=== PATIENT | male | born 1990 | race Caucasian/White ===

== ENCOUNTER 2019-06-27 11:07 | Inpatient (IN) ==
[~2019-06-27 11:07] MED LIST: ETOMIDATE 2 MG/ML 20 ML VIAL IV ONE; MIDAZOLAM HCL 5 MG/ML VIAL IV ONE
[2019-06-27] MEDS ORDERED: ICU PROTOCOL FOR HYPERGLYCEMIA PRN (11:34)
[2019-06-27] MEDS ORDERED: RAPID SEQUENCE INDUCTION BAG ONE (16:00)
[2019-06-27] MEDS ORDERED: LIDOCAINE 2% 20 MG/ML 5 ML SYR IV ONE (16:02)
[2019-06-27] MEDS ORDERED: fentaNYL citrate 100 MCG/2 ML VIAL IV PRN (16:03)
--- NOTE | 2019-06-27 16:18 | History & Physical Report ---
Date of Service June 27, 2019 Assessment & Plan (1) DKA (diabetic ketoacidoses): Transfer from [facility] for DKA -ICU admit -Glycemic Management per ICU protocol -Monitor labs (2) Pneumonia: (3) Acute respiratory failure with hypoxemia: Upon arrival to ICU from [facility] for pneumonia and hypoxia. Found to in hypoxic respiratory failure upon ICU arrival -Intubated and mechanical ventilation per merchandise appraiser -Blood cultures pending -Antibiotics per merchandise appraiser (4) History of narcotic addiction: Prior history opiod abuse. Was on buprenorphine in past. PDMP reviewed: buprenorphine 8mg, 12mg daily. Qty: 21, 14 day supply on 04/10/2019; No Further prescriptions on file since that date DVT Prophylaxis -Per ICU Admitted ICU Full Code Follows with Dr Dewey Phillips for routine care Pt was seen and care coordinated with Dr Goncalves. See addendum History of Present Illness Chief Complaint: DKA Primary Care Provider: Dr Dewey Phillips Pt is 28 y/o M with PMH narcotic use, tobacco use presented to [facility] ICU as transfer from [facility] for DKA, pneumonia, hypoxia. History obtained from staff and records. Reported pt presented to [facility] for weakness. Was found to have pneumonia right lung on CXR. Upon arrival at [facility] pt noted to be in hypoxic respiratory failure and was intubated. History of hospitalization at [facility] 05/06/18-05/09/18 for ?new onset DM, HHS vs DKA. It is reported pt is homeless. Pt's mother present currently and reports that she believes pt was on long and short acting insulin in the past however thinks that pt has not been taking for at least a couple of months. She states pt was on buprenorphine in past but unsure if still taking. PDMP reviewed: buprenorphine 8mg, 12mg daily. Qty: 21, 14 day supply on 04/10/2019. No report of prescriptions since that time. Allergies Allergy/AdvReac Type Severity Reaction Status Date / Time acesulfame Allergy Unknown RASH,N/V Verified 04/26/16 14:30 buprenorphine Allergy Unknown RASH,N/V Verified 04/26/16 14:30 Home Medications Home Medications Medication Instructions Recorded Confirmed Type buprenorphine HCl 8 mg SUBLINGUAL DAILY 12/23/18 12/23/18 History Past Med/Surg History Medical History Bleeding hemorrhoid Finger contusion R hand, pointer finger. 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 Feels Safe at Home: Yes Smoking Status: Current every day smoker Tobacco Type: cigarettes ; Cigarettes Per Day: 30 ; Hx Alcohol Use: No Hx Substance Use: Yes substance use type: methamphetamine Review of Systems Review of Systems: Unobtainable due to endotracheal tube Physical Exam Physical Exam: General: ill appearing, disheveled, thin male Head: normocephalic, atraumatic Eyes: PERRL, EOM's intact, conjunctiva non-injected, anicteric ENT: normal inspection external ears, nose, +ET tube in place Neck: supple, trachea midline Lungs: +intubated, lung sounds present throughout CV: tachycardia, 112, regular rhythm, no murmur, no pretibial edema Abd: normal BS, soft Ext: no cyanosis Neuro: Currently sedated and intubated Skin: warm, dry; anterior knees with erythema, heel pads in place Supervising Physician Co-Signing Physician Notes I, Dr. Dwayne Goncalves, have seen and examined the patient with physician technical administrative assistant after he was intubated by ICU physician and would like to comment that On exam: General: sedated HEENT: neck has central line, intubated, has oral gastric tube that is suctioning secretions Lungs: intubated and on mechanical ventilation Heart: tachycardic Abdomen: soft, abdomen, bowel sounds audible Acute respiratory failure with hypoxia Multilobar pneumonia (Pneumonia of both lungs due to suspected infectious organism) Diabetic Ketoacidosis with coma associated with diabetes mellitus due to underlying condition History of opioid abuse -history of Suboxone use in the past but unclear whether there is recent use -initially patient presented to [facility] and [facility] ICU physician was notified about the need for patient to be transferred to [facility] for intensive care -intubated on arrival from [facility] to the [facility] ICU -CXR: There is dense right lower lung zone consolidation. There is also evidence for loss of left diaphragmatic contour suggesting left lower lobe atelectasis/consolidation -patient already received azithromycin at [facility], ICU physician to give IV Zosyn and IV Vancomycin on 06/27/2019 and plans to continue regimen of IV Zosyn and IV Vancomycin with azithromycin on 06/28/2019 -management of mechanical ventilator as per IC physician -glucose management and correction of acidosis with IV fluids, insulin, and close monitoring or replacements or electrolytes in the ICU My hospitalist colleague will be following the starting on 06/28/2019
[2019-06-27] MEDS ORDERED: MIDAZOLAM HCL 5 MG/ML 1 ML VIAL ONE (16:23)
[2019-06-27] MEDS ORDERED: DC ALL PREVIOUSLY ORDERED DIABETES MEDS ONE (16:34)
[2019-06-27] MEDS ORDERED: PIPERACILL/TAZOBAC CONSULT ACTIVE PRN (16:36)
[2019-06-27] MEDS ORDERED: VANCOMYCIN CONSULT ACTIVE PRN (16:41)
[2019-06-27] MEDS ORDERED: VANCOMYCIN HCL 1,250 MG in SODIUM CHLORIDE 0.9% 500 ML IV ONE (16:41)
[2019-06-27] MEDS ORDERED: SODIUM CHLORIDE 0.9% 1000ML 1,000 ML IV SCH (16:45)
[2019-06-27] MEDS ORDERED: PIPERACILLIN/TAZOBACTAM 4.5 GM in DEXTROSE 5% 100 ML IV ONE (17:00)
--- NOTE | 2019-06-27 17:00 | Critical Care Consultation ---
Date of Consultation June 27, 2019 Assessment & Plan (1) Acute respiratory failure with hypoxemia: -- Sepsis with Acute Hypoxic respiratory failure Likely secondary to multilobar pneumonia If the patient broad-spectrum antibiotics, vancomycin plus Zosyn along with atypical coverage with azithromycin. Patient already got azithromycin at the other hospital will start here from tomorrow Patient will need intubation given his respiratory status. Follow-up septic work-up, ESR, CRP, sputum culture, Blood culture, UA -- Diabetic ketoacidosis Patient is type I diabetic Noncompliant with insulin plus sepsis secondary to multilobar pneumonia Continue with insulin drip until anion gap closes Decreasing blood glucose no more than 100 in an hour Replace potassium IV when potassium level between 3.3-5.3 BMP every 4 hours Continue with IV fluids -- HAGMA Delta-delta: 2, metabolic acidosis plus alkalosis Metabolic acidosis likely secondary to diabetic ketoacidosis, urine lytes Follow up ABG Monitor --History of opioid abuse Unsure the patient is on Suboxone --Secondary hypercoagulable state Lovenox I have personally spent 60 minutes of critical care time in the direct management of this patient. This is a life/limb threatening event. This includes time spent evaluating patient, direct bedside care, chart review, placing orders, interpretation of diagnostic studies, discussion with consultants, patient, and family members, as well as other required patient management activities. This time is exclusive of all separately billable procedures, and teaching time and separate from and in addition to any other critical care service time. Please note the above document was generated using voice recognition software. It may contain grammatical, syntax or spelling errors. (2) DKA (diabetic ketoacidoses): History of Present Illness Attending Physician: Dwayne Goncalves MD History of Present Illness 28-year-old male with past medical history of opioid addiction on Suboxone, type I diabetic history of noncompliance with insulin currently homeless was sent from ER of another hospital as patient was found to be in DKA and severe pneumonia on the right side to be on insulin drip. When the patient arrived at the ICU here he was saturating 89% on 100% nonrebreather tachypneic in the 30s. Lethargic. Patient complained of chest pain and coughing. Patient stated that he has been not feeling well since the last 3 to 4 days. Positive subjective fever and chills. Denies any dysuria, no diarrhea. Positive polyuria, polydipsia.no headache, no dizziness. Neck 9 at presentation his blood sugar was 220. Patient's ABG pH at that the hospital was 7.29 Plan was made to emergently intubate the patient given the declining respiratory and mental status. Patient was made aware that this will be done and he agreed verbally. Social history: History of opioid abuse currently on Suboxone, active smoker. Does not work right now. Homeless. Social alcohol Allergies Allergy/AdvReac Type Severity Reaction Status Date / Time acesulfame Allergy Unknown RASH,N/V Verified 04/26/16 14:30 buprenorphine Allergy Unknown RASH,N/V Verified 04/26/16 14:30 Home Medications Home Medications Medication Instructions Recorded Confirmed Type buprenorphine HCl 8 mg SUBLINGUAL DAILY 12/23/18 12/23/18 History Patient History Medical History Bleeding hemorrhoid Finger contusion R hand, pointer finger. 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 Feels Safe at Home: Yes Smoking Status: Current every day smoker Tobacco Type: cigarettes ; Cigarettes Per Day: 30 ; Hx Alcohol Use: No Hx Substance Use: No (Denies.) Review of Systems Review of Systems: All systems reviewed & are unremarkable except as noted in HPI & below Physical Exam Physical Exam: Constitutional: Respiratory distress with desaturation HEENT: EOMI, PERRLA, dry mucous membranes Respiratory system: Decreased air entry on the left side, positive crackles right lower lobe, no wheeze, no rhonchi CVS: S1-S2 positive, no murmurs or gallops, tachycardia Abdomen: Soft, nontender, nondistended, positive bowel sounds x4 Extremities: +2 pulses bilaterally radialis/ dorsalis pedis, no cyanosis, no edema Neuro: Awake alert oriented x3 Psych: Normal mood and affect G/U: No [place] Skin: no rashes, warm and dry Lymphatic: no cervical or axillary lymphadenopathy Results & Data ([facility]) Laboratory Results EKG: Sinus rhythm, sinus tachycardia, normal axis, no ST-T wave changes appreciated it was done at 9:28 AM on 06/27/2019. WBC: 11.21, hemoglobin 13.7, platelet 261 creatinine 1.89 Sodium 132, potassium 3.8, chloride 94, bicarb 14 corrected anion gap of 32 ABG 7.2 [birth year]/1959% on room air Coding Level of Care Code Critical Care 1st 30-74 mins Diagnoses Acute respiratory failure with hypoxemia J96.01 DKA (diabetic ketoacidoses) E11.10 Time Spent (min) 60
--- NOTE | 2019-06-27 17:09 | XRay Report ---
XR chest 1V portable CLINICAL HISTORY: Respiratory failure. PATIENT STATUS POST INTUBATION. COMPARISON STUDY: 05/06/2019 FINDINGS: There is a nasogastric tube with its tip projected over the level the gastric cardia. There is an endotracheal tube positioned 6.1 cm above the mike. There is dense right lower lung zone con solidation. There is also evidence for loss of left diaphragmatic contour suggesting left lower lobe atelectasis/consolidation.[There is an additional opaque tube projected over the right hemithorax. Th is is likely extraneous to the patient. There are overlying cardiac leads. IMPRESSION: 1. Endotracheal tube 6.1 cm above the mike 2. Nasogastric tube with its tip at the level the gastric cardia 3. Dense right lower lung zone consolidation with air bronchograms 3. Loss of the left diaphragmatic contour indicating left lower lobe atelectasis/consolidation ACT 112: Negative or not required by law. Electronically signed by: Danny Recinos M.D. 06/27/2019 5:07 PM
[2019-06-27] MEDS ORDERED: VANCOMYCIN HCL 1,500 MG in SODIUM CHLORIDE 0.9% 500 ML IV ONE (17:15)
[2019-06-27] MEDS: fentaNYL DRIP 1,250 MCG/250 ML BAG IV SCH (17:16)
--- NOTE | 2019-06-27 17:25 | Procedure Note ---
Procedure Note Date of Service June 27, 2019 INTUBATION PROCEDURE NOTE: Attending: Dr Hammad Hobson MD Patient was evaluated and plan to intubate was made for respiratory failure. Sedative agent used: Midazolam 5 mg, etomidate 25 mg, lidocaine 100 mg, propofol 70 mg Paralysis agent used: None Emergent consent was implied given patients rapidly declining clinical status and need for airway protection. The patient was prepared in the appropriate fashion. The patient was easily pre-oxygenated by using [id number] ventilation. With help of DL grade 1 vocal cords were visualized and 7 Green[place]ic ETT was introduced on third attempt with the help of bougie to 23 cm at the lip. The bougie was removed and balloon was inflated with 10mL of air. Appropriate Colorimetric change was appreciated for at least 10 breaths. Bilateral chest rise and breath sounds were appreciated without air sounds in the epigastrium. Patient saturation was maintained all throughout the procedure. Patient tolerated the procedure well and there were no immediate complications. Chest Xray to follow for confirming placement. Coding CPT Codes Resuscitation - Resuscitation: 87396 Endotracheal Intubation, emergency ([id number]) [facility] Procedure Codes (Charges) Resuscitation Resuscitation: [id number] Endotracheal Intubation, emergency
[2019-06-27] MEDS: propofoL 1,000 MG/100 ML VIAL IV SCH ×2 (17:29→22:53)
[2019-06-27] MEDS ORDERED: POTASSIUM CHLORIDE 40 MEQ in D5W AND NSS 1,000 ML IV SCH (17:30)
[2019-06-27] MEDS ORDERED: INFLUENZA ADMINISTRATION CHARGE ONE (17:38)
[2019-06-27] MEDS ORDERED: PNEUMOCOCCAL POLYSACCHARIDES 25 MCG/0.5 ML VIAL/SYR IM ONE (17:38)
[2019-06-27] MEDS ORDERED: PNEUMOCOCCAL ADMINISTRATION CHARGE ONE (17:38)
[2019-06-27] MEDS ORDERED: INFLUENZA VIRUS QUAD VACCINE 0.5 ML SYR IM ONE (17:38)
[2019-06-27] MEDS ORDERED: PHARMACY GLYCEMIC MGMT CONSULT PRN (17:41)
[2019-06-27 17:53] LABS: Appearance Urine Clear (Clear); Bacteria Urine Automated Negative (Negative); Bilirubin Urine Negative (Negative); Blood Urine Negative (Negative); Color Urine Yellow; Glucose Urine UA 3+ (Negative); Ketones Urine 2+ (Negative); Leukocyte Esterase Urine Negative (Negative); Nitrite Urine Negative (Negative); Protein Urine 1+ (Negative); Specific Gravity Urine 1.039 (1.000-1.030); Urobilinogen Urine Negative (Negative); WBC Urine Automated 0 /hpf (0-5)
[2019-06-27 17:57] LABS: Blood Urea Nitrogen 10 mg/dl (7-18); Carbon Dioxide 23 mmol/L (21-32); Chloride 107 mmol/L (98-107); Creatinine Clr Calc Pharmacy 155.3 ml/min; Est GFR (African American) > 150.0; Est GFR (Non-African American) 136.8; Glucose 286 mg/dl (70-99); Magnesium 1.6 mg/dl (1.8-2.4); Potassium 3.8 mmol/L (3.5-5.1); Sodium 138 mmol/L (136-145)
[2019-06-27] MEDS ORDERED: PENDING D5 1/2NS+20mEq KCL IVF SCH (18:00)
[2019-06-27] MEDS ORDERED: INSULIN HUMAN REGULAR IV BOLUS 3 UNITS in SYRINGE 0 ML IV STA (18:01)
[2019-06-27 18:04] LABS: Beta-Hydroxybutyrate 21.08 mg/dl (0.2-2.81); Phosphorus 1.8 mg/dl (2.5-4.9)
[2019-06-27 18:07] LABS: Creatinine Urine Random 32.9 mg/dl; Potassium Random Urine 31.2 mmol/L; Uric Acid Urine Random 71.9 mg/dl
[2019-06-27] MEDS ORDERED: DEXTROSE 50% 50 ML SYRINGE IV PRN (18:15)
[2019-06-27] MEDS ORDERED: GLUCOSE 10 TABS/TUBE PO PRN (18:15)
[2019-06-27] MEDS ORDERED: CARBOHYDRATES FOR HYPOGLYCEMIA PO PRN (18:15)
[2019-06-27] MEDS ORDERED: GLUCAGON FOR INJ 1 MG VIAL IM PRN (18:15)
[2019-06-27] MEDS ORDERED: GLUCOSE 40% GEL 15 GM TUBE PO PRN (18:15)
[2019-06-27] MEDS: INSULIN REGULAR 250 UNITS in SODIUM CHLORIDE 0.9% 247.5 ML IV SCH (18:19)
[2019-06-27] MEDS ORDERED: POTASSIUM CHLORIDE 40 MEQ in SODIUM CHLORIDE 0.9% 1000ML 1,000 ML IV SCH (18:30)
[2019-06-27] MEDS: POTASSIUM CHLORIDE 40 MEQ in D5W AND NSS 1,000 ML IV SCH ×2 (18:50→22:52)
--- NOTE | 2019-06-27 19:43 | Pharmacy Report ---
Pharmacy Abx Initial Consult - Date of Service June 27, 2019 - Pharmacy Dosing Scope Date of Consult: 06/27/19 Consultation requested by: Dr. Hobson Pharmacy is consulted to initiate vancomycin and Zosyn IV dosing therapy, order appropriate labs and adjust drug dose/frequency. - Subjective The patient is a 28 year old M admitted on 06/27/19 15:47. - Objective Height: 6 ft 1 in Weight: 59.421 kg Vital Signs (Past 12hrs): Vital Signs Temp Pulse Pulse Resp BP Pulse Ox 06/27/19 17:29 22 06/27/19 17:24 37.2 C 111 H 24 85/55 L 85 L 06/27/19 17:06 119 H 22 100 Lab Results (24hrs): Laboratory Tests (24 Hours) 06/27/19 06/27/19 17:26 17:26 ESR > 90 H Creatinine 0.59 L Est Cr Clr Drug Dosing 155.3 C-Reactive Protein 32.20 H Micro Results: 06/27/19 17:28 Aerobic Blood Culture - Pending Blood Anaerobic Blood Culture - Pending 06/27/19 17:28 Aerobic Blood Culture - Pending Blood Anaerobic Blood Culture - Pending 06/27/19 Unknown Gram Stain - Pending Sputum,Vent Suction Sputum Culture - Pending - Assessment & Plan Assessment 28 year old M receiving empiric vancomycin, Zosyn, and azithromycin for sepsis secondary to multilobar pneumonia. Patient transferred from [facility] due to acute respiratory failure/DKA and was subsequently intubated upon admission to ICU. Patient received initial dose of azithromycin at [facility] on 06/27/19. MRSA nasal swab negative. Microbiology: Blood x 2 (06/27): pending Sputum (06/27): pending Plan Vancomycin IV * Estimated PK Parameters: Vd 0.7 L/kg, Jhon > 0.104 hr-1, t1/2 < 6.6 hr * Loading dose: 1500 mg (25 mg/kg) * Maintenance dose: 1000 mg IV (20 mg/kg) every 8 hours * Goal trough level for pneumonia : 15 to 20 mcg/mL * Trough level ordered for 06/28/19 @1330 prior to 4th dose Piperacillin/tazobactam * 4.5 g bolus administered over 30 minutes, then 4.5 g IV extended infusion every 8 hours for CrCl greater than 20 mL/min * Aggressive dosing selected due to critically ill status Azithromycin * 500 mg IV q24h - appropriate based on pneumonia indication Pharmacy will continue to follow and will adjust dose/frequency as necessary. Thank you.
--- NOTE | 2019-06-27 19:51 | Pharmacy Report ---
Glycemic Control Consultation - Date of Service June 27, 2019 - Scope Scope: Glycemic Pharmacist consulted by Dr Hobson on 06/27/2019 for glycemic control and to write orders per [facility] inpatient glycemic control protocol - Objective Weight: 59.421 kg Accuchecks BSG (last 24hrs): 06/27/19 06/27/19 06/27/19 16:02 17:24 17:26 Glucose 286 H POC Glucose 226 H 263 H 06/27/19 06/27/19 06/27/19 18:03 18:06 19:08 Glucose POC Glucose 404 H* 283 H 266 H Laboratory Data (last 24hrs): 06/27/19 06/27/19 17:26 17:28 Potassium 3.8 Carbon Dioxide 23 Anion Gap 8.0 Creatinine 0.59 L Est Cr Clr Drug Dosing 155.3 Osmolality 299 Beta-Hydroxybutyric Acd 21.08 H - Recent Pertinent Medications Outpatient Anti-diabetic Regimen: * Novolog + lantus * A1c = pending, A1C from 2018 was >16.9 - Assessment & Plan Assessment & Plan: ASSESSMENT: * Pt is a 28yo M type I diabetic. P/w ARDS, DKA. He was subsequently intubated due to decompensating respiratory status. He has filled novolog + lantus per the outpt records. Unknown doses. Most recent PRP yields BHB of 21. AG, bicarbonate all WNL. PLAN FOR INPATIENT GLYCEMIC CONTROL: * Starting IV insulin infusion per moderate stress protocol * Goal Range 150 - 250 mg/dl * In the critical care setting, continuous IV insulin infusion has been shown to be the best method for achieving glycemic targets. * Basal insulin * Lantus 15u X1 tonight * Please note that the plan above was derived based on current level of insulin resistance and hospital stress. These recommendations are appropriate for inpatient admission only. Plan of care upon discharge will need to be reassessed to avoid potential outpatient hypo/hyperglycemia. Thank you.
[2019-06-27] MEDS ORDERED: MAGNESIUM SULFATE / D5W 1 GM/100 ML BAG IV STA (19:54)
[2019-06-27] MEDS: ACETAMINOPHEN 325 MG TAB PO PRN (20:32)
[2019-06-27 20:37] LABS: BUN Creatinine Ratio 15.4 (10-20); Blood Urea Nitrogen 9 mg/dl (7-18); Calcium 8.4 mg/dl (8.5-10.1); Carbon Dioxide 24 mmol/L (21-32); Chloride 111 mmol/L (98-107); Creatinine Clr Calc Pharmacy 150.2 ml/min; Est GFR (African American) > 150.0; Glucose 280 mg/dl (70-99); Magnesium 1.4 mg/dl (1.8-2.4); Potassium 3.5 mmol/L (3.5-5.1); Sodium 140 mmol/L (136-145)
[2019-06-27 20:51] LABS: Phosphorus 1.2 mg/dl (2.5-4.9)
[2019-06-27] MEDS ORDERED: POTASSIUM PHOS 3 MMOL/1 ML INFUSION IV STA ×2 (20:57→21:03)
[2019-06-27] MEDS ORDERED: INSULIN GLARGINE SOLOSTAR 100 UNITS/ML 3 ML PEN SC ONE (21:00)
[2019-06-27] MEDS ORDERED: MAGNESIUM SULFATE / D5W 1 GM/100 ML BAG IV ONE (21:00)
[2019-06-27] MEDS ORDERED: POTASSIUM PHOSPHATE 21 MMOL in SODIUM CHLORIDE 0.9% 500 ML IV STA (21:19)
[2019-06-27] MEDS: INSULIN ASPART 100 UNITS/ML 3 ML PEN SC SCH (22:15)
[2019-06-27] MEDS: PIPERACILLIN/TAZOBACTAM 4.5 GM in DEXTROSE 5% 100 ML IV SCH (22:55)
[2019-06-27] MEDS ORDERED: ALBUT/IPRATROP 3MG/0.5MG NEB 3 ML VIAL NEB STA ×2 (23:05→23:16)
--- NOTE | 2019-06-27 23:30 | Communication Note ---
Date of Service: June 27, 2019 At approximately 2300, the patient was noted to desaturate into the high 70s. I did assess the patient at bedside. He remains on the same ventilator settings with FiO2 of 70%. His tidal volumes have decreased to the high 200s/low 300s. On assessment, the patient has no increasing work of breathing. His respiratory rate is consistent with that of his settings. He is hypoxic with a pulse oximetry reading of low 80%'s. Patient's FiO2 was increased to 100%. Respiratory therapy was summoned. I did personally lavaged the patient using 2 separate sterile saline flushes. [place]/thick material was suctioned from the ET tube. Hour-long DuoNeb was ordered despite the patient without exam findings of wheezing. Repeat chest x-ray was ordered and interpreted by myself. There does appear to be some improving aeration at the base of the RIGHT sided lung. Possible worsening filtration to the LEFT-sided lower lung ye. No change in position of the ET tube. Repeat blood gas was obtained prior to further intervention. Values as follows: 7.267/50.7/63/100%. This unfortunately equates to a P:F of 63, consistent w/ severe ARDS per [employer]DS[employer]. PEEP was adjusted to 15 cmH2O as patient received hour long DuoNeb treatment. Throughout this, the patient did have significant improvement in oxygenation into the mid 90's. Arterial line was placed by myself for frequent ABG monitoring and ventilator adjustment as needed. Respiratory therapy present at bedside throughout. Will repeat ABG in 2hours s/p ventilator changes to reassess. Currently, oxygenation has improved to >96%, which is the best we have seen to this point. Hopefully we will be able to wean Fi02 throughout the night. I have personally spent 45 minutes of critical care time in the direct management of this patient. This is a life/limb threatening event. This includes time spent evaluating patient, direct bedside care, chart review, placing orders, interpretation of diagnostic studies, discussion with consultants, patient, and family members, as well as other required patient management activities. This time is exclusive of all separately billable procedures, and teaching time and separate from and in addition to any other critical care service time. Coding Level of Care Code Critical Care ea addt'l 30 min Time Spent (min) 45
--- NOTE | 2019-06-28 00:03 | Procedure Note ---
Procedure Note Date of Service June 27, 2019 Procedure: Arterial Line Placement Attending: Dr. Hobson APC: Sandip Walker PA-C Indication: Monitoring on Pressors Anesthesia: Lidocaine 1% Emergent consent implied in the setting of worsening respiratory failure requiring higher FiO2/PEEP as well as need for frequent ABG trials and lab draws in general. A time-out was completed verifying correct patient, procedure, site, positioning, and implant(s) or special equipment if applicable. Allens test was performed to ensure adequate perfusion. Patients RIGHT wrist was prepped and draped in the usual sterile fashion. Ultrasound guidance was used to aid needle placement. A 20g Arrow arterial line was introduced into the RIGHT Radial a rtery. Catheter was threaded, and the needle was removed with appropriate blood return. Good waveform was observed. The patient tolerated the procedure well. Confirmation of placement with ultrasound. Blood Loss: Minimal Complications: None Procedural Ultrasound Guidance: Procedure Date: 06/27/2019 Indication: ABGs, Labs, BP monitoring Attending: Dr. Hobson APC: Sandip Walker PA-C Artery Identified: YES Line confirmed in Artery with ultrasound: YES Complications: NONE Patient tolerated procedure: WELL Coding CPT Codes Tubes, Drains, and Vasc Access - Tubes, Drains, and Vasc Access: [id number] Place Catheter In Artery ([id number]) [facility] Procedure Codes (Charges) Tubes, Drains, and Vasc Access Procedure 1: Tubes, Drains, and Vasc Access: [id number] Place Catheter In Artery
[2019-06-28] MEDS ORDERED: ALBUTEROL 0.083% NEBU SOLN 3 ML VIAL NEB STA (00:33)
[2019-06-28 00:53] LABS: BUN Creatinine Ratio 18.9 (10-20); Blood Urea Nitrogen 8 mg/dl (7-18); Calcium 8.4 mg/dl (8.5-10.1); Carbon Dioxide 24 mmol/L (21-32); Chloride 115 mmol/L (98-107); Est GFR (African American) > 150.0; Est GFR (Non-African American) > 150.0; Glucose 215 mg/dl (70-99); Magnesium 1.8 mg/dl (1.8-2.4); Phosphorus 1.6 mg/dl (2.5-4.9); Potassium 3.7 mmol/L (3.5-5.1); Sodium 142 mmol/L (136-145)
[2019-06-28] MEDS: VANCOMYCIN HCL 1,250 MG in SODIUM CHLORIDE 0.9% 250 ML IV SCH ×3 (01:46→16:55)
[2019-06-28] MEDS: ACETAMINOPHEN 325 MG TAB PO PRN ×3 (01:46→13:16)
[2019-06-28] MEDS: ALBUT/IPRATROP 3MG/0.5MG NEB 3 ML VIAL INH SCH ×6 (03:09→22:42)
[2019-06-28] MEDS: POTASSIUM CHLORIDE 40 MEQ in D5W AND NSS 1,000 ML IV SCH ×2 (03:20→07:31)
[2019-06-28 04:32] LABS: Hematocrit (blood only) 32.1 % (42-52); Hemoglobin 10.8 g/dL (14.0-18.0); Mean Corpuscular Hemoglobin 32.6 pg (25-34); Mean Corpuscular Hgb Conc 33.6 g/dL (32-36); Mean Platelet Volume 9.8 fL (7.4-10.4); Platelet Count 188 K/uL (130-400); RDW Coefficient of Variation 12.8 % (11.5-14.5); RDW Standard Deviation 45.2 fL (36.4-46.3); Red Blood Count 3.31 M/uL (4.7-6.1); White Blood Count 8.63 K/uL (4.8-10.8)
[2019-06-28 04:37] LABS: Base Excess ABG -3.1 mEq/L (-9-1.8); HCO3 ABG 23 mmol/L (19-24); Oxygen Saturation ABG 95.6 % (90-95); PCO2 ABG 43 mmHg (35-46); PO2 ABG 80 mmHg (80-95); pH ABG 7.34 (7.35-7.45)
[2019-06-28 04:45] LABS: Allen Test POS (Pos)
[2019-06-28 04:48] LABS: Blood Urea Nitrogen 7 mg/dl (7-18); Calcium 8.4 mg/dl (8.5-10.1); Carbon Dioxide 24 mmol/L (21-32); Chloride 116 mmol/L (98-107); Creatinine Clr Calc Pharmacy 241.1 ml/min; Est GFR (African American) > 150.0; Est GFR (Non-African American) > 150.0; Glucose 204 mg/dl (70-99); Magnesium 1.7 mg/dl (1.8-2.4); Potassium 3.5 mmol/L (3.5-5.1); Sodium 142 mmol/L (136-145)
[2019-06-28 04:58] LABS: Phosphorus 1.3 mg/dl (2.5-4.9)
[2019-06-28] MEDS ORDERED: POTASSIUM PHOS 3 MMOL/1 ML INFUSION IV STA ×2 (05:03→13:49)
[2019-06-28] MEDS ORDERED: MAGNESIUM SULFATE / D5W 1 GM/100 ML BAG IV ONE (05:03)
[2019-06-28 05:05] LABS: Basophils # (auto) 0.01 K/uL (0-0.2); Basophils % (auto) 0.1 %; Dohle Bodies 1+; Eosinophils # (auto) 0.05 K/uL (0-0.5); Eosinophils % (auto) 0.6 %; Immature Granulocytes % (auto) 1.2 %; Lymphocytes # (auto) 0.86 K/uL (1.2-3.4); Monocytes # (auto) 0.43 K/uL (0.11-0.59); Neutrophils # (auto) 7.18 K/uL (1.4-6.5); Neutrophils % (auto) 83.1 %; Toxic Granulation 1+
[2019-06-28] MEDS: propofoL 1,000 MG/100 ML VIAL IV SCH ×3 (05:36→14:56)
[2019-06-28] MEDS: PIPERACILLIN/TAZOBACTAM 4.5 GM in DEXTROSE 5% 100 ML IV SCH ×3 (05:37→22:13)
[2019-06-28] MEDS ORDERED: POTASSIUM PHOSPHATE 24 MMOL in SODIUM CHLORIDE 0.9% 500 ML IV ONE (06:00)
--- NOTE | 2019-06-28 06:11 | XRay Report ---
XR chest 1V portable CLINICAL HISTORY: hypoxia COMPARISON STUDY: 2019 4:54 PM. FINDINGS: Endotracheal tube 6.5 cm with a chronic. Consolidative changes right lung base unaltered. S mall left pleural effusion. Nasogastric tube mid stomach. IMPRESSION: Endotracheal tube 6 x 5 cm above the mike. Study is otherwise unchanged. Nasogastric t ube mid stomach. ACT 112: Negative or not required by law. The above report was generated using voice recognition software. It may contain grammatical, syntax or spelling errors. Electronically signed by: Joe Lozada M.D. 06/28/2019 6:10 AM
--- NOTE | 2019-06-28 06:57 | XRay Report ---
XR chest 1V portable CLINICAL HISTORY: Respiratory failure. Pneumonia. COMPARISON STUDY: 06/27/2019 FINDINGS: There is a nasogastric tube within the stomach. There is an endotracheal tube 5.5 cm above the mike. There is dense consolidation of the right lower lung zone with air bronchograms. There is been marked improvement in the aeration of the right lower lobe. There is lateral shouldering right hemidiaphragm and a small subpulmonic pleural effusion is suspected.[ IMPRESSION: 1. Persistent dense consolidation right lower lung zone with air bronchograms. The findings are consi stent with a pneumonia 2. Suspected small subpulmonic right pleural effusion 3. Marked improvement in the aeration of the left lower lobe. ACT 112: Negative or not required by law. Electronically signed by: Danny Recinos M.D. 06/28/2019 6:56 AM
--- NOTE | 2019-06-28 07:50 | Critical Care Progress Note ---
Date of Service June 28, 2019 Assessment & Plan (1) Acute respiratory failure with hypoxemia: --VDRF secondary to sepsis with Acute Hypoxic respiratory failure Likely secondary to multilobar pneumonia, intubated 06/27/2019 Continue with broad-spectrum antibiotics, vancomycin plus Zosyn along with atypical coverage with azithromycin Follow-up septic work-up, sputum culture, Blood culture, procalcitonin: 17.05 ESR: Greater than 90, CRP: 32.2,UA: Clean Patient's in severe ALI, on lung protective ventilation Keep plateau less than 30 Daily SBT's Elevation of the bed to 30 degrees Aspiration precautions --s/p Diabetic ketoacidosis Patient is type I diabetic Noncompliant with insulin plus sepsis secondary to multilobar pneumonia Continue with insulin drip until anion gap closes --> will start basal insulin once the patient starts feeding through NGT Replace potassium IV when potassium level between 3.3-5.3 --Status post HAGMA Initial delta-delta: 2, metabolic acidosis plus alkalosis, Metabolic acidosis likely secondary to diabetic ketoacidosis, Urine gap positive Monitor --History of opioid abuse Unsure the patient is on Suboxone --Secondary hypercoagulable state Lovenox Plan: Go down gradually on FiO2 and then try to titrate down PEEP Anion gap closed. Titrate down sedation to keep patient RASS -1 Patient blood pressure is low normal We will start tube feeding today I have personally spent 40 minutes of critical care time in the direct management of this patient. This is a life/limb threatening event. This includes time spent evaluating patient, direct bedside care, chart review, placing orders, interpretation of diagnostic studies, discussion with consultants, patient, and family members, as well as other required patient management activities. This time is exclusive of all separately billable procedures, and teaching time and separate from and in addition to any other critical care service time. Please note the above document was generated using voice recognition software. It may contain grammatical, syntax or spelling errors. (2) DKA (diabetic ketoacidoses): Subjective Patient seen and examined at bedside. No acute distress. Overnight patient had episode of desaturation when they were moving him. It went up to high 70s he was put on 100% given DuoNeb treatments put 100% with PEEP of 15. Patient gradually improved and he was put back to PEEP of 12 and 70%. Today at the time of examination patient was on SIMV for 20 tidal volume 22 respiratory rate PEEP of 12, 70% saturating 98%. We will change to volume control assist control with the same tidal volume and respiratory rate and go down to 60% FiO2 Patient is moving all the extremities on waking up. Still spiking fevers. Review of Systems Review of Systems: Unobtainable due to endotracheal tube Physical Exam Physical Exam: Constitutional: Intubated, sedated HEENT: EOMI, PERRLA, ETT Respiratory system: Decreased air entry on the right side, positive crackles right lower lobe, no wheeze, no rhonchi CVS: S1-S2 positive, no murmurs or gallops, tachycardia Abdomen: Soft, nontender, nondistended, positive bowel sounds x4 Extremities: +2 pulses bilaterally radialis/ dorsalis pedis, no cyanosis, no edema Neuro: Rass -2, moves all his extremities on command, pupils and cornea responding Psych: Unable to assess G/U: Positive [place] Skin: no rashes, warm and dry Lymphatic: no cervical or axillary lymphadenopathy Results & Data ([facility]) Vital Signs (Past 12 Hours) Vital Signs Temp Pulse Resp BP Pulse Ox 06/28/19 06:01 107 H 93/61 L 93 06/28/19 05:35 107 H 24 91 06/28/19 05:12 109 H 24 92 06/28/19 05:00 122 H 83/59 L 91 06/28/19 04:01 37.9 C H 112 H 100 06/28/19 03:05 109 H 24 100 06/28/19 03:00 112 H 24 100 06/28/19 02:00 114 H 100 06/28/19 01:07 117 H 100/67 100 06/28/19 01:00 115 H 99 06/28/19 00:52 115 H 96/60 L 100 06/28/19 00:37 115 H 90/58 L 96 06/28/19 00:22 115 H 89/62 L 99 06/28/19 00:08 119 H 93/63 L 97 06/28/19 00:00 36.9 C 119 H 98 06/27/19 23:42 116 H 25 H 97 06/27/19 22:15 111 H 24 90 06/27/19 21:06 109 H 87/58 L 01/29/20 21:00 111 H 06/27/19 20:51 107 H 84/59 L 90 06/27/19 20:50 109 H 90 06/27/19 20:40 108 H 91 06/27/19 20:37 108 H 87/62 L 91 06/27/19 20:30 107 H 91 06/27/19 20:21 106 H 90/61 L 90 06/27/19 20:20 106 H 89 L 06/27/19 20:15 107 H 24 89 L 06/27/19 20:10 106 H 89 L 06/27/19 20:07 107 H 90/57 L 89 L 06/27/19 20:00 103 H 92 06/27/19 19:51 108 H 92/61 L 90 06/27/19 19:50 107 H 90 06/27/19 19:40 110 H 90 06/28/19 04:19 06/28/19 04:19 Coding Level of Care Code Critical Care 1st 30-74 mins Diagnoses Acute respiratory failure with hypoxemia J96.01 DKA (diabetic ketoacidoses) E11.10 Time Spent (min) 40
[2019-06-28] MEDS: AZITHROMYCIN 500 MG in DEXTROSE 5% 250 ML IV SCH (08:00)
[2019-06-28 09:15] LABS: BUN Creatinine Ratio 15.8 (10-20); Blood Urea Nitrogen 6 mg/dl (7-18); Calcium 8.2 mg/dl (8.5-10.1); Carbon Dioxide 23 mmol/L (21-32); Chloride 118 mmol/L (98-107); Creatinine Clr Calc Pharmacy 263.4 ml/min; Est GFR (African American) > 150.0; Est GFR (Non-African American) > 150.0; Glucose 165 mg/dl (70-99); Magnesium 1.9 mg/dl (1.8-2.4); Potassium 3.7 mmol/L (3.5-5.1); Sodium 144 mmol/L (136-145)
[2019-06-28 09:16] LABS: Phosphorus 1.6 mg/dl (2.5-4.9)
--- NOTE | 2019-06-28 09:18 | Hospitalist Progress Note ---
Date of Service June 28, 2019 Assessment & Plan (1) Acute respiratory failure with hypoxemia: Acute hypoxic respiratory failure, secondary to bilateral pneumonia --Remains on mechanical ventilator --Blood cultures pending --Continue vancomycin, Zosyn, azithromycin For the mechanical ventilator management per wrapping checker Appreciate the recommendations Diabetic ketoacidosis Type 1 diabetes --Anion gap closed, glucose 165 --On insulin drip Pharmacy glycemic control on board History of narcotic abuse --Apparently patient was on Suboxone in the past Monitor for withdrawal symptoms DVT prophylaxis --Lovenox Subjective Follow-up with acute hypoxic respiratory failure, pneumonia, DKA Seen and mechanically ventilated, on sedation No acute overnights per staff respiratory therapist Not in acute distress, sedated on exam Review of Systems Review of Systems: Other Unobtainable due to sedation Physical Exam Physical Exam: General-sedated, not in distress, breathing with no accessory muscle use Head- atraumatic Eyes- PERRL, EOMI, anicteric ENT-ET tube in place Neck- no adenopathy, no thyromegaly Lungs-positive rhonchi bilaterally, no wheezing Heart- normal rate, regular rhythm; no murmur, no gallop, no rub appreciated Abdomen- normal bowel sounds, nondistended, soft, nontender, no masses or hepatosplenomegaly Extremities- no pretibial edema, no calf tenderness; peripheral pulses intact Neuro-sedated Skin- warm & dry Results & Data ([facility]) Vital Signs (Past 12 Hours) Vital Signs Temp Pulse Resp BP Pulse Ox 06/28/19 08:03 103 H 24 100 06/28/19 06:01 107 H 93/61 L 93 06/28/19 05:35 107 H 24 91 06/28/19 05:12 109 H 24 92 06/28/19 05:00 122 H 83/59 L 91 06/28/19 04:01 37.9 C H 112 H 100 06/28/19 03:05 109 H 24 100 06/28/19 03:00 112 H 24 100 06/28/19 02:00 114 H 100 06/28/19 01:07 117 H 100/67 100 06/28/19 01:00 115 H 99 06/28/19 00:52 115 H 96/60 L 100 06/28/19 00:37 115 H 90/58 L 96 06/28/19 00:22 115 H 89/62 L 99 06/28/19 00:08 119 H 93/63 L 97 06/28/19 00:00 36.9 C 119 H 98 06/27/19 23:42 116 H 25 H 97 06/27/19 22:15 111 H 24 90 Laboratory Results Laboratory Results - last 24 hr 06/27/19 06/27/19 06/27/19 17:14 17:26 17:26 WBC RBC Hgb POC Hgb 11.9 L Hct POC Hct 35 L MCV MCH MCHC RDW Std Deviation RDW Coeff of [place] Plt Count MPV Immature Gran % (Auto) Neut % (Auto) Lymph % (Auto) [place] % (Auto) Eos % (Auto) Baso % (Auto) Immature Gran # (Auto) Neut # (Auto) Lymph # (Auto) [place] # (Auto) Eos # (Auto) Baso # (Auto) Toxic Granulation Dohle Bodies Specimen Type Arterial Sample Site R Radial Patient Temperature POC pH 7.33 L POC pCO2 41 POC pO2 51 L POC HCO3 22 POC Total CO2 23 L POC Base Excess -4.0 POC O2 Saturation 83 O2 Sat Pulse Oximetry ABG pH ABG pH (Temp Correct) ABG pCO2 ABG pCO2 (Temp Corrct ABG pO2 POC ABG pO2 at Pt Temp ABG HCO3 ABG O2 Saturation ABG Base Excess Avelino Test Acceptable VBG pH Set Respiration Rate Barometric Pressure Oxygen Given O2 Delivery Device Ventilator POC O2 Rate 20 Minute Ventilation 8.6 Vent Mode AC Vent Setting Spontaneous Rate FiO2 (liters per min) POC FiO2 Tidal Volume 450 Spontaneous Tidal Vol End Tidal CO2 PEEP 10 High PEEP Setting Low PEEP Setting Pressure Support POC Pressure Suppt Pressure Support Vent Pressure High Time High Time Low EPAP IPAP POC Blood Gas Comment POC Sodium 139 Sodium POC Potassium 3.8 Potassium Chloride Carbon Dioxide Anion Gap BUN Creatinine Est Cr Clr Drug Dosing Est GFR ( Amer) Est GFR (Non-Af Amer) BUN/Creatinine Ratio Glucose POC Glucose Estimat Average Glucose TNP Estimated Ave Glu mmol/L Pending Estimated Ave Glu mg/dL Pending Hemoglobin A1c TNP Pending Calcium Phosphorus Magnesium Procalcitonin Random Cortisol Vancomycin Trough 06/27/19 06/27/19 06/27/19 19:08 19:59 20:05 WBC RBC Hgb POC Hgb Hct POC Hct MCV MCH MCHC RDW Std Deviation RDW Coeff of [place] Plt Count MPV Immature Gran % (Auto) Neut % (Auto) Lymph % (Auto) [place] % (Auto) Eos % (Auto) Baso % (Auto) Immature Gran # (Auto) Neut # (Auto) Lymph # (Auto) [place] # (Auto) Eos # (Auto) Baso # (Auto) Toxic Granulation Dohle Bodies Specimen Type Sample Site Patient Temperature POC pH POC pCO2 POC pO2 POC HCO3 POC Total CO2 POC Base Excess POC O2 Saturation O2 Sat Pulse Oximetry ABG pH ABG pH (Temp Correct) ABG pCO2 ABG pCO2 (Temp Corrct ABG pO2 POC ABG pO2 at Pt Temp ABG HCO3 ABG O2 Saturation ABG Base Excess Avelino Test VBG pH Set Respiration Rate Barometric Pressure Oxygen Given O2 Delivery Device POC O2 Rate Minute Ventilation Vent Mode Vent Setting Spontaneous Rate FiO2 (liters per min) POC FiO2 Tidal Volume Spontaneous Tidal Vol End Tidal CO2 PEEP High PEEP Setting Low PEEP Setting Pressure Support POC Pressure Suppt Pressure Support Vent Pressure High Time High Time Low EPAP IPAP POC Blood Gas Comment POC Sodium Sodium 140 POC Potassium Potassium 3.5 Chloride 111 H Carbon Dioxide 24 Anion Gap 5.0 BUN 9 Creatinine 0.61 Est Cr Clr Drug Dosing 150.2 Est GFR ( Amer) > 150.0 Est GFR (Non-Af Amer) 135.0 BUN/Creatinine Ratio 15.4 Glucose 280 H POC Glucose 266 H 259 H Estimat Average Glucose Estimated Ave Glu mmol/L Estimated Ave Glu mg/dL Hemoglobin A1c Calcium 8.4 L Phosphorus 1.2 L* Magnesium 1.4 L Procalcitonin Random Cortisol Vancomycin Trough 06/27/19 06/27/19 06/27/19 20:05 21:07 22:04 WBC RBC Hgb POC Hgb Hct POC Hct MCV MCH MCHC RDW Std Deviation RDW Coeff of [place] Plt Count MPV Immature Gran % (Auto) Neut % (Auto) Lymph % (Auto) [place] % (Auto) Eos % (Auto) Baso % (Auto) Immature Gran # (Auto) Neut # (Auto) Lymph # (Auto) [place] # (Auto) Eos # (Auto) Baso # (Auto) Toxic Granulation Dohle Bodies Specimen Type Sample Site Patient Temperature POC pH POC pCO2 POC pO2 POC HCO3 POC Total CO2 POC Base Excess POC O2 Saturation O2 Sat Pulse Oximetry ABG pH ABG pH (Temp Correct) ABG pCO2 ABG pCO2 (Temp Corrct ABG pO2 POC ABG pO2 at Pt Temp ABG HCO3 ABG O2 Saturation ABG Base Excess Avelino Test VBG pH 7.33 L Set Respiration Rate Barometric Pressure Oxygen Given O2 Delivery Device POC O2 Rate Minute Ventilation Vent Mode Vent Setting Spontaneous Rate FiO2 (liters per min) POC FiO2 Tidal Volume Spontaneous Tidal Vol End Tidal CO2 PEEP High PEEP Setting Low PEEP Setting Pressure Support POC Pressure Suppt Pressure Support Vent Pressure High Time High Time Low EPAP IPAP POC Blood Gas Comment POC Sodium Sodium POC Potassium Potassium Chloride Carbon Dioxide Anion Gap BUN Creatinine Est Cr Clr Drug Dosing Est GFR ( Amer) Est GFR (Non-Af Amer) BUN/Creatinine Ratio Glucose POC Glucose 256 H 227 H Estimat Average Glucose Estimated Ave Glu mmol/L Estimated Ave Glu mg/dL Hemoglobin A1c Calcium Phosphorus Magnesium Procalcitonin Random Cortisol Vancomycin Trough 06/27/19 06/27/19 06/28/19 23:06 23:08 00:05 WBC RBC Hgb POC Hgb 10.9 L Hct POC Hct 32 L MCV MCH MCHC RDW Std Deviation RDW Coeff of [place] Plt Count MPV Immature Gran % (Auto) Neut % (Auto) Lymph % (Auto) [place] % (Auto) Eos % (Auto) Baso % (Auto) Immature Gran # (Auto) Neut # (Auto) Lymph # (Auto) [place] # (Auto) Eos # (Auto) Baso # (Auto) Toxic Granulation Dohle Bodies Specimen Type Arterial Sample Site R Radial Patient Temperature 38.6 POC pH 7.29 L POC pCO2 47 H POC pO2 56 L POC HCO3 23 POC Total CO2 24 POC Base Excess -4.0 POC O2 Saturation 85 O2 Sat Pulse Oximetry 87 ABG pH ABG pH (Temp Correct) ABG pCO2 ABG pCO2 (Temp Corrct ABG pO2 POC ABG pO2 at Pt Temp ABG HCO3 ABG O2 Saturation ABG Base Excess Avelino Test Acceptable VBG pH Set Respiration Rate Barometric Pressure Oxygen Given O2 Delivery Device Ventilator POC O2 Rate 24 Minute Ventilation 8.9 Vent Mode AC Vent Setting Spontaneous Rate FiO2 (liters per min) POC FiO2 100 Tidal Volume 420 Spontaneous Tidal Vol End Tidal CO2 37 PEEP 12 High PEEP Setting Low PEEP Setting Pressure Support POC Pressure Suppt Pressure Support Vent Pressure High Time High Time Low EPAP IPAP POC Blood Gas Comment POC Sodium 143 Sodium POC Potassium 3.6 Potassium Chloride Carbon Dioxide Anion Gap BUN Creatinine Est Cr Clr Drug Dosing Est GFR ( Amer) Est GFR (Non-Af Amer) BUN/Creatinine Ratio Glucose POC Glucose 233 H 230 H Estimat Average Glucose Estimated Ave Glu mmol/L Estimated Ave Glu mg/dL Hemoglobin A1c Calcium Phosphorus Magnesium Procalcitonin Random Cortisol Vancomycin Trough 06/28/19 06/28/19 06/28/19 00:29 00:29 01:53 WBC RBC Hgb POC Hgb Hct POC Hct MCV MCH MCHC RDW Std Deviation RDW Coeff of [place] Plt Count MPV Immature Gran % (Auto) Neut % (Auto) Lymph % (Auto) [place] % (Auto) Eos % (Auto) Baso % (Auto) Immature Gran # (Auto) Neut # (Auto) Lymph # (Auto) [place] # (Auto) Eos # (Auto) Baso # (Auto) Toxic Granulation Dohle Bodies Specimen Type Sample Site Patient Temperature POC pH POC pCO2 POC pO2 POC HCO3 POC Total CO2 POC Base Excess POC O2 Saturation O2 Sat Pulse Oximetry ABG pH ABG pH (Temp Correct) ABG pCO2 ABG pCO2 (Temp Corrct ABG pO2 POC ABG pO2 at Pt Temp ABG HCO3 ABG O2 Saturation ABG Base Excess Avelino Test VBG pH 7.32 L Set Respiration Rate Barometric Pressure Oxygen Given O2 Delivery Device POC O2 Rate Minute Ventilation Vent Mode Vent Setting Spontaneous Rate FiO2 (liters per min) POC FiO2 Tidal Volume Spontaneous Tidal Vol End Tidal CO2 PEEP High PEEP Setting Low PEEP Setting Pressure Support POC Pressure Suppt Pressure Support Vent Pressure High Time High Time Low EPAP IPAP POC Blood Gas Comment POC Sodium Sodium 142 POC Potassium Potassium 3.7 Chloride 115 H Carbon Dioxide 24 Anion Gap 3.0 BUN 8 Creatinine 0.43 L Est Cr Clr Drug Dosing 213.0 Est GFR ( Amer) > 150.0 Est GFR (Non-Af Amer) > 150.0 BUN/Creatinine Ratio 18.9 Glucose 215 H POC Glucose 213 H Estimat Average Glucose Estimated Ave Glu mmol/L Estimated Ave Glu mg/dL Hemoglobin A1c Calcium 8.4 L Phosphorus 1.6 L Magnesium 1.8 Procalcitonin Random Cortisol Vancomycin Trough 06/28/19 06/28/19 06/28/19 01:56 01:56 02:52 WBC RBC Hgb POC Hgb 9.9 L Cancelled Hct POC Hct 29 L Cancelled MCV MCH MCHC RDW Std Deviation RDW Coeff of [place] Plt Count MPV Immature Gran % (Auto) Neut % (Auto) Lymph % (Auto) [place] % (Auto) Eos % (Auto) Baso % (Auto) Immature Gran # (Auto) Neut # (Auto) Lymph # (Auto) [place] # (Auto) Eos # (Auto) Baso # (Auto) Toxic Granulation Dohle Bodies Specimen Type Arterial Cancelled Sample Site Art Line Cancelled Patient Temperature 39.0 Cancelled POC pH 7.30 L Cancelled POC pCO2 45 Cancelled POC pO2 96 H Cancelled POC HCO3 22 Cancelled POC Total CO2 23 L Cancelled POC Base Excess -4.0 Cancelled POC O2 Saturation 97 Cancelled O2 Sat Pulse Oximetry 100 Cancelled ABG pH ABG pH (Temp Correct) Cancelled ABG pCO2 ABG pCO2 (Temp Corrct Cancelled ABG pO2 POC ABG pO2 at Pt Temp Cancelled ABG HCO3 ABG O2 Saturation ABG Base Excess Avelino Test Not Performed Cancelled VBG pH Set Respiration Rate Cancelled Barometric Pressure Oxygen Given O2 Delivery Device Ventilator Cancelled POC O2 Rate 24 Cancelled Minute Ventilation 10.0 Cancelled Vent Mode SIMV Cancelled Vent Setting Cancelled Spontaneous Rate Cancelled FiO2 (liters per min) Cancelled POC FiO2 Cancelled Tidal Volume 420 Cancelled Spontaneous Tidal Vol Cancelled End Tidal CO2 35 Cancelled PEEP 15 Cancelled High PEEP Setting Cancelled Low PEEP Setting Cancelled Pressure Support Cancelled POC Pressure Suppt Cancelled Pressure Support Vent Cancelled Pressure High Cancelled Time High Cancelled Time Low Cancelled EPAP Cancelled IPAP Cancelled POC Blood Gas Comment Cancelled POC Sodium 141 Cancelled Sodium POC Potassium 3.7 Cancelled Potassium Chloride Carbon Dioxide Anion Gap BUN Creatinine Est Cr Clr Drug Dosing Est GFR ( Amer) Est GFR (Non-Af Amer) BUN/Creatinine Ratio Glucose POC Glucose 228 H Estimat Average Glucose Estimated Ave Glu mmol/L Estimated Ave Glu mg/dL Hemoglobin A1c Calcium Phosphorus Magnesium Procalcitonin Random Cortisol Vancomycin Trough 06/28/19 06/28/19 06/28/19 03:37 04:14 04:19 WBC RBC Hgb POC Hgb Hct POC Hct MCV MCH MCHC RDW Std Deviation RDW Coeff of [place] Plt Count MPV Immature Gran % (Auto) Neut % (Auto) Lymph % (Auto) [place] % (Auto) Eos % (Auto) Baso % (Auto) Immature Gran # (Auto) Neut # (Auto) Lymph # (Auto) [place] # (Auto) Eos # (Auto) Baso # (Auto) Toxic Granulation Dohle Bodies Specimen Type Sample Site Patient Temperature POC pH POC pCO2 POC pO2 POC HCO3 POC Total CO2 POC Base Excess POC O2 Saturation O2 Sat Pulse Oximetry ABG pH ABG pH (Temp Correct) ABG pCO2 ABG pCO2 (Temp Corrct ABG pO2 POC ABG pO2 at Pt Temp ABG HCO3 ABG O2 Saturation ABG Base Excess Avelino Test VBG pH Set Respiration Rate Barometric Pressure Oxygen Given O2 Delivery Device POC O2 Rate Minute Ventilation Vent Mode Vent Setting Spontaneous Rate FiO2 (liters per min) POC FiO2 Tidal Volume Spontaneous Tidal Vol End Tidal CO2 PEEP High PEEP Setting Low PEEP Setting Pressure Support POC Pressure Suppt Pressure Support Vent Pressure High Time High Time Low EPAP IPAP POC Blood Gas Comment POC Sodium Sodium 142 POC Potassium Potassium 3.5 Chloride 116 H Carbon Dioxide 24 Anion Gap 2.0 L BUN 7 Creatinine 0.38 L Est Cr Clr Drug Dosing 241.1 Est GFR ( Amer) > 150.0 Est GFR (Non-Af Amer) > 150.0 BUN/Creatinine Ratio 18.0 Glucose 204 H POC Glucose 228 H 199 H Estimat Average Glucose Estimated Ave Glu mmol/L Estimated Ave Glu mg/dL Hemoglobin A1c Calcium 8.4 L Phosphorus 1.3 L* Magnesium 1.7 L Procalcitonin Random Cortisol Vancomycin Trough 06/28/19 06/28/19 06/28/19 04:19 04:19 04:19 WBC 8.63 RBC 3.31 L Hgb 10.8 L POC Hgb Hct 32.1 L POC Hct MCV 97.0 MCH 32.6 MCHC 33.6 RDW Std Deviation 45.2 RDW Coeff of [place] 12.8 Plt Count 188 MPV 9.8 Immature Gran % (Auto) 1.2 Neut % (Auto) 83.1 Lymph % (Auto) 10.0 [place]ruff % (Auto) 5.0 Eos % (Auto) 0.6 Baso % (Auto) 0.1 Immature Gran # (Auto) 0.10 H Neut # (Auto) 7.18 H Lymph # (Auto) 0.86 L [place] # (Auto) 0.43 Eos # (Auto) 0.05 Baso # (Auto) 0.01 Toxic Granulation 1+ Dohle Bodies 1+ Specimen Type Sample Site Patient Temperature POC pH POC pCO2 POC pO2 POC HCO3 POC Total CO2 POC Base Excess POC O2 Saturation O2 Sat Pulse Oximetry ABG pH 7.34 L ABG pH (Temp Correct) ABG pCO2 43 ABG pCO2 (Temp Corrct ABG pO2 80 POC ABG pO2 at Pt Temp ABG HCO3 23 ABG O2 Saturation 95.6 H ABG Base Excess -3.1 Avelino Test POS VBG pH Set Respiration Rate Barometric Pressure 736.2 Oxygen Given 70% O2 Delivery Device POC O2 Rate Minute Ventilation Vent Mode Vent Setting Spontaneous Rate FiO2 (liters per min) POC FiO2 Tidal Volume Spontaneous Tidal Vol End Tidal CO2 PEEP High PEEP Setting Low PEEP Setting Pressure Support POC Pressure Suppt Pressure Support Vent Pressure High Time High Time Low EPAP IPAP POC Blood Gas Comment POC Sodium Sodium POC Potassium Potassium Chloride Carbon Dioxide Anion Gap BUN Creatinine Est Cr Clr Drug Dosing Est GFR ( Amer) Est GFR (Non-Af Amer) BUN/Creatinine Ratio Glucose POC Glucose Estimat Average Glucose Estimated Ave Glu mmol/L Estimated Ave Glu mg/dL Hemoglobin A1c Calcium Phosphorus Magnesium Procalcitonin 17.05 H Random Cortisol Vancomycin Trough 06/28/19 06/28/19 06/28/19 05:21 06:37 07:24 WBC RBC Hgb POC Hgb Hct POC Hct MCV MCH MCHC RDW Std Deviation RDW Coeff of [place] Plt Count MPV Immature Gran % (Auto) Neut % (Auto) Lymph % (Auto) [place] % (Auto) Eos % (Auto) Baso % (Auto) Immature Gran # (Auto) Neut # (Auto) Lymph # (Auto) [place] # (Auto) Eos # (Auto) Baso # (Auto) Toxic Granulation Dohle Bodies Specimen Type Sample Site Patient Temperature POC pH POC pCO2 POC pO2 POC HCO3 POC Total CO2 POC Base Excess POC O2 Saturation O2 Sat Pulse Oximetry ABG pH ABG pH (Temp Correct) ABG pCO2 ABG pCO2 (Temp Corrct ABG pO2 POC ABG pO2 at Pt Temp ABG HCO3 ABG O2 Saturation ABG Base Excess Avelino Test VBG pH Set Respiration Rate Barometric Pressure Oxygen Given O2 Delivery Device POC O2 Rate Minute Ventilation Vent Mode Vent Setting Spontaneous Rate FiO2 (liters per min) POC FiO2 Tidal Volume Spontaneous Tidal Vol End Tidal CO2 PEEP High PEEP Setting Low PEEP Setting Pressure Support POC Pressure Suppt Pressure Support Vent Pressure High Time High Time Low EPAP IPAP POC Blood Gas Comment POC Sodium Sodium POC Potassium Potassium Chloride Carbon Dioxide Anion Gap BUN Creatinine Est Cr Clr Drug Dosing Est GFR ( Amer) Est GFR (Non-Af Amer) BUN/Creatinine Ratio Glucose POC Glucose 181 H 174 H 144 H Estimat Average Glucose Estimated Ave Glu mmol/L Estimated Ave Glu mg/dL Hemoglobin A1c Calcium Phosphorus Magnesium Procalcitonin Random Cortisol Vancomycin Trough 06/28/19 06/28/19 06/28/19 08:25 08:38 08:38 WBC RBC Hgb POC Hgb Hct POC Hct MCV MCH MCHC RDW Std Deviation RDW Coeff of [place] Plt Count MPV Immature Gran % (Auto) Neut % (Auto) Lymph % (Auto) [place] % (Auto) Eos % (Auto) Baso % (Auto) Immature Gran # (Auto) Neut # (Auto) Lymph # (Auto) [place] # (Auto) Eos # (Auto) Baso # (Auto) Toxic Granulation Dohle Bodies Specimen Type Sample Site Patient Temperature POC pH POC pCO2 POC pO2 POC HCO3 POC Total CO2 POC Base Excess POC O2 Saturation O2 Sat Pulse Oximetry ABG pH ABG pH (Temp Correct) ABG pCO2 ABG pCO2 (Temp Corrct ABG pO2 POC ABG pO2 at Pt Temp ABG HCO3 ABG O2 Saturation ABG Base Excess Avelino Test VBG pH 7.34 L Set Respiration Rate Barometric Pressure Oxygen Given O2 Delivery Device POC O2 Rate Minute Ventilation Vent Mode Vent Setting Spontaneous Rate FiO2 (liters per min) POC FiO2 Tidal Volume Spontaneous Tidal Vol End Tidal CO2 PEEP High PEEP Setting Low PEEP Setting Pressure Support POC Pressure Suppt Pressure Support Vent Pressure High Time High Time Low EPAP IPAP POC Blood Gas Comment POC Sodium Sodium 144 POC Potassium Potassium 3.7 Chloride 118 H Carbon Dioxide 23 Anion Gap 3.0 BUN 6 L Creatinine 0.35 L Est Cr Clr Drug Dosing 263.4 Est GFR ( Amer) > 150.0 Est GFR (Non-Af Amer) > 150.0 BUN/Creatinine Ratio 15.8 Glucose 165 H POC Glucose 159 H Estimat Average Glucose Estimated Ave Glu mmol/L Estimated Ave Glu mg/dL Hemoglobin A1c Calcium 8.2 L Phosphorus 1.6 L Magnesium 1.9 Procalcitonin Random Cortisol Vancomycin Trough 06/28/19 06/28/19 06/28/19 10:07 11:23 12:22 WBC RBC Hgb POC Hgb Hct POC Hct MCV MCH MCHC RDW Std Deviation RDW Coeff of [place] Plt Count MPV Immature Gran % (Auto) Neut % (Auto) Lymph % (Auto) [place] % (Auto) Eos % (Auto) Baso % (Auto) Immature Gran # (Auto) Neut # (Auto) Lymph # (Auto) [place] # (Auto) Eos # (Auto) Baso # (Auto) Toxic Granulation Dohle Bodies Specimen Type Sample Site Patient Temperature POC pH POC pCO2 POC pO2 POC HCO3 POC Total CO2 POC Base Excess POC O2 Saturation O2 Sat Pulse Oximetry ABG pH ABG pH (Temp Correct) ABG pCO2 ABG pCO2 (Temp Corrct ABG pO2 POC ABG pO2 at Pt Temp ABG HCO3 ABG O2 Saturation ABG Base Excess Avelino Test VBG pH Set Respiration Rate Barometric Pressure Oxygen Given O2 Delivery Device POC O2 Rate Minute Ventilation Vent Mode Vent Setting Spontaneous Rate FiO2 (liters per min) POC FiO2 Tidal Volume Spontaneous Tidal Vol End Tidal CO2 PEEP High PEEP Setting Low PEEP Setting Pressure Support POC Pressure Suppt Pressure Support Vent Pressure High Time High Time Low EPAP IPAP POC Blood Gas Comment POC Sodium Sodium POC Potassium Potassium Chloride Carbon Dioxide Anion Gap BUN Creatinine Est Cr Clr Drug Dosing Est GFR ( Amer) Est GFR (Non-Af Amer) BUN/Creatinine Ratio Glucose POC Glucose 161 H 123 H 106 H Estimat Average Glucose Estimated Ave Glu mmol/L Estimated Ave Glu mg/dL Hemoglobin A1c Calcium Phosphorus Magnesium Procalcitonin Random Cortisol Vancomycin Trough 06/28/19 06/28/19 06/28/19 12:44 12:44 13:38 WBC RBC Hgb POC Hgb Hct POC Hct MCV MCH MCHC RDW Std Deviation RDW Coeff of [place] Plt Count MPV Immature Gran % (Auto) Neut % (Auto) Lymph % (Auto) [place] % (Auto) Eos % (Auto) Baso % (Auto) Immature Gran # (Auto) Neut # (Auto) Lymph # (Auto) [place] # (Auto) Eos # (Auto) Baso # (Auto) Toxic Granulation Dohle Bodies Specimen Type Sample Site Patient Temperature POC pH POC pCO2 POC pO2 POC HCO3 POC Total CO2 POC Base Excess POC O2 Saturation O2 Sat Pulse Oximetry ABG pH ABG pH (Temp Correct) ABG pCO2 ABG pCO2 (Temp Corrct ABG pO2 POC ABG pO2 at Pt Temp ABG HCO3 ABG O2 Saturation ABG Base Excess Avelino Test VBG pH 7.38 Set Respiration Rate Barometric Pressure Oxygen Given O2 Delivery Device POC O2 Rate Minute Ventilation Vent Mode Vent Setting Spontaneous Rate FiO2 (liters per min) POC FiO2 Tidal Volume Spontaneous Tidal Vol End Tidal CO2 PEEP High PEEP Setting Low PEEP Setting Pressure Support POC Pressure Suppt Pressure Support Vent Pressure High Time High Time Low EPAP IPAP POC Blood Gas Comment POC Sodium Sodium 142 POC Potassium Potassium 3.7 Chloride 118 H Carbon Dioxide 22 Anion Gap 2.0 L BUN 5 L Creatinine 0.34 L Est Cr Clr Drug Dosing 271.2 Est GFR ( Amer) > 150.0 Est GFR (Non-Af Amer) > 150.0 BUN/Creatinine Ratio 13.9 Glucose 105 H POC Glucose 90 Estimat Average Glucose Estimated Ave Glu mmol/L Estimated Ave Glu mg/dL Hemoglobin A1c Calcium 8.3 L Phosphorus 1.6 L Magnesium 1.8 Procalcitonin Random Cortisol Vancomycin Trough 06/28/19 06/28/19 06/28/19 14:04 14:38 15:18 WBC RBC Hgb POC Hgb Hct POC Hct MCV MCH MCHC RDW Std Deviation RDW Coeff of [place] Plt Count MPV Immature Gran % (Auto) Neut % (Auto) Lymph % (Auto) [place] % (Auto) Eos % (Auto) Baso % (Auto) Immature Gran # (Auto) Neut # (Auto) Lymph # (Auto) [place] # (Auto) Eos # (Auto) Baso # (Auto) Toxic Granulation Dohle Bodies Specimen Type Sample Site Patient Temperature POC pH POC pCO2 POC pO2 POC HCO3 POC Total CO2 POC Base Excess POC O2 Saturation O2 Sat Pulse Oximetry ABG pH ABG pH (Temp Correct) ABG pCO2 ABG pCO2 (Temp Corrct ABG pO2 POC ABG pO2 at Pt Temp ABG HCO3 ABG O2 Saturation ABG Base Excess Avelino Test VBG pH Set Respiration Rate Barometric Pressure Oxygen Given O2 Delivery Device POC O2 Rate Minute Ventilation Vent Mode Vent Setting Spontaneous Rate FiO2 (liters per min) POC FiO2 Tidal Volume Spontaneous Tidal Vol End Tidal CO2 PEEP High PEEP Setting Low PEEP Setting Pressure Support POC Pressure Suppt Pressure Support Vent Pressure High Time High Time Low EPAP IPAP POC Blood Gas Comment POC Sodium Sodium POC Potassium Potassium Chloride Carbon Dioxide Anion Gap BUN Creatinine Est Cr Clr Drug Dosing Est GFR ( Amer) Est GFR (Non-Af Amer) BUN/Creatinine Ratio Glucose POC Glucose 91 83 124 H Estimat Average Glucose Estimated Ave Glu mmol/L Estimated Ave Glu mg/dL Hemoglobin A1c Calcium Phosphorus Magnesium Procalcitonin Random Cortisol Vancomycin Trough 06/28/19 06/28/19 06/28/19 16:24 16:30 16:34 WBC RBC Hgb POC Hgb Hct POC Hct MCV MCH MCHC RDW Std Deviation RDW Coeff of [place] Plt Count MPV Immature Gran % (Auto) Neut % (Auto) Lymph % (Auto) [place] % (Auto) Eos % (Auto) Baso % (Auto) Immature Gran # (Auto) Neut # (Auto) Lymph # (Auto) [place] # (Auto) Eos # (Auto) Baso # (Auto) Toxic Granulation Dohle Bodies Specimen Type Sample Site Patient Temperature POC pH POC pCO2 POC pO2 POC HCO3 POC Total CO2 POC Base Excess POC O2 Saturation O2 Sat Pulse Oximetry ABG pH ABG pH (Temp Correct) ABG pCO2 ABG pCO2 (Temp Corrct ABG pO2 POC ABG pO2 at Pt Temp ABG HCO3 ABG O2 Saturation ABG Base Excess Avelino Test VBG pH Set Respiration Rate Barometric Pressure Oxygen Given O2 Delivery Device POC O2 Rate Minute Ventilation Vent Mode Vent Setting Spontaneous Rate FiO2 (liters per min) POC FiO2 Tidal Volume Spontaneous Tidal Vol End Tidal CO2 PEEP High PEEP Setting Low PEEP Setting Pressure Support POC Pressure Suppt Pressure Support Vent Pressure High Time High Time Low EPAP IPAP POC Blood Gas Comment POC Sodium Sodium POC Potassium Potassium Chloride Carbon Dioxide Anion Gap BUN Creatinine Est Cr Clr Drug Dosing Est GFR ( Amer) Est GFR (Non-Af Amer) BUN/Creatinine Ratio Glucose POC Glucose 141 H Estimat Average Glucose Estimated Ave Glu mmol/L Estimated Ave Glu mg/dL Hemoglobin A1c Calcium Phosphorus Magnesium Procalcitonin Random Cortisol 14.70 Vancomycin Trough 7.4
[2019-06-28] MEDS ORDERED: POTASSIUM CHLORIDE 40 MEQ in D5W AND 1/2NSS 1,000 ML/1,000 ML BAG IV SCH (10:30)
[2019-06-28] MEDS ORDERED: PEPTAMEN INTENSE VHP 1.0 CAL 1,000 ML BAG OG SCH (11:00)
--- NOTE | 2019-06-28 11:52 | Pharmacy Report ---
Pharmacy Glycemic Short Note 2 - Date of Service June 28, 2019 - Glycemic Short BSG Results (Last 24 hours): 06/27/19 06/27/19 06/27/19 16:02 17:24 17:26 Glucose 286 H POC Glucose 226 H 263 H 06/27/19 06/27/19 06/27/19 18:03 18:06 19:08 Glucose POC Glucose 404 H* 283 H 266 H 06/27/19 06/27/19 06/27/19 19:59 20:05 21:07 Glucose 280 H POC Glucose 259 H 256 H 06/27/19 06/27/19 06/28/19 22:04 23:06 00:05 Glucose POC Glucose 227 H 233 H 230 H 06/28/19 06/28/19 06/28/19 00:29 01:53 02:52 Glucose 215 H POC Glucose 213 H 228 H 06/28/19 06/28/19 06/28/19 03:37 04:14 04:19 Glucose 204 H POC Glucose 228 H 199 H 06/28/19 06/28/19 06/28/19 05:21 06:37 07:24 Glucose POC Glucose 181 H 174 H 144 H 06/28/19 06/28/19 06/28/19 08:25 08:38 10:07 Glucose 165 H POC Glucose 159 H 161 H 06/28/19 11:23 Glucose POC Glucose 123 H OUTPATIENT ANTIDIABETIC REGIMEN (PER MEDICATION HX COLLECTED AT [facility]): * Novolog 8 units TID w/ Meals * Lantus 18 units Q HS * A1c = results pending ASSESSMENT: * Patient transferred from [facility] secondary to DKA and RML / RLL pneumonia * IV insulin drip continues this AM; running at 6.9units/hr this AM but now titrated bact to 3.5units/hr * BSGs at goal, AG acidosis resolved, however patient remains intubated, continuous tube feeds will be initiated today - possible extubation tomorrow AM * Given current stressors and recent resolution of DKA, would recommend continuing IV insulin infusion at this time as continuous tube feeds can more easily be matched with IV insulin via continuous infusion as they are titrated upwards. When patient is extubated and insulin needs are more clear while on tube feeds a SQ regimen can be started. PLAN FOR INPATIENT GLYCEMIC CONTROL: * IV insulin infusion per protocol; goal range 120-180mg/dL * Bolus insulin * None at this time - allow the insulin drip to titrate upwards per protocol to determine patient's needs PLAN FOR DISCHARGE: * to be determined
[2019-06-28 12:35] LABS: iSTAT Hemoglobin 11.9 g/dl (14.0-18.0); iSTAT Potassium 3.8 mmol/L (3.3-5.0); iSTAT Sodium 139 mmol/L (135-144)
[2019-06-28 12:36] LABS: iSTAT Arterial Blood Gas HCO3 22 meg/L (19-24); iSTAT Arterial Blood Gas pCO2 41 mmHg (35-46); iSTAT Arterial Blood Gas pH 7.33 (7.35-7.45); iSTAT Arterial Blood Gas pO2 51 mmHg (80-95); iSTAT Carbon Dioxide 23 mmol/L (24-31); iSTAT Hematocrit 35 % (42-52)
[2019-06-28 12:42] LABS: iSTAT Allen Test Acceptable; iSTAT Sample Type Arterial; iSTAT Site R Radial
[2019-06-28 13:15] LABS: BUN Creatinine Ratio 13.9 (10-20); Blood Urea Nitrogen 5 mg/dl (7-18); Calcium 8.3 mg/dl (8.5-10.1); Carbon Dioxide 22 mmol/L (21-32); Chloride 118 mmol/L (98-107); Creatinine Clr Calc Pharmacy 271.2 ml/min; Est GFR (African American) > 150.0; Est GFR (Non-African American) > 150.0; Glucose 105 mg/dl (70-99); Magnesium 1.8 mg/dl (1.8-2.4); Phosphorus 1.6 mg/dl (2.5-4.9); Potassium 3.7 mmol/L (3.5-5.1); Sodium 142 mmol/L (136-145)
[2019-06-28] MEDS ORDERED: POTASSIUM PHOSPHATE 15 MMOL in SODIUM CHLORIDE 0.9% 250 ML IV ONE (14:00)
[2019-06-28 14:05] LABS: iSTAT Potassium 3.7 mmol/L (3.3-5.0); iSTAT Sodium 141 mmol/L (135-144)
[2019-06-28 14:06] LABS: iSTAT Arterial Blood Gas HCO3 22 meg/L (19-24); iSTAT Arterial Blood Gas pCO2 45 mmHg (35-46); iSTAT Arterial Blood Gas pO2 96 mmHg (80-95); iSTAT Carbon Dioxide 23 mmol/L (24-31); iSTAT Hematocrit 29 % (42-52); iSTAT Hemoglobin 9.9 g/dl (14.0-18.0)
[2019-06-28 14:07] LABS: iSTAT Allen Test Not Performed; iSTAT Sample Type Arterial
[2019-06-28 14:08] LABS: iSTAT Site Art Line
[2019-06-28 14:09] LABS: iSTAT SpO2 100
[2019-06-28 14:12] LABS: iSTAT Hematocrit 32 % (42-52); iSTAT Hemoglobin 10.9 g/dl (14.0-18.0); iSTAT Potassium 3.6 mmol/L (3.3-5.0); iSTAT Sodium 143 mmol/L (135-144)
[2019-06-28 14:13] LABS: iSTAT Arterial Blood Gas HCO3 23 meg/L (19-24); iSTAT Arterial Blood Gas pCO2 47 mmHg (35-46); iSTAT Arterial Blood Gas pH 7.29 (7.35-7.45); iSTAT Arterial Blood Gas pO2 56 mmHg (80-95); iSTAT Carbon Dioxide 24 mmol/L (24-31)
[2019-06-28 14:14] LABS: Patient Temperature 38.6; iSTAT Allen Test Acceptable; iSTAT FiO2 100 %; iSTAT Sample Type Arterial; iSTAT Site R Radial
[2019-06-28 14:16] LABS: iSTAT SpO2 87
[2019-06-28] MEDS: ENOXAPARIN INJ 40 MG/0.4 ML SYR SQ SCH (14:28)
[2019-06-28] MEDS: LANSOPRAZOLE 30 MG SOLTAB NG SCH (14:29)
[2019-06-28] MEDS ORDERED: DEXTROSE 50% 50 ML SYRINGE IV ONE (14:45)
[2019-06-28] MEDS ORDERED: PROPOFOL BOLUS FROM BAG IV ONE (15:32)
[2019-06-28] MEDS: INSULIN ASPART 100 UNITS/ML 3 ML PEN SC SCH ×3 (15:34→21:05)
[2019-06-28] MEDS: [UNRECOGNIZED DRUG - OTHER] IV SCH ×2 (15:39→22:03)
[2019-06-28] MEDS: DEXTROSE IV SCH ×2 (15:39→22:03)
[2019-06-28] MEDS ORDERED: VANCOMYCIN TROUGH ONE (16:30)
[2019-06-28] MEDS: fentaNYL DRIP 1,250 MCG/250 ML BAG IV SCH (16:56)
--- NOTE | 2019-06-28 18:05 | Procedure Note ---
Procedure Note Date of Service June 28, 2019 Procedure: Inserting ultrasound-guided central line erector: Dr. Hammad Hobson Indication: Hypotension Consent: signed by mother and verified with timeout prior to procedure. Anesthesia: 1% lidocaine without epinephrine local. Procedure: Consent was verified and timeout performed. Appropriate imaging studies were reviewed prior to the procedure. Under aseptic and sterile condition, left IJ vein was accessed under direct ultrasound guidance. Guidewire was confirmed to be within the lumen of vein with the help of ultrasound. Catheter was introduced via Seldinger technique. Guide a wire was removed. Good non-pulsatile blood flow was appreciated from all the ports. The catheter was placed at 20 cm and sutured in place. BioPatch was applied to the catheter and a sterile Tegaderm dressing was applied over the catheter with careful attention to sterility. Lung sliding was appreciated post procedure with the help ultrasound. Chest x-ray to follow Patient tolerated the procedure well. Blood loss: Less than 2 cc Complications: None Coding CPT Codes Tubes, Drains, and Vasc Access - Tubes, Drains, and Vasc Access: [id number] Place catheter in vein superior or inferior vena cava ([id number]) Tubes, Drains, and Vasc Access - Tubes, Drains, and Vasc Access: [id number] Ultrasound Guidance For Vascular ([id number]) [facility] [place]odes (Charges) Tubes, Drains, and Vasc Access Procedure 1: Tubes, Drains, and Vasc Access: [id number] Place catheter in vein superior or inferior vena cava Procedure 2: Tubes, Drains, and Vasc Access: [id number] Ultrasound Guidance For Vascular
--- NOTE | 2019-06-28 18:21 | Pharmacy Report ---
Pharmacy Abx Dose Short Note - Date of Service June 28, 2019 - Assessment & Plan Assessment 28 year old M receiving empiric vancomycin, zosyn, and azithromycin for sepsis secondary to multilobar pneumonia * transferred from [facility] due to acute respiratory failure/DKA * procalcitonin 17.05 Plan Vancomycin * Trough level of 7.4 mcg/mL is subtherapeutic - it should be noted that trough level was drawn prior to steady state and last dose of vancomycin was administered 1.5 hours early so true trough is likely higher * Will increase dose to 1000 mg (16.7 mg/kg) IV q6h * Goal trough level: ~15 mcg/mL * Trough level ordered for 06/29 @ 1530 Piperacillin/tazobactam * 4.5 g bolus administered over 30 minutes, then 4.5 g IV extended infusion every 8 hours for CrCl greater than 20 mL/min * Aggressive dosing selected due to critically ill status Azithromycin * 500 mg IV q24h - appropriate based on pneumonia indication Pharmacy will continue to follow and will adjust dose/frequency as necessary. Thank you.
--- NOTE | 2019-06-28 18:25 | XRay Report ---
SINGLE VIEW CHEST CLINICAL HISTORY: Central venous catheter placement. FINDINGS: 2 AP, portable, upright chest radiographs are compared to study dated 06/28/2019. The examin ation is degraded by portable technique and patient rotation. Endotracheal and enteric tubes are unch anged in position. A left internal jugular central venous catheter has been placed. The tip projects over the SVC. The cardiomediastinal silhouette is unremarkable. There is dense airspace consolidation at the right lung base with a right pleural effusion. Minimal consolidative changes suggested at the left lung base. There is a trace left pleural effusion. No pneumothorax is seen. The bony thorax is grossly intact. IMPRESSION: 1. A left internal jugular central venous catheter has been placed as above. No pneumothorax is seen post procedure. 2. The remaining lines and tubes are unchanged. 3. There is dense right basilar consolidation with associated pleural effusion. 4. Mild consolidative change is suggested at the left lung base with trace left pleural effusion. ACT 112: Negative or not required by law. Electronically signed by: Amor Robles M.D. 06/28/2019 6:24 PM
[2019-06-28] MEDS: NOREPINEPHRINE BIT INJ 8 MG in DEXTROSE 5% 500 ML IV SCH (18:27)
[2019-06-28] MEDS: INSULIN GLARGINE SOLOSTAR 100 UNITS/ML 3 ML PEN SC SCH (21:02)
[2019-06-28] MEDS: VANCOMYCIN HCL 1,000 MG in SODIUM CHLORIDE 0.9% 250 ML IV SCH (22:13)
[2019-06-29 01:40] LABS: EAG mmol/L DNR (calc); HA1C >14.0 (<5.7)
[2019-06-29] MEDS: propofoL 1,000 MG/100 ML VIAL IV SCH (03:31)
[2019-06-29] MEDS: VANCOMYCIN HCL 1,000 MG in SODIUM CHLORIDE 0.9% 250 ML IV SCH ×3 (03:38→15:31)
[2019-06-29] MEDS: ALBUT/IPRATROP 3MG/0.5MG NEB 3 ML VIAL INH SCH ×6 (03:39→22:19)
[2019-06-29] MEDS: ACETAMINOPHEN 325 MG TAB PO PRN ×3 (04:11→21:26)
[2019-06-29] MEDS: INSULIN ASPART 100 UNITS/ML 3 ML PEN SC SCH ×6 (04:11→20:05)
[2019-06-29] MEDS ORDERED: Nursing to Pharmacy Communication ONE (04:42)
[2019-06-29] MEDS: DEXTROSE IV SCH (04:46)
[2019-06-29] MEDS: [UNRECOGNIZED DRUG - OTHER] IV SCH (04:46)
[2019-06-29] MEDS: INSULIN REGULAR 250 UNITS in SODIUM CHLORIDE 0.9% 247.5 ML IV SCH (04:58)
[2019-06-29 05:23] LABS: Basophils # (auto) 0.03 K/uL (0-0.2); Basophils % (auto) 0.3 %; Eosinophils # (auto) 0.24 K/uL (0-0.5); Eosinophils % (auto) 2.1 %; Hematocrit (blood only) 30.9 % (42-52); Hemoglobin 10.3 g/dL (14.0-18.0); Immature Granulocytes # (auto) 0.05 K/uL (0.00-0.02); Immature Granulocytes % (auto) 0.4 %; Lymphocytes # (auto) 1.32 K/uL (1.2-3.4); Lymphocytes % (auto) 11.7 %; Mean Corpuscular Hemoglobin 32.8 pg (25-34); Mean Corpuscular Hgb Conc 33.3 g/dL (32-36); Mean Corpuscular Volume 98.4 fL (80-100); Mean Platelet Volume 9.8 fL (7.4-10.4); Monocytes # (auto) 0.69 K/uL (0.11-0.59); Monocytes % (auto) 6.1 %; Neutrophils # (auto) 8.94 K/uL (1.4-6.5); Neutrophils % (auto) 79.4 %; Platelet Count 213 K/uL (130-400); RDW Coefficient of Variation 13.4 % (11.5-14.5); RDW Standard Deviation 47.8 fL (36.4-46.3); Red Blood Count 3.14 M/uL (4.7-6.1); White Blood Count 11.27 K/uL (4.8-10.8)
[2019-06-29] MEDS: PIPERACILLIN/TAZOBACTAM 4.5 GM in DEXTROSE 5% 100 ML IV SCH ×3 (05:35→21:23)
[2019-06-29 06:11] LABS: BUN Creatinine Ratio 13.4 (10-20); Blood Urea Nitrogen 6 mg/dl (7-18); Calcium 8.2 mg/dl (8.5-10.1); Carbon Dioxide 25 mmol/L (21-32); Chloride 111 mmol/L (98-107); Creatinine Clr Calc Pharmacy 209.5 ml/min; Est GFR (African American) > 150.0; Est GFR (Non-African American) > 150.0; Glucose 258 mg/dl (70-99); Magnesium 1.5 mg/dl (1.8-2.4); Potassium 3.3 mmol/L (3.5-5.1); Sodium 139 mmol/L (136-145)
[2019-06-29 06:13] LABS: Phosphorus 2.2 mg/dl (2.5-4.9)
[2019-06-29] MEDS ORDERED: POTASSIUM PHOS 3 MMOL/1 ML INFUSION IV STA (06:28)
[2019-06-29] MEDS: MAGNESIUM SULFATE / D5W 1 GM/100 ML BAG IV SCH ×3 (06:41→08:56)
[2019-06-29] MEDS ORDERED: SODIUM CHLORIDE 0.45 % 1,000 ML IV SCH (06:45)
[2019-06-29] MEDS ORDERED: POTASSIUM PHOSPHATE 24 MMOL in SODIUM CHLORIDE 0.9% 500 ML IV ONE (07:00)
--- NOTE | 2019-06-29 07:57 | XRay Report ---
XR chest 1V portable CLINICAL HISTORY: Respiratory failure. Pneumonia. COMPARISON STUDY: 06/28/2019 FINDINGS: There is an endotracheal tube 4.5 cm above the mike. There is a left internal jugular lorenza tral venous catheter. There is a nasogastric tube which passes into the stomach. The cardiac and medi astinal contours remain stable. There is persistent dense right lower lung zone parenchymal consolida tion with air bronchograms. Minimal left basilar airspace opacities also persist.[ IMPRESSION: No significant change from the prior study. Dense right lower lung zone consolidation wit h air bronchograms. Lines and tubes remain stable. ACT 112: Negative or not required by law. Electronically signed by: Danny Recinos M.D. 06/29/2019 7:56 AM
[2019-06-29] MEDS: ENOXAPARIN INJ 40 MG/0.4 ML SYR SQ SCH (08:01)
[2019-06-29] MEDS: AZITHROMYCIN 500 MG in DEXTROSE 5% 250 ML IV SCH (08:28)
[2019-06-29] MEDS ORDERED: POTASSIUM CHLORIDE 40 MEQ in SODIUM CHLORIDE 0.45 % 1,000 ML IV SCH (09:00)
--- NOTE | 2019-06-29 09:39 | Critical Care Progress Note ---
Date of Service June 29, 2019 Assessment & Plan (1) Acute respiratory failure with hypoxemia: --VDRF secondary to sepsis with Acute Hypoxic respiratory failure Likely secondary to multilobar pneumonia, intubated 06/27/2019 Continue with broad-spectrum antibiotics, vancomycin plus Zosyn along with atypical coverage with azithromycin Follow-up septic work-up, sputum culture, Blood culture, procalcitonin: 17.05 ESR: > 90, CRP: 32.2,UA: Clean Patient oxygenation has significantly improved. On 30% FiO2 now. Elevation of the bed to 30 degrees Aspiration precautions --s/p Diabetic ketoacidosis Patient is type I diabetic Noncompliant with insulin plus sepsis secondary to multilobar pneumonia Replace potassium IV when potassium level between 3.3-5.3 --History of opioid abuse Unsure the patient is on Suboxone --Secondary hypercoagulable state Lovenox Plan: Titrate down on propofol and fentanyl to rass -1 Resend sputum culture. Continue with vancomycin and Zosyn for the time being we will reassess tomorrow and possible DC vancomycin given the MRSA is negative. Patient's HbA1c is greater than 14 Titrate down Levophed. We will try SBT and extubation trial later today. I have personally spent 35 minutes of critical care time in the direct management of this patient. This is a life/limb threatening event. This includes time spent evaluating patient, direct bedside care, chart review, placing orders, interpretation of diagnostic studies, discussion with consultants, patient, and family members, as well as other required patient management activities. This time is exclusive of all separately billable procedures, and teaching time and separate from and in addition to any other critical care service time. Please note the above document was generated using voice recognition software. It may contain grammatical, syntax or spelling errors. (2) DKA (diabetic ketoacidoses): Subjective Patient seen and examined at bedside. No acute distress, no adverse events overnight. Still spiking fever T-max of 38 C. Intubated. Rass -2 On propofol 40, fentanyl 50, Levophed 0.1 mics per KG Review of Systems Review of Systems: All systems reviewed & are unremarkable except as noted in HPI & below Physical Exam 2 Physical Exam: Constitutional: Intubated, sedated HEENT: EOMI, PERRLA, ETT Respiratory system: Decreased air entry on the right side, positive crackles right lower lobe, no wheeze, no rhonchi CVS: S1-S2 positive, no murmurs or gallops, tachycardia Abdomen: Soft, nontender, nondistended, positive bowel sounds x4 Extremities: +2 pulses bilaterally radialis/ dorsalis pedis, no cyanosis, no edema Neuro: Rass -2, moves all his extremities on command, pupils and cornea responding Psych: Unable to assess G/U: Positive Macedo Left IJ central line, right radial A-line Did bedside ultrasound today to look at the right side to see if there is any fluid collection. Very minimal pleural effusion appreciated on the right side not enough to be tapped. Skin: no rashes, warm and dry Lymphatic: no cervical or axillary lymphadenopathy Results & Data ([facility]) Vital Signs (Past 12 Hours) Vital Signs Temp Pulse Pulse Resp BP Pulse Ox 06/29/19 07:52 82 20 97 06/29/19 06:00 83 18 100/62 96 06/29/19 05:38 81 18 98 06/29/19 05:00 87 18 97/57 L 100 06/29/19 04:00 37.9 C H 91 H 18 101/60 99 06/29/19 03:54 84 18 100 06/29/19 03:00 89 18 98/61 L 100 06/29/19 02:00 89 87 18 96/59 L 100 06/29/19 01:00 90 18 99/64 L 100 06/29/19 00:00 37.5 C 90 18 104/67 100 06/28/19 23:00 92 H 18 118/67 100 06/28/19 22:40 87 18 100 06/28/19 22:00 90 18 97/63 L 98 06/29/19 05:04 06/29/19 05:04 Microbiology 06/27/19 Unknown Sputum,Vent Suction Gram Stain - Final 06/27/19 Unknown Sputum,Vent Suction Sputum Culture - Final Light normal jaclyn. 06/28/19 16:45 Sputum,Vent Suction Gram Stain - Final 06/27/19 17:28 Blood Aerobic Blood Culture - Preliminary No growth in Aerobic bottle after 24 hours. 06/27/19 17:28 Blood Anaerobic Blood Culture - Preliminary No growth in Anaerobic bottle after 24 hours. 06/27/19 17:28 Blood Aerobic Blood Culture - Preliminary No growth in Aerobic bottle after 24 hours. 06/27/19 17:28 Blood Anaerobic Blood Culture - Preliminary No growth in Anaerobic bottle after 24 hours. Coding Level of Care Code Critical Care 1st 30-74 mins Diagnoses Acute respiratory failure with hypoxemia J96.01 DKA (diabetic ketoacidoses) E11.10 Time Spent (min) 35
[2019-06-29] MEDS: LANSOPRAZOLE 30 MG SOLTAB NG SCH (11:33)
[2019-06-29 12:30] LABS: iSTAT Arterial Blood Gas HCO3 23 meg/L (19-24); iSTAT Arterial Blood Gas pCO2 45 mmHg (35-46); iSTAT Arterial Blood Gas pO2 96 mmHg (80-95); iSTAT Carbon Dioxide 23 mmol/L (24-31); iSTAT Hematocrit 29 % (42-52); iSTAT Hemoglobin 9.9 g/dl (14.0-18.0); iSTAT Potassium 3.7 mmol/L (3.3-5.0); iSTAT Sodium 141 mmol/L (135-144)
[2019-06-29 12:31] LABS: iSTAT Allen Test Not Performed
[2019-06-29 12:32] LABS: iSTAT Sample Type Arterial
[2019-06-29 12:33] LABS: iSTAT Site Art Line
[2019-06-29 12:45] LABS: iSTAT SpO2 100
[2019-06-29 12:47] LABS: iSTAT Arterial Blood Gas pH 7.37 (7.35-7.45); iSTAT Hematocrit 29 % (42-52); iSTAT Hemoglobin 9.9 g/dl (14.0-18.0); iSTAT Potassium 3.3 mmol/L (3.3-5.0); iSTAT Sodium 138 mmol/L (135-144)
[2019-06-29 12:48] LABS: Patient Temperature 37.7; iSTAT Allen Test Not Performed; iSTAT Arterial Blood Gas HCO3 21 meg/L (19-24); iSTAT Arterial Blood Gas pCO2 36 mmHg (35-46); iSTAT Arterial Blood Gas pO2 69 mmHg (80-95); iSTAT Carbon Dioxide 22 mmol/L (24-31); iSTAT FiO2 28 %
[2019-06-29 12:49] LABS: iSTAT Sample Type Arterial; iSTAT Site Art Line
[2019-06-29 12:50] LABS: iSTAT SpO2 98
--- NOTE | 2019-06-29 12:58 | Pharmacy Report ---
Pharmacy Glycemic Short Note 2 - Date of Service June 29, 2019 - Glycemic Short BSG Results (Last 24 hours): 06/28/19 06/28/19 06/28/19 12:44 13:38 14:04 Glucose 105 H POC Glucose 90 91 POC Glucose (other) 06/28/19 06/28/19 06/28/19 14:38 15:18 16:24 Glucose POC Glucose 83 124 H 141 H POC Glucose (other) 06/28/19 06/28/19 06/29/19 20:58 23:53 03:53 Glucose POC Glucose POC Glucose (other) 176 H 203 H 238 H 06/29/19 06/29/19 06/29/19 05:04 06:05 07:16 Glucose 258 H POC Glucose POC Glucose (other) 259 H 251 H 06/29/19 06/29/19 06/29/19 08:09 09:05 10:15 Glucose POC Glucose POC Glucose (other) 243 H 248 H 244 H 06/29/19 11:42 Glucose POC Glucose POC Glucose (other) 201 H OUTPATIENT ANTIDIABETIC REGIMEN (PER MEDICATION HX COLLECTED AT [facility]): * Novolog 8 units TID w/ Meals * Lantus 18 units Q HS * A1c = results pending ASSESSMENT: 06/29 * BSGs climbed last evening, likely due to the addition of vasopressor therapy (norepi) and the upwards titration of continuous tube feeds * IV insulin drip re-initiated due to climbing BSGs * New events: patient extubated at this time, norepi weaned off, tube feeds are now off and pt is NPO, IVF's changed to incorporate dextrose due to NPO status and ongoing IV insulin provision * Plan to continue IV insulin at this time given ongoing hyperglycemia and NPO status. Will be easier to titrate insulin needs while NPO and receiving IV insulin therapy. May consider transition to SQ regimen in future once tolerating a diet. PLAN FOR INPATIENT GLYCEMIC CONTROL: * IV insulin infusion per protocol; goal range 110-180mg/dL * Bolus insulin * 1 unit per 8gm CHO consumed if diet ordered later today PLAN FOR DISCHARGE: * to be determined
[2019-06-29] MEDS: POTASSIUM CHLORIDE 40 MEQ in D5W AND 1/2NSS 1,000 ML IV SCH ×2 (13:04→19:40)
[2019-06-29] MEDS ORDERED: VANCOMYCIN TROUGH ONE (15:30)
--- NOTE | 2019-06-29 16:15 | Pharmacy Report ---
Pharmacy Abx Dose Short Note - Date of Service June 29, 2019 - Assessment & Plan Assessment 28 year old M receiving vancomycin, zosyn, and azithromycin for treatment of sepsis secondary to multilobar pneumonia * Transferred from [facility] due to acute respiratory failure/DKA * Procalcitonin of 17.05 * MRSA nasal swab negative, all cultures have no growth to date Day # 3 of antimicrobial therapy Plan Vancomycin * Trough level of 13.9 mcg/mL is subtherapeutic - it should be noted that the last dose of vancomycin was administered 1.5 hours late so true trough is likely lower * Change to 1250 mg IV every 6 hours * Goal trough level: 15 to 20 mcg/mL * Trough level ordered for: 06/30 @ 1530 Piperacillin/tazobactam * 4.5 g bolus administered over 30 minutes, then 4.5 g IV extended infusion every 8 hours for CrCl greater than 20 mL/min * Aggressive dosing selected due to critically ill status Azithromycin * 500 mg IV q24h - appropriate based on pneumonia indication Pharmacy will continue to follow and will adjust dose/frequency as necessary. Thank you.
[2019-06-29 16:23] LABS: iSTAT Hemoglobin 9.2 g/dl (14.0-18.0); iSTAT Potassium 3.7 mmol/L (3.3-5.0); iSTAT Sodium 144 mmol/L (135-144)
[2019-06-29 16:24] LABS: Patient Temperature 38.3; iSTAT Allen Test Not Performed; iSTAT Arterial Blood Gas HCO3 22 meg/L (19-24); iSTAT Arterial Blood Gas pCO2 42 mmHg (35-46); iSTAT Arterial Blood Gas pH 7.33 (7.35-7.45); iSTAT Arterial Blood Gas pO2 75 mmHg (80-95); iSTAT Carbon Dioxide 23 mmol/L (24-31); iSTAT FiO2 50 %; iSTAT Hematocrit 27 % (42-52)
[2019-06-29 16:25] LABS: iSTAT Sample Type Arterial; iSTAT Site Art Line
[2019-06-29] MEDS: NICOTINE 21 MG/24 HR TDSY TD SCH (18:10)
--- NOTE | 2019-06-29 21:09 | Hospitalist Progress Note ---
Date of Service June 29, 2019 Assessment & Plan (1) Acute respiratory failure with hypoxemia: Acute hypoxic respiratory failure, secondary to bilateral pneumonia --Remains on mechanical ventilator --Blood cultures negative so far Sputum cultures negative so far --Continue vancomycin, Zosyn, azithromycin Continue nebs Further mechanical ventilator management per environmental maintenance worker, possible trial of extubation today Appreciate the recommendations Septic shock secondary to above --Currently on Levophed, will wean off hopefully --Also on IV fluids Diabetic ketoacidosis Type 1 diabetes --Anion gap closed, glucose 165 --On insulin Lantus NovoLog, pharmacy on board, appreciate recommendations Nutrition --Currently on Peptamen History of narcotic abuse --Apparently patient was on Suboxone in the past No signs of withdrawal symptoms at this time DVT prophylaxis --Lovenox Subjective Follow-up for respiratory failure, pneumonia, DKA . Patient is currently on a mechanical ventilator, sedated Not in distress, no acute events overnight FiO2 being decreased, tolerating so far Remains on levo fed Discussed with RIKKI Lee, no acute issues at this time Review of Systems Review of Systems: All systems reviewed & are unremarkable except as noted in HPI & below Physical Exam Physical Exam: General-sedated, on mechanical ventilator, not in distress Eyes- anicteric Neck- no JVD Endotracheal tube in place Lungs-positive rhonchi bilateral, anteriorly Heart- normal rate, regular rhythm; no murmurs Abdomen- normal bowel sounds, nondistended, soft, nontender Extremities- no pretibial edema, no calf tenderness Neuro-sedated Skin- warm & dry Results & Data ([facility]) Vital Signs (Past 12 Hours) Vital Signs Temp Pulse Pulse Resp BP Pulse Ox 06/29/19 20:05 93 H 22 98/63 L 93 06/29/19 20:00 37 C 100 H 23 107/89 91 06/29/19 19:05 96 H 94/59 L 96 06/29/19 19:00 84 100 06/29/19 18:56 90 16 91 06/29/19 18:15 83 92 06/29/19 18:05 87 86/55 L 95 06/29/19 18:00 93 H 94 06/29/19 17:45 90 95 06/29/19 17:30 92 H 96 06/29/19 17:05 103 H 88/56 L 95 06/29/19 17:00 92 H 98 06/29/19 16:30 90 95 06/29/19 16:15 90 87/60 L 97 06/29/19 16:00 92 H 97 06/29/19 15:50 90 96 06/29/19 15:40 95 H 96 06/29/19 15:30 95 H 97 06/29/19 15:21 95 H 99 06/29/19 15:19 95 H 82/58 L 98 06/29/19 15:13 88 18 100 06/29/19 15:05 91 H 82/58 L 100 06/29/19 15:00 89 100 06/29/19 14:50 90 99 06/29/19 14:40 89 99 06/29/19 14:30 90 99 06/29/19 14:20 91 H 98 06/29/19 14:10 91 H 100 06/29/19 14:05 87 84/58 L 99 06/29/19 14:00 91 H 98 06/29/19 13:30 87 100 06/29/19 13:05 87 97/48 L 98 06/29/19 13:00 88 97 06/29/19 12:30 92 H 98 06/29/19 12:05 94 H 85/55 L 97 06/29/19 12:00 93 H 99 06/29/19 11:30 98 H 100 06/29/19 11:05 94 H 94/76 L 96 06/29/19 11:04 104 H 21 98 06/29/19 11:00 92 H 100 06/29/19 10:30 86 100 06/29/19 10:06 83 98 06/29/19 10:05 83 90/57 L 98 06/29/19 10:00 92 H 99 06/29/19 09:45 85 100 06/29/19 09:30 86 100 06/29/19 09:15 88 99 Laboratory Results Laboratory Results - last 24 hr 06/27/19 06/27/19 06/28/19 15:40 17:26 13:41 WBC RBC Hgb POC Hgb 9.2 L Hct POC Hct 27 L MCV MCH MCHC RDW Std Deviation RDW Coeff of [place] Plt Count MPV Immature Gran % (Auto) Neut % (Auto) Lymph % (Auto) [place] % (Auto) Eos % (Auto) Baso % (Auto) Immature Gran # (Auto) Neut # (Auto) Lymph # (Auto) [place] # (Auto) Eos # (Auto) Baso # (Auto) Specimen Type Arterial Sample Site Art Line Patient Temperature 38.3 POC pH 7.33 L POC pCO2 42 POC pO2 75 L POC HCO3 22 POC Total CO2 23 L POC Base Excess -4.0 POC O2 Saturation 94 O2 Sat Pulse Oximetry Avelino Test Not Performed O2 Delivery Device Ventilator POC O2 Rate 18 Minute Ventilation 8.2 Vent Mode AC POC FiO2 50 Tidal Volume 450 End Tidal CO2 38 PEEP 8 POC Sodium 144 Sodium POC Potassium 3.7 Potassium Chloride Carbon Dioxide Anion Gap BUN Creatinine Est Cr Clr Drug Dosing Est GFR ( Amer) Est GFR (Non-Af Amer) BUN/Creatinine Ratio Glucose POC Glucose POC Glucose (other) Estimated Ave Glu mmol/L DNR Estimated Ave Glu mg/dL SEE NOTE Hemoglobin A1c >14.0 H Calcium Phosphorus Magnesium Vancomycin Trough Urine Legionella Ag SEE NOTE 06/28/19 06/28/19 06/29/19 20:58 23:53 01:56 WBC RBC Hgb POC Hgb 9.9 L Hct POC Hct 29 L MCV MCH MCHC RDW Std Deviation RDW Coeff of [place] Plt Count MPV Immature Gran % (Auto) Neut % (Auto) Lymph % (Auto) [place] % (Auto) Eos % (Auto) Baso % (Auto) Immature Gran # (Auto) Neut # (Auto) Lymph # (Auto) [place] # (Auto) Eos # (Auto) Baso # (Auto) Specimen Type Arterial Sample Site Art Line Patient Temperature 39.0 POC pH 7.30 L POC pCO2 45 POC pO2 96 H POC HCO3 23 POC Total CO2 23 L POC Base Excess -4.0 POC O2 Saturation 97 O2 Sat Pulse Oximetry 100 Avelino Test Not Performed O2 Delivery Device Ventilator POC O2 Rate 24 Minute Ventilation 10.0 Vent Mode SIMV POC FiO2 Tidal Volume 420 End Tidal CO2 35 PEEP 15 POC Sodium 141 Sodium POC Potassium 3.7 Potassium Chloride Carbon Dioxide Anion Gap BUN Creatinine Est Cr Clr Drug Dosing Est GFR ( Amer) Est GFR (Non-Af Amer) BUN/Creatinine Ratio Glucose POC Glucose POC Glucose (other) [address] Glu mmol/L Estimated Ave Glu mg/dL Hemoglobin A1c Calcium Phosphorus Magnesium Vancomycin Trough Urine Legionella Ag 01/31/20 01/31/20 01/31/20 03:53 05:04 05:04 WBC 11.27 H RBC 3.14 L Hgb 10.3 L POC Hgb Hct 30.9 L POC Hct MCV 98.4 MCH 32.8 MCHC 33.3 RDW Std Deviation 47.8 H RDW Coeff of [place] 13.4 Plt Count 213 MPV 9.8 Immature Gran % (Auto) 0.4 Neut % (Auto) 79.4 Lymph % (Auto) 11.7 [place] % (Auto) 6.1 Eos % (Auto) 2.1 Baso % (Auto) 0.3 Immature Gran # (Auto) 0.05 H Neut # (Auto) 8.94 H Lymph # (Auto) 1.32 [place] # (Auto) 0.69 H Eos # (Auto) 0.24 Baso # (Auto) 0.03 Specimen Type Sample Site Patient Temperature POC pH POC pCO2 POC pO2 POC HCO3 POC Total CO2 POC Base Excess POC O2 Saturation O2 Sat Pulse Oximetry Avelino Test O2 Delivery Device POC O2 Rate Minute Ventilation Vent Mode POC FiO2 Tidal Volume End Tidal CO2 PEEP POC Sodium Sodium 139 POC Potassium Potassium 3.3 L Chloride 111 H Carbon Dioxide 25 Anion Gap 3.0 BUN 6 L Creatinine 0.44 L Est Cr Clr Drug Dosing 209.5 Est GFR ( Amer) > 150.0 Est GFR (Non-Af Amer) > 150.0 BUN/Creatinine Ratio 13.4 Glucose 258 H POC Glucose POC Glucose (other) [address] Glu mmol/L Estimated Ave Glu mg/dL Hemoglobin A1c Calcium 8.2 L Phosphorus 2.2 L Magnesium 1.5 L Vancomycin Trough Urine Legionella Ag 06/29/19 06/29/19 06/29/19 05:17 06:05 07:16 WBC RBC Hgb POC Hgb 9.9 L Hct POC Hct 29 L MCV MCH MCHC RDW Std Deviation RDW Coeff of [place] Plt Count MPV Immature Gran % (Auto) Neut % (Auto) Lymph % (Auto) [place] % (Auto) Eos % (Auto) Baso % (Auto) Immature Gran # (Auto) Neut # (Auto) Lymph # (Auto) [place] # (Auto) Eos # (Auto) Baso # (Auto) Specimen Type Arterial Sample Site Art Line Patient Temperature 37.7 POC pH 7.37 POC pCO2 36 POC pO2 69 L POC HCO3 21 POC Total CO2 22 L POC Base Excess -4.0 POC O2 Saturation 93 O2 Sat Pulse Oximetry 98 Avelino Test Not Performed O2 Delivery Device Ventilator POC O2 Rate 18 Minute Ventilation 8.5 Vent Mode AC POC FiO2 28 Tidal Volume 470 End Tidal CO2 34 PEEP 5 POC Sodium 138 Sodium POC Potassium 3.3 Potassium Chloride Carbon Dioxide Anion Gap BUN Creatinine Est Cr Clr Drug Dosing Est GFR ( Amer) Est GFR (Non-Af Amer) BUN/Creatinine Ratio Glucose POC Glucose POC Glucose (other) [address] Glu mmol/L Estimated Ave Glu mg/dL Hemoglobin A1c Calcium Phosphorus Magnesium Vancomycin Trough Urine Legionella Ag 06/29/19 06/29/19 06/29/19 08:09 09:05 10:15 WBC RBC Hgb POC Hgb Hct POC Hct MCV MCH MCHC RDW Std Deviation RDW Coeff of [place] Plt Count MPV Immature Gran % (Auto) Neut % (Auto) Lymph % (Auto) [place] % (Auto) Eos % (Auto) Baso % (Auto) Immature Gran # (Auto) Neut # (Auto) Lymph # (Auto) [place] # (Auto) Eos # (Auto) Baso # (Auto) Specimen Type Sample Site Patient Temperature POC pH POC pCO2 POC pO2 POC HCO3 POC Total CO2 POC Base Excess POC O2 Saturation O2 Sat Pulse Oximetry Avelino Test O2 Delivery Device POC O2 Rate Minute Ventilation Vent Mode POC FiO2 Tidal Volume End Tidal CO2 PEEP POC Sodium Sodium POC Potassium Potassium Chloride Carbon Dioxide Anion Gap BUN Creatinine Est Cr Clr Drug Dosing Est GFR ( Amer) Est GFR (Non-Af Amer) BUN/Creatinine Ratio Glucose POC Glucose POC Glucose (other) 243 H 248 H [address] Glu mmol/L Estimated Ave Glu mg/dL Hemoglobin A1c Calcium Phosphorus Magnesium Vancomycin Trough Urine Legionella Ag 06/29/19 06/29/19 06/29/19 11:42 12:58 14:13 WBC RBC Hgb POC Hgb Hct POC Hct MCV MCH MCHC RDW Std Deviation RDW Coeff of [place] Plt Count MPV Immature Gran % (Auto) Neut % (Auto) Lymph % (Auto) [place] % (Auto) Eos % (Auto) Baso % (Auto) Immature Gran # (Auto) Neut # (Auto) Lymph # (Auto) [place] # (Auto) Eos # (Auto) Baso # (Auto) Specimen Type Sample Site Patient Temperature POC pH POC pCO2 POC pO2 POC HCO3 POC Total CO2 POC Base Excess POC O2 Saturation O2 Sat Pulse Oximetry Avelino Test O2 Delivery Device POC O2 Rate Minute Ventilation Vent Mode POC FiO2 Tidal Volume End Tidal CO2 PEEP POC Sodium Sodium POC Potassium Potassium Chloride Carbon Dioxide Anion Gap BUN Creatinine Est Cr Clr Drug Dosing Est GFR ( Amer) Est GFR (Non-Af Amer) BUN/Creatinine Ratio Glucose POC Glucose POC Glucose (other) 201 H [address] Glu mmol/L Estimated Ave Glu mg/dL Hemoglobin A1c Calcium Phosphorus Magnesium Vancomycin Trough Urine Legionella Ag 06/29/19 06/29/19 06/29/19 15:21 15:25 16:56 WBC RBC Hgb POC Hgb Hct POC Hct MCV MCH MCHC RDW Std Deviation RDW Coeff of [place] Plt Count MPV Immature Gran % (Auto) Neut % (Auto) Lymph % (Auto) [place] % (Auto) Eos % (Auto) Baso % (Auto) Immature Gran # (Auto) Neut # (Auto) Lymph # (Auto) [place] # (Auto) Eos # (Auto) Baso # (Auto) Specimen Type Sample Site Patient Temperature POC pH POC pCO2 POC pO2 POC HCO3 POC Total CO2 POC Base Excess POC O2 Saturation O2 Sat Pulse Oximetry Avelino Test O2 Delivery Device POC O2 Rate Minute Ventilation Vent Mode POC FiO2 Tidal Volume End Tidal CO2 PEEP POC Sodium Sodium POC Potassium Potassium Chloride Carbon Dioxide Anion Gap BUN Creatinine Est Cr Clr Drug Dosing Est GFR ( Amer) Est GFR (Non-Af Amer) BUN/Creatinine Ratio Glucose POC Glucose 149 H 129 H POC Glucose (other) Estimated Ave Glu mmol/L Estimated Ave Glu mg/dL Hemoglobin A1c Calcium Phosphorus Magnesium Vancomycin Trough 13.9 Urine Legionella Ag 06/29/19 19:03 WBC RBC Hgb POC Hgb Hct POC Hct MCV MCH MCHC RDW Std Deviation RDW Coeff of [place] Plt Count MPV Immature Gran % (Auto) Neut % (Auto) Lymph % (Auto) [place] % (Auto) Eos % (Auto) Baso % (Auto) Immature Gran # (Auto) Neut # (Auto) Lymph # (Auto) [place] # (Auto) Eos # (Auto) Baso # (Auto) Specimen Type Sample Site Patient Temperature POC pH POC pCO2 POC pO2 POC HCO3 POC Total CO2 POC Base Excess POC O2 Saturation O2 Sat Pulse Oximetry Avelino Test O2 Delivery Device POC O2 Rate Minute Ventilation Vent Mode POC FiO2 Tidal Volume End Tidal CO2 PEEP POC Sodium Sodium POC Potassium Potassium Chloride Carbon Dioxide Anion Gap BUN Creatinine Est Cr Clr Drug Dosing Est GFR ( Amer) Est GFR (Non-Af Amer) BUN/Creatinine Ratio Glucose POC Glucose 134 H POC Glucose (other) Estimated Ave Glu mmol/L Estimated Ave Glu mg/dL Hemoglobin A1c Calcium Phosphorus Magnesium Vancomycin Trough Urine Legionella Ag
[2019-06-29] MEDS: INSULIN GLARGINE SOLOSTAR 100 UNITS/ML 3 ML PEN SC SCH (21:13)
[2019-06-29] MEDS: VANCOMYCIN HCL 1,250 MG in SODIUM CHLORIDE 0.9% 250 ML IV SCH (21:13)
[2019-06-30] MEDS: INSULIN ASPART 100 UNITS/ML 3 ML PEN SC SCH ×9 (00:04→21:02)
[2019-06-30] MEDS: POTASSIUM CHLORIDE 40 MEQ in D5W AND 1/2NSS 1,000 ML IV SCH (02:55)
[2019-06-30] MEDS: ALBUT/IPRATROP 3MG/0.5MG NEB 3 ML VIAL INH SCH ×6 (03:25→22:56)
[2019-06-30 04:48] LABS: Hemoglobin 11.7 g/dL (14.0-18.0); Mean Corpuscular Hemoglobin 33.1 pg (25-34); Mean Corpuscular Hgb Conc 34.4 g/dL (32-36); Mean Corpuscular Volume 96.3 fL (80-100); Mean Platelet Volume 9.5 fL (7.4-10.4); Platelet Count 236 K/uL (130-400); RDW Coefficient of Variation 13.1 % (11.5-14.5); RDW Standard Deviation 46.2 fL (36.4-46.3); Red Blood Count 3.53 M/uL (4.7-6.1); White Blood Count 7.77 K/uL (4.8-10.8)
[2019-06-30 05:06] LABS: BUN Creatinine Ratio 14.4 (10-20); Blood Urea Nitrogen 4 mg/dl (7-18); Calcium 8.2 mg/dl (8.5-10.1); Carbon Dioxide 29 mmol/L (21-32); Chloride 112 mmol/L (98-107); Creatinine Clr Calc Pharmacy 337.6 ml/min; Est GFR (African American) > 150.0; Est GFR (Non-African American) > 150.0; Glucose 96 mg/dl (70-99); Magnesium 1.6 mg/dl (1.8-2.4); Phosphorus 2.8 mg/dl (2.5-4.9); Potassium 3.3 mmol/L (3.5-5.1); Sodium 144 mmol/L (136-145)
[2019-06-30] MEDS: VANCOMYCIN HCL 1,250 MG in SODIUM CHLORIDE 0.9% 250 ML IV SCH (05:16)
[2019-06-30] MEDS: PIPERACILLIN/TAZOBACTAM 4.5 GM in DEXTROSE 5% 100 ML IV SCH ×3 (05:18→21:47)
[2019-06-30] MEDS: MAGNESIUM SULFATE / D5W 1 GM/100 ML BAG IV SCH ×3 (06:23→09:08)
[2019-06-30] MEDS: POTASSIUM CHLORIDE / WTR 20 MEQ/100 ML PLCT IV SCH ×2 (06:35→07:45)
[2019-06-30] MEDS: NOREPINEPHRINE BIT INJ 8 MG in DEXTROSE 5% 500 ML IV SCH (08:27)
[2019-06-30] MEDS: INSULIN REGULAR 250 UNITS in SODIUM CHLORIDE 0.9% 247.5 ML IV SCH (08:27)
[2019-06-30] MEDS: propofoL 1,000 MG/100 ML VIAL IV SCH ×2 (08:27→08:30)
--- NOTE | 2019-06-30 08:30 | Critical Care Progress Note ---
Date of Service June 30, 2019 Assessment & Plan (1) Acute respiratory failure with hypoxemia: --Status post VDRF secondary to sepsis with Acute Hypoxic respiratory failure Likely secondary to multilobar pneumonia, intubated 06/27/2019 Continue with antibiotic, Zosyn along with atypical coverage with azithromycin Blood culture negative to date, sputum culture, Blood culture, procalcitonin: 17.05 ESR: > 90, CRP: 32.2,UA: Clean Extubated 06/29/2019 --s/p Diabetic ketoacidosis Patient is type I diabetic Noncompliant with insulin plus sepsis secondary to multilobar pneumonia Status post insulin drip. Bridged to subcu insulin Insulin management as per pharmacy protocol --History of opioid abuse Unsure the patient is on Suboxone --Secondary hypercoagulable state Lovenox Plan: DC IV fluids D5 half NS with KCl. Start full diabetic diet. DC vancomycin Replace magnesium and potassium Change azithromycin to p.o. Remove Maced[place], A-line and TLC Patient hemodynamically stable to be downgraded to medical floor. I have personally spent 30 minutes of critical care time in the direct management of this patient. This is a life/limb threatening event. This includes time spent evaluating patient, direct bedside care, chart review, placing orders, interpretation of diagnostic studies, discussion with consultants, patient, and family members, as well as other required patient management activities. This time is exclusive of all separately billable procedures, and teaching time and separate from and in addition to any other critical care service time. Please note the above document was generated using voice recognition software. It may contain grammatical, syntax or spelling errors. (2) DKA (diabetic ketoacidoses): Subjective Patient seen and examined at bedside. No acute distress. Patient had an episode of bradycardia with EKG showing junctional rhythm it lasted for approximately 2 minutes. Patient was asymptomatic for the whole time. Patient was extubated 06/29/2019. Patient is tolerating clear liquids will advance it to full diabetic diet. Patient denies any chest pain, no shortness of breath, no headache, no nausea, no vomiting. No dizziness, no palpitation. Review of Systems Review of Systems: All systems reviewed & are unremarkable except as noted in HPI & below Physical Exam Physical Exam: Constitutional: No acute distress HEENT: EOMI, PERRLA Respiratory system: Decreased air entry on the right side, positive crackles right lower lobe, no wheeze, no rhonchi CVS: S1-S2 positive, no murmurs or gallops Abdomen: Soft, nontender, nondistended, positive bowel sounds x4 Extremities: +2 pulses bilaterally radialis/ dorsalis pedis, no cyanosis, no edema Neuro: Awake alert oriented x3, responding to questions appropriately, moving all extremities Psych: Normal mood and affect G/U: Positive Macedo Left IJ central line, right radial A-line Skin: no rashes, warm and dry Lymphatic: no cervical or axillary lymphadenopathy Results & Data ([facility]) Vital Signs (Past 12 Hours) Vital Signs Pulse Pulse Resp BP Pulse Ox 06/30/19 07:09 68 18 92 06/30/19 06:05 69 9 L 83/60 L 94 06/30/19 05:05 70 21 100/70 94 06/30/19 04:05 67 22 97/70 L 90 06/30/19 03:26 57 L 18 92 06/30/19 03:05 86 21 99/68 L 91 06/30/19 02:05 75 23 98/65 L 92 06/30/19 01:05 80 21 89/55 L 93 06/30/19 00:05 81 19 99/62 L 95 06/30/19 00:00 81 19 103/81 94 06/29/19 23:00 85 21 91 06/29/19 22:20 85 14 91 06/29/19 22:05 88 19 99/62 L 96 06/29/19 22:00 86 21 95 06/29/19 21:06 96 H 25 H 97/64 L 94 06/29/19 21:00 90 20 94 06/30/19 04:28 06/30/19 04:28 Coding Level of Care Code Critical Care 1st 30-74 mins Diagnoses Acute respiratory failure with hypoxemia J96.01 DKA (diabetic ketoacidoses) E11.10 Time Spent (min) 30
[2019-06-30] MEDS: ENOXAPARIN INJ 40 MG/0.4 ML SYR SQ SCH (09:09)
[2019-06-30] MEDS: AZITHROMYCIN 250 MG TAB PO SCH (09:10)
[2019-06-30] MEDS: LANSOPRAZOLE 30 MG SOLTAB NG SCH (11:18)
[2019-06-30] MEDS ORDERED: INSULIN GLARGINE SOLOSTAR 100 UNITS/ML 3 ML PEN SC ONE (11:45)
[2019-06-30] MEDS: PANTOprazole 40 MG TAB PO SCH (11:49)
--- NOTE | 2019-06-30 13:37 | Pharmacy Report ---
Pharmacy Glycemic Short Note 2 - Date of Service June 30, 2019 - Glycemic Short BSG Results (Last 24 hours): 06/29/19 06/29/19 06/29/19 14:13 15:21 16:56 Glucose POC Glucose 149 H 129 H POC Glucose (other) 159 H 06/29/19 06/29/19 06/29/19 19:03 21:07 23:36 Glucose POC Glucose 134 H 143 H 127 H POC Glucose (other) 06/30/19 06/30/19 06/30/19 01:12 02:57 04:28 Glucose 96 POC Glucose 122 H 104 H POC Glucose (other) 06/30/19 06/30/19 06/30/19 04:32 06:29 07:59 Glucose POC Glucose 90 149 H 174 H POC Glucose (other) 06/30/19 06/30/19 11:26 11:28 Glucose POC Glucose 348 H* 358 H* POC Glucose (other) OUTPATIENT ANTIDIABETIC REGIMEN (PER MEDICATION HX COLLECTED AT [facility]): * Novolog 8 units TID w/ Meals * Lantus 18 units Q HS * A1c > 14% ASSESSMENT: 06/30 * Blood sugars at goal and insulin drip discontinued at 0445 this morning, patient already on Lantus x 3 days while on drip * Blood sugar then spiked at lunch time to 348mg/dl - partially d/t just eating crackers and PB as a snack before this check. * Will give an additional dose of Lantus and tighten CF/CR at this time. * Will also check blood sugars overnight to ensure glycemic control * Pt stable and ok to move to medical floor (extubated, off TFs, tolerating diet, antibiotics de-escalated) 06/29 * BSGs climbed last evening, likely due to the addition of vasopressor therapy (norepi) and the upwards titration of continuous tube feeds * IV insulin drip re-initiated due to climbing BSGs * New events: patient extubated at this time, norepi weaned off, tube feeds are now off and pt is NPO, IVF's changed to incorporate dextrose due to NPO status and ongoing IV insulin provision * Plan to continue IV insulin at this time given ongoing hyperglycemia and NPO status. Will be easier to titrate insulin needs while NPO and receiving IV insulin therapy. May consider transition to SQ regimen in future once tolerating a diet. PLAN FOR INPATIENT GLYCEMIC CONTROL: * IV insulin infusion per protocol; goal range 110-180mg/dL - stopped at 0445 this am * Lantus - 15 units HS - continue + 10 units x 1 today at 1200 * Bolus insulin - Novolog ACHS + 0000 and 0400 * Goal range 110-150mg/dl * tighten: CF: 25mg/dl/unit * tighten: CR: 1 unit per 7gm CHO consumed PLAN FOR DISCHARGE: * to be determined
[2019-06-30] MEDS ORDERED: INSULIN ASPART 100 UNITS/ML 3 ML PEN SC ONE (15:15)
[2019-06-30] MEDS ORDERED: VANCOMYCIN TROUGH ONE (15:30)
--- NOTE | 2019-06-30 17:28 | Hospitalist Progress Note ---
Date of Service June 30, 2019 Assessment & Plan (1) Acute respiratory failure with hypoxemia: Acute hypoxic respiratory failure, secondary to bilateral pneumonia --extubated saturating well on room air --Blood cultures negative so far Sputum cultures negative so far --Continue Zosyn, azithromycin Continue nebs --transfer to med/surg tele Septic shock secondary to above --resolved --Also on IV fluids Diabetic ketoacidosis Type 1 diabetes --Anion gap closed, glucose 165 --On insulin Lantus NovoLog, pharmacy on board, appreciate recommendations Nutrition --Currently on Peptamen History of narcotic abuse --Apparently patient was on Suboxone in the past No signs of withdrawal symptoms at this time DVT prophylaxis --Lovenox Subjective ff up for respiratory failure, pneumonia seen sitting up in bed, not in distress states he feels ok overall no active shortness of breath, has intermittent productive cough no chest pain denies abdominal pain, nausea no other symptoms Review of Systems Review of Systems: All systems reviewed & are unremarkable except as noted in HPI & below Physical Exam Physical Exam: General- oriented x 3, not in distress, speaks in sentences with no effort or accessory muscle use Eyes- anicteric Neck- no JVD Lungs-(+) mild rhonchi at the bases Heart- normal rate, regular rhythm; no murmurs Abdomen- normal bowel sounds, nondistended, soft, nontender Extremities- no pretibial edema, no calf tenderness Neuro- alert, oriented x 3; no gross focal neurologic deficits Skin- warm & dry Results & Data ([facility]) Vital Signs (Past 12 Hours) Vital Signs Temp Pulse Pulse Resp BP Pulse Ox 06/30/19 16:00 116 H 06/30/19 15:13 102 H 18 93 06/30/19 12:57 116 H 20 108/67 92 06/30/19 11:57 36.8 C 108 H 24 101/63 92 06/30/19 10:31 99 H 18 95 06/30/19 10:05 87 22 96/64 L 94 06/30/19 09:05 76 24 101/73 96 06/30/19 08:05 66 19 95/69 L 94 06/30/19 07:09 68 18 92 06/30/19 07:05 36.8 C 71 23 102/73 91 06/30/19 06:05 69 9 L 83/60 L 94 Laboratory Results Laboratory Results - last 24 hr 01/31/20 01/31/20 01/31/20 19:03 21:07 23:36 WBC RBC Hgb Hct MCV MCH MCHC RDW Std Deviation RDW Coeff of [place] Plt Count MPV Sodium Potassium Chloride Carbon Dioxide Anion Gap BUN Creatinine Est Cr Clr Drug Dosing Est GFR ( Amer) Est GFR (Non-Af Amer) BUN/Creatinine Ratio Glucose POC Glucose 134 H 143 H 127 H Calcium Phosphorus Magnesium 06/30/19 06/30/19 06/30/19 01:12 02:57 04:28 WBC RBC Hgb Hct MCV MCH MCHC RDW Std Deviation RDW Coeff of [place] Plt Count MPV Sodium 144 Potassium 3.3 L Chloride 112 H Carbon Dioxide 29 Anion Gap 3.0 BUN 4 L Creatinine 0.29 L Est Cr Clr Drug Dosing 337.6 Est GFR ( Amer) > 150.0 Est GFR (Non-Af Amer) > 150.0 BUN/Creatinine Ratio 14.4 Glucose 96 POC Glucose 122 H 104 H Calcium 8.2 L Phosphorus 2.8 Magnesium 1.6 L 06/30/19 06/30/19 06/30/19 04:28 04:32 06:29 WBC 7.77 RBC 3.53 L Hgb 11.7 L Hct 34.0 L MCV 96.3 MCH 33.1 MCHC 34.4 RDW Std Deviation 46.2 RDW Coeff of [place] 13.1 Plt Count 236 MPV 9.5 Sodium Potassium Chloride Carbon Dioxide Anion Gap BUN Creatinine Est Cr Clr Drug Dosing Est GFR ( Amer) Est GFR (Non-Af Amer) BUN/Creatinine Ratio Glucose POC Glucose 90 149 H Calcium Phosphorus Magnesium 06/30/19 06/30/19 06/30/19 07:59 11:26 11:28 WBC RBC Hgb Hct MCV MCH MCHC RDW Std Deviation RDW Coeff of [place] Plt Count MPV Sodium Potassium Chloride Carbon Dioxide Anion Gap BUN Creatinine Est Cr Clr Drug Dosing Est GFR ( Amer) Est GFR (Non-Af Amer) BUN/Creatinine Ratio Glucose POC Glucose 174 H 348 H* 358 H* Calcium Phosphorus Magnesium 06/30/19 06/30/19 06/30/19 15:01 15:03 16:31 WBC RBC Hgb Hct MCV MCH MCHC RDW Std Deviation RDW Coeff of [place] Plt Count MPV Sodium Potassium Chloride Carbon Dioxide Anion Gap BUN Creatinine Est Cr Clr Drug Dosing Est GFR ( Amer) Est GFR (Non-Af Amer) BUN/Creatinine Ratio Glucose POC Glucose 316 H* 320 H* 257 H Calcium Phosphorus Magnesium
[2019-06-30] MEDS: NICOTINE 21 MG/24 HR TDSY TD SCH (17:45)
[2019-06-30] MEDS: INSULIN GLARGINE SOLOSTAR 100 UNITS/ML 3 ML PEN SC SCH (21:03)
--- NOTE | 2019-06-30 22:19 | Electrocardiogram Report ---
Test Reason : Blood Pressure : / mmHG Vent. Rate : 046 BPM Atrial Rate : 045 BPM P-R Int : 000 ms QRS Dur : 092 ms QT Int : 468 ms P-R-T Axes : 000 085 070 degrees QTc Int : 409 ms Junctional rhythm Possible Anterior infarct , age undetermined Abnormal ECG When compared with ECG of 06-MAY-2018 02:07, Junctional rhythm has replaced Sinus rhythm T wave amplitude has decreased in Inferior leads Confirmed by Cody Suarez ([id number]) on 06/30/2019 10:18:56 PM Referred By: Dwayne Goncalves Confirmed By:Cody Suarez
[2019-07-01] MEDS: INSULIN ASPART 100 UNITS/ML 3 ML PEN SC SCH ×6 (00:16→21:23)
[2019-07-01] MEDS: ALBUT/IPRATROP 3MG/0.5MG NEB 3 ML VIAL INH SCH ×6 (03:03→22:40)
[2019-07-01] MEDS: PIPERACILLIN/TAZOBACTAM 4.5 GM in DEXTROSE 5% 100 ML IV SCH ×2 (06:06→14:02)
[2019-07-01 07:11] LABS: BUN Creatinine Ratio 18.5 (10-20); Blood Urea Nitrogen 10 mg/dl (7-18); Calcium 8.8 mg/dl (8.5-10.1); Carbon Dioxide 29 mmol/L (21-32); Chloride 106 mmol/L (98-107); Creatinine Clr Calc Pharmacy 192.3 ml/min; Est GFR (African American) > 150.0; Glucose 70 mg/dl (70-99); Magnesium 1.9 mg/dl (1.8-2.4); Phosphorus 3.1 mg/dl (2.5-4.9); Potassium 3.2 mmol/L (3.5-5.1); Sodium 142 mmol/L (136-145)
[2019-07-01] MEDS: AZITHROMYCIN 250 MG TAB PO SCH (08:22)
[2019-07-01] MEDS: ENOXAPARIN INJ 40 MG/0.4 ML SYR SQ SCH (08:22)
[2019-07-01] MEDS: PANTOprazole 40 MG TAB PO SCH (08:23)
--- NOTE | 2019-07-01 08:32 | XRay Report ---
SINGLE VIEW CHEST CLINICAL HISTORY: Follow-up airspace consolidation. FINDINGS: An AP, portable, upright chest radiograph is compared to study dated 06/29/2019. The examina tion is degraded by portable technique and patient rotation. An endotracheal tube, an enteric tube, a nd the left internal jugular central venous catheter have been removed. The cardiomediastinal silhoue tte is unremarkable. There is dense airspace consolidation at the right lung base with a right pleura l effusion. Minimal consolidative change is also suggested at the left lung base. No pneumothorax is seen. The bony thorax is grossly intact. IMPRESSION: 1. Lines and tubes have been removed as detailed above. 2. Dense right basilar consolidation has modestly cleared from yesterday. 3. Consolidation is also suggested at the medial left lung base. 4. A small right pleural effusion persists. ACT 112: Negative or not required by law. Electronically signed by: Amor Robles M.D. 07/01/2019 8:31 AM
[2019-07-01] MEDS ORDERED: POTASSIUM CHLORIDE 20 MEQ TABCR PO STA (09:31)
[2019-07-01] MEDS: NICOTINE 21 MG/24 HR TDSY TD SCH (17:12)
[2019-07-01] MEDS ORDERED: FUROSEMIDE 40 MG TAB PO ONE (19:28)
[2019-07-01] MEDS: INSULIN GLARGINE SOLOSTAR 100 UNITS/ML 3 ML PEN SC SCH (21:24)
[2019-07-01] MEDS ORDERED: levoFLOXacin 750 MG TAB PO SCH (22:00)
--- NOTE | 2019-07-01 23:49 | Hospitalist Progress Note ---
Date of Service July 01, 2019 Assessment & Plan (1) Acute respiratory failure with hypoxemia: Acute hypoxic respiratory failure, secondary to bilateral pneumonia --extubated saturating well on room air --Blood cultures negative so far Sputum cultures negative so far --continues to improve --transition to Levaquin, Augmentin Continue nebs Septic shock secondary to above --resolved --Also on IV fluids Diabetic ketoacidosis Type 1 diabetes --Anion gap closed, glucose 165 --On insulin Lantus NovoLog, pharmacy on board, appreciate recommendations History of narcotic abuse --Apparently patient was on Suboxone in the past No signs of withdrawal symptoms at this time Pedal Edema -- Lasix Po give DVT prophylaxis --Lovenox Subjective ff up for pneumonia, DKA seen resting in bed, comfortable not in distress states he continues to feel improved no shortness of breath cough continues to improve denies abdominal pain, nausea no other symptoms Review of Systems Review of Systems: All systems reviewed & are unremarkable except as noted in HPI & below Physical Exam Physical Exam: General- oriented x 3, not in distress, speaks in sentences with no effort or accessory muscle use Eyes- anicteric Neck- no JVD Lungs- mild rhonchi at the bases, no wheezing Heart- normal rate, regular rhythm; no murmurs Abdomen- normal bowel sounds, nondistended, soft, nontender Extremities- mild pedal edema, no calf tenderness Neuro- alert, oriented x 3; no gross focal neurologic deficits Skin- warm & dry Results & Data ([facility]) Vital Signs (Past 12 Hours) Vital Signs Temp Pulse Pulse Resp BP Pulse Ox 07/01/19 22:43 87 16 94 07/01/19 22:25 36.5 C 78 19 106/70 96 07/01/19 20:32 36.4 C L 93 H 20 105/60 99 07/01/19 19:13 102 H 16 93 07/01/19 16:00 36.6 C 81 84 18 108/73 96 07/01/19 14:18 83 19 94 Laboratory Results all noted and reviewed
[2019-07-02] MEDS: INSULIN ASPART 100 UNITS/ML 3 ML PEN SC SCH ×4 (01:07→12:15)
[2019-07-02] MEDS: ALBUT/IPRATROP 3MG/0.5MG NEB 3 ML VIAL INH SCH ×3 (03:09→11:01)
[2019-07-02] MEDS: PANTOprazole 40 MG TAB PO SCH (08:13)
[2019-07-02] MEDS: ENOXAPARIN INJ 40 MG/0.4 ML SYR SQ SCH (08:13)
[2019-07-02 09:02] LABS: BUN Creatinine Ratio 16.3 (10-20); Blood Urea Nitrogen 9 mg/dl (7-18); Calcium 8.7 mg/dl (8.5-10.1); Carbon Dioxide 30 mmol/L (21-32); Chloride 99 mmol/L (98-107); Creatinine Clr Calc Pharmacy 170.1 ml/min; Est GFR (African American) > 150.0; Est GFR (Non-African American) 140.8; Glucose 242 mg/dl (70-99); Potassium 3.3 mmol/L (3.5-5.1); Sodium 136 mmol/L (136-145)
[2019-07-02] MEDS ORDERED: POTASSIUM CHLORIDE 20 MEQ TABCR PO STA (12:15)
--- NOTE | 2019-07-02 13:43 | Pharmacy Report ---
Pharmacy Glycemic Short Note 2 - Date of Service July 02, 2019 - Glycemic Short BSG Results (Last 24 hours): 07/01/19 07/01/19 07/01/19 16:54 16:55 21:19 Glucose POC Glucose 251 H 238 H 174 H 07/02/19 07/02/19 07/02/19 00:18 03:50 07:35 Glucose POC Glucose 147 H 221 H 177 H 07/02/19 07/02/19 08:24 12:14 Glucose 242 H POC Glucose 273 H PLAN FOR DISCHARGE: * Continue home Rx of Lantus 18units * Novolog: If pt is willing to use CF and CR: I would recommend starting with a correction factor of 30 mg/dL/unit and a carb ratio of 1 units/ 10g of CHO consumed. Then further titration per outpt provider. If he is unwilling to count carbs and use a CF, he can take 10u TIDM as a standing order. I suspect non-compliance given his A1C > 14%
--- NOTE | 2019-07-02 14:00 | Hospitalist Progress Note ---
Date of Service July 02, 2019 Assessment & Plan (1) Acute respiratory failure with hypoxemia: Acute hypoxic respiratory failure, secondary to bilateral pneumonia, sepsis --Was intubated and on mechanical ventilator for 2 days Also required vasopressor-Levophed at 1 point Eventually improved, extubated, transferred to [facility] with telemetry --Blood cultures negative Sputum cultures negative --Patient continued to improve, saturating well on room air --Received vancomycin, Zosyn, azithromycin x3 days, Levaquin p.o. x2 days Nebulizer treatments --Discharge plan: Levaquin 750 mg p.o. daily x5 days to complete 10 days total antibiotic treatment Mucinex twice daily x7 days Albuterol as needed --Follow-up with PCP July 05, 2019 Septic shock secondary to above --resolved Diabetic ketoacidosis Type 1 diabetes --Anion gap closed --Given insulin Lantus and NovoLog, pharmacy glycemic consult on board --Discharge plan: Insulin Lantus 18 units at bedtime Insulin NovoLog with meals at bedtime, correction factor 30, carb ratio 1 unit for 10 g of carbohydrate --Patient admits to not being adherent with his insulin regimen A1c > 14 --Emphasized to use insulin regularly to prevent such complications including DKA, etc. He verbalized understanding and agreement History of narcotic abuse --Apparently patient was on Suboxone in the past No signs of withdrawal symptoms noted Pedal Edema --Likely from IV fluids -- Lasix Po given Resolved Discharge to home Follow-up with primary care physician on July 05, 2019 Plan of care discussed with patient and his mother in detail and at length All questions answered Emphasized need for taking medications and insulin regularly, and following up with primary care doctor regularly He verbalized understanding and agreement Patient and his mother are understanding, agreeable, comfortable with the plan of care Subjective Follow-up for pneumonia, DKA Seen resting in bed, comfortable, not in distress, having lunch His mother is at the bedside States he feels fine overall Denies shortness of breath, has intermittent cough productive of green sputum No chest pain, dizziness, headache, abdominal pain Appetite is great Denies other symptoms States he is ready would like to be discharged today Review of Systems Review of Systems: All systems reviewed & are unremarkable except as noted in HPI & below Physical Exam Physical Exam: General- oriented x 3, not in distress, speaks in sentences with no effort or accessory muscle use Eyes- anicteric Neck- no JVD Lungs-rhonchi at the bases, no wheezing, good air entry bilaterally Heart- normal rate, regular rhythm; no murmurs Abdomen- normal bowel sounds, nondistended, soft, nontender Extremities- no pretibial edema, no calf tenderness Neuro- alert, oriented x 3; no gross focal neurologic deficits Skin- warm & dry Results & Data ([facility]) Vital Signs (Past 12 Hours) Vital Signs Temp Pulse Pulse Resp BP Pulse Ox 07/02/19 11:05 36.8 C 92 H 18 96/63 L 94 07/02/19 11:02 101 H 16 93 07/02/19 08:00 91 H 07/02/19 07:45 36.6 C 105 H 18 103/65 95 07/02/19 07:21 104 H 16 95 07/02/19 03:52 36.7 C 98 H 16 111/74 93 07/02/19 03:10 84 16 93 Laboratory Results Laboratory Results - last 24 hr 06/27/19 07/01/19 07/01/19 17:26 16:54 16:55 Sodium Potassium Chloride Carbon Dioxide Anion Gap BUN Creatinine Est Cr Clr Drug Dosing Est GFR ( Amer) Est GFR (Non-Af Amer) BUN/Creatinine Ratio Glucose POC Glucose 251 H 238 H Calcium Magnesium Mycoplasma pneumon IgM 56 07/01/19 07/02/19 07/02/19 21:19 00:18 03:50 Sodium Potassium Chloride Carbon Dioxide Anion Gap BUN Creatinine Est Cr Clr Drug Dosing Est GFR ( Amer) Est GFR (Non-Af Amer) BUN/Creatinine Ratio Glucose POC Glucose 174 H 147 H 221 H Calcium Magnesium Mycoplasma pneumon IgM 07/02/19 07/02/19 07/02/19 07:35 08:24 08:24 Sodium 136 Potassium 3.3 L Chloride 99 Carbon Dioxide 30 Anion Gap 6.0 BUN 9 Creatinine 0.55 L Est Cr Clr Drug Dosing 170.1 Est GFR ( Amer) > 150.0 Est GFR (Non-Af Amer) 140.8 BUN/Creatinine Ratio 16.3 Glucose 242 H POC Glucose 177 H Calcium 8.7 Magnesium 1.9 Mycoplasma pneumon IgM 07/02/19 12:14 Sodium Potassium Chloride Carbon Dioxide Anion Gap BUN Creatinine Est Cr Clr Drug Dosing Est GFR ( Amer) Est GFR (Non-Af Amer) BUN/Creatinine Ratio Glucose POC Glucose 273 H Calcium Magnesium Mycoplasma pneumon IgM
--- NOTE | 2019-07-02 14:04 | Discharge Summary ---
Date of Service July 02, 2019 Admission HPI Per Admitting Provider Pt is 28 y/o M with PMH narcotic use, tobacco use presented to [facility] ICU as transfer from [facility] for DKA, pneumonia, hypoxia. History obtained from staff and records. Reported pt presented to [facility] for weakness. Was found to have pneumonia right lung on CXR. Upon arrival at [facility] pt noted to be in hypoxic respiratory failure and was intubated. History of hospitalization at [facility] 05/06/18-05/09/18 for ?new onset DM, HHS vs DKA. It is reported pt is homeless. Pt's mother present currently and reports that she believes pt was on long and short acting insulin in the past however thinks that pt has not been taking for at least a couple of months. She states pt was on buprenorphine in past but unsure if still taking. PDMP reviewed: buprenorphine 8mg, 12mg daily. Qty: 21, 14 day supply on . No report of prescriptions since that time. Admission Exam Per Admitting Provider General: ill appearing, disheveled, thin male Head: normocephalic, atraumatic Eyes: PERRL, EOM's intact, conjunctiva non-injected, anicteric ENT: normal inspection external ears, nose, +ET tube in place Neck: supple, trachea midline Lungs: +intubated, lung sounds present throughout CV: tachycardia, 112, regular rhythm, no murmur, no pretibial edema Abd: normal BS, soft Ext: no cyanosis Neuro: Currently sedated and intubated Skin: warm, dry; anterior knees with erythema, heel pads in place Principal Diagnosis SEPSIS, ACUTE HYPOXIC RESPIRATORY FAILURE, BILATERAL PNEUMONIA, DKA Discharge Exam General- oriented x 3, not in distress, speaks in sentences with no effort or accessory muscle use Eyes- anicteric Neck- no JVD Lungs-rhonchi at the bases, no wheezing, good air entry bilaterally Heart- normal rate, regular rhythm; no murmurs Abdomen- normal bowel sounds, nondistended, soft, nontender Extremities- no pretibial edema, no calf tenderness Neuro- alert, oriented x 3; no gross focal neurologic deficits Skin- warm & dry Discharge Data Allergies Allergy/AdvReac Type Severity Reaction Status Date / Time acesulfame Allergy Unknown RASH,N/V Verified 04/26/16 14:30 buprenorphine Allergy Unknown RASH,N/V Verified 04/26/16 14:30 Consultations 06/27/19 11:34 Consult Case Management - Discharge Planning Routine 06/27/19 11:35 Consult Superintendent Menagerie Routine Ordered Studies 06/27/19 16:45 US point of care ultrasound Urgent 06/27/19 17:21 US point of care ultrasound Urgent 06/28/19 17:19 US point of care ultrasound Urgent XR chest 1V portable CLINICAL HISTORY: Respiratory failure. PATIENT STATUS POST INTUBATION. COMPARISON STUDY: 05/06/2019 FINDINGS: There is a nasogastric tube with its tip projected over the level the gastric cardia. There is an endotracheal tube positioned 6.1 cm above the mike. There is dense right lower lung zone consolidation. There is also evidence for loss of left diaphragmatic contour suggesting left lower lobe atelectasis/consolidation.[There is an additional opaque tube projected over the right hemithorax. This is likely extraneous to the patient. There are overlying cardiac leads. IMPRESSION: 1. Endotracheal tube 6.1 cm above the mike 2. Nasogastric tube with its tip at the level the gastric cardia 3. Dense right lower lung zone consolidation with air bronchograms 3. Loss of the left diaphragmatic contour indicating left lower lobe atelectasis/consolidation Hospital Course (1) Acute respiratory failure with hypoxemia: Acute hypoxic respiratory failure, secondary to bilateral pneumonia, Sepsis -- Was on mechanical ventilator for 2 days Also required vasopressor-Levophed at one point Eventually improved, extubated, transferred to [facility] with telemetry --Blood cultures negative Sputum cultures negative --Patient continued to improve, saturating well on room air --Received vancomycin, Zosyn, azithromycin x3 days, Levaquin p.o. x2 days Nebulizer treatments --Discharge plan: Levaquin 750 mg p.o. daily x5 days to complete 10 days total antibiotic treatment Mucinex twice daily x7 days Albuterol as needed --Follow-up with PCP July 05, 2019 Septic shock secondary to above --resolved Diabetic ketoacidosis Type 1 diabetes --Anion gap closed --Given insulin Lantus and NovoLog, pharmacy glycemic consult on board --Patient admits to not being adherent with his insulin regimen A1c > 14 --Discharge plan: Insulin Lantus 18 units at bedtime Insulin NovoLog with meals at bedtime, correction factor 30, carb ratio 1 unit for 10 g of carbohydrate --Emphasized to use insulin regularly to prevent such complications including DKA, etc. He verbalized understanding and agreement History of narcotic abuse --Apparently patient was on Suboxone in the past No signs of withdrawal symptoms noted Pedal Edema --Likely from IV fluids -- Lasix Po given Resolved Discharge to home Follow-up with primary care physician on July 05, 2019 Plan of care discussed with patient and his mother in detail and at length All questions answered Emphasized need for taking medications and insulin regularly, and following up with primary care doctor regularly He verbalized understanding and agreement Patient and his mother are understanding, agreeable, comfortable with the plan of care Total Time Total Time Spent Total Time Spent (In Minutes): 55 minutes Discharge Plan Discharge Items Patient Disposition: Home - Self-Care Reason For Visit: DKA Discharge Diagnosis: PNEUMONIA , DIABETIC KETOACIDOSIS Activity: As commented below Activity Comment: NO HEAVY EXERTION UNTIL RE-EVALUATED BY PRIMARY CARE PHYSICIAN Lifting: Wait until after follow-up appointment Exercise/Sports: Wait until after follow-up appointment Driving/Machine Use: NO DRIVING UNTIL RE-EVALUATED BY PRIMARY CARE PHYSICIAN Non-emergency contact: Primary Care Provider Call non-emergency contact if: you have any medication questions, your symptoms worsen and you have a fever Follow-up/Referrals: Gilbert Suarez MD [Outside Practitioners] - 07/05/19 10:40 am (07/05/2019 10:40 AM, Gilbert Suarez MD Family Practice [facility] ) Diet: Carb Count or DM1 and Heart Healthy Addtl Attending Provider Instructions: Please review your new medication list and follow instructions carefully as discussed. Instructions for Insulin Novolog: Goal range 110-150mg/dL Correction Factor: 30 mg/dl/unit Carb Ratio: 1 unit per 10 gm CHO consumed Please take your medications and insulin regularly as directed to prevent serious complications. Drink plenty of fluids. Call your primary care physician or return to the ER immediately if with recurrence or worsening of symptoms, Fever or chills, shortness of breath, increasing cough or sputum, weakness, elevated blood sugars. Please follow-up with [facility] primary care physician Dr. Gilbert Suarez in July 05, 2019 10:40 AM. Address and contact information as outlined above. It is very important to follow-up regularly with your primary care physician to manage your diabetes properly And avoid serious complications. Pending Studies at Discharge: No Stand-Alone Forms: My [facility] [employer], Smoking Cessation Medications and DC Order Prescriptions: New nicotine [Nicoderm CQ] 21 mg/24 hr Patch 24 Hour 21 mg transdermal Q24H 7 Days Qty: 7 RF: 0 levofloxacin 750 mg Tablet 750 mg PO Q24H 5 Days Qty: 5 RF: 0 guaifenesin [Mucinex] 1,200 mg tablet extended release 12hr 1,200 mg PO BID 7 Days Qty: 14 RF: 0 albuterol sulfate 90 mcg/actuation HFA aerosol inhaler 2 puffs INH Q4H PRN (Reason: shortness of breath or wheezing) Qty: 18 RF: 1 Lantus Solostar U-100 Insulin 100 unit/mL (3 mL) Insulin Pen 18 units SC HS 30 Days Qty: 5.4 RF: 1 insulin aspart U-100 [Novolog Flexpen U-100 Insulin] 100 unit/mL (3 mL) Insulin Pen 1 units SC UD 30 Days Qty: 15 RF: 1 Discontinued buprenorphine HCl 8 mg Tablet, Sublingual 8 mg SUBLINGUAL DAILY RF: 0 Discharge Orders: Discharge Order (Routine); Ordered 07/02/19 Ordered By: Marck Strong Admission Data Admit Date/Time: 06/27/19 15:47 Attending Provider: Marck Strong Admit Provider: Dwayne Goncalves Primary Care Provider: PCP,NO Other Providers: Dwayne Goncalves ; Hammad Hobson
== END 2019-07-02 14:22 | disposition home or self-care (01) | DRG 871 ==
LOC: SUATTDRO 15:47 → 1E 15:47 → 2N 06-30 20:35

== ENCOUNTER 2021-06-13 16:56 | Inpatient (IN) ==
--- NOTE | 2021-06-13 17:52 | XRay Report ---
XR chest 1V portable CLINICAL HISTORY: Cough. Shortness of breath. COMPARISON STUDY: Chest radiograph July 01, 2019. FINDINGS: Lung volumes are normal. Lungs are clear. There is no pneumothorax or pleural effusion. Car diac size is normal. Mediastinal contours are normal. There is no evidence for pulmonary edema. IMPRESSION: No acute cardiopulmonary findings. ACT 112: Negative or not required by law. Electronically signed by: Josef Ross M.D. 06/13/2021 5:50 PM
[2021-06-13 17:57] LABS: Basophils # (auto) 0.04 K/uL (0-0.2); Basophils % (auto) 0.5 %; Eosinophils # (auto) 0.04 K/uL (0-0.5); Eosinophils % (auto) 0.5 %; Hematocrit (blood only) 49.7 % (42-52); Immature Granulocytes # (auto) 0.09 K/uL (0.00-0.02); Immature Granulocytes % (auto) 1.2 %; Lymphocytes # (auto) 1.92 K/uL (1.2-3.4); Mean Corpuscular Hemoglobin 32.5 pg (25-34); Mean Corpuscular Hgb Conc 34.2 g/dL (32-36); Mean Platelet Volume 10.9 fL (7.4-10.4); Monocytes # (auto) 0.46 K/uL (0.11-0.59); Neutrophils # (auto) 5.14 K/uL (1.4-6.5); Neutrophils % (auto) 66.8 %; Platelet Count 289 K/uL (130-400); RDW Coefficient of Variation 13.8 % (11.5-14.5); Red Blood Count 5.23 M/uL (4.7-6.1); White Blood Count 7.69 K/uL (4.8-10.8)
[2021-06-13 18:17] LABS: BUN Creatinine Ratio 14.3 (10-20); Calcium 8.9 mg/dl (8.5-10.1); Creatinine Clr Calc Pharmacy 85.4 ml/min; Est GFR (African American) 135.2 ml/min; Est GFR (Non-African American) 116.7 ml/min; Potassium 4.8 mmol/L (3.5-5.1)
[2021-06-13] MEDS ORDERED: SODIUM CHLORIDE 0.9% 1000ML 2,000 ML IV ONE (18:22)
--- NOTE | 2021-06-13 18:26 | Emergency Department Note ---
History of Present Illness General Chief Complaint: Shortness of Breath/Dyspnea Stated Complaint: SOB Time Seen by Provider: 06/13/21 17:13 History of Present Illness Provider Complaint: shortness of breath Onset (ago): week(s) (1) Severity: mild Consistency/Duration: + intermittent Maximum Pain Intensity: 6 Relieved By: + nothing Exacerbated By: + nothing Context: + medication noncompliance; no recent illness Associated symptoms: + chest pain; no pain with inspiration, no fever, no cough, no wheezing, no sputum production, no orthopnea, no lower extremity pain, no polyuria, no polydipsia, no paresthesias, no palpitations, no hemoptysis, no diaphoresis, no syncope, no abdominal pain, no sense of impending doom, no chest congestion or no lightheadedness HPI Narrative: Patient also reports dental pain Home Medications Medication Instructions Recorded Confirmed Type insulin aspart U-100 100 unit/mL 1 units SC UD 30 Days #15 ml 07/02/19 06/13/21 Rx (3 mL) subcutaneous pen (Novolog Flexpen U-100 Insulin aspart) insulin glargine 100 unit/mL (3 18 units SC HS 30 Days #5.4 ml 07/02/19 06/13/21 Rx mL) subcutaneous pen (Lantus Solostar U-100 Insulin) buprenorphine 8 mg-naloxone 2 mg 1 tab SUBLINGUAL BID 06/13/21 06/13/21 History sublingual tablet clonidine HCl 0.2 mg tablet 0.2 mg PO BID PRN 06/13/21 06/13/21 History Allergies Allergy/AdvReac Type Severity Reaction Status Date / Time acesulfame Allergy Unknown RASH,N/V Verified 06/13/21 17:29 buprenorphine Allergy Unknown RASH,N/V Verified 06/13/21 17:29 Past Med/Surg History Medical History (Updated 06/13/21 @ 22:02 by Zac Manning) Bleeding hemorrhoid DKA (diabetic ketoacidoses) Finger contusion R hand, pointer finger. 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 Feels Safe at Home: Yes Assistive Devices: None Review of Systems A total of 10 systems reviewed and were otherwise negative Physical Exam Vital Signs: Vital Signs - 24 hr 06/13/21 17:05 06/13/21 18:00 06/13/21 18:02 Temperature 36.2 C L Temperature Source Temporal Artery Sc an Pulse Rate 86 100 H Pulse Rate [Apical ] 98 H Respiratory Rate 16 18 20 Respiratory Effort / Characteristics Non-Labored Respiratory Depth Normal Normal Blood Pressure 109/74 Blood Pressure [Le ft Arm] 112/77 Blood Pressure Quita n 85 Blood Pressure Quita n [Left Arm] 88 Pulse Oximetry 100 94 94 Oxygen Delivery Me thod Room Air Room Air Sepsis Recent Feve r Within 48 Hours No Sepsis New/Unexpla ined Change in Men yareli Status No Sepsis Action Take n by Nursing No Action Required 06/13/21 19:00 06/13/21 21:00 Temperature Temperature Source Pulse Rate Pulse Rate [Apical ] 105 H 104 H Respiratory Rate 18 22 Respiratory Effort / Characteristics Respiratory Depth Blood Pressure Blood Pressure [Le ft Arm] 112/63 99/60 L Blood Pressure Quita n Blood Pressure Quita n [Left Arm] 79 73 Pulse Oximetry 96 100 Oxygen Delivery Me thod Sepsis Recent Feve r Within 48 Hours Sepsis New/Unexpla ined Change in Men yareli Status Sepsis Action Take n by Nursing Physical Exam: Physical Exam GENERAL: He is oriented to person, place, and time. He appears well-developed and well-nourished. He does not appear distressed. HENT: Exam performed. - Head: Normocephalic and atraumatic. - Right Ear: External ear normal. No mastoid tenderness. - Left Ear: External ear normal. No mastoid tenderness. - Mouth/Throat: The oropharynx is clear and moist. No trismus in the jaw. No dental abscesses or uvula swelling. No oropharyngeal exudate or tonsillar abscesses. Extremely poor dentition with multiple missing teeth. EYES: Conjunctivae and EOM are normal. Pupils are equal, round, and reactive to light. Right eye exhibits no discharge. Left eye exhibits no discharge. No scleral icterus. NECK: Normal range of motion. Neck supple. No JVD present. No spinous process tenderness present. No carotid bruit present. No rigidity. No tracheal deviation and normal range of motion present. No Brudzinski's sign and no Kernig's sign noted. CV: Tachycardic rate, regular rhythm, normal heart sounds and intact distal pulses. There is no peripheral edema. Palpable radial pulses bue. PULM/CHEST: Effort normal and breath sounds normal. No respiratory distress. No stridor. He has no wheezes. He has no rales. - Chest Wall: He exhibits no tenderness. ABD: The abdomen is soft. Bowel sounds are normal. He has no distension. No mass is present. There is no tenderness. There is no rebound, no guarding, no Steiner's sign and no tenderness at McBurney's point. Rovsig negative. MUSC/SKEL: Normal range of motion. There is no peripheral edema, tenderness or deformity. LYMPH: No cervical adenopathy. NEURO: He is alert and oriented to person, place, and time. He has normal strength. No cranial nerve deficit or sensory deficit. Coordination and gait normal. GCS eye subscore is 4. GCS verbal subscore is 5. GCS motor subscore is 6. Cerebellar tests wnl. SKIN: Skin is warm and dry. He is not diaphoretic. PSYCH: He has a normal mood and affect. Behavior is normal. Judgment and thought content normal. Course Course 1713: The patient was evaluated in room B12. A complete history and physical exam was performed Cardiac monitoring: An order was placed for continuous cardiac monitoring. The monitor shows a rate of 100 with sinus rhythm 183: Vital signs stable. Labs show white blood cell count of 7.69. Hemoglobin 17. Sodium 132. CO2 6 anion gap 25 creatinine 0.84. Glucose 322. COVID- negative. Chest x-ray negative. I went into respeak with the patient and his mother and they confirmed that the patient is only on insulin for his diabetes. Patient is not on any oral medications for his diabetes including not being on Januvia/Sitagliptin, metformin, or any sulfonylureas. It is concerning the patient has the significant of an anion gap elevation with such a minimal the elevated glucose. Patient was asked if he consumed any toxic alcohols methanol or ethylene glycol and substances such as when she will wiper fluid or antifreeze and the patient adamantly denies it. Patient also denies drinking any alcohol. Patient be given 2 L of IV fluids we will check the patient's serum osmolality lactic acid, medical alcohol, and coagulation studies. 2154: Vital signs stable. Status post 2 L IV fluid infusion Patient's CO2 went down to 4 anion gap only close to 23 and glucose only improved to 291. Serum osmolality 308. No osmolar gap. Lactic acid within normal limits. Salicylate and Tylenol level within normal limits. D-dimer was elevated. CTA of the chest is negative for PE. It is thought that patient's anion gap elevation is due to DKA. Patient be started on insulin drip with no bolus. Discussed case with Dr. Mcarthur who will evaluate the patient for admission. Administered Medications Insulin Human Regular 250 (units/ Sodium Chloride) 250 mls @ 4.7 mls/hr IV .Q24H [facility]; Protocol Stop: 07/13/21 21:29 Last Admin: 06/13/21 21:55 Dose: 4.7 units/hr, 4.7 mls/hr Documented by: [id number] Cosigned by: [id number] Discontinued Medications Sodium Chloride (Nss 1000ml) 2,000 mls @ 999 mls/hr IV .Q2H1M ONE Stop: 06/13/21 20:22 Last Infusion: 06/13/21 19:31 Dose: 0 mls/hr Documented by: [id number] Admin: 06/13/21 18:28 Dose: 999 mls/hr Documented by: [id number] Ioversol (Optiray 320 125ml) 116 ml IV ONCE ONE Stop: 06/13/21 21:26 Last Admin: 06/13/21 21:26 Dose: 116 ml Documented by: [id number] Medical Decision Making Laboratory Data Result diagrams: 06/13/21 17:50 06/13/21 19:40 Lab Results 06/13/21 06/13/21 06/13/21 Range/Units 17:45 17:50 17:50 WBC 7.69 (4.8-10.8) K/uL RBC 5.23 (4.7-6.1) M/uL Hgb 17.0 (14.0-18.0) g/dL Hct 49.7 (42-52) % MCV 95.0 (80-100) fL MCH 32.5 (25-34) pg MCHC 34.2 (32-36) g/dL RDW Std Deviation 48.0 H (36.4-46.3) fL RDW Coeff of Marianna 13.8 (11.5-14.5) % Plt Count 289 (130-400) K/uL MPV 10.9 H (7.4-10.4) fL Immature Gran % (Auto) 1.2 % Neut % (Auto) 66.8 % Lymph % (Auto) 25.0 % Wilkes % (Auto) 6.0 % Eos % (Auto) 0.5 % Baso % (Auto) 0.5 % Neut # (Auto) 5.14 (1.4-6.5) K/uL Lymph # (Auto) 1.92 (1.2-3.4) K/uL Wilkes # (Auto) 0.46 (0.11-0.59) K/uL Eos # (Auto) 0.04 (0-0.5) K/uL Baso # (Auto) 0.04 (0-0.2) K/uL Immature Gran # (Auto) 0.09 H (0.00-0.02) K/uL PT (9.0-12.0) Seconds INR (0.9-1.1) APTT (21.0-31.0) Seconds PTT Ratio D-Dimer (0-500) ug/L FEU VBG pH (7.36-7.41) VBG pCO2 (38-50) mmHg VBG pO2 mmHg VBG HCO3 mmol/L VBG O2 Saturation % VBG Base Excess mEq/L Barometric Pressure mm/Hg Sodium 132 L (136-145) mmol/L Potassium 4.8 (3.5-5.1) mmol/L Chloride 101 (98-107) mmol/L Carbon Dioxide 6 L* (21-32) mmol/L Anion Gap 25 H (3-11) BUN 12 (6-23) mg/dl Creatinine 0.84 (0.6-1.4) mg/dl Est Cr Clr Drug Dosing 85.4 ml/min Est GFR ( Amer) 135.2 ml/min Est GFR (Non-Af Amer) 116.7 ml/min BUN/Creatinine Ratio 14.3 (10-20) Glucose 322 H* (70-99) mg/dl Osmolality (280-300) mOsm/kg Lactate (0.4-2.0) mmol/L Calcium 8.9 (8.5-10.1) mg/dl Magnesium (1.7-2.4) mg/dl Urine Color Urine Appearance (Clear) Urine pH (4.5-7.5) Ur Specific [place] (1.000-1.030) Urine Protein (Negative) Urine Glucose (UA) (Negative) Urine Ketones (Negative) Urine Blood (Negative) Urine Nitrite (Negative) Urine Bilirubin (Negative) Urine Urobilinogen (Negative) Ur Leukocyte Esterase (Negative) Urine WBC (Auto) (0-5) /hpf Urine RBC (Auto) (0-4) /hpf U Hyaline Cast (Auto) (0-5) /lpf U Epithel Cells (Auto) (0-5) /lpf Urine Bacteria (Auto) (Negative) Salicylates (3.0-30) mg/dl Urine Opiates Screen (Neg) Ur Methadone, Qual (Neg) Acetaminophen (10-30) ug/ml Urine Barbiturates (Neg) Ur Phencyclidine (PCP) (Neg) U Amphetamin/Meth Scrn (Neg) MDMA (Ecstasy) Screen (Neg) U Benzodiazepines Scrn (Neg) Ur Cocaine Metabolite (Neg) U Marijuana (THC) Screen (Neg) Ethyl Alcohol mg/dL (<10.0) mg/dl SARS-CoV-2, RNA, NAAT NEGATIVE (NEGATIVE) 06/13/21 06/13/21 06/13/21 Range/Units 17:50 19:28 19:28 WBC (4.8-10.8) K/uL RBC (4.7-6.1) M/uL Hgb (14.0-18.0) g/dL Hct (42-52) % MCV (80-100) fL MCH (25-34) pg MCHC (32-36) g/dL RDW Std Deviation (36.4-46.3) fL RDW Coeff of Marianna (11.5-14.5) % Plt Count (130-400) K/uL MPV (7.4-10.4) fL Immature Gran % (Auto) % Neut % (Auto) % Lymph % (Auto) % Wilkes % (Auto) % Eos % (Auto) % Baso % (Auto) % Neut # (Auto) (1.4-6.5) K/uL Lymph # (Auto) (1.2-3.4) K/uL Wilkes # (Auto) (0.11-0.59) K/uL Eos # (Auto) (0-0.5) K/uL Baso # (Auto) (0-0.2) K/uL Immature Gran # (Auto) (0.00-0.02) K/uL PT (9.0-12.0) Seconds INR (0.9-1.1) APTT (21.0-31.0) Seconds PTT Ratio D-Dimer (0-500) ug/L FEU VBG pH (7.36-7.41) VBG pCO2 (38-50) mmHg VBG pO2 mmHg VBG HCO3 mmol/L VBG O2 Saturation % VBG Base Excess mEq/L Barometric Pressure mm/Hg Sodium (136-145) mmol/L Potassium (3.5-5.1) mmol/L Chloride (98-107) mmol/L Carbon Dioxide (21-32) mmol/L Anion Gap (3-11) BUN (6-23) mg/dl Creatinine (0.6-1.4) mg/dl Est Cr Clr Drug Dosing ml/min Est GFR ( Amer) ml/min Est GFR (Non-Af Amer) ml/min BUN/Creatinine Ratio (10-20) Glucose (70-99) mg/dl Osmolality (280-300) mOsm/kg Lactate (0.4-2.0) mmol/L Calcium (8.5-10.1) mg/dl Magnesium 1.9 (1.7-2.4) mg/dl Urine Color Yellow Urine Appearance Clear (Clear) Urine pH 5.0 (4.5-7.5) Ur Specific [place] 1.027 (1.000-1.030) Urine Protein 2+ H (Negative) Urine Glucose (UA) 3+ H (Negative) Urine Ketones 4+ H (Negative) Urine Blood Trace H (Negative) Urine Nitrite Negative (Negative) Urine Bilirubin Negative (Negative) Urine Urobilinogen Negative (Negative) Ur Leukocyte Esterase Negative (Negative) Urine WBC (Auto) 1-5 (0-5) /hpf Urine RBC (Auto) 0-4 (0-4) /hpf U Hyaline Cast (Auto) 1-5 (0-5) /lpf U Epithel Cells (Auto) 5-10 H (0-5) /lpf Urine Bacteria (Auto) Negative (Negative) Salicylates (3.0-30) mg/dl Urine Opiates Screen Neg (Neg) Ur Methadone, Qual Neg (Neg) Acetaminophen (10-30) ug/ml Urine Barbiturates Neg (Neg) Ur Phencyclidine (PCP) Neg (Neg) U Amphetamin/Meth Scrn Neg (Neg) MDMA (Ecstasy) Screen Neg (Neg) U Benzodiazepines Scrn Neg (Neg) Ur Cocaine Metabolite Neg (Neg) U Marijuana (THC) Screen Neg (Neg) Ethyl Alcohol mg/dL (<10.0) mg/dl SARS-CoV-2, RNA, NAAT (NEGATIVE) 06/13/21 06/13/21 06/13/21 Range/Units 19:40 19:40 19:40 WBC (4.8-10.8) K/uL RBC (4.7-6.1) M/uL Hgb (14.0-18.0) g/dL Hct (42-52) % MCV (80-100) fL MCH (25-34) pg MCHC (32-36) g/dL RDW Std Deviation (36.4-46.3) fL RDW Coeff of Marianna (11.5-14.5) % Plt Count (130-400) K/uL MPV (7.4-10.4) fL Immature Gran % (Auto) % Neut % (Auto) % Lymph % (Auto) % Wilkes % (Auto) % Eos % (Auto) % Baso % (Auto) % Neut # (Auto) (1.4-6.5) K/uL Lymph # (Auto) (1.2-3.4) K/uL Wilkes # (Auto) (0.11-0.59) K/uL Eos # (Auto) (0-0.5) K/uL Baso # (Auto) (0-0.2) K/uL Immature Gran # (Auto) (0.00-0.02) K/uL PT (9.0-12.0) Seconds INR (0.9-1.1) APTT (21.0-31.0) Seconds PTT Ratio D-Dimer (0-500) ug/L FEU VBG pH (7.36-7.41) VBG pCO2 (38-50) mmHg VBG pO2 mmHg VBG HCO3 mmol/L VBG O2 Saturation % VBG Base Excess mEq/L Barometric Pressure mm/Hg Sodium (136-145) mmol/L Potassium (3.5-5.1) mmol/L Chloride (98-107) mmol/L Carbon Dioxide (21-32) mmol/L Anion Gap (3-11) BUN (6-23) mg/dl Creatinine (0.6-1.4) mg/dl Est Cr Clr Drug Dosing ml/min Est GFR ( Amer) ml/min Est GFR (Non-Af Amer) ml/min BUN/Creatinine Ratio (10-20) Glucose (70-99) mg/dl Osmolality 308 H (280-300) mOsm/kg Lactate 0.7 (0.4-2.0) mmol/L Calcium (8.5-10.1) mg/dl Magnesium (1.7-2.4) mg/dl Urine Color Urine Appearance (Clear) Urine pH (4.5-7.5) Ur Specific [place] (1.000-1.030) Urine Protein (Negative) Urine Glucose (UA) (Negative) Urine Ketones (Negative) Urine Blood (Negative) Urine Nitrite (Negative) Urine Bilirubin (Negative) Urine Urobilinogen (Negative) Ur Leukocyte Esterase (Negative) Urine WBC (Auto) (0-5) /hpf Urine RBC (Auto) (0-4) /hpf U Hyaline Cast (Auto) (0-5) /lpf U Epithel Cells (Auto) (0-5) /lpf Urine Bacteria (Auto) (Negative) Salicylates (3.0-30) mg/dl Urine Opiates Screen (Neg) Ur Methadone, Qual (Neg) Acetaminophen (10-30) ug/ml Urine Barbiturates (Neg) Ur Phencyclidine (PCP) (Neg) U Amphetamin/Meth Scrn (Neg) MDMA (Ecstasy) Screen (Neg) U Benzodiazepines Scrn (Neg) Ur Cocaine Metabolite (Neg) U Marijuana (THC) Screen (Neg) Ethyl Alcohol mg/dL < 10.0 (<10.0) mg/dl SARS-CoV-2, RNA, NAAT (NEGATIVE) 06/13/21 06/13/21 06/13/21 Range/Units 19:40 19:40 19:50 WBC (4.8-10.8) K/uL RBC (4.7-6.1) M/uL Hgb (14.0-18.0) g/dL Hct (42-52) % MCV (80-100) fL MCH (25-34) pg MCHC (32-36) g/dL RDW Std Deviation (36.4-46.3) fL RDW Coeff of Marianna (11.5-14.5) % Plt Count (130-400) K/uL MPV (7.4-10.4) fL Immature Gran % (Auto) % Neut % (Auto) % Lymph % (Auto) % Wilkes % (Auto) % Eos % (Auto) % Baso % (Auto) % Neut # (Auto) (1.4-6.5) K/uL Lymph # (Auto) (1.2-3.4) K/uL Wilkes # (Auto) (0.11-0.59) K/uL Eos # (Auto) (0-0.5) K/uL Baso # (Auto) (0-0.2) K/uL Immature Gran # (Auto) (0.00-0.02) K/uL PT 11.1 (9.0-12.0) Seconds INR 1.1 (0.9-1.1) APTT 26.9 (21.0-31.0) Seconds PTT Ratio 1.0 D-Dimer 1060 H* (0-500) ug/L FEU VBG pH (7.36-7.41) VBG pCO2 (38-50) mmHg VBG pO2 mmHg VBG HCO3 mmol/L VBG O2 Saturation % VBG Base Excess mEq/L Barometric Pressure mm/Hg Sodium 135 L (136-145) mmol/L Potassium 4.5 (3.5-5.1) mmol/L Chloride 108 H (98-107) mmol/L Carbon Dioxide 4 L* (21-32) mmol/L Anion Gap 23 H (3-11) BUN 11 (6-23) mg/dl Creatinine 0.69 (0.6-1.4) mg/dl Est Cr Clr Drug Dosing 104.0 ml/min Est GFR ( Amer) 146.6 ml/min Est GFR (Non-Af Amer) 126.5 ml/min BUN/Creatinine Ratio 15.9 (10-20) Glucose 291 H (70-99) mg/dl Osmolality (280-300) mOsm/kg Lactate (0.4-2.0) mmol/L Calcium 7.8 L (8.5-10.1) mg/dl Magnesium (1.7-2.4) mg/dl Urine Color Urine Appearance (Clear) Urine pH (4.5-7.5) Ur Specific [place] (1.000-1.030) Urine Protein (Negative) Urine Glucose (UA) (Negative) Urine Ketones (Negative) Urine Blood (Negative) Urine Nitrite (Negative) Urine Bilirubin (Negative) Urine Urobilinogen (Negative) Ur Leukocyte Esterase (Negative) Urine WBC (Auto) (0-5) /hpf Urine RBC (Auto) (0-4) /hpf U Hyaline Cast (Auto) (0-5) /lpf U Epithel Cells (Auto) (0-5) /lpf Urine Bacteria (Auto) (Negative) Salicylates < 3.0 L (3.0-30) mg/dl Urine Opiates Screen (Neg) Ur Methadone, Qual (Neg) Acetaminophen < 3 L (10-30) ug/ml Urine Barbiturates (Neg) Ur Phencyclidine (PCP) (Neg) U Amphetamin/Meth Scrn (Neg) MDMA (Ecstasy) Screen (Neg) U Benzodiazepines Scrn (Neg) Ur Cocaine Metabolite (Neg) U Marijuana (THC) Screen (Neg) Ethyl Alcohol mg/dL (<10.0) mg/dl SARS-CoV-2, RNA, NAAT (NEGATIVE) 06/13/21 Range/Units 20:45 WBC (4.8-10.8) K/uL RBC (4.7-6.1) M/uL Hgb (14.0-18.0) g/dL Hct (42-52) % MCV (80-100) fL MCH (25-34) pg MCHC (32-36) g/dL RDW Std Deviation (36.4-46.3) fL RDW Coeff of Marianna (11.5-14.5) % Plt Count (130-400) K/uL MPV (7.4-10.4) fL Immature Gran % (Auto) % Neut % (Auto) % Lymph % (Auto) % Wilkes % (Auto) % Eos % (Auto) % Baso % (Auto) % Neut # (Auto) (1.4-6.5) K/uL Lymph # (Auto) (1.2-3.4) K/uL Wilkes # (Auto) (0.11-0.59) K/uL Eos # (Auto) (0-0.5) K/uL Baso # (Auto) (0-0.2) K/uL Immature Gran # (Auto) (0.00-0.02) K/uL PT (9.0-12.0) Seconds INR (0.9-1.1) APTT (21.0-31.0) Seconds PTT Ratio D-Dimer (0-500) ug/L FEU VBG pH 7.09 L (7.36-7.41) VBG pCO2 20 L (38-50) mmHg VBG pO2 41 mmHg VBG HCO3 6 mmol/L VBG O2 Saturation 73.5 % VBG Base Excess -22.0 mEq/L Barometric Pressure 739.8 mm/Hg Sodium (136-145) mmol/L Potassium (3.5-5.1) mmol/L Chloride (98-107) mmol/L Carbon Dioxide (21-32) mmol/L Anion Gap (3-11) BUN (6-23) mg/dl Creatinine (0.6-1.4) mg/dl Est Cr Clr Drug Dosing ml/min Est GFR ( Amer) ml/min Est GFR (Non-Af Amer) ml/min BUN/Creatinine Ratio (10-20) Glucose (70-99) mg/dl Osmolality (280-300) mOsm/kg Lactate (0.4-2.0) mmol/L Calcium (8.5-10.1) mg/dl Magnesium (1.7-2.4) mg/dl Urine Color Urine Appearance (Clear) Urine pH (4.5-7.5) Ur Specific [place] (1.000-1.030) Urine Protein (Negative) Urine Glucose (UA) (Negative) Urine Ketones (Negative) Urine Blood (Negative) Urine Nitrite (Negative) Urine Bilirubin (Negative) Urine Urobilinogen (Negative) Ur Leukocyte Esterase (Negative) Urine WBC (Auto) (0-5) /hpf Urine RBC (Auto) (0-4) /hpf U Hyaline Cast (Auto) (0-5) /lpf U Epithel Cells (Auto) (0-5) /lpf Urine Bacteria (Auto) (Negative) Salicylates (3.0-30) mg/dl Urine Opiates Screen (Neg) Ur Methadone, Qual (Neg) Acetaminophen (10-30) ug/ml Urine Barbiturates (Neg) Ur Phencyclidine (PCP) (Neg) U Amphetamin/Meth Scrn (Neg) MDMA (Ecstasy) Screen (Neg) U Benzodiazepines Scrn (Neg) Ur Cocaine Metabolite (Neg) U Marijuana (THC) Screen (Neg) Ethyl Alcohol mg/dL (<10.0) mg/dl SARS-CoV-2, RNA, NAAT (NEGATIVE) ECG Data Interpretation: Sinus rhythm with a rate of 107. RI QRS and QTc intervals are within normal limits. No ST elevation ST depression. [facility] Narrative 1713: The patient was evaluated in room B12. A complete history and physical exam was performed Cardiac monitoring: An order was placed for continuous cardiac monitoring. The monitor shows a rate of 100 with sinus rhythm 1836: Vital signs stable. Labs show white blood cell count of 7.69. Hemoglobin 17. Sodium 132. CO2 6 anion gap 25 creatinine 0.84. Glucose 322. COVID- negative. Chest x-ray negative. I went into respeak with the patient and his mother and they confirmed that the patient is only on insulin for his diabetes. Patient is not on any oral medications for his diabetes including not being on Januvia/Sitagliptin, metformin, or any sulfonylureas. It is concerning the patient has the significant of an anion gap elevation with such a minimal the elevated glucose. Patient was asked if he consumed any toxic alcohols methanol or ethylene glycol and substances such as when she will wiper fluid or antifreeze and the patient adamantly denies it. Patient also denies drinking any alcohol. Patient be given 2 L of IV fluids we will check the patient's serum osmolality lactic acid, medical alcohol, and coagulation studies. 2154: Vital signs stable. Status post 2 L IV fluid infusion Patient's CO2 went down to 4 anion gap only close to 23 and glucose only improved to 291. Serum osmolality 308. No osmolar gap. Lactic acid within normal limits. Salicylate and Tylenol level within normal limits. D-dimer was elevated. CTA of the chest is negative for PE. It is thought that patient's anion gap elevation is due to DKA. Patient be started on insulin drip with no bolus. Discussed case with Dr. Mcarthur who will evaluate the patient for admission. Impression & Plan DKA (diabetic ketoacidosis) Critical Care Time Critical Care Time: Yes Total Critical Care Time: 64 I have personally spent greater than 64 minutes of critical care time in the direct management of this patient. This includes bedside care, interpretation of diagnostic studies, and testing, discussion with consultants, patient, and family members, and other required patient management activities. This 64 minutes is in excess of all separately billable procedures. Discharge Plan Visit Data Chief Complaint: Shortness of Breath/Dyspnea Stated Complaint: SOB ED Provider: Zac Manning Discharge Problem: DKA (diabetic ketoacidosis) Patient Disposition: Admitted As Inpatient Forms Stand Alone Forms: [facility] Prescriptions Prescriptions: No Action Lantus Solostar U-100 Insulin 100 unit/mL (3 mL) Insulin Pen 18 units SC HS 30 Days Qty: 5.4 RF: 1 insulin aspart U-100 [Novolog Flexpen U-100 Insulin] 100 unit/mL (3 mL) Insulin Pen 1 units SC UD 30 Days Qty: 15 RF: 1 buprenorphine-naloxone 8-2 mg tablet, sublingual 1 tab SUBLINGUAL BID RF: 0 clonidine HCl 0.2 mg tablet 0.2 mg PO BID PRN (Reason: withdrawl) RF: 0 Referrals Referrals: Gilbert Suarez MD [Primary Care Provider] -
[2021-06-13 19:40] LABS: Appearance Urine Clear (Clear); Bacteria Urine Automated Negative (Negative); Bilirubin Urine Negative (Negative); Blood Urine Trace (Negative); Color Urine Yellow; Glucose Urine UA 3+ (Negative); Ketones Urine 4+ (Negative); Leukocyte Esterase Urine Negative (Negative); Nitrite Urine Negative (Negative); Protein Urine 2+ (Negative); RBC Urine Automated 0-4 /hpf (0-4); Specific Gravity Urine 1.027 (1.000-1.030); Urobilinogen Urine Negative (Negative)
[2021-06-13 20:06] LABS: Amphetamines+Metham, Urine Neg (Neg); Barbiturates, Urine Neg (Neg); Benzodiazepine, Urine Neg (Neg); Cocaine, Urine Neg (Neg); MDMA (Ecstacy), Urine Neg (Neg); Methadone, Urine Neg (Neg); Opiate, Urine Neg (Neg); Phencyclidine, Urine Neg (Neg)
[2021-06-13 20:12] LABS: INR 1.1 (0.9-1.1); Partial Thromboplastin Time 26.9 Seconds (21.0-31.0); Prothrombin Time 11.1 Seconds (9.0-12.0)
[2021-06-13 20:17] LABS: D Dimer 1060 ug/L FEU (0-500)
[2021-06-13 20:21] LABS: BUN Creatinine Ratio 15.9 (10-20); Calcium 7.8 mg/dl (8.5-10.1); Est GFR (African American) 146.6 ml/min; Est GFR (Non-African American) 126.5 ml/min; Potassium 4.5 mmol/L (3.5-5.1)
[2021-06-13 20:56] LABS: Oxygen Saturation VBG 73.5 %; pH VBG 7.09 (7.36-7.41)
[2021-06-13 21:03] LABS: Acetaminophen < 3 ug/ml (10-30); Salicylate < 3.0 mg/dl (3.0-30)
[2021-06-13] MEDS ORDERED: OPTIRAY 320 125ml IV ONE (21:25)
[2021-06-13] MEDS ORDERED: GLUCOSE 40% GEL 15 GM TUBE PO PRN (21:30)
[2021-06-13] MEDS ORDERED: SODIUM CHLORIDE 0.9% 1000ML 1,000 ML IV SCH (21:30)
[2021-06-13] MEDS ORDERED: STAT IV Infusion **Titration per Protocol STA (21:30)
[2021-06-13] MEDS ORDERED: DEXTROSE 50% 50 ML SYRINGE IV PRN (21:30)
[2021-06-13] MEDS ORDERED: INSULIN REGULAR 250 UNITS in SODIUM CHLORIDE 0.9% 247.5 ML IV SCH (21:30)
[2021-06-13] MEDS ORDERED: GLUCOSE 10 TABS/TUBE PO PRN (21:30)
[2021-06-13] MEDS ORDERED: CARBOHYDRATES FOR HYPOGLYCEMIA PO PRN (21:30)
[2021-06-13] MEDS ORDERED: GLUCAGON FOR INJ 1 MG VIAL SQ PRN (21:30)
--- NOTE | 2021-06-13 21:42 | CT Scan Report ---
CT angio chest PE protocol CLINICAL HISTORY: Shortness of breath. Evaluate for pulmonary embolus COMPARISON STUDY: Portable chest from 06/13/2021 CT DOSE: 273.88 mGy.cm TECHNIQUE: CT Angio of the chest was performed.followed by image post processing with coronal, and s agittal MIP reformats. Contrast Volume: Optiray 320, 116 ml FINDINGS: Vasculature: There is homogeneous perfusion of the pulmonary vasculature bilaterally. No intraluminal filling defects or evidence for pulmonary embolus is seen. Airway: The airway is clear. No endobronchial lesion is identified. Lungs: The lungs are clear of acute alveolar opacities, air bronchograms or pulmonary nodules. Pleura: There is no evidence for pleural effusion. There is no evidence for pneumothorax. Mediastinum: There is no evidence for pathologic adenopathy. The heart size is within normal limits. The thoracic aorta is within normal limits. There is no evidence for pericardial effusion. Upper abdomen:The adrenal glands are normal bilaterally. Osseous structures: There is no acute osseous pathology. Impression: 1. No CTA evidence for pulmonary embolus. 2. No acute chest disease. ACT 112: Negative or not required by law. Electronically signed by: Wilmer Cameron M.D. 06/13/2021 9:40 PM
[2021-06-13] MEDS ORDERED: SODIUM CHLORIDE 0.9% 1000ML 1,000 ML IV STA (22:17)
[2021-06-13 22:22] LABS: Bilirubin Direct 0.1 mg/dl (0-0.2); Bilirubin,Total 0.3 mg/dl (0.2-1.0); Total Protein 6.6 gm/dl (6.0-8.3)
[2021-06-13] MEDS ORDERED: SODIUM CHLORIDE 0.9% 1000ML 1,000 ML IV ONE (23:19)
[2021-06-13] MEDS ORDERED: LACTATED RINGER'S 1,000 ML IV STA (23:26)
--- NOTE | 2021-06-13 23:40 | History & Physical Report ---
Date of Service June 13, 2021 Assessment & Plan (1) DKA (diabetic ketoacidosis): Plan: History DM1 Remote hemoglobin A1c of 14 from 2020 Secondary to medication noncompliance AGMA, high osmolar gap Left-sided chest pain Rule out ACS given patient risk factors History opioid addiction on Suboxone Ongoing tobacco abuse Malnutrition (low BMI) PCU given chest pain complaints IV insulin, IVF Update hemoglobin A1c May benefit from Pharmacy glycemic control consultation. Follow troponin TTE, Cardiology consult Re: Left-sided chest pain Aspirin for CAD prevention for now Nutrition consult RE low BMI Nicotine patch DVT prophylaxis. Heparin subcu Full code Text document was generated using iPipeline voice recognition software. It may contain grammatical or spelling errors. Kindly contact undersigned for clarification of any documentation item in question. History of Present Illness Chief Complaint: Shortness of breath, left-sided chest pain Primary Care Provider: Gilbert Suarez MD History obtained from patient and records. Patient is a fair historian. Medical history significant for DM1, narcotic addiction on Subutex, ongoing tobacco abuse. Last confinement June 2019 for sepsis secondary to pneumonia status post intubation, DKA. Last PCP visit June 2019. Patient not feeling well the last week. Admits to irregular insulin intake and sugar monitoring at home. Achy left-sided chest pain with some shortness of breath the last few days. No cough, no fever, no chills. Patient denies abdominal pain. Patient brought to ER for evaluation. IV insulin initiated for DKA. Medical History as above Surgical History : None Family History : Breast cancer, colon cancer, anxiety Personal/Social history : 1 pack daily, no EtOH intake, history heroin abuse, currently unemployed, lives with mother Allergies Allergy/AdvReac Type Severity Reaction Status Date / Time acesulfame Allergy Unknown RASH,N/V Verified 06/13/21 17:29 buprenorphine Allergy Unknown RASH,N/V Verified 06/13/21 17:29 Home Medications Medication Instructions Recorded Confirmed Type insulin aspart U-100 100 unit/mL 1 units SC UD 30 Days #15 ml 07/02/19 06/13/21 Rx (3 mL) subcutaneous pen (Novolog Flexpen U-100 Insulin aspart) insulin glargine 100 unit/mL (3 18 units SC HS 30 Days #5.4 ml 07/02/19 06/13/21 Rx mL) subcutaneous pen (Lantus Solostar U-100 Insulin) buprenorphine 8 mg-naloxone 2 mg 1 tab SUBLINGUAL BID 06/13/21 06/13/21 History sublingual tablet clonidine HCl 0.2 mg tablet 0.2 mg PO BID PRN 06/13/21 06/13/21 History Past Med/Surg History Medical History (Updated 06/13/21 @ 22:02 by Zac Manning) Bleeding hemorrhoid DKA (diabetic ketoacidoses) Finger contusion R hand, pointer finger. 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: No Beliefs That Will Affect Care: None marital status: Single Current Living Situation: Parent Current Living Situation Comment: With Mother current occupational status: employed 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 Other Information That Helps Us Care for You: No Feels Safe at Home: Yes Safety Concerns: Feels Safe At This Time Assistive Devices: None Review of Systems Review of Systems: As per HPI, all 10 systems reviewed, all other ROS negative Physical Exam Physical Exam: GENERAL: Slightly uncomfortable, underweight, no respiratory distress SKIN: Pallor, warm HEENT: Pale palpebral conjunctivae, no ptosis, dry buccal mucosa NECK : Supple, no tenderness CHEST : Decreased breath sounds , no tenderness HEART : Tachycardic, no obvious murmurs ABDOMEN: no distention, nontender EXTREMITIES : No LE swelling/tenderness, no other conspicuous deformities noted NEUROLOGIC : Coherent, no facial asymmetry, no other gross focality Results & Data Results & Data ([facility]) Vital Signs (Past 12 Hours) Vital Signs Temp Pulse Pulse Resp BP BP Pulse Ox 06/13/21 22:40 107 H 19 107/68 100 06/13/21 21:00 104 H 22 99/60 L 100 06/13/21 19:00 105 H 18 112/63 96 06/13/21 18:02 98 H 20 112/77 94 06/13/21 18:00 100 H 18 94 06/13/21 17:05 36.2 C L 86 16 109/74 100 Laboratory Results Laboratory Results WBC 7.69 K/uL (4.8-10.8) 06/13/21 17:50 RBC 5.23 M/uL (4.7-6.1) 06/13/21 17:50 Hgb 17.0 g/dL (14.0-18.0) 06/13/21 17:50 Hct 49.7 % (42-52) 06/13/21 17:50 MCV 95.0 fL (80-100) 06/13/21 17:50 MCH 32.5 pg (25-34) 06/13/21 17:50 MCHC 34.2 g/dL (32-36) 06/13/21 17:50 RDW Std Deviation 48.0 fL (36.4-46.3) H 06/13/21 17:50 RDW Coeff of [place] 13.8 % (11.5-14.5) 06/13/21 17:50 Plt Count 289 K/uL (130-400) 06/13/21 17:50 MPV 10.9 fL (7.4-10.4) H 06/13/21 17:50 Immature Gran % (Auto) 1.2 % 06/13/21 17:50 Neut % (Auto) 66.8 % 06/13/21 17:50 Lymph % (Auto) 25.0 % 06/13/21 17:50 [place] % (Auto) 6.0 % 06/13/21 17:50 Eos % (Auto) 0.5 % 06/13/21 17:50 Baso % (Auto) 0.5 % 06/13/21 17:50 Neut # (Auto) 5.14 K/uL (1.4-6.5) 06/13/21 17:50 Lymph # (Auto) 1.92 K/uL (1.2-3.4) 06/13/21 17:50 [place] # (Auto) 0.46 K/uL (0.11-0.59) 06/13/21 17:50 Eos # (Auto) 0.04 K/uL (0-0.5) 06/13/21 17:50 Baso # (Auto) 0.04 K/uL (0-0.2) 06/13/21 17:50 Immature Gran # (Auto) 0.09 K/uL (0.00-0.02) H 06/13/21 17:50 PT 11.1 Seconds (9.0-12.0) 06/13/21 19:40 INR 1.1 (0.9-1.1) 06/13/21 19:40 APTT 26.9 Seconds (21.0-31.0) 06/13/21 19:40 PTT Ratio 1.0 06/13/21 19:40 D-Dimer 1060 ug/L FEU (0-500) H* 06/13/21 19:40 VBG pH 7.09 (7.36-7.41) L 06/13/21 20:45 VBG pCO2 20 mmHg (38-50) L 06/13/21 20:45 VBG pO2 41 mmHg 06/13/21 20:45 VBG HCO3 6 mmol/L 06/13/21 20:45 VBG O2 Saturation 73.5 % 06/13/21 20:45 VBG Base Excess -22.0 mEq/L 06/13/21 20:45 Barometric Pressure 739.8 mm/Hg 06/13/21 20:45 Sodium 135 mmol/L (136-145) L 06/13/21 19:40 Potassium 4.5 mmol/L (3.5-5.1) 06/13/21 19:40 Chloride 108 mmol/L (98-107) H 06/13/21 19:40 Carbon Dioxide 4 mmol/L (21-32) L* 06/13/21 19:40 Anion Gap 23 (3-11) H 06/13/21 19:40 BUN 11 mg/dl (6-23) 06/13/21 19:40 Creatinine 0.69 mg/dl (0.6-1.4) 06/13/21 19:40 Est Cr Clr Drug Dosing 104.0 ml/min 06/13/21 19:40 Est GFR ( Amer) 146.6 ml/min 06/13/21 19:40 Est GFR (Non-Af Amer) 126.5 ml/min 06/13/21 19:40 BUN/Creatinine Ratio 15.9 (10-20) 06/13/21 19:40 Glucose 291 mg/dl (70-99) H 06/13/21 19:40 Osmolality 308 mOsm/kg (280-300) H 06/13/21 19:40 Lactate 0.7 mmol/L (0.4-2.0) 06/13/21 19:40 Calcium 7.8 mg/dl (8.5-10.1) L 06/13/21 19:40 Magnesium 1.9 mg/dl (1.7-2.4) 06/13/21 17:50 Total Bilirubin 0.3 mg/dl (0.2-1.0) 06/13/21 19:40 Direct Bilirubin 0.1 mg/dl (0-0.2) 06/13/21 19:40 AST 9 U/L (13-39) L 06/13/21 19:40 ALT 12 U/L (7-52) 06/13/21 19:40 Alkaline Phosphatase 90 U/L (34-104) 06/13/21 19:40 Total Protein 6.6 gm/dl (6.0-8.3) 06/13/21 19:40 Albumin 4.0 gm/dl (3.4-5.0) 06/13/21 19:40 Urine Color Yellow 06/13/21: Urine Appearance Clear (Clear) 06/13/21: Urine pH 5.0 (4.5-7.5) 06/13/21: Ur Specific [place] 1.027 (1.000-1.030) 06/13/21:28 Urine Protein 2+ (Negative) H 06/13/21 19: Urine Glucose (UA) 3+ (Negative) H 06/13/21 19: Urine Ketones 4+ (Negative) H 06/13/21: Urine Blood Trace (Negative) H 06/13/21: Urine Nitrite Negative (Negative) 06/13/21 19: Urine Bilirubin Negative (Negative) 06/13/21: Urine Urobilinogen Negative (Negative) 06/13/21: Ur Leukocyte Esterase Negative (Negative) 06/13/21: Urine WBC (Auto) 1-5 /hpf (0-5) 06/13/21 19:28 Urine RBC (Auto) 0-4 /hpf (0-4) 06/13/21 19:28 U Hyaline Cast (Auto) 1-5 /lpf (0-5) 06/13/21 19:28 U Epithel Cells (Auto) 5-10 /lpf (0-5) H 06/13/21 19:28 Urine Bacteria (Auto) Negative (Negative) 06/13/21 19:28 Salicylates < 3.0 mg/dl (3.0-30) L 06/13/21 19:50 Urine Opiates Screen Neg (Neg) 06/13/21 19:28 Ur Methadone, Qual Neg (Neg) 06/13/21 19:28 Acetaminophen < 3 ug/ml (10-30) L 06/13/21 19:50 Urine Barbiturates Neg (Neg) 06/13/21 19:28 Ur Phencyclidine (PCP) Neg (Neg) 06/13/21 19:28 U Amphetamin/Meth Scrn Neg (Neg) 06/13/21 19:28 MDMA (Ecstasy) Screen Neg (Neg) 06/13/21 19:28 U Benzodiazepines Scrn Neg (Neg) 06/13/21 19:28 Ur Cocaine Metabolite Neg (Neg) 06/13/21 19:28 U Marijuana (THC) Screen Neg (Neg) 06/13/21 19:28 Ethyl Alcohol mg/dL < 10.0 mg/dl (<10.0) 06/13/21 19:40 SARS-CoV-2, RNA, NAAT NEGATIVE (NEGATIVE) 06/13/21 17:45 Impressions Chest X-Ray 06/13/21 17:26 XR chest 1V portable CLINICAL HISTORY: Cough. Shortness of breath. COMPARISON STUDY: Chest radiograph July 01, 2019. FINDINGS: Lung volumes are normal. Lungs are clear. There is no pneumothorax or pleural effusion. Cardiac size is normal. Mediastinal contours are normal. There is no evidence for pulmonary edema. IMPRESSION: No acute cardiopulmonary findings. ACT 112: Negative or not required by law. Electronically signed by: Josef Ross M.D. 06/13/2021 5:50 PM Chest CTA 06/13/21 20:19 CT angio chest PE protocol CLINICAL HISTORY: Shortness of breath. Evaluate for pulmonary embolus COMPARISON STUDY: Portable chest from 06/13/2021 CT DOSE: 273.88 mGy.cm TECHNIQUE: CT Angio of the chest was performed.followed by image post processing with coronal, and sagittal MIP reformats. Contrast Volume: Optiray 320, 116 ml FINDINGS: Vasculature: There is homogeneous perfusion of the pulmonary vasculature b ilaterally. No intraluminal filling defects or evidence for pulmonary embolus is seen. Airway: The airway is clear. No endobronchial lesion is identified. Lungs: The lungs are clear of acute alveolar opacities, air bronchograms or pulmonary nodules. Pleura: There is no evidence for pleural effusion. There is no evidence for pneumothorax. Mediastinum: There is no evidence for pathologic adenopathy. The heart size is within normal limits. The thoracic aorta is within normal limits. There is no evidence for pericardial effusion. Upper abdomen:The adrenal glands are normal bilaterally. Osseous structures: There is no acute osseous pathology. Impression: 1. No CTA evidence for pulmonary embolus. 2. No acute chest disease. ACT 112: Negative or not required by law. Electronically signed by: Wilmer Cameron M.D. 06/13/2021 9:40 PM Diagnostic Findings EKG as per my interpretation : Rate 110, sinus tachycardia, normal axis, no ischemia (1) DKA (diabetic ketoacidosis) Diabetes mellitus complication detail: without coma Diabetes mellitus type: other specified (including BOYD) Qualified Code(s): E13.10 - Other specified diabetes mellitus with ketoacidosis without coma
[2021-06-13] MEDS ORDERED: ASPIRIN CHEW 324 MG PO STA (23:48)
[2021-06-13] MEDS ORDERED: D5W AND LACTATED RINGERS 1,000 ML IV PRN (23:51)
[2021-06-14 00:07] LABS: Oxygen Saturation VBG 75.3 %; pH VBG 7.15 (7.36-7.41)
[2021-06-14 00:25] LABS: Troponin I < 0.03 ng/ml (0-0.04)
[2021-06-14] MEDS ORDERED: LACTATED RINGER'S 1,000 ML IV ONE ×5 (00:30→11:30)
[2021-06-14 00:40] LABS: Lipase 4 U/L (11-82)
[2021-06-14] MEDS ORDERED: NITROGLYCERIN SL 0.4 MG/TAB TAB SL PRN (01:36)
[2021-06-14] MEDS ORDERED: ACETAMINOPHEN 325 MG TAB PO PRN (01:36)
[2021-06-14] MEDS ORDERED: PROMETHAZINE HCL 6.25 MG in SODIUM CHLORIDE 0.9% 50 ML IV PRN (01:36)
[2021-06-14 04:31] LABS: Basophils # (auto) 0.01 K/uL (0-0.2); Basophils % (auto) 0.1 %; Eosinophils # (auto) 0.02 K/uL (0-0.5); Eosinophils % (auto) 0.3 %; Hematocrit (blood only) 38.1 % (42-52); Hemoglobin 13.3 g/dL (14.0-18.0); Immature Granulocytes # (auto) 0.05 K/uL (0.00-0.02); Immature Granulocytes % (auto) 0.7 %; Lymphocytes # (auto) 1.81 K/uL (1.2-3.4); Lymphocytes % (auto) 24.6 %; Mean Corpuscular Hemoglobin 32.3 pg (25-34); Mean Corpuscular Hgb Conc 34.9 g/dL (32-36); Mean Corpuscular Volume 92.5 fL (80-100); Mean Platelet Volume 9.9 fL (7.4-10.4); Monocytes # (auto) 0.83 K/uL (0.11-0.59); Monocytes % (auto) 11.3 %; Neutrophils # (auto) 4.64 K/uL (1.4-6.5); Platelet Count 231 K/uL (130-400); RDW Coefficient of Variation 13.5 % (11.5-14.5); RDW Standard Deviation 45.6 fL (36.4-46.3); Red Blood Count 4.12 M/uL (4.7-6.1); White Blood Count 7.36 K/uL (4.8-10.8)
[2021-06-14 04:39] LABS: Base Excess VBG -11.2 mEq/L; Oxygen Saturation VBG 61.9 %; pH VBG 7.27 (7.36-7.41)
[2021-06-14 04:40] LABS: Partial Thromboplastin Ratio 0.9; Partial Thromboplastin Time 23.6 Seconds (21.0-31.0)
[2021-06-14 04:53] LABS: Troponin I < 0.03 ng/ml (0-0.04)
[2021-06-14 05:09] LABS: Anion Gap 10 (3-11); BUN Creatinine Ratio 13.1 (10-20); Blood Urea Nitrogen 8 mg/dl (6-23); Carbon Dioxide 15 mmol/L (21-32); Chloride 112 mmol/L (98-107); Chol HDL Ratio 4.4; Cholesterol 148 mg/dl (0-200); Creatinine Clr Calc Pharmacy 125.6 ml/min; Est GFR (African American) > 150.0 ml/min; Est GFR (Non-African American) 133.1 ml/min; Glucose 183 mg/dl (70-99); HDL Cholesterol 34 mg/dl; LDL Cholesterol Calculated 89 mg/dl; Potassium 3.3 mmol/L (3.5-5.1); Sodium 137 mmol/L (136-145); Triglycerides 123 mg/dl (0-150); VLDL Cholesterol 25 mg/dl
[2021-06-14] MEDS ORDERED: POTASSIUM CHLORIDE CRTAB 20 MEQ TABCR PO STA (05:18)
[2021-06-14] MEDS ORDERED: INSULIN GLARGINE SOLOSTAR 100 UNITS/ML 3 ML PEN SC STA ×2 (05:35)
[2021-06-14] MEDS ORDERED: GLUCAGON FOR INJ 1 MG VIAL SQ PRN (05:41)
[2021-06-14] MEDS ORDERED: DEXTROSE 50% 50 ML SYRINGE IV PRN (05:41)
[2021-06-14] MEDS ORDERED: GLUCOSE 40% GEL 15 GM TUBE PO PRN (05:41)
[2021-06-14] MEDS ORDERED: CARBOHYDRATES FOR HYPOGLYCEMIA PO PRN (05:41)
[2021-06-14] MEDS ORDERED: GLUCOSE 10 TABS/TUBE PO PRN (05:41)
[2021-06-14] MEDS: HEPARIN SOD 5,000 UNIT/0.5 ML VIAL SQ SCH ×3 (06:14→22:27)
[2021-06-14] MEDS: INSULIN ASPART PER UNIT SC SCH ×4 (08:00→20:58)
[2021-06-14] MEDS: BUPRENORPHINE/NALOXONE 8/2 MG TAB SL SCH ×2 (08:14→20:59)
[2021-06-14] MEDS: NICOTINE 21 MG/24 HR TDSY TD SCH (08:14)
[2021-06-14] MEDS ORDERED: PHARMACY GLYCEMIC MGMT CONSULT PRN (09:24)
--- NOTE | 2021-06-14 10:00 | Electrocardiogram Report ---
Test Reason : Blood Pressure : / mmHG Vent. Rate : 107 BPM Atrial Rate : 107 BPM P-R Int : 134 ms QRS Dur : 096 ms QT Int : 366 ms P-R-T Axes : 084 087 047 degrees QTc Int : 488 ms Sinus tachycardia Biatrial enlargement Voltage criteria for left ventricular hypertrophy Abnormal ECG When compared with ECG of 30-JUN-2019 06:33, Sinus rhythm has replaced Junctional rhythm Vent. rate has increased BY 61 BPM Left ventricular hypertrophy is now present QT has lengthened Confirmed by Jonnathan Dill ([id number]) on 06/14/2021 9:59:47 AM Referred By: REFERRED SELF Confirmed By:Jonnathan Dill
--- NOTE | 2021-06-14 10:15 | Electrocardiogram Report ---
Test Reason : Blood Pressure : / mmHG Vent. Rate : 092 BPM Atrial Rate : 092 BPM P-R Int : 148 ms QRS Dur : 096 ms QT Int : 372 ms P-R-T Axes : 081 084 070 degrees QTc Int : 460 ms Normal sinus rhythm Possible Left atrial enlargement Left ventricular hypertrophy When compared with ECG of 13-JUN-2021 17:25, (unconfirmed) No significant change was found Confirmed by Jonnathan Dill ([id number]) on 06/14/2021 10:14:35 AM Referred By: REFERRED SELF Confirmed By:Jonnathan Dill
--- NOTE | 2021-06-14 11:00 | Cardiology Consultation ---
Date of Consultation June 14, 2021 Assessment & Plan (1) DKA (diabetic ketoacidosis): (2) History of narcotic addiction: (3) Chest pain: Twelve-lead EKG, troponin and resting echocardiogram all unremarkable. Do not see any signs of active ischemia. Obviously, given his history of type 1 diabetes with medical noncompliance patient is at elevated risk of coronary disease. The need for medication adherence reviewed with him, the patient was dismissive to this recommendation. Recommend aspirin 81 mg daily as well as atorvastatin 10 mg daily for optimal risk management. History of Present Illness Reason for Consultation: Chest pain in the setting of DKA Requesting Physician: Dr. Leal Attending Physician: Niko Leal MD History of Present Illness The patient is a 30-year-old male who presented to [facility] on 06/13/2021 with complaints of not feeling well for the last week. Unsure what his blood sugars have been running, does not check and takes insulin only intermittently as per him. He is also noted some chest discomfort and shortness of breath the last few days. Patient not providing further history despite multiple questions being asked during interview. Currently he is refusing medical intervention and blood draws. Allergies Allergy/AdvReac Type Severity Reaction Status Date / Time acesulfame Allergy Unknown RASH,N/V Verified 06/13/21 17:29 buprenorphine Allergy Unknown RASH,N/V Verified 06/13/21 17:29 Home Medications Medication Instructions Recorded Confirmed Type insulin aspart U-100 100 unit/mL 1 units SC UD 30 Days #15 ml 07/02/19 06/13/21 Rx (3 mL) subcutaneous pen (Novolog Flexpen U-100 Insulin aspart) insulin glargine 100 unit/mL (3 18 units SC HS 30 Days #5.4 ml 07/02/19 06/13/21 Rx mL) subcutaneous pen (Lantus Solostar U-100 Insulin) buprenorphine 8 mg-naloxone 2 mg 1 tab SUBLINGUAL BID 06/13/21 06/13/21 History sublingual tablet clonidine HCl 0.2 mg tablet 0.2 mg PO BID PRN 06/13/21 06/13/21 History Patient History Medical History (Updated 06/14/21 @ 10:58 by Kenji Alexander DO) Bleeding hemorrhoid DKA (diabetic ketoacidoses) Finger contusion R hand, pointer finger. History of narcotic addiction Mild concussion Pneumonia Surgical History No significant past surgical history Family History Other Diabetes Social History Smoking Status: Current every day smoker Cigarettes Per Day: 30; Second Hand Exposure: Yes; Do You Dip or Chew Tobacco: No; Tobacco Cessation Education Requested by Patient: No Hx Alcohol Use: No Hx Substance Use: No Preferred Language: Surinamese Communication Ability: Effective Early Childhood Required: No Beliefs That Will Affect Care: None marital status: Single Current Living Situation: Parent Current Living Situation Comment: With Mother current occupational status: employed 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 No acute distress. Agitated and uncooperative HEENT: Normocephalic, atraumatic. Pupils equal, round and reactive to light and accommodation. Extraocular muscles are intact. Anicteric sclera. Moist mucous membranes. Neck: No JVD. No bruit. Cardiovascular: Regular. No S-4. Normal S-1 and S-2. No S-3. No murmurs, rubs or gallops. Pulmonary: Clear to auscultation bilaterally. No rales, rhonchi, or wheezing. Abdomen: Bowel sounds x 4, soft. No rebound, guarding or tenderness. No o rganomegaly. Extremities: No clubbing, cyanosis or edema. +2 pedal pulses bilaterally. Skin: Warm and dry. Results & Data ([facility]) Vital Signs (Past 12 Hours) Vital Signs Temp Pulse Pulse Resp BP BP Pulse Ox 06/14/21 08:00 99 H 06/14/21 07:40 36.7 C 95 H 17 101/69 99 06/14/21 01:45 36.5 C 108 H 22 99/70 L 100 06/14/21 01:19 110 H 18 98/62 L 100 06/14/21 00:30 102 H 18 105/76 100 (1) DKA (diabetic ketoacidosis) Diabetes mellitus complication detail: without coma Diabetes mellitus type: other specified (including BOYD) Qualified Code(s): E13.10 - Other specified diabetes mellitus with ketoacidosis without coma
--- NOTE | 2021-06-14 11:17 | Pharmacy Report ---
Pharmacy Glycemic Short Note 2 - Date of Service June 14, 2021 - Glycemic Short BSG Results (Last 24 hours): 06/13/21 06/13/21 06/14/21 17:50 19:40 04:19 Glucose 322 H* 291 H 183 H OUTPATIENT ANTIDIABETIC REGIMEN: * Lantus 18 units HS * Novolog TIDm * A1c pending ASSESSMENT: * 30 year old male, type 1 DM, non-compliant, updated A1c ordered, >14% in 2019, opioid use disorder on suboxone, admitted with DKA and elevated troponin. * On IV Insulin infusion protocol and received 60 units Lantus this morning per Dr Zhong. * Continue insulin drip and hold off on any further basal insulin today, re- evaluate tomorrow morning. PLAN FOR INPATIENT GLYCEMIC CONTROL: * Hold outpatient oral diabetes medications * IV insulin infusion, (running at 3 units/hr over past 6 hours) * goal range 150-250mg/dl (continue at this higher goal range for uncontrolled type 1 diabetic) PLAN FOR DISCHARGE: * to be determined
[2021-06-14] MEDS ORDERED: AMOXICILLIN/CLAVULANATE 875 MG TAB PO SCH (11:35)
[2021-06-14] MEDS ORDERED: INSULIN ASPART PER UNIT SC SCH (12:00)
[2021-06-14] MEDS ORDERED: OPTIRAY 320 100ml IV ONE (12:17)
[2021-06-14 13:13] LABS: Base Excess VBG -2.5 mEq/L; HCO3 VBG 23 mmol/L; PCO2 VBG 44 mmHg (38-50); PO2 VBG 24 mmHg; pH VBG 7.35 (7.36-7.41)
[2021-06-14 13:25] LABS: Anion Gap 5 (3-11); BUN Creatinine Ratio 13.3 (10-20); Blood Urea Nitrogen 8 mg/dl (6-23); Calcium 7.9 mg/dl (8.5-10.1); Carbon Dioxide 22 mmol/L (21-32); Chloride 106 mmol/L (98-107); Creatinine Clr Calc Pharmacy 127.7 ml/min; Est GFR (African American) > 150.0 ml/min; Glucose 162 mg/dl (70-99); Potassium 3.5 mmol/L (3.5-5.1); Sodium 133 mmol/L (136-145)
--- NOTE | 2021-06-14 13:29 | CT Scan Report ---
CT facial bones w con CLINICAL HISTORY: Facial swelling . Pain COMPARISON STUDY: No previous studies for comparison. CT DOSE: 128.60 mGy.cm TECHNIQUE: Standard CT of the Facial Bones and Orbits was performed with IV contrast. A dose lowerin g technique was utilized adhering to the principles of ALARA. Contrast: Optiray 320, 93 mL FINDINGS: Bones and soft tissues: There is a lytic, destructive lesion present involving the maxilla anteriorly to the left of midline. This is most characteristic of a periodontal abscess. Ring-enhancing fluid c ollection is present at this site measuring 13 x 11 mm. There is diffuse soft tissue swelling of the adjacent soft tissues of the face. Skin thickening is also present. The orbital rims are intact bilaterally. The zygomatic arches are intact bilaterally. Nasal bones are intact. The nasal septum is in the midline. The mandible is intact. Paranasal sinuses: There is mucosal thickening involving the maxillary antra bilaterally, left greate r than right. The remaining paranasal sinuses are clear. Soft tissues: The remaining soft tissue structures appear normal. IMPRESSION: Evidence for a periodontal abscess involving the maxilla anteriorly to the left with a ly tic, destructive lesion of the maxilla at this site. Diffuse soft tissue swelling is present. ACT 112: Negative or not required by law. Electronically signed by: Wilmer Cameron M.D. 06/14/2021 1:28 PM
--- NOTE | 2021-06-14 13:59 | Hospitalist Progress Note ---
Date of Service June 14, 2021 Assessment & Plan (1) DKA (diabetic ketoacidosis): Plan: Diabetic ketoacidosis H/O Type I DM Admits to being noncompliant to insulin use Last HbA1c 14 Anion gap metabolic acidosis Continue insulin therapy Continue IV fluids Monitor blood glucose levels Replace electrolytes as needed Refusing blood draws intermittently Tolerating diet Periodontal abscess-POA Face CT:Evidence for a periodontal abscess involving the maxilla anteriorly to the left with a lytic, destructive lesion of the maxilla at this site. Diffuse soft tissue swelling is present. 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 Severe protein calorie malnutrition BMI 15 Dietitian consulted DVT Px: Heparin SQ Code Status Full code Admission and Anticipated Discharge Date Admission Date: June 13, 2021 Subjective Patient is seen and examined at bedside Offers no complaints during my encounter Chest pain resolved Reported left facial swelling to RN Currently on IV insulin Eager to get discharged Denies any dyspnea, nausea, vomiting, abdominal pain, dizziness Review of Systems Review of Systems: All systems reviewed & are unremarkable except as noted in Subjective Physical Exam Physical Exam: Physical Exam: Vitals signs as noted above General Appearance:Thin, frail, ill appearing Head: normocephalic, Atraumatic Eyes: normal inspection, EOMI Neck: supple, Trachea midline Respiratory/Chest: Decreased breath sounds, CTA, No accessory muscle use Cardiovascular: S1, S2, No murmur Abdomen/GI:Soft, Non tender, Bowel sounds present Extremities/Musculoskeletal:normal inspection, no edema Neurologic/Psych:AAOX3, grossly no focal neurological deficits Skin: normal color, warm Results & Data Results & Data ([facility]) Vital Signs (Past 12 Hours) Vital Signs Temp Pulse Pulse Resp BP Pulse Ox 06/14/21 12:14 36.8 C 99 H 17 94/64 L 98 06/14/21 08:00 99 H 06/14/21 07:40 36.7 C 95 H 17 101/69 99 Laboratory Results Short CBC 06/13/21 06/14/21 Range/Units 17:50 04:19 WBC 7.69 7.36 (4.8-10.8) K/uL Hgb 17.0 13.3 L D (14.0-18.0) g/dL Hct 49.7 38.1 L (42-52) % Plt Count 289 231 (130-400) K/uL BMP 06/13/21 06/13/21 06/14/21 17:50 19:40 04:19 Sodium 132 L 135 L 137 Potassium 4.8 4.5 3.3 L D Chloride 101 108 H 112 H Carbon Dioxide 6 L* 4 L* 15 L BUN 12 11 8 Creatinine 0.84 0.69 0.61 Glucose 322 H* 291 H 183 H Calcium 8.9 7.8 L 8.0 L 06/14/21 12:42 Sodium 133 L Potassium 3.5 Chloride 106 Carbon Dioxide 22 BUN 8 Creatinine 0.60 Glucose 162 H Calcium 7.9 L Cardiac Enzymes 06/13/21 06/14/21 Range/Units 23:52 04:19 Troponin I < 0.03 < 0.03 (0-0.04) ng/ml Liver Function 06/13/21 Range/Units 19:40 Total Bilirubin 0.3 (0.2-1.0) mg/dl Direct Bilirubin 0.1 (0-0.2) mg/dl AST 9 L (13-39) U/L ALT 12 (7-52) U/L Alkaline Phosphatase 90 (34-104) U/L Albumin 4.0 (3.4-5.0) gm/dl Urine 06/13/21 Range/Units 19:28 Urine Color Yellow Urine Appearance Clear (Clear) Urine pH 5.0 (4.5-7.5) Ur Specific [place] 1.027 (1.000-1.030) Urine Protein 2+ H (Negative) Urine Glucose (UA) 3+ H (Negative) (1) DKA (diabetic ketoacidosis) Diabetes mellitus complication detail: without coma Diabetes mellitus type: other specified (including BOYD) Qualified Code(s): E13.10 - Other specified diabetes mellitus with ketoacidosis without coma
[2021-06-14 14:28] LABS: Oxygen Saturation VBG < 60.0 %
[2021-06-14] MEDS: AMPICILLIN/SULBACTAM SOD 3,000 MG in 0.9 % SODIUM CHLORIDE 100 ML IV SCH (18:00)
[2021-06-14] MEDS ORDERED: AMPICILLIN/SULBACTAM SOD 3,000 MG in DEXTROSE 5% 100 ML IV SCH (18:00)
[2021-06-14] MEDS ORDERED: INSULIN GLARGINE SOLOSTAR 100 UNITS/ML 3 ML PEN SC SCH (21:00)
[2021-06-14] MEDS ORDERED: MELATONIN 3 MG TAB PO PRN (21:03)
[2021-06-15] MEDS: AMPICILLIN/SULBACTAM SOD 3,000 MG in 0.9 % SODIUM CHLORIDE 100 ML IV SCH ×3 (00:11→18:41)
[2021-06-15] MEDS: INSULIN ASPART PER UNIT SC SCH ×6 (00:11→20:44)
[2021-06-15] MEDS: HEPARIN SOD 5,000 UNIT/0.5 ML VIAL SQ SCH ×3 (05:50→21:34)
[2021-06-15 07:16] LABS: Estimated Average Glucose 367 mg/dl; Hemoglobin A1C 14.4 % (4.5-5.6)
[2021-06-15 07:56] LABS: Hematocrit (blood only) 38.1 % (42-52); Hemoglobin 13.4 g/dL (14.0-18.0); Mean Corpuscular Hemoglobin 32.1 pg (25-34); Mean Corpuscular Hgb Conc 35.2 g/dL (32-36); Mean Corpuscular Volume 91.1 fL (80-100); Platelet Count 207 K/uL (130-400); RDW Coefficient of Variation 13.8 % (11.5-14.5); RDW Standard Deviation 45.8 fL (36.4-46.3); Red Blood Count 4.18 M/uL (4.7-6.1); White Blood Count 6.85 K/uL (4.8-10.8)
[2021-06-15] MEDS: NICOTINE 21 MG/24 HR TDSY TD SCH (08:11)
[2021-06-15] MEDS: ASPIRIN 81 MG ECTAB PO SCH (08:11)
[2021-06-15] MEDS: BUPRENORPHINE/NALOXONE 8/2 MG TAB SL SCH ×2 (08:18→20:43)
[2021-06-15 08:38] LABS: Anion Gap 5 (3-11); BUN Creatinine Ratio 32.7 (10-20); Blood Urea Nitrogen 16 mg/dl (6-23); Calcium 8.2 mg/dl (8.5-10.1); Carbon Dioxide 29 mmol/L (21-32); Chloride 107 mmol/L (98-107); Creatinine Clr Calc Pharmacy 165.6 ml/min; Est GFR (African American) > 150.0 ml/min; Est GFR (Non-African American) 145.6 ml/min; Glucose 132 mg/dl (70-99(Fasting)); Potassium 3.2 mmol/L (3.5-5.1); Sodium 141 mmol/L (136-145)
[2021-06-15] MEDS ORDERED: INSULIN GLARGINE SOLOSTAR 100 UNITS/ML 3 ML PEN SC SCH ×3 (09:00→21:00)
--- NOTE | 2021-06-15 09:22 | Oral/Maxillofacial Consult ---
Date of Consultation June 15, 2021 History of Present Illness Reason for Consultation: Oral Maxillofacial Surgery Exam Present Complaint: Decayed, fractured and abscessed teeth Symptoms have been ongoing for a while. Pain,swelling due to very poor dentition. all teeth fractured to gum line Oral Exam: Finding--all teeth are fractured and grossly decayed I see no teeth that should be saved abscess involving the maxilla anteriorly to the left with a lytic, destructive lesion of the maxilla at this site. Imaging: Facial swelling . Pain FINDINGS: Bones and soft tissues: There is a lytic, destructive lesion present involving the maxilla anteriorly to the left of midline. This is most characteristic of a periodontal abscess. Ring-enhancing fluid collection is present at this site measuring 13 x 11 mm. There is diffuse soft tissue swelling of the adjacent soft tissues of the face. Skin thickening is also present. Paranasal sinuses: There is mucosal thickening involving the maxillary antra bilaterally, left greater than right. The remaining paranasal sinuses are clear. IMPRESSION: Evidence for a periodontal abscess involving the maxilla anteriorly to the left with a lytic, destructive lesion of the maxilla at this site. Diffuse soft t issue swelling is present. Soft tissue: advanced dental and periodontal pathology draining fistula Evidence for a periodontal abscess involving the maxilla anteriorly to the left with a lytic, destructive lesion of the maxilla at this site. Diffuse soft tissue swelling is present. Oral Care: Overall oral care is very poor to non existent Occlusion: Class skeletal I TMJ exam: No pop, clicking, pain, good ROM, No history of TMJ injury or dysfunction Periodontal exam: Severe evidence of periodontal pathology. Head/Neck exam: No swelling or masses noted Suggested Treatment Plan: Set up with general anesthesia in hospital due to complexity of the procedure to remove all the teeth and curet the infection remove he ongoing oral pathology. Noted some very large cysts of the anterior maxilla with bone destruction. High chance of recurrence of infection The following teeth are decayed and fractured and removal is indicated RAO: all upper and lower teeth with associated lesions of the maxilla and mandibular bones PLAN I saw Hernesto today at his bedside Ultimately he will need the removal of all his teeth, He is now is medically stable. The surgery will need to be done in the OR with general anesthesia. I reviewed the treatment plan however he has a court date on Jun 18 regarding a DUI and feels that [facility] need [facility]. He is unsure of his current situation and does not want to consent to surgery at this time until he knows what the courts decision regarding long term time will be. It is my suggestion that the extractions be done to prevent ongoing issues and reoccurrence of the infections. He discussed this with his mother and is waiting a return call from his managing attorney. At this time we will hold off on surgery OK for discharge as per medical Should be d/c on an oral antibiotics Patient know to follow up with me when he is ready for the procedures Attending Physician: Niko Leal MD Allergies Allergy/AdvReac Type Severity Reaction Status Date / Time acesulfame Allergy Unknown RASH,N/V Verified 06/13/21 17:29 buprenorphine Allergy Unknown RASH,N/V Verified 06/13/21 17:29 Home Medications Medication Instructions Recorded Confirmed Type insulin aspart U-100 100 unit/mL 1 units SC UD 30 Days #15 ml 07/02/19 06/13/21 Rx (3 mL) subcutaneous pen (Novolog Flexpen U-100 Insulin aspart) insulin glargine 100 unit/mL (3 18 units SC HS 30 Days #5.4 ml 07/02/19 06/13/21 Rx mL) subcutaneous pen (Lantus Solostar U-100 Insulin) buprenorphine 8 mg-naloxone 2 mg 1 tab SUBLINGUAL BID 06/13/21 06/13/21 History sublingual tablet clonidine HCl 0.2 mg tablet 0.2 mg PO BID PRN 06/13/21 06/13/21 History Patient History Medical History (Updated 06/14/21 @ 10:58 by Kenji Alexander DO) Bleeding hemorrhoid DKA (diabetic ketoacidoses) Finger contusion R hand, pointer finger. 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 Beliefs That Will Affect Care: None marital status: Single Current Living Situation: Parent Current Living Situation Comment: With Mother current occupational status: employed 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 How many Children do You have: 0 Other Information That Helps Us Care for You: No Feels Safe at Home: Yes Safety Concerns: Feels Safe At This Time Assistive Devices: None Results & Data ([facility]) Vital Signs (Past 12 Hours) Vital Signs Temp Pulse Pulse Resp BP Pulse Ox 06/15/21 08:01 36.7 C 99 H 18 95/64 L 97 06/15/21 04:48 36.4 C L 77 18 94/61 L 97 06/15/21 01:39 36.8 C 78 20 109/63 97 06/15/21 00:00 94 H 06/14/21 23:07 36.9 C 108 H 20 94/61 L 95 PG Care Time/CCT Total # of Minutes Spent Total Time Spent with Patient: Total time spent is greater than 50% in coordination of care (as documented) at patient's floor/unit and/or counseling patient: Coding Level of Care Code 02807 Office/OBS Consult Lvl 3
[2021-06-15] MEDS ORDERED: POTASSIUM CHLORIDE CRTAB 20 MEQ TABCR PO ONE (09:27)
[2021-06-15] MEDS: SODIUM CHLORIDE 0.9% 1000ML 1,000 ML IV SCH ×2 (09:49→17:27)
--- NOTE | 2021-06-15 10:32 | Pharmacy Report ---
Pharmacy Glycemic Short Note 2 - Date of Service June 15, 2021 - Glycemic Short BSG Results (Last 24 hours): 06/14/21 06/15/21 12:42 07:43 Glucose 162 H 132 H OUTPATIENT ANTIDIABETIC REGIMEN: * Lantus 20-24 units SC HS * Novolog TIDM (carb ratio: 10, correction factor: 30), per educator senior clinical note, patient "guesstimates" * HbA1c: 14.4% (06/13/21) ASSESSMENT: 06/15 * DKA has now resolved (anion gap of 5 and serum bicarbonate of 22 yesterday) * Insulin infusion was transitioned to SC insulin regimen yesterday * Large Lantus dose was given yesterday morning, will plan to give basal insulin with lunch today to eventually step back to HS dosing * Patient seen by oral maxillofacial surgery today, recommending to continue IV antibiotics with ultimate need for removal of all teeth * No surgery scheduled yet Background * 30 year old male, type 1 DM, non-compliant, updated A1c ordered, >14% in 2020, opioid use disorder on suboxone, admitted with DKA and elevated troponin. * On IV Insulin infusion protocol and received 60 units Lantus this morning per Dr Zhong. * Continue insulin drip and hold off on any further basal insulin today, re- evaluate tomorrow morning. PLAN FOR INPATIENT GLYCEMIC CONTROL: * Hold outpatient oral diabetes medications * Basal insulin * Lantus scale with dinner to provide 16-24 units (see EHR for details) * Correctional Insulin: Novolog Correction per scale ACHS Goal Range: Low 110 mg/dL - High 140 mg/dL Correction Factor: 25 mg/dL/unit * Prandial insulin: Per carb ratio of 1 unit per 8 grams CHO consumed PLAN FOR DISCHARGE: * HbA1c of 14.4% suggests very poor outpatient glycemic management * This is most-likely related to poor compliance as an outpatient, as last dose of Lantus was ~1 week prior to admission * Reasonable to continue current outpatient regimen on discharge * Ensure prompt follow-up with outpatient tennis player and reinforce importance of taking insulins as prescribed
[2021-06-15] MEDS ORDERED: AMPICILLIN/SULBACTAM SOD 3,000 MG in DEXTROSE 5% 100 ML IV SCH (12:00)
--- NOTE | 2021-06-15 17:37 | Hospitalist Progress Note ---
Date of Service June 15, 2021 Assessment & Plan (1) DKA (diabetic ketoacidosis): Plan: Diabetic ketoacidosis H/O Type I DM Admits to being noncompliant to insulin use Last HbA1c 14 Anion gap metabolic acidosis Continue insulin therapy Continue IV fluids Monitor blood glucose levels Replace electrolytes as needed Refusing blood draws intermittently Tolerated diet Periodontal abscess-POA Face CT:Evidence for a periodontal abscess involving the maxilla anteriorly to the left with a lytic, destructive lesion of the maxilla at this site. Diffuse soft tissue swelling is present. No signs of sepsis Continue Unasyn Day #2 Appreciate Oromaxillary surgery Input Will place him on n.p.o. 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 Analyst to quit Nicotine patch Severe protein calorie malnutrition BMI 15 Dietitian consulted DVT Px: Heparin SQ Code Status Full code Admission and Anticipated Discharge Date Admission Date: June 13, 2021 Subjective Patient is seen and examined at bedside Offers no complaints Eager to get discharged States having some discomfort with chewing hard food Denies any dyspnea, nausea, vomiting, abdominal pain, dizziness Review of Systems Review of Systems: All systems reviewed & are unremarkable except as noted in Subjective Physical Exam Physical Exam: Physical Exam: Vitals signs as noted above General Appearance:Thin, frail, ill appearing Head: normocephalic, Atraumatic Eyes: normal inspection, EOMI Neck: supple, Trachea midline Respiratory/Chest: Decreased breath sounds, CTA, No accessory muscle use Cardiovascular: S1, S2, No murmur Abdomen/GI:Soft, Non tender, Bowel sounds present Extremities/Musculoskeletal:normal inspection, no edema Neurologic/Psych:AAOX3, grossly no focal neurological deficits Skin: normal color, warm Results & Data Results & Data ([facility]) Vital Signs (Past 12 Hours) Vital Signs Temp Pulse Pulse Resp BP Pulse Ox 06/15/21 15:55 36.6 C 86 19 102/67 97 06/15/21 15:06 67 06/15/21 12:10 36.7 C 93 H 19 95/65 L 97 06/15/21 08:01 36.7 C 99 H 18 95/64 L 97 Laboratory Results Short CBC 06/15/21 Range/Units 07:43 WBC 6.85 (4.8-10.8) K/uL Hgb 13.4 L (14.0-18.0) g/dL Hct 38.1 L (42-52) % Plt Count 207 (130-400) K/uL BMP 06/15/21 07:43 Sodium 141 Potassium 3.2 L Chloride 107 Carbon Dioxide 29 BUN 16 Creatinine 0.49 L Glucose 132 H Calcium 8.2 L (1) DKA (diabetic ketoacidosis) Diabetes mellitus complication detail: without coma Diabetes mellitus type: other specified (including BOYD) Qualified Code(s): E13.10 - Other specified diabetes mellitus with ketoacidosis without coma
[2021-06-15] MEDS ORDERED: MAGNESIUM SULFATE / D5W 1 GM/100 ML BAG IV ONE (22:45)
[2021-06-16] MEDS: AMPICILLIN/SULBACTAM SOD 3,000 MG in 0.9 % SODIUM CHLORIDE 100 ML IV SCH ×3 (01:17→12:57)
[2021-06-16] MEDS: HEPARIN SOD 5,000 UNIT/0.5 ML VIAL SQ SCH ×2 (05:57→05:59)
[2021-06-16] MEDS ORDERED: INSULIN ASPART PER UNIT SC SCH ×2 (06:30→11:30)
[2021-06-16 06:56] LABS: Anion Gap 4 (3-11); BUN Creatinine Ratio 40.5 (10-20); Blood Urea Nitrogen 17 mg/dl (6-23); Calcium 7.9 mg/dl (8.5-10.1); Carbon Dioxide 30 mmol/L (21-32); Chloride 105 mmol/L (98-107); Creatinine Clr Calc Pharmacy 200.4 ml/min; Est GFR (African American) > 150.0 ml/min; Est GFR (Non-African American) > 150.0 ml/min; Glucose 277 mg/dl (70-99(Fasting)); Potassium 3.3 mmol/L (3.5-5.1); Sodium 139 mmol/L (136-145)
[2021-06-16] MEDS ORDERED: INSULIN GLARGINE SOLOSTAR 100 UNITS/ML 3 ML PEN SC ONE (07:15)
--- NOTE | 2021-06-16 08:43 | Pharmacy Report ---
Pharmacy Glycemic Short Note 2 - Date of Service June 16, 2021 - Glycemic Short BSG Results (Last 24 hours): 06/16/21 05:35 Glucose 277 H OUTPATIENT ANTIDIABETIC REGIMEN: * Lantus 20-24 units SC HS * Novolog TIDM (carb ratio: 10, correction factor: 30), per tobacco prevention health educator note, patient "guesstimates" * HbA1c: 14.4% (06/13/21) ASSESSMENT: 06/16 * BSGs very well-controlled yesterday, ranging 83-132 mg/dL * Received 44 units of insulin (16 units of Lantus and 28 units of prandial/correctional) * Fasting BSG elevated this morning at 291 mg/dL, likely related to inadequate basal insulin * Will give 5 units of Lantus this morning with larger dose planned for this evening (to correlate with outpatient evening admin.) * Teeth removal surgery cancelled for today, patient now ordered diet with lunch * Patient likely to be discharged this afternoon 06/15 * DKA has now resolved (anion gap of 5 and serum bicarbonate of 22 yesterday) * Insulin infusion was transitioned to SC insulin regimen yesterday * Large Lantus dose was given yesterday morning, will plan to give basal insulin with lunch today to eventually step back to HS dosing * Patient seen by oral maxillofacial surgery today, recommending to continue IV antibiotics with ultimate need for removal of all teeth * No surgery scheduled yet Background * 30 year old male, type 1 DM, non-compliant, updated A1c ordered, >14% in 2020, opioid use disorder on suboxone, admitted with DKA and elevated troponin. * On IV Insulin infusion protocol and received 60 units Lantus this morning per Dr Zhong. * Continue insulin drip and hold off on any further basal insulin today, re- evaluate tomorrow morning. PLAN FOR INPATIENT GLYCEMIC CONTROL: * Hold outpatient oral diabetes medications * Basal insulin * Lantus 5 units SC x 1 this morning * Lantus scale SC HS (see EHR for details) * Correctional Insulin: Novolog Correction per scale ACHS Goal Range: Low 110 mg/dL - High 140 mg/dL Correction Factor: 25 mg/dL/unit * Prandial insulin: Per carb ratio of 1 unit per 8 grams CHO consumed PLAN FOR DISCHARGE: * HbA1c of 14.4% suggests very poor outpatient glycemic management * This is most-likely related to poor compliance as an outpatient, as last dose of Lantus was ~1 week prior to admission * Reasonable to continue current outpatient regimen on discharge * Ensure prompt follow-up with outpatient jacquard loom carpet weaver and reinforce importance of taking insulins as prescribed
[2021-06-16] MEDS: ASPIRIN 81 MG ECTAB PO SCH (09:08)
[2021-06-16] MEDS: NICOTINE 21 MG/24 HR TDSY TD SCH (09:09)
[2021-06-16] MEDS: BUPRENORPHINE/NALOXONE 8/2 MG TAB SL SCH (09:17)
[2021-06-16] MEDS: POTASSIUM CHLORIDE / WTR 10 MEQ/100 ML PLCT IV SCH ×2 (09:17→10:55)
--- NOTE | 2021-06-16 12:16 | Hospitalist Progress Note ---
Date of Service June 16, 2021 Assessment & Plan (1) DKA (diabetic ketoacidosis): Plan: Diabetic ketoacidosis H/O Type I DM Admits to being noncompliant to insulin use Last HbA1c 14 Anion gap metabolic acidosis Continue insulin therapy Received IV fluids Monitor blood glucose levels Replace electrolytes as needed Refusing blood draws intermittently Counseled on Medication Compliance Periodontal abscess-POA Face CT:Evidence for a periodontal abscess involving the maxilla anteriorly to the left with a lytic, destructive lesion of the maxilla at this site. Diffuse soft tissue swelling is present. 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 Severe protein calorie malnutrition BMI 15 Dietitian consulted DVT Px: Heparin SQ Code Status Full code Admission and Anticipated Discharge Date Admission Date: June 13, 2021 Subjective Patient is seen and examined at bedside Doing well today Refused Surgery and prefers to follow up as outpatient Denies any dyspnea, nausea, vomiting, abdominal pain, dizziness, dysphagia, odynophagia Eager to get discharged Review of Systems Review of Systems: All systems reviewed & are unremarkable except as noted in Subjective Physical Exam Physical Exam: Physical Exam: Vitals signs as noted above General Appearance:Thin, frail, ill appearing Head: normocephalic, Atraumatic Eyes: normal inspection, EOMI Neck: supple, Trachea midline Respiratory/Chest: Decreased breath sounds, CTA, No accessory muscle use Cardiovascular: S1, S2, No murmur Abdomen/GI:Soft, Non tender, Bowel sounds present Extremities/Musculoskeletal:normal inspection, no edema Neurologic/Psych:AAOX3, grossly no focal neurological deficits Skin: normal color, warm Results & Data Results & Data ([facility]) Vital Signs (Past 12 Hours) Vital Signs Temp Pulse Resp BP BP Pulse Ox 06/16/21 12:05 36.6 C 96 H 18 101/70 98 06/16/21 07:29 37.6 C H 85 18 98/66 L 98 06/16/21 03:54 36.6 C 89 20 91/53 L 95 Laboratory Results [facility] 06/16/21 05:35 Sodium 139 Potassium 3.3 L Chloride 105 Carbon Dioxide 30 BUN 17 Creatinine 0.42 L Glucose 277 H Calcium 7.9 L (1) DKA (diabetic ketoacidosis) Diabetes mellitus complication detail: without coma Diabetes mellitus type: other specified (including BOYD) Qualified Code(s): E13.10 - Other specified diabetes mellitus with ketoacidosis without coma
--- NOTE | 2021-06-16 12:25 | Discharge Summary ---
Date of Service June 16, 2021 Admission HPI Per Admitting Provider History obtained from patient and records. Patient is a fair historian. Medical history significant for DM1, narcotic addiction on Subutex, ongoing tobacco abuse. Last confinement June 2019 for sepsis secondary to pneumonia status post intubation, DKA. Last PCP visit June 2019. Patient not feeling well the last week. Admits to irregular insulin intake and sugar monitoring at home. Achy left-sided chest pain with some shortness of breath the last few days. No cough, no fever, no chills. Patient denies abdominal pain. Patient brought to ER for evaluation. IV insulin initiated for DKA. Medical History as above Surgical History : None Family History : Breast cancer, colon cancer, anxiety Personal/Social history : 1 pack daily, no EtOH intake, history heroin abuse, currently unemployed, lives with mother Admission Exam Per Admitting Provider Physical Exam Physical Exam: GENERAL: Slightly uncomfortable, underweight, no respiratory distress SKIN: Pallor, warm HEENT: Pale palpebral conjunctivae, no ptosis, dry buccal mucosa NECK : Supple, no tenderness CHEST : Decreased breath sounds , no tenderness HEART : Tachycardic, no obvious murmurs ABDOMEN: no distention, nontender EXTREMITIES : No LE swelling/tenderness, no other conspicuous deformities noted NEUROLOGIC : Coherent, no facial asymmetry, no other gross focality Principal Diagnosis Diabetic ketoacidosis Periodontal abscess Hypokalemia Discharge Data Allergies Allergy/AdvReac Type Severity Reaction Status Date / Time acesulfame Allergy Unknown RASH,N/V Verified 06/13/21 17:29 buprenorphine Allergy Unknown RASH,N/V Verified 06/13/21 17:29 Consultations 06/13/21 21:43 ED Decision to Admit Stat 06/14/21 00:51 Consult Cardiology Routine 06/14/21 13:50 Consult Oromaxillofacial Surgery Routine Ordered Studies 06/13/21 20:19 CT angio chest PE protocol Stat 06/14/21 11:32 CT facial bones w con Routine Diabetes Follow up Diabetes Follow-up Needed for HgbA1c >9% Hospital Course (1) DKA (diabetic ketoacidosis): Diabetic ketoacidosis H/O Type I DM Admits to being noncompliant to insulin use Last HbA1c 14 Anion gap metabolic acidosis Continue insulin therapy Received IV fluids Monitor blood glucose levels Replace electrolytes as needed Refusing blood draws intermittently Counseled on Medication Compliance Periodontal abscess-POA Face CT:Evidence for a periodontal abscess involving the maxilla anteriorly to the left with a lytic, destructive lesion of the maxilla at this site. Diffuse soft tissue swelling is present. 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 Severe protein calorie malnutrition BMI 15 Dietitian consulted DVT Px: Heparin SQ Code Status Full code Total Time Total Time Spent Total Time Spent (In Minutes): 44 minutes Discharge Plan Discharge Items Patient Disposition: Home - Self-Care Reason For Visit: CP MET ACIDOSIS Discharge Diagnosis: Diabetic ketoacidosis Periodontal abscess Hypokalemia Activity: Per Instructions section Exercise/Sports: Gradually increase as tolerated Non-emergency contact: Primary Care Provider and Surgeon Call non-emergency contact if: you have any medication questions, your symptoms worsen, your pain is concerning for you and you have a fever Follow-up/Referrals: Gilbert Suarez MD [Primary Care Provider] - Diet: Carb Count or DM1 Diet Texture: Easy to Chew Addtl Attending Provider Instructions: Follow up with your primary care physician Dr. Nguyen in 1 week as advised Follow-up with your surgeon Dr. Juanito Del Valle for further management of your periodental abscess ---Take insulin regularly as advised. Monitor your blood glucose levels. Discussed with your physician for further adjustment of your insulin therapy. --- Complete the antibiotic course Augmentin as prescribed. --- Quit smoking tobacco as advised. Seek immediate medical attention if your symptoms reoccur or worsen Please take all medications as instructed on discharge list below. Please call if you have any questions or problems. You can reach a [facility] hospitalist on duty at [facility] 24 hours a day by calling [phone] Pending Studies at Discharge: No Stand-Alone Forms: My [facility], Smoking Cessation Medications and DC Order Prescriptions: New aspirin 81 mg Tablet,Delayed Release (Dr/Ec) 81 mg PO QAM Qty: 30 RF: 0 potassium chloride 20 mEq tablet extended release 20 meq PO DAILY Qty: 14 RF: 0 amoxicillin-pot clavulanate [Augmentin] 875-125 mg tablet 1 tab PO BID Qty: 14 RF: 0 Continued Lantus Solostar U-100 Insulin 100 unit/mL (3 mL) Insulin Pen 18 units SC HS 30 Days Qty: 5.4 RF: 1 insulin aspart U-100 [Novolog Flexpen U-100 Insulin] 100 unit/mL (3 mL) Insulin Pen 1 units SC UD 30 Days Qty: 15 RF: 1 buprenorphine-naloxone 8-2 mg tablet, sublingual 1 tab SUBLINGUAL BID RF: 0 clonidine HCl 0.2 mg tablet 0.2 mg PO BID PRN (Reason: withdrawl) RF: 0 Discharge Orders: Discharge Order (Routine); Ordered 06/16/21 Ordered By: Niko Leal Admission Data Admit Date/Time: 06/13/21 23:45 Attending Provider: Niko Leal Admit Provider: Olman Abraham Primary Care Provider: Gilbert Suarez Other Providers: Olman Abraham ; Kenji Alexander ; Rowdy Roberts ; Terry Ha ; Woodrow Cheng ; Reid Zamora ; Joe Butler ; Grace Perez ; Lise Olivarez ; Anne Ly ; Bryan Sal ; Juanito Del Valle R
== END 2021-06-16 13:15 | disposition home or self-care (01) | DRG 637 ==
LOC: ED 16:56 → 2S 23:45 → SUATTDRO 23:45 → 2S 06-14 01:19

== ENCOUNTER 2021-11-13 01:53 | Inpatient (IN) ==
[2021-11-13] MEDS ORDERED: PIPERACILLIN/TAZOBACTAM 4.5 GM/120 ML BAG IV ONE (01:59)
[2021-11-13] MEDS ORDERED: SODIUM CHLORIDE 0.9% 1000ML 1,000 ML IV SCH ×2 (02:00→06:03)
[2021-11-13] MEDS ORDERED: NICOTINE 21 MG/24 HR TDSY TD STA (02:01)
[2021-11-13] MEDS ORDERED: SODIUM CHLORIDE 0.9% 1000ML 1,000 ML IV ONE (02:03)
--- NOTE | 2021-11-13 02:13 | Emergency Department Note ---
History of Present Illness General Chief complaint: Hyperglycemia Time Seen by Provider: 11/13/21 01:53 History of Present Illness This 30-year-old type I diabetic poorly compliant who smokes with a history of IV drug abuse who last used 6 to 8 months ago presents to the ER complaining of nausea vomiting generalized illness Location: Generalized Quality: Weak Severity: Moderate Duration: Past 2 days Timing: Started 2 days ago Context: Patient was concerned and called EMS Modifying factors: better with rest; worse with activity Patient states this feels like his DKA. Patient denies chest pain, abdominal pain, neck stiffness, diarrhea, fever, chills. He is unvaccinated for COVID. No known sick contacts. He lives with his mother. The mother endorses the same history. Home Medications Medication Instructions Recorded Confirmed Type insulin aspart U-100 100 unit/mL 1 units SC UD 30 Days #15 ml 07/02/19 11/13/21 Rx (3 mL) subcutaneous pen (Novolog Flexpen U-100 Insulin aspart) insulin glargine 100 unit/mL (3 18 units SC HS 30 Days #5.4 ml 07/02/19 11/13/21 Rx mL) subcutaneous pen (Lantus Solostar U-100 Insulin) buprenorphine 8 mg-naloxone 2 mg 1 tab SUBLINGUAL BID 06/13/21 11/13/21 History sublingual tablet clonidine HCl 0.2 mg tablet 0.2 mg PO BID PRN 06/13/21 11/13/21 History aspirin 81 mg tablet,delayed 81 mg PO QAM #30 tab 06/16/21 11/13/21 Rx release potassium chloride 20 mEq 20 meq PO DAILY #14 tab 06/16/21 11/13/21 Rx tablet,extended release amoxicillin 875 mg-potassium 1 tab PO BID #30 tab 10/29/21 11/13/21 Rx clavulanate 125 mg tablet Allergies Allergy/AdvReac Type Severity Reaction Status Date / Time acesulfame Allergy Unknown RASH,N/V Verified 11/13/21 01:59 buprenorphine Allergy Unknown RASH,N/V Verified 11/13/21 01:59 Past Med/Surg History Medical History Bleeding hemorrhoid DKA (diabetic ketoacidoses) Finger contusion R hand, pointer finger. 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 How many Children do You have: 0 Feels Safe at Home: Yes during the past year weight has: decreased > 10 lbs Assistive Devices: None Review of Systems A total of 10 systems reviewed and were otherwise negative Physical Exam Vital Signs Vital Signs - 24 hr 11/13/21 02:00 11/13/21 02:03 Temperature 36.8 C Temperature Source Oral Pulse Rate 113 H 121 H Pulse Rate [Apical] 113 H Pulse Rhythm Regular Pulse Rhythm [Apical] Regular Pulse Strength [Apical] Normal Respiratory Rate 18 30 H Respiratory Effort / Characteristics Non-Labored Spontaneous Respiratory Depth Normal Deep Respiratory Pattern Regular Kussmaul Rapid/Deep Blood Pressure 123/81 Blood Pressure [Right Arm] 123/81 Blood Pressure Mean 95 Blood Pressure Mean [Right Arm] 95 Blood Pressure Position [Right Arm] Lying Pulse Oximetry 97 98 Oxygen Delivery Method Room Air Room Air Sepsis Recent Fever Within 48 Hours No Sepsis New/Unexplained Change in Mental Status No Sepsis Action Taken by Nursing Physician Notified VITALS: Vitals are noted on the nurse's note and reviewed by myself. Vital signs tachycardic. GENERAL: White male with Kussall breathing, in no acute distress, nondiaphoretic, well-developed well-nourished. SKIN: The skin was without rashes, erythema, edema, or bruising. There is no tenting of the skin. Capillary reflex less than 2 seconds. HEAD: Normocephalic atraumatic. EARS: External auditory canals clear, tympanic membranes pearly manrique without erythema or effusion bilaterally. EYES: Pupils equal round and reactive to light and accommodation. Conjunctivae without injection, sclerae without icterus. Extraocular movements intact. NOSE: Patent, turbinates without inflammation or discharge. MOUTH: Mucous membranes moist. Pharynx without erythema or exudate. Uvula mid line. Airway patent. Tongue does not deviate. NECK: Supple without nuchal rigidity. No lymphadenopathy. No thyromegaly. Cervical spine is nontender. No JVD. HEART: Tachycardic rate and rhythm LUNGS: Clear to auscultation bilaterally without wheezes, rales or rhonchi. No retractions or accessory muscle use. ABDOMEN: Positive bowel sounds x 4. Normal tympanic percussion. Soft, nontender, without masses or organomegaly. Steiner sign negative. No guarding or rebound tenderness. No CVA tenderness MUSCULOSKELETAL: No muscle atrophy, erythema, or edema noted. NEURO: Patient was alert and oriented to person place and time. Normal sensation to light and sharp touch. No focal neurological deficits. Course Administered Medications Vancomycin HCl 1,250 mg/ (Sodium Chloride) 525 mls @ 200 mls/hr IV NOW ONE Stop: 11/13/21 04:56 Last Admin: 11/13/21 03:26 Dose: 200 mls/hr Documented by: [id number] Discontinued Medications Sodium Chloride (Nss 1000ml) 1,000 mls @ 999 mls/hr IV .Q1H1M [id number] Stop: 11/13/21 02:58 Last Infusion: 11/13/21 02:59 Dose: 0 mls/hr Documented by: [id number] Admin: 11/13/21 02:28 Dose: 999 mls/hr Documented by: [id number] Piperacillin Sod/Tazobactam Sod (Zosyn) 4.5 gm in 120 mls @ 240 mls/hr IV NOW ONE Stop: 11/13/21 02:28 Last Admin: 11/13/21 03:25 Dose: 240 mls/hr Documented by: [id number] Sodium Chloride (Nss 1000ml) 1,000 mls @ 999 mls/hr IV .Q1H1M ONE Stop: 11/13/21 03:03 Last Admin: 11/13/21 02:28 Dose: 999 mls/hr Documented by: [id number] Nicotine (Nicotine 21 Mg/24 Hr Tdsy) 21 mg TD NOW STA Stop: 11/13/21 02:02 Last Admin: 11/13/21 02:58 Dose: 21 mg Documented by: [id number] Critical Care Time I have personally spent 65 minutes of critical care time in the direct management of this patient. This includes bedside care, interpretation of diagnostic studies, and testing, discussion with consultants, patient, and family members, and other required patient management activities. This 65 minutes is in excess of all separately billable procedures. Medical Decision Making Medical Records Attestation: I reviewed the patient's medical records. Home Medications Current Medication List: was personally reviewed by me Laboratory Data Attestation: I reviewed the patient's lab results. Result diagrams: 11/13/21 03:33 11/13/21 02:45 Lab Results 11/13/21 11/13/21 11/13/21 Range/Units 02:10 02:14 02:45 WBC RBC Hgb POC Hgb 17.3 (14.0-18.0) g/dl Hct POC Hct 51 (42-52) % MCV MCH MCHC RDW Std Deviation RDW Coeff of [place] Plt Count MPV Immature Gran % (Auto) Neut % (Auto) Lymph % (Auto) [place] % (Auto) Eos % (Auto) Baso % (Auto) Neut # (Auto) Lymph # (Auto) [place] # (Auto) Eos # (Auto) Baso # (Auto) Immature Gran # (Auto) Absolute Nucleated RBC Nucleated RBC % (auto) Neutrophils % (Manual) Band Neutrophils % Lymphocytes % (Manual) Prolymphocyte % Reactive Lymphs % (Man) Monocytes % (Manual) Eosinophils % (Manual) Basophils % (Manual) Metamyelocytes % (Man) Myelocytes % (Man) Promyelocytes % (Man) Blast Cells % (Manual) Plasma Cell % (Manual) Other Cells % Nucleated RBC % Neutrophils # (Manual) Band Neutrophils # Total Absolute Neuts Lymphocytes # (Manual) Prolymphocyte # Reactive Lymphs # Total Abs Lymphocytes Monocytes # (Manual) Eosinophils # (Manual) Basophils # (Manual) Metamyelocytes # (Man) Myelocytes # (Manual) Promyelocytes # (Man) Blast Cells # (Man) Plasma Cell # (Manual) Other Cells # Nucleated RBCs # (Man) Hypersegmented Neuts Hyposegmented Neuts Hypogranular Neuts Large Granular Lymphs # Lrg Granular Lymphs Hairy Cells Smudge Cells Toxic Granulation Toxic Vacuolation Dohle Bodies Manuelito Rods Platelet Estimate Hypogranular Platelets Clumped Platelets Giant Platelets Platelet Satelliting RBC Morphology Polychromasia Hypochromasia Poikilocytosis Basophilic Stippling Anisocytosis Microcytosis Macrocytosis Spherocytes Pappenheimer Bodies Sickle Cells Target Cells Tear Drop Cells Ovalocytes Stomatocytes Zhou[place] Bodies Echinocytes Acanthocytes (Spur) Rouleaux RBC Agglutinates Schistocytes Sezary Cell PT (9.0-12.0) Seconds INR (0.9-1.1) APTT (21.0-31.0) Seconds PTT Ratio POC pH 7.02 L* (7.35-7.45) POC pCO2 < 10 L (35-46) mmHg POC pO2 115 H (80-95) mmHg POC HCO3 2 L (19-24) zackary/L POC Total CO2 < 5 L* (24-31) mmol/L POC Base Excess -29.0 L (-9-1.8) zackary/L POC ABG O2 Sat 96.0 H (90-95) % POC Sodium 132 L (135-144) mmol/L Sodium (136-145) mmol/L POC Potassium 4.4 (3.3-5.0) mmol/L Potassium Chloride (98-107) mmol/L Carbon Dioxide (21-32) mmol/L Anion Gap (3-11) BUN (6-23) mg/dl Creatinine (0.6-1.4) mg/dl Est Cr Clr Drug Dosing ml/min Est GFR ( Amer) ml/min Est GFR (Non-Af Amer) ml/min BUN/Creatinine Ratio (10-20) Glucose (70-99(Fasting)) mg/dl POC Glucose 403 H* (70-99) mg/dl Lactate (0.4-2.0) mmol/L Calcium (8.5-10.1) mg/dl Magnesium (1.7-2.4) mg/dl Total Bilirubin (0.2-1.0) mg/dl AST ALT (7-52) U/L Alkaline Phosphatase (34-104) U/L Troponin I High Sens (0-20) pg/ml Total Protein (6.0-8.3) gm/dl Albumin (3.4-5.0) gm/dl Globulin (2.5-4.0) gm/dl Albumin/Globulin Ratio (0.9-2) Procalcitonin < 0.05 (0-0.5) ng/ml Urine Color Urine Appearance (Clear) Urine pH (4.5-7.5) Ur Specific [place] (1.000-1.030) Urine Protein (Negative) Urine Glucose (UA) (Negative) Urine Ketones (Negative) Urine Blood (Negative) Urine Nitrite (Negative) Urine Bilirubin (Negative) Urine Urobilinogen (Negative) Ur Leukocyte Esterase (Negative) Urine Opiates Screen (Neg) Ur Methadone, Qual (Neg) Urine Barbiturates (Neg) Ur Phencyclidine (PCP) (Neg) U Amphetamin/Meth Scrn (Neg) MDMA (Ecstasy) Screen (Neg) U Benzodiazepines Scrn (Neg) Ur Cocaine Metabolite (Neg) U Marijuana (THC) Screen (Neg) 11/13/21 11/13/21 11/13/21 Range/Units 02:45 02:45 02:45 WBC Cancelled RBC Cancelled Hgb Cancelled POC Hgb (14.0-18.0) g/dl Hct Cancelled POC Hct (42-52) % MCV Cancelled MCH Cancelled MCHC Cancelled RDW Std Deviation Cancelled RDW Coeff of [place] Cancelled Plt Count Cancelled MPV Cancelled Immature Gran % (Auto) Cancelled Neut % (Auto) Cancelled Lymph % (Auto) Cancelled [place] % (Auto) Cancelled Eos % (Auto) Cancelled Baso % (Auto) Cancelled Neut # (Auto) Cancelled Lymph # (Auto) Cancelled [place] # (Auto) Cancelled Eos # (Auto) Cancelled Baso # (Auto) Cancelled Immature Gran # (Auto) Cancelled Absolute Nucleated RBC Cancelled Nucleated RBC % (auto) Cancelled Neutrophils % (Manual) Cancelled Band Neutrophils % Cancelled Lymphocytes % (Manual) Cancelled Prolymphocyte % Cancelled Reactive Lymphs % (Man) Cancelled Monocytes % (Manual) Cancelled Eosinophils % (Manual) Cancelled Basophils % (Manual) Cancelled Metamyelocytes % (Man) Cancelled Myelocytes % (Man) Cancelled Promyelocytes % (Man) Cancelled Blast Cells % (Manual) Cancelled Plasma Cell % (Manual) Cancelled Other Cells % Cancelled Nucleated RBC % Cancelled Neutrophils # (Manual) Cancelled Band Neutrophils # Cancelled Total Absolute Neuts Cancelled Lymphocytes # (Manual) Cancelled Prolymphocyte # Cancelled Reactive Lymphs # Cancelled Total Abs Lymphocytes Cancelled Monocytes # (Manual) Cancelled Eosinophils # (Manual) Cancelled Basophils # (Manual) Cancelled Metamyelocytes # (Man) Cancelled Myelocytes # (Manual) Cancelled Promyelocytes # (Man) Cancelled Blast Cells # (Man) Cancelled Plasma Cell # (Manual) Cancelled Other Cells # Cancelled Nucleated RBCs # (Man) Cancelled Hypersegmented Neuts Cancelled Hyposegmented Neuts Cancelled Hypogranular Neuts Cancelled Large Granular Lymphs Cancelled # Lrg Granular Lymphs Cancelled Hairy Cells Cancelled Smudge Cells Cancelled Toxic Granulation Cancelled Toxic Vacuolation Cancelled Dohle Bodies Cancelled [place] Rods Cancelled Platelet Estimate Cancelled Hypogranular Platelets Cancelled Clumped Platelets Cancelled Giant Platelets Cancelled Platelet Satelliting Cancelled RBC Morphology Cancelled Polychromasia Cancelled Hypochromasia Cancelled Poikilocytosis Cancelled Basophilic Stippling Cancelled Anisocytosis Cancelled Microcytosis Cancelled Macrocytosis Cancelled Spherocytes Cancelled Pappenheimer Bodies Cancelled Sickle Cells Cancelled Target Cells Cancelled Tear Drop Cells Cancelled Ovalocytes Cancelled Stomatocytes Cancelled Zhou-[place] Bodies Cancelled Echinocytes Cancelled Acanthocytes (Spur) Cancelled Rouleaux Cancelled RBC Agglutinates Cancelled Schistocytes Cancelled Sezary Cell Cancelled PT 11.4 (9.0-12.0) Seconds INR 1.1 (0.9-1.1) APTT 23.9 (21.0-31.0) Seconds PTT Ratio 0.9 POC pH (7.35-7.45) POC pCO2 (35-46) mmHg POC pO2 (80-95) mmHg POC HCO3 (19-24) zackary/L POC Total CO2 (24-31) mmol/L POC Base Excess (-9-1.8) zackary/L POC ABG O2 Sat (90-95) % POC Sodium (135-144) mmol/L Sodium 132 L (136-145) mmol/L POC Potassium (3.3-5.0) mmol/L Potassium TNP Chloride 101 (98-107) mmol/L Carbon Dioxide 3 L* (21-32) mmol/L Anion Gap 28 H (3-11) BUN 15 (6-23) mg/dl Creatinine 1.00 (0.6-1.4) mg/dl Est Cr Clr Drug Dosing 88.9 ml/min Est GFR ( Amer) 115.7 ml/min Est GFR (Non-Af Amer) 99.8 ml/min BUN/Creatinine Ratio 15.0 (10-20) Glucose 420 H* (70-99(Fasting)) mg/dl POC Glucose (70-99) mg/dl Lactate (0.4-2.0) mmol/L Calcium 8.1 L (8.5-10.1) mg/dl Magnesium 1.9 (1.7-2.4) mg/dl Total Bilirubin 0.5 (0.2-1.0) mg/dl AST TNP ALT 10 (7-52) U/L Alkaline Phosphatase 79 (34-104) U/L Troponin I High Sens 6.7 (0-20) pg/ml Total Protein 6.8 (6.0-8.3) gm/dl Albumin 4.3 (3.4-5.0) gm/dl Globulin 2.5 (2.5-4.0) gm/dl Albumin/Globulin Ratio 1.7 (0.9-2) Procalcitonin (0-0.5) ng/ml Urine Color Urine Appearance (Clear) Urine pH (4.5-7.5) Ur Specific [place] (1.000-1.030) Urine Protein (Negative) Urine Glucose (UA) (Negative) Urine Ketones (Negative) Urine Blood (Negative) Urine Nitrite (Negative) Urine Bilirubin (Negative) Urine Urobilinogen (Negative) Ur Leukocyte Esterase (Negative) Urine Opiates Screen (Neg) Ur Methadone, Qual (Neg) Urine Barbiturates (Neg) Ur Phencyclidine (PCP) (Neg) U Amphetamin/Meth Scrn (Neg) MDMA (Ecstasy) Screen (Neg) U Benzodiazepines Scrn (Neg) Ur Cocaine Metabolite (Neg) U Marijuana (THC) Screen (Neg) 11/13/21 11/13/21 11/13/21 Range/Units 02:45 02:55 02:55 WBC RBC Hgb POC Hgb (14.0-18.0) g/dl Hct POC Hct (42-52) % MCV MCH MCHC RDW Std Deviation RDW Coeff of [place] Plt Count MPV Immature Gran % (Auto) Neut % (Auto) Lymph % (Auto) [place] % (Auto) Eos % (Auto) Baso % (Auto) Neut # (Auto) Lymph # (Auto) [place] # (Auto) Eos # (Auto) Baso # (Auto) Immature Gran # (Auto) Absolute Nucleated RBC Nucleated RBC % (auto) Neutrophils % (Manual) Band Neutrophils % Lymphocytes % (Manual) Prolymphocyte % Reactive Lymphs % (Man) Monocytes % (Manual) Eosinophils % (Manual) Basophils % (Manual) Metamyelocytes % (Man) Myelocytes % (Man) Promyelocytes % (Man) Blast Cells % (Manual) Plasma Cell % (Manual) Other Cells % Nucleated RBC % Neutrophils # (Manual) Band Neutrophils # Total Absolute Neuts Lymphocytes # (Manual) Prolymphocyte # Reactive Lymphs # Total Abs Lymphocytes Monocytes # (Manual) Eosinophils # (Manual) Basophils # (Manual) Metamyelocytes # (Man) Myelocytes # (Manual) Promyelocytes # (Man) Blast Cells # (Man) Plasma Cell # (Manual) Other Cells # Nucleated RBCs # (Man) Hypersegmented Neuts Hyposegmented Neuts Hypogranular Neuts Large Granular Lymphs # Lrg Granular Lymphs Hairy Cells Smudge Cells Toxic Granulation Toxic Vacuolation Dohle Bodies [place] Rods Platelet Estimate Hypogranular Platelets Clumped Platelets Giant Platelets Platelet Satelliting RBC Morphology Polychromasia Hypochromasia Poikilocytosis Basophilic Stippling Anisocytosis Microcytosis Macrocytosis Spherocytes Pappenheimer Bodies Sickle Cells Target Cells Tear Drop Cells Ovalocytes Stomatocytes Zhou-[place] Bodies Echinocytes Acanthocytes (Spur) Rouleaux RBC Agglutinates Schistocytes Sezary Cell PT (9.0-12.0) Seconds INR (0.9-1.1) APTT (21.0-31.0) Seconds PTT Ratio POC pH (7.35-7.45) POC pCO2 (35-46) mmHg POC pO2 (80-95) mmHg POC HCO3 (19-24) zackary/L POC Total CO2 (24-31) mmol/L POC Base Excess (-9-1.8) zackary/L POC ABG O2 Sat (90-95) % POC Sodium (135-144) mmol/L Sodium (136-145) mmol/L POC Potassium (3.3-5.0) mmol/L Potassium Chloride (98-107) mmol/L Carbon Dioxide (21-32) mmol/L Anion Gap (3-11) BUN (6-23) mg/dl Creatinine (0.6-1.4) mg/dl Est Cr Clr Drug Dosing ml/min Est GFR ( Amer) ml/min Est GFR (Non-Af Amer) ml/min BUN/Creatinine Ratio (10-20) Glucose (70-99(Fasting)) mg/dl POC Glucose (70-99) mg/dl Lactate 2.7 H* (0.4-2.0) mmol/L Calcium (8.5-10.1) mg/dl Magnesium (1.7-2.4) mg/dl Total Bilirubin (0.2-1.0) mg/dl AST ALT (7-52) U/L Alkaline Phosphatase (34-104) U/L Troponin I High Sens (0-20) pg/ml Total Protein (6.0-8.3) gm/dl Albumin (3.4-5.0) gm/dl Globulin (2.5-4.0) gm/dl Albumin/Globulin Ratio (0.9-2) Procalcitonin (0-0.5) ng/ml Urine Color Yellow Urine Appearance Clear (Clear) Urine pH 5.0 (4.5-7.5) Ur Specific [place] 1.025 (1.000-1.030) Urine Protein 2+ H (Negative) Urine Glucose (UA) 3+ H (Negative) Urine Ketones 4+ H (Negative) Urine Blood 1+ H (Negative) Urine Nitrite Negative (Negative) Urine Bilirubin Negative (Negative) Urine Urobilinogen Negative (Negative) Ur Leukocyte Esterase Negative (Negative) Urine Opiates Screen Neg (Neg) Ur Methadone, Qual Neg (Neg) Urine Barbiturates Neg (Neg) Ur Phencyclidine (PCP) Neg (Neg) U Amphetamin/Meth Scrn Neg (Neg) MDMA (Ecstasy) Screen Neg (Neg) U Benzodiazepines Scrn Neg (Neg) Ur Cocaine Metabolite Neg (Neg) U Marijuana (THC) Screen Pos H (Neg) 11/13/21 Range/Units 03:33 WBC Cancelled RBC Cancelled Hgb Cancelled POC Hgb (14.0-18.0) g/dl Hct Cancelled POC Hct (42-52) % MCV Cancelled MCH Cancelled MCHC Cancelled RDW Std Deviation Cancelled RDW Coeff of [place] Cancelled Plt Count Cancelled MPV Cancelled Immature Gran % (Auto) Cancelled Neut % (Auto) Cancelled Lymph % (Auto) Cancelled [place] % (Auto) Cancelled Eos % (Auto) Cancelled Baso % (Auto) Cancelled Neut # (Auto) Cancelled Lymph # (Auto) Cancelled [place] # (Auto) Cancelled Eos # (Auto) Cancelled Baso # (Auto) Cancelled Immature Gran # (Auto) Cancelled Absolute Nucleated RBC Cancelled Nucleated RBC % (auto) Cancelled Neutrophils % (Manual) Cancelled Band Neutrophils % Cancelled Lymphocytes % (Manual) Cancelled Prolymphocyte % Cancelled Reactive Lymphs % (Man) Cancelled Monocytes % (Manual) Cancelled Eosinophils % (Manual) Cancelled Basophils % (Manual) Cancelled Metamyelocytes % (Man) Cancelled Myelocytes % (Man) Cancelled Promyelocytes % (Man) Cancelled Blast Cells % (Manual) Cancelled Plasma Cell % (Manual) Cancelled Other Cells % Cancelled Nucleated RBC % Cancelled Neutrophils # (Manual) Cancelled Band Neutrophils # Cancelled Total Absolute Neuts Cancelled Lymphocytes # (Manual) Cancelled Prolymphocyte # Cancelled Reactive Lymphs # Cancelled Total Abs Lymphocytes Cancelled Monocytes # (Manual) Cancelled Eosinophils # (Manual) Cancelled Basophils # (Manual) Cancelled Metamyelocytes # (Man) Cancelled Myelocytes # (Manual) Cancelled Promyelocytes # (Man) Cancelled Blast Cells # (Man) Cancelled Plasma Cell # (Manual) Cancelled Other Cells # Cancelled Nucleated RBCs # (Man) Cancelled Hypersegmented Neuts Cancelled Hyposegmented Neuts Cancelled Hypogranular Neuts Cancelled Large Granular Lymphs Cancelled # Lrg Granular Lymphs Cancelled Hairy Cells Cancelled Smudge Cells Cancelled Toxic Granulation Cancelled Toxic Vacuolation Cancelled Dohle Bodies Cancelled [place] Rods Cancelled Platelet Estimate Cancelled Hypogranular Platelets Cancelled Clumped Platelets Cancelled Giant Platelets Cancelled Platelet Satelliting Cancelled RBC Morphology Cancelled Polychromasia Cancelled Hypochromasia Cancelled Poikilocytosis Cancelled Basophilic Stippling Cancelled Anisocytosis Cancelled Microcytosis Cancelled Macrocytosis Cancelled Spherocytes Cancelled Pappenheimer Bodies Cancelled Sickle Cells Cancelled Target Cells Cancelled Tear Drop Cells Cancelled Ovalocytes Cancelled Stomatocytes Cancelled Zhou-[place] Bodies Cancelled Echinocytes Cancelled Acanthocytes (Spur) Cancelled Rouleaux Cancelled RBC Agglutinates Cancelled Schistocytes Cancelled Sezary Cell Cancelled PT (9.0-12.0) Seconds INR (0.9-1.1) APTT (21.0-31.0) Seconds PTT Ratio POC pH (7.35-7.45) POC pCO2 (35-46) mmHg POC pO2 (80-95) mmHg POC HCO3 (19-24) zackary/L POC Total CO2 (24-31) mmol/L POC Base Excess (-9-1.8) zackary/L POC ABG O2 Sat (90-95) % POC Sodium (135-144) mmol/L Sodium (136-145) mmol/L POC Potassium (3.3-5.0) mmol/L Potassium Chloride (98-107) mmol/L Carbon Dioxide (21-32) mmol/L Anion Gap (3-11) BUN (6-23) mg/dl Creatinine (0.6-1.4) mg/dl Est Cr Clr Drug Dosing ml/min Est GFR ( Amer) ml/min Est GFR (Non-Af Amer) ml/min BUN/Creatinine Ratio (10-20) Glucose (70-99(Fasting)) mg/dl POC Glucose (70-99) mg/dl Lactate (0.4-2.0) mmol/L Calcium (8.5-10.1) mg/dl Magnesium (1.7-2.4) mg/dl Total Bilirubin (0.2-1.0) mg/dl AST ALT (7-52) U/L Alkaline Phosphatase (34-104) U/L Troponin I High Sens (0-20) pg/ml Total Protein (6.0-8.3) gm/dl Albumin (3.4-5.0) gm/dl Globulin (2.5-4.0) gm/dl Albumin/Globulin Ratio (0.9-2) Procalcitonin (0-0.5) ng/ml Urine Color Urine Appearance (Clear) Urine pH (4.5-7.5) Ur Specific [place] (1.000-1.030) Urine Protein (Negative) Urine Glucose (UA) (Negative) Urine Ketones (Negative) Urine Blood (Negative) Urine Nitrite (Negative) Urine Bilirubin (Negative) Urine Urobilinogen (Negative) Ur Leukocyte Esterase (Negative) Urine Opiates Screen (Neg) Ur Methadone, Qual (Neg) Urine Barbiturates (Neg) Ur Phencyclidine (PCP) (Neg) U Amphetamin/Meth Scrn (Neg) MDMA (Ecstasy) Screen (Neg) U Benzodiazepines Scrn (Neg) Ur Cocaine Metabolite (Neg) U Marijuana (THC) Screen (Neg) Imaging Data Attestation: I personally reviewed and interpreted this imaging study as follows: MDM Narrative Prior records/ancillary studies reviewed and summarized above. Nursing notes reviewed. Additional history obtained from EMS and mother The patient's history was concerning for high BS. Differential diagnosis: Etiologies such as metabolic, infection, hypo/hyperglycemia, electrolyte abnormalities, cardiac sources, intracerebral event, toxicologic, neurologic, as well as others were entertained. Physical examination: As above. ER treatment provided: IV Lock An order was placed for continuous cardiac monitoring. The monitor shows a rate of 60-1 50 with a sinus rhythm. IV fluids, ABG, Zosyn, vancomycin, insulin drip after patient was fully res uscitated with a few liters of fluids On reassessment the patient felt better. Diagnostics interpretation by me: ECG: Ordered for tachycardia EKG:Poor baseline, normal sinus, T wave inversion in aVL, and lead III. Rate of 119. No QRS widening. Impression sinus tachycardia with T wave inversions in the inferior leads interpreted by myself I think arrhythmia is unlikely. EKG shows no interval abnormalities such as QT prolongation or WPW. There are no findings to suggest Brugada syndrome. Cardiac monitoring in the emergency department reveals no tachycardic or bradycardic dysrhythmia. Hypertrophic cardiomyopathy was considered but there are no clear historical elements pointing toward this. EKG is not suggestive. The QRS voltage is not extremely large and there are no suggestive Q waves. The labs revealed pH 7. Labs concerning for DKA. Drug screen positive for marijuana Blood cultures pending Imaging studies: Chest x-ray with no acute consolidation, pneumothorax or free air per my interpretation Consultation: A consultation was placed with the hospitalist. The case was discussed and diagnostics were reviewed. The patient was evaluated in the ER for further treatment. Exam and history seem consistent with DKA. 2 lines were initiated. Medicine is consulted. He will be admitted. Patient has a history of osteomyelitis and also has been using IV drugs recently. He was written for broad-spectrum antibiotics because of this. Chest x-ray was clear. He did not have acute abdomen. He has a history of being noncompliant with his insulin. Patient was reassessed multiple times. Medicine in the ICU was consulted. Both will come down to evaluate the patient. Patient will be admitted to the unit. By the evaluation outlined above emergent etiologies such as cardiac sources, intracerebral event, neurologic, as well as others were deemed relatively unlikely. The pt informed about the findings as listed above. All questions were answered and pleased with the treatment. The chart was completed utilizing [employer] Speech voice recognition software. Grammatical errors, random word insertions, pronoun errors, and incomplete sentences are an occassional consequence of this system due to software limitations, ambient noise, and hardware issues. Any formal questions or concerns about the content, text, or information contained within the body of this dictation should be directly addressed to the physician golf course assistant for clarification. Impression & Plan DKA (diabetic ketoacidosis) Discharge Plan Visit Data Chief Complaint: Hyperglycemia ED Provider: Joe James ED Midlevel Provider: Radha Castañeda Discharge Problem: DKA (diabetic ketoacidosis) Patient Disposition: Admitted As Inpatient Condition: Critical Forms Stand Alone Forms: [facility] [employer] Prescriptions Prescriptions: No Action amoxicillin-pot clavulanate 875-125 mg tablet 1 tab PO BID Qty: 30 RF: 1 insulin glargine [Lantus Solostar U-100 Insulin] 100 unit/mL (3 mL) Insulin Pen 18 units SC HS 30 Days Qty: 5.4 RF: 1 insulin aspart U-100 [Novolog Flexpen U-100 Insulin] 100 unit/mL (3 mL) Insulin Pen 1 units SC UD 30 Days Qty: 15 RF: 1 buprenorphine-naloxone 8-2 mg tablet, sublingual 1 tab SUBLINGUAL BID RF: 0 clonidine HCl 0.2 mg tablet 0.2 mg PO BID PRN (Reason: withdrawl) RF: 0 aspirin 81 mg Tablet,Delayed Release (Dr/Ec) 81 mg PO QAM Qty: 30 RF: 0 potassium chloride 20 mEq tablet extended release 20 meq PO DAILY Qty: 14 RF: 0 Referrals Referrals: Gilbert Suarez MD [Primary Care Provider] - Discharge Problem: DKA (diabetic ketoacidosis) Qualifiers: Diabetes mellitus type: type 1 Diabetes mellitus complication detail: without coma Qualified Code(s): E10.10 - Type 1 diabetes mellitus with ketoacidosis without coma
[2021-11-13] MEDS ORDERED: VANCOMYCIN HCL 1,250 MG in SODIUM CHLORIDE 0.9% 500 ML IV ONE (02:19)
[2021-11-13] MEDS ORDERED: VANCOMYCIN CONSULT ACTIVE PRN (02:19)
[2021-11-13 02:29] LABS: iSTAT Arterial Blood Gas HCO3 2 meg/L (19-24); iSTAT Arterial Blood Gas pCO2 < 10 mmHg (35-46); iSTAT Arterial Blood Gas pH 7.02 (7.35-7.45); iSTAT Arterial Blood Gas pO2 115 mmHg (80-95); iSTAT Carbon Dioxide < 5 mmol/L (24-31); iSTAT Hematocrit 51 % (42-52); iSTAT Hemoglobin 17.3 g/dl (14.0-18.0); iSTAT Potassium 4.4 mmol/L (3.3-5.0); iSTAT Sodium 132 mmol/L (135-144)
[2021-11-13 03:23] LABS: INR 1.1 (0.9-1.1); Partial Thromboplastin Ratio 0.9; Partial Thromboplastin Time 23.9 Seconds (21.0-31.0); Prothrombin Time 11.4 Seconds (9.0-12.0)
[2021-11-13 03:29] LABS: Troponin I High Sensitivity 6.7 pg/ml (0-20)
[2021-11-13 03:31] LABS: Appearance Urine Clear (Clear); Bacteria Urine Automated Negative (Negative); Bilirubin Urine Negative (Negative); Blood Urine 1+ (Negative); Color Urine Yellow; Glucose Urine UA 3+ (Negative); Ketones Urine 4+ (Negative); Leukocyte Esterase Urine Negative (Negative); Nitrite Urine Negative (Negative); Protein Urine 2+ (Negative); RBC Urine Automated 0-4 /hpf (0-4); Specific Gravity Urine 1.025 (1.000-1.030); Urobilinogen Urine Negative (Negative); WBC Urine Automated 0 /hpf (0-5)
[2021-11-13 03:42] LABS: Alanine Aminotransferase 10 U/L (7-52); Albumin Globulin Ratio 1.7 (0.9-2); Albumin Level 4.3 gm/dl (3.4-5.0); Alkaline Phosphatase 79 U/L (34-104); Anion Gap 28 (3-11); Bilirubin,Total 0.5 mg/dl (0.2-1.0); Blood Urea Nitrogen 15 mg/dl (6-23); Calcium 8.1 mg/dl (8.5-10.1); Carbon Dioxide 3 mmol/L (21-32); Chloride 101 mmol/L (98-107); Creatinine Clr Calc Pharmacy 88.9 ml/min; Est GFR (African American) 115.7 ml/min; Est GFR (Non-African American) 99.8 ml/min; Globulin 2.5 gm/dl (2.5-4.0); Glucose 420 mg/dl (70-99(Fasting)); Magnesium 1.9 mg/dl (1.7-2.4); Sodium 132 mmol/L (136-145); Total Protein 6.8 gm/dl (6.0-8.3)
[2021-11-13] MEDS ORDERED: STAT IV Infusion **Titration per Protocol STA ×4 (03:49→06:03)
[2021-11-13] MEDS ORDERED: DKA GOAL RANGE 150-250 mg/dl ONE ×2 (03:49→06:03)
[2021-11-13 03:51] LABS: Amphetamines+Metham, Urine Neg (Neg); Barbiturates, Urine Neg (Neg); Benzodiazepine, Urine Neg (Neg); Cocaine, Urine Neg (Neg); MDMA (Ecstacy), Urine Neg (Neg); Methadone, Urine Neg (Neg); Opiate, Urine Neg (Neg); Phencyclidine, Urine Neg (Neg)
[2021-11-13] MEDS ORDERED: NovoLIN-R BOLUS FROM BAG IV ONE (03:59)
[2021-11-13] MEDS ORDERED: CARBOHYDRATES FOR HYPOGLYCEMIA PO PRN ×2 (04:00→06:30)
[2021-11-13] MEDS ORDERED: GLUCOSE 10 TABS/TUBE PO PRN ×2 (04:00→06:30)
[2021-11-13] MEDS ORDERED: DEXTROSE 50% 50 ML SYRINGE IV PRN ×2 (04:00→06:30)
[2021-11-13] MEDS ORDERED: GLUCOSE 40% GEL 15 GM TUBE PO PRN ×2 (04:00→06:30)
[2021-11-13] MEDS ORDERED: INSULIN REGULAR 250 UNITS in SODIUM CHLORIDE 0.9% 247.5 ML IV SCH ×2 (04:00→06:03)
[2021-11-13] MEDS ORDERED: NORMOSOL-R 1,000 ML IV SCH (04:00)
[2021-11-13] MEDS ORDERED: GLUCAGON FOR INJ 1 MG VIAL IM PRN ×2 (04:00→06:30)
[2021-11-13] MEDS ORDERED: LACTATED RINGER'S 1,000 ML IV SCH (04:15)
[2021-11-13 04:26] LABS: Adenovirus PCR Not Detected (NotDetected); Bordetella parapertussis PCR Not Detected (NotDetected); Bordetella pertussis PCR Not Detected (NotDetected); Chlamydia pneumoniae PCR Not Detected (NotDetected); Coronavirus 229E PCR Not Detected (NotDetected); Coronavirus CoV-2 (COVID19)PCR Not Detected (NotDetected); Coronavirus HKU1 PCR Not Detected (NotDetected); Coronavirus NL63 PCR Not Detected (NotDetected); Coronavirus OC43PCR Not Detected (NotDetected); Human Metapneumovirus PCR Not Detected (NotDetected); Influenza A PCR Not Detected (NotDetected); Influenza B PCR Not Detected (NotDetected); Mycoplasma pneumoniae PCR Not Detected (NotDetected); Parainfluenza Virus 1 PCR Not Detected (NotDetected); Parainfluenza Virus 2 PCR Not Detected (NotDetected); Parainfluenza Virus 3 PCR Not Detected (NotDetected); Parainfluenza Virus 4 PCR Not Detected (NotDetected); Respiratory Syncytial VirusPCR Not Detected (NotDetected); Rhinovirus/Enterovirus PCR Not Detected (NotDetected)
[2021-11-13 04:27] LABS: Hematocrit (blood only) 46.4 % (42-52); Hemoglobin 15.5 g/dL (14.0-18.0); Mean Corpuscular Hemoglobin 33.8 pg (25-34); Mean Corpuscular Hgb Conc 33.4 g/dL (32-36); Mean Corpuscular Volume 101.3 fL (80-100); Mean Platelet Volume 10.9 fL (7.4-10.4); Platelet Count 281 K/uL (130-400); RDW Coefficient of Variation 13.5 % (11.5-14.5); RDW Standard Deviation 50.2 fL (36.4-46.3); Red Blood Count 4.58 M/uL (4.7-6.1); White Blood Count 17.01 K/uL (4.8-10.8)
--- NOTE | 2021-11-13 04:33 | Emergency Department Note ---
ED Visit Note Physician Evaluation Note: Patient was seen in conjunction with the physician retail assistant store manager. Please see the physician retail assistant store manager note for full details of the visit. I have personally evaluated and examined this patient. I performed a portion of the patient visit including medical decision making and interpretation of diagnostic studies. Patient is a type I diabetic, he presented to the emergency department with symptoms concerning for DKA, complained of N/V and weakness, similar to previous episodes of DKA that he has had, blood glucose is elevated on arrival. Patient admits to noncompliance with his insulin. On my examination the patient is Uncomfortable appearing but with stable blood pressure, tachycardia in the 110s. Patient is alert, he is saturating well on room air. Lab work shows evidence of diabetic ketoacidosis, serum bicarbonate level is reduced Significantly at 3.0, arterial blood gas obtained shortly after the patient's arrival shows a pH of 7.0. Patient was IV fluid resuscitated, Potassium on bedside sampling shortly after arrival was noted to be Within normal limits therefore insulin drip was initiated following IV fluid resuscitation. Patient was admitted to the ICU in improved condition. Tachycardia down trended, blood pressure remained stable. I agree with assessment and plan of Porsha Castañeda PA-C. Joe James DO . : DKA (diabetic ketoacidosis) Qualifiers: Diabetes mellitus type: type 1 Diabetes mellitus complication detail: without coma Qualified Code(s): E10.10 - Type 1 diabetes mellitus with ketoacidosis without coma
--- NOTE | 2021-11-13 04:35 | Emergency Department Note ---
History of Present Illness General Chief complaint: Hyperglycemia Time Seen by Provider: 11/13/21 01:53 History of Present Illness This 30-year-old type I diabetic poorly compliant who smokes with a history of IV drug abuse who last used 6 to 8 months ago presents to the ER complaining of nausea vomiting generalized illness Location: Generalized Quality: Weak Severity: Moderate Duration: Past 2 days Timing: Started 2 days ago Context: Patient was concerned and called EMS Modifying factors: better with rest; worse with activity Patient states this feels like his DKA. Patient denies chest pain, abdominal pain, neck stiffness, diarrhea, fever, chills. He is unvaccinated for COVID. No known sick contacts. He lives with his mother. The mother endorses the same history. Home Medications Medication Instructions Recorded Confirmed Type insulin aspart U-100 100 unit/mL 1 units SC UD 30 Days #15 ml 07/02/19 11/13/21 Rx (3 mL) subcutaneous pen (Novolog Flexpen U-100 Insulin aspart) insulin glargine 100 unit/mL (3 18 units SC HS 30 Days #5.4 ml 07/02/19 11/13/21 Rx mL) subcutaneous pen (Lantus Solostar U-100 Insulin) buprenorphine 8 mg-naloxone 2 mg 1 tab SUBLINGUAL BID 06/13/21 11/13/21 History sublingual tablet clonidine HCl 0.2 mg tablet 0.2 mg PO BID PRN 06/13/21 11/13/21 History aspirin 81 mg tablet,delayed 81 mg PO QAM #30 tab 06/16/21 11/13/21 Rx release potassium chloride 20 mEq 20 meq PO DAILY #14 tab 06/16/21 11/13/21 Rx tablet,extended release amoxicillin 875 mg-potassium 1 tab PO BID #30 tab 10/29/21 11/13/21 Rx clavulanate 125 mg tablet Allergies Allergy/AdvReac Type Severity Reaction Status Date / Time acesulfame Allergy Unknown RASH,N/V Verified 11/13/21 01:59 buprenorphine Allergy Unknown RASH,N/V Verified 11/13/21 01:59 Past Med/Surg History Medical History Bleeding hemorrhoid DKA (diabetic ketoacidoses) Finger contusion R hand, pointer finger. 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 How many Children do You have: 0 Feels Safe at Home: Yes during the past year weight has: decreased > 10 lbs Assistive Devices: None Review of Systems A total of 10 systems reviewed and were otherwise negative Physical Exam Vital Signs Vital Signs - 24 hr 11/13/21 02:00 11/13/21 02:03 11/13/21 04:00 Temperature 36.8 C 37.1 C Temperature Source Oral Oral Pulse Rate 113 H 121 H Pulse Rate [Apical] 113 H Pulse Rhythm Regular Pulse Rhythm [Apical] Regular Pulse Strength [Apical] Normal Respiratory Rate 18 30 H Respiratory Effort / Characteristics Non-Labored Spontaneous Non-Labored Spontaneous Respiratory Depth Normal Deep Normal Respiratory Pattern Regular Kussmaul Rapid/Deep Regular Blood Pressure 123/81 Blood Pressure [Right Arm] 123/81 123/81 Blood Pressure Mean 95 Blood Pressure Mean [Right Arm] 95 95 Blood Pressure Position [Right Arm] Lying Lying Pulse Oximetry 97 98 97 Oxygen Delivery Method Room Air Room Air Room Air Sepsis Recent Fever Within 48 Hours No Sepsis New/Unexplained Change in Mental Status No Sepsis Action Taken by Nursing Physician Notified VITALS: Vitals are noted on the nurse's note and reviewed by myself. Vital signs tachycardic. GENERAL: Ill-appearing male with Kussmaul breathing concerning for DKA SKIN: The skin was without rashes, erythema, edema, or bruising. There is no tenting of the skin. Capillary reflex less than 2 seconds. HEAD: Normocephalic atraumatic. EARS: External auditory canals clear, tympanic membranes pearly manrique without erythema or effusion bilaterally. EYES: Pupils equal round and reactive to light and accommodation. Conjunctivae without injection, sclerae without icterus. Extraocular movements intact. NOSE: Patent, turbinates without inflammation or discharge. MOUTH: Mucous membranes dry. Pharynx without erythema or exudate. Uvula midline. Airway patent. Tongue does not deviate. NECK: Supple without nuchal rigidity. No lymphadenopathy. No thyromegaly. Cervical spine is nontender. No JVD. HEART: Tachycardic rate and rhythm LUNGS: Clear to auscultation bilaterally without wheezes, rales or rhonchi. No retractions or accessory muscle use. ABDOMEN: Positive bowel sounds x 4. Normal tympanic percussion. Soft, nontender, without masses or organomegaly. Steiner sign negative. No guarding or rebound tenderness. No CVA tenderness MUSCULOSKELETAL: No muscle atrophy, erythema, or edema noted. Ankle monitor noted. NEURO: Patient was alert and oriented to person place and time. Normal sensation to light and sharp touch. No focal neurological deficits. Course Administered Medications Parenteral Electrolytes (Normosol-R) 1,000 mls @ 80 mls/hr IV .[id number] RAYMUNDO Stop: 12/13/21 03:59 Last Admin: 11/13/21 04:43 Dose: 80 mls/hr Documented by: [id number] Insulin Human Regular 250 (units/ Sodium Chloride) 250 mls @ 5.9 mls/hr IV .Q24H RAYMUNDO; Protocol Stop: 12/13/21 03:59 Last Admin: 11/13/21 04:42 Dose: 5.9 unit/hr, 5.9 mls/hr Documented by: [id number] Cosigned by: [id number] Lactated Ringer's (Lr) 1,000 mls @ 80 mls/hr IV .[id number] RAYMUNDO Stop: 12/13/21 04:14 Last Admin: 11/13/21 04:43 Dose: 80 mls/hr Documented by: [id number] Discontinued Medications Sodium Chloride (Nss 1000ml) 1,000 mls @ 999 mls/hr IV .[id number] RAYMUNDO Stop: 11/13/21 02:58 Last Infusion: 11/13/21 02:59 Dose: 0 mls/hr Documented by: [id number] Admin: 11/13/21 02:28 Dose: 999 mls/hr Documented by: [id number] Piperacillin Sod/Tazobactam Sod (Zosyn) 4.5 gm in 120 mls @ 240 mls/hr IV NOW ONE Stop: 11/13/21 02:28 Last Infusion: 11/13/21 04:11 Dose: 0 mls/hr Documented by: [id number] Admin: 11/13/21 03:25 Dose: 240 mls/hr Documented by: [id number] Sodium Chloride (Nss 1000ml) 1,000 mls @ 999 mls/hr IV .Q1H1M ONE Stop: 11/13/21 03:03 Last Infusion: 11/13/21 04:12 Dose: 0 mls/hr Documented by: [id number] Admin: 11/13/21 02:28 Dose: 999 mls/hr Documented by: [id number] Vancomycin HCl 1,250 mg/ (Sodium Chloride) 525 mls @ 200 mls/hr IV NOW ONE Stop: 11/13/21 04:56 Last Admin: 11/13/21 03:26 Dose: 200 mls/hr Documented by: [id number] Insulin Human Regular (Novolin-R Bolus From Bag) 5.9 units IV ONE ONE Stop: 11/13/21 04:00 Last Admin: 11/13/21 04:43 Dose: 5.9 units Documented by: [id number] Cosigned by: [id number] Miscellaneous (Dka Goal Range 150-250 Mg/Dl) 1 ea N/A ONE ONE Stop: 11/13/21 03:50 Last Admin: 11/13/21 04:59 Dose: 1 ea Documented by: [id number] Nicotine (Nicotine 21 Mg/24 Hr Tdsy) 21 mg TD NOW STA Stop: 11/13/21 02:02 Last Admin: 11/13/21 02:58 Dose: 21 mg Documented by: [id number] Critical Care Time Critical Care Time: Yes Total Critical Care Time: 65 I have personally spent 65 minutes of critical care time in the direct management of this patient. This includes bedside care, interpretation of diagnostic studies, and testing, discussion with consultants, patient, and family members, and other required patient management activities. This 65 minutes is in excess of all separately billable procedures. Medical Decision Making Medical Records Attestation: I reviewed the patient's medical records. Home Medications Current Medication List: was personally reviewed by me Laboratory Data Attestation: I reviewed the patient's lab results. Result diagrams: 11/13/21 04:11 11/13/21 04:11 Lab Results 11/13/21 11/13/21 11/13/21 Range/Units 02:10 02:14 02:45 WBC RBC Hgb POC Hgb 17.3 (14.0-18.0) g/dl Hct POC Hct 51 (42-52) % MCV MCH MCHC RDW Std Deviation RDW Coeff of [place] Plt Count MPV Immature Gran % (Auto) Neut % (Auto) Lymph % (Auto) [place] % (Auto) Eos % (Auto) Baso % (Auto) Neut # (Auto) Lymph # (Auto) [place] # (Auto) Eos # (Auto) Baso # (Auto) Immature Gran # (Auto) Absolute Nucleated RBC Nucleated RBC % (auto) Neutrophils % (Manual) Band Neutrophils % Lymphocytes % (Manual) Prolymphocyte % Reactive Lymphs % (Man) Monocytes % (Manual) Eosinophils % (Manual) Basophils % (Manual) Metamyelocytes % (Man) Myelocytes % (Man) Promyelocytes % (Man) Blast Cells % (Manual) Plasma Cell % (Manual) Other Cells % Nucleated RBC % Neutrophils # (Manual) Band Neutrophils # Total Absolute Neuts Lymphocytes # (Manual) Prolymphocyte # Reactive Lymphs # Total Abs Lymphocytes Monocytes # (Manual) Eosinophils # (Manual) Basophils # (Manual) Metamyelocytes # (Man) Myelocytes # (Manual) Promyelocytes # (Man) Blast Cells # (Man) Plasma Cell # (Manual) Other Cells # Nucleated RBCs # (Man) Hypersegmented Neuts Hyposegmented Neuts Hypogranular Neuts Large Granular Lymphs # Lrg Granular Lymphs Hairy Cells Smudge Cells Toxic Granulation Toxic Vacuolation Dohle Bodies Manuelito Rods Platelet Estimate Hypogranular Platelets Clumped Platelets Giant Platelets Platelet Satelliting RBC Morphology Polychromasia Hypochromasia Poikilocytosis Basophilic Stippling Anisocytosis Microcytosis Macrocytosis Spherocytes Pappenheimer Bodies Sickle Cells Target Cells Tear Drop Cells Ovalocytes Stomatocytes Zhou-Grafton Bodies Echinocytes Acanthocytes (Spur) Rouleaux RBC Agglutinates Schistocytes Sezary Cell PT (9.0-12.0) Seconds INR (0.9-1.1) APTT (21.0-31.0) Seconds PTT Ratio POC pH 7.02 L* (7.35-7.45) POC pCO2 < 10 L (35-46) mmHg POC pO2 115 H (80-95) mmHg POC HCO3 2 L (19-24) zackary/L POC Total CO2 < 5 L* (24-31) mmol/L POC Base Excess -29.0 L (-9-1.8) zackary/L POC ABG O2 Sat 96.0 H (90-95) % VBG pH VBG pCO2 VBG pO2 VBG HCO3 VBG O2 Saturation VBG Base Excess Barometric Pressure POC Sodium 132 L (135-144) mmol/L Sodium (136-145) mmol/L POC Potassium 4.4 (3.3-5.0) mmol/L Potassium Chloride (98-107) mmol/L Carbon Dioxide (21-32) mmol/L Anion Gap (3-11) BUN (6-23) mg/dl Creatinine (0.6-1.4) mg/dl Est Cr Clr Drug Dosing ml/min Est GFR ( Amer) ml/min Est GFR (Non-Af Amer) ml/min BUN/Creatinine Ratio (10-20) Glucose (70-99(Fasting)) mg/dl POC Glucose 403 H* (70-99) mg/dl Lactate (0.4-2.0) mmol/L Calcium (8.5-10.1) mg/dl Phosphorus (2.5-4.9) mg/dl Magnesium (1.7-2.4) mg/dl Total Bilirubin (0.2-1.0) mg/dl AST ALT (7-52) U/L Alkaline Phosphatase (34-104) U/L Troponin I High Sens (0-20) pg/ml Total Protein (6.0-8.3) gm/dl Albumin (3.4-5.0) gm/dl Globulin (2.5-4.0) gm/dl Albumin/Globulin Ratio (0.9-2) Procalcitonin < 0.05 (0-0.5) ng/ml Urine Color Urine Appearance (Clear) Urine pH (4.5-7.5) Ur Specific Shiro (1.000-1.030) Urine Protein (Negative) Urine Glucose (UA) (Negative) Urine Ketones (Negative) Urine Blood (Negative) Urine Nitrite (Negative) Urine Bilirubin (Negative) Urine Urobilinogen (Negative) Ur Leukocyte Esterase (Negative) Urine WBC (Auto) (0-5) /hpf Urine RBC (Auto) (0-4) /hpf U Hyaline Cast (Auto) (0-5) /lpf U Epithel Cells (Auto) (0-5) /lpf Urine Bacteria (Auto) (Negative) Urine Opiates Screen (Neg) Ur Methadone, Qual (Neg) Urine Barbiturates (Neg) Ur Phencyclidine (PCP) (Neg) U Amphetamin/Meth Scrn (Neg) MDMA (Ecstasy) Screen (Neg) U Benzodiazepines Scrn (Neg) Ur Cocaine Metabolite (Neg) U Marijuana (THC) Screen (Neg) Adenovirus (PCR) (NotDetected) B. pertussis DNA (PCR) (NotDetected) B.parapertussis DNA PCR (NotDetected) C. pneumoniae DNA (PCR) (NotDetected) Coronavirus OC43 (PCR) (NotDetected) Coronavirus HKU1 (PCR) (NotDetected) Coronavirus 229E (PCR) (NotDetected) SARS-CoV-2 (PCR) (NotDetected) Coronavirus NL63 (PCR) (NotDetected) Human Metapneumovir PCR (NotDetected) Influenza Type A (PCR) (NotDetected) Influenza Type B (PCR) (NotDetected) M. pneumoniae (PCR) (NotDetected) Parainfluenza 1 (PCR) (NotDetected) Parainfluenza 2 (PCR) (NotDetected) Parainfluenza 3 (PCR) (NotDetected) Parainfluenza 4 (PCR) (NotDetected) RSV (PCR) (NotDetected) Entero/Rhino (PCR) (NotDetected) 11/13/21 11/13/21 11/13/21 Range/Units 02:45 02:45 02:45 WBC Cancelled RBC Cancelled Hgb Cancelled POC Hgb (14.0-18.0) g/dl Hct Cancelled POC Hct (42-52) % MCV Cancelled MCH Cancelled MCHC Cancelled RDW Std Deviation Cancelled RDW Coeff of [place] Cancelled Plt Count Cancelled MPV Cancelled Immature Gran % (Auto) Cancelled Neut % (Auto) Cancelled Lymph % (Auto) Cancelled [place] % (Auto) Cancelled Eos % (Auto) Cancelled Baso % (Auto) Cancelled Neut # (Auto) Cancelled Lymph # (Auto) Cancelled [place] # (Auto) Cancelled Eos # (Auto) Cancelled Baso # (Auto) Cancelled Immature Gran # (Auto) Cancelled Absolute Nucleated RBC Cancelled Nucleated RBC % (auto) Cancelled Neutrophils % (Manual) Cancelled Band Neutrophils % Cancelled Lymphocytes % (Manual) Cancelled Prolymphocyte % Cancelled Reactive Lymphs % (Man) Cancelled Monocytes % (Manual) Cancelled Eosinophils % (Manual) Cancelled Basophils % (Manual) Cancelled Metamyelocytes % (Man) Cancelled Myelocytes % (Man) Cancelled Promyelocytes % (Man) Cancelled Blast Cells % (Manual) Cancelled Plasma Cell % (Manual) Cancelled Other Cells % Cancelled Nucleated RBC % Cancelled Neutrophils # (Manual) Cancelled Band Neutrophils # Cancelled Total Absolute Neuts Cancelled Lymphocytes # (Manual) Cancelled Prolymphocyte # Cancelled Reactive Lymphs # Cancelled Total Abs Lymphocytes Cancelled Monocytes # (Manual) Cancelled Eosinophils # (Manual) Cancelled Basophils # (Manual) Cancelled Metamyelocytes # (Man) Cancelled Myelocytes # (Manual) Cancelled Promyelocytes # (Man) Cancelled Blast Cells # (Man) Cancelled Plasma Cell # (Manual) Cancelled Other Cells # Cancelled Nucleated RBCs # (Man) Cancelled Hypersegmented Neuts Cancelled Hyposegmented Neuts Cancelled Hypogranular Neuts Cancelled Large Granular Lymphs Cancelled # Lrg Granular Lymphs Cancelled Hairy Cells Cancelled Smudge Cells Cancelled Toxic Granulation Cancelled Toxic Vacuolation Cancelled Dohle Bodies Cancelled [place] Rods Cancelled Platelet Estimate Cancelled Hypogranular Platelets Cancelled Clumped Platelets Cancelled Giant Platelets Cancelled Platelet Satelliting Cancelled RBC Morphology Cancelled Polychromasia Cancelled Hypochromasia Cancelled Poikilocytosis Cancelled Basophilic Stippling Cancelled Anisocytosis Cancelled Microcytosis Cancelled Macrocytosis Cancelled Spherocytes Cancelled Pappenheimer Bodies Cancelled Sickle Cells Cancelled Target Cells Cancelled Tear Drop Cells Cancelled Ovalocytes Cancelled Stomatocytes Cancelled Zhou-Grafton Bodies Cancelled Echinocytes Cancelled Acanthocytes (Spur) Cancelled Rouleaux Cancelled RBC Agglutinates Cancelled Schistocytes Cancelled Sezary Cell Cancelled PT 11.4 (9.0-12.0) Seconds INR 1.1 (0.9-1.1) APTT 23.9 (21.0-31.0) Seconds PTT Ratio 0.9 POC pH (7.35-7.45) POC pCO2 (35-46) mmHg POC pO2 (80-95) mmHg POC HCO3 (19-24) azckary/L POC Total CO2 (24-31) mmol/L POC Base Excess (-9-1.8) zackary/L POC ABG O2 Sat (90-95) % VBG pH VBG pCO2 VBG pO2 VBG HCO3 VBG O2 Saturation VBG Base Excess Barometric Pressure POC Sodium (135-144) mmol/L Sodium 132 L (136-145) mmol/L POC Potassium (3.3-5.0) mmol/L Potassium TNP Chloride 101 (98-107) mmol/L Carbon Dioxide 3 L* (21-32) mmol/L Anion Gap 28 H (3-11) BUN 15 (6-23) mg/dl Creatinine 1.00 (0.6-1.4) mg/dl Est Cr Clr Drug Dosing 88.9 ml/min Est GFR ( Amer) 115.7 ml/min Est GFR (Non-Af Amer) 99.8 ml/min BUN/Creatinine Ratio 15.0 (10-20) Glucose 420 H* (70-99(Fasting)) mg/dl POC Glucose (70-99) mg/dl Lactate (0.4-2.0) mmol/L Calcium 8.1 L (8.5-10.1) mg/dl Phosphorus (2.5-4.9) mg/dl Magnesium 1.9 (1.7-2.4) mg/dl Total Bilirubin 0.5 (0.2-1.0) mg/dl AST TNP ALT 10 (7-52) U/L Alkaline Phosphatase 79 (34-104) U/L Troponin I High Sens 6.7 (0-20) pg/ml Total Protein 6.8 (6.0-8.3) gm/dl Albumin 4.3 (3.4-5.0) gm/dl Globulin 2.5 (2.5-4.0) gm/dl Albumin/Globulin Ratio 1.7 (0.9-2) Procalcitonin (0-0.5) ng/ml Urine Color Urine Appearance (Clear) Urine pH (4.5-7.5) Ur Specific Shiro (1.000-1.030) Urine Protein (Negative) Urine Glucose (UA) (Negative) Urine Ketones (Negative) Urine Blood (Negative) Urine Nitrite (Negative) Urine Bilirubin (Negative) Urine Urobilinogen (Negative) Ur Leukocyte Esterase (Negative) Urine WBC (Auto) (0-5) /hpf Urine RBC (Auto) (0-4) /hpf U Hyaline Cast (Auto) (0-5) /lpf U Epithel Cells (Auto) (0-5) /lpf Urine Bacteria (Auto) (Negative) Urine Opiates Screen (Neg) Ur Methadone, Qual (Neg) Urine Barbiturates (Neg) Ur Phencyclidine (PCP) (Neg) U Amphetamin/Meth Scrn (Neg) MDMA (Ecstasy) Screen (Neg) U Benzodiazepines Scrn (Neg) Ur Cocaine Metabolite (Neg) U Marijuana (THC) Screen (Neg) Adenovirus (PCR) (NotDetected) B. pertussis DNA (PCR) (NotDetected) B.parapertussis DNA PCR (NotDetected) C. pneumoniae DNA (PCR) (NotDetected) Coronavirus OC43 (PCR) (NotDetected) Coronavirus HKU1 (PCR) (NotDetected) Coronavirus 229E (PCR) (NotDetected) SARS-CoV-2 (PCR) (NotDetected) Coronavirus NL63 (PCR) (NotDetected) Human Metapneumovir PCR (NotDetected) Influenza Type A (PCR) (NotDetected) Influenza Type B (PCR) (NotDetected) M. pneumoniae (PCR) (NotDetected) Parainfluenza 1 (PCR) (NotDetected) Parainfluenza 2 (PCR) (NotDetected) Parainfluenza 3 (PCR) (NotDetected) Parainfluenza 4 (PCR) (NotDetected) RSV (PCR) (NotDetected) Entero/Rhino (PCR) (NotDetected) 11/13/21 11/13/21 11/13/21 Range/Units 02:45 02:55 02:55 WBC RBC Hgb POC Hgb (14.0-18.0) g/dl Hct POC Hct (42-52) % MCV MCH MCHC RDW Std Deviation RDW Coeff of [place] Plt Count MPV Immature Gran % (Auto) Neut % (Auto) Lymph % (Auto) [place] % (Auto) Eos % (Auto) Baso % (Auto) Neut # (Auto) Lymph # (Auto) [place] # (Auto) Eos # (Auto) Baso # (Auto) Immature Gran # (Auto) Absolute Nucleated RBC Nucleated RBC % (auto) Neutrophils % (Manual) Band Neutrophils % Lymphocytes % (Manual) Prolymphocyte % Reactive Lymphs % (Man) Monocytes % (Manual) Eosinophils % (Manual) Basophils % (Manual) Metamyelocytes % (Man) Myelocytes % (Man) Promyelocytes % (Man) Blast Cells % (Manual) Plasma Cell % (Manual) Other Cells % Nucleated RBC % Neutrophils # (Manual) Band Neutrophils # Total Absolute Neuts Lymphocytes # (Manual) Prolymphocyte # Reactive Lymphs # Total Abs Lymphocytes Monocytes # (Manual) Eosinophils # (Manual) Basophils # (Manual) Metamyelocytes # (Man) Myelocytes # (Manual) Promyelocytes # (Man) Blast Cells # (Man) Plasma Cell # (Manual) Other Cells # Nucleated RBCs # (Man) Hypersegmented Neuts Hyposegmented Neuts Hypogranular Neuts Large Granular Lymphs # Lrg Granular Lymphs Hairy Cells Smudge Cells Toxic Granulation Toxic Vacuolation Dohle Bodies [place] Rods Platelet Estimate Hypogranular Platelets Clumped Platelets Giant Platelets Platelet Satelliting RBC Morphology Polychromasia Hypochromasia Poikilocytosis Basophilic Stippling Anisocytosis Microcytosis Macrocytosis Spherocytes Pappenheimer Bodies Sickle Cells Target Cells Tear Drop Cells Ovalocytes Stomatocytes Zhou-Grafton Bodies Echinocytes Acanthocytes (Spur) Rouleaux RBC Agglutinates Schistocytes Sezary Cell PT (9.0-12.0) Seconds INR (0.9-1.1) APTT (21.0-31.0) Seconds PTT Ratio POC pH (7.35-7.45) POC pCO2 (35-46) mmHg POC pO2 (80-95) mmHg POC HCO3 (19-24) zackary/L POC Total CO2 (24-31) mmol/L POC Base Excess (-9-1.8) zackary/L POC ABG O2 Sat (90-95) % VBG pH VBG pCO2 VBG pO2 VBG HCO3 VBG O2 Saturation VBG Base Excess Barometric Pressure POC Sodium (135-144) mmol/L Sodium (136-145) mmol/L POC Potassium (3.3-5.0) mmol/L Potassium Chloride (98-107) mmol/L Carbon Dioxide (21-32) mmol/L Anion Gap (3-11) BUN (6-23) mg/dl Creatinine (0.6-1.4) mg/dl Est Cr Clr Drug Dosing ml/min Est GFR ( Amer) ml/min Est GFR (Non-Af Amer) ml/min BUN/Creatinine Ratio (10-20) Glucose (70-99(Fasting)) mg/dl POC Glucose (70-99) mg/dl Lactate 2.7 H* (0.4-2.0) mmol/L Calcium (8.5-10.1) mg/dl Phosphorus (2.5-4.9) mg/dl Magnesium (1.7-2.4) mg/dl Total Bilirubin (0.2-1.0) mg/dl AST ALT (7-52) U/L Alkaline Phosphatase (34-104) U/L Troponin I High Sens (0-20) pg/ml Total Protein (6.0-8.3) gm/dl Albumin (3.4-5.0) gm/dl Globulin (2.5-4.0) gm/dl Albumin/Globulin Ratio (0.9-2) Procalcitonin (0-0.5) ng/ml Urine Color Yellow Urine Appearance Clear (Clear) Urine pH 5.0 (4.5-7.5) Ur Specific [place] 1.025 (1.000-1.030) Urine Protein 2+ H (Negative) Urine Glucose (UA) 3+ H (Negative) Urine Ketones 4+ H (Negative) Urine Blood 1+ H (Negative) Urine Nitrite Negative (Negative) Urine Bilirubin Negative (Negative) Urine Urobilinogen Negative (Negative) Ur Leukocyte Esterase Negative (Negative) Urine WBC (Auto) 0 (0-5) /hpf Urine RBC (Auto) 0-4 (0-4) /hpf U Hyaline Cast (Auto) 1-5 (0-5) /lpf U Epithel Cells (Auto) 10-20 H (0-5) /lpf Urine Bacteria (Auto) Negative (Negative) Urine Opiates Screen Neg (Neg) Ur Methadone, Qual Neg (Neg) Urine Barbiturates Neg (Neg) Ur Phencyclidine (PCP) Neg (Neg) U Amphetamin/Meth Scrn Neg (Neg) MDMA (Ecstasy) Screen Neg (Neg) U Benzodiazepines Scrn Neg (Neg) Ur Cocaine Metabolite Neg (Neg) U Marijuana (THC) Screen Pos H (Neg) Adenovirus (PCR) (NotDetected) B. pertussis DNA (PCR) (NotDetected) B.parapertussis DNA PCR (NotDetected) C. pneumoniae DNA (PCR) (NotDetected) Coronavirus OC43 (PCR) (NotDetected) Coronavirus HKU1 (PCR) (NotDetected) Coronavirus 229E (PCR) (NotDetected) SARS-CoV-2 (PCR) (NotDetected) Coronavirus NL63 (PCR) (NotDetected) Human Metapneumovir PCR (NotDetected) Influenza Type A (PCR) (NotDetected) Influenza Type B (PCR) (NotDetected) M. pneumoniae (PCR) (NotDetected) Parainfluenza 1 (PCR) (NotDetected) Parainfluenza 2 (PCR) (NotDetected) Parainfluenza 3 (PCR) (NotDetected) Parainfluenza 4 (PCR) (NotDetected) RSV (PCR) (NotDetected) Entero/Rhino (PCR) (NotDetected) 11/13/21 11/13/21 11/13/21 Range/Units 03:33 04:11 04:11 WBC Cancelled RBC Cancelled Hgb Cancelled POC Hgb (14.0-18.0) g/dl Hct Cancelled POC Hct (42-52) % MCV Cancelled MCH Cancelled MCHC Cancelled RDW Std Deviation Cancelled RDW Coeff of [place] Cancelled Plt Count Cancelled MPV Cancelled Immature Gran % (Auto) Cancelled Neut % (Auto) Cancelled Lymph % (Auto) Cancelled [place] % (Auto) Cancelled Eos % (Auto) Cancelled Baso % (Auto) Cancelled Neut # (Auto) Cancelled Lymph # (Auto) Cancelled [place] # (Auto) Cancelled Eos # (Auto) Cancelled Baso # (Auto) Cancelled Immature Gran # (Auto) Cancelled Absolute Nucleated RBC Cancelled Nucleated RBC % (auto) Cancelled Neutrophils % (Manual) Cancelled Band Neutrophils % Cancelled Lymphocytes % (Manual) Cancelled Prolymphocyte % Cancelled Reactive Lymphs % (Man) Cancelled Monocytes % (Manual) Cancelled Eosinophils % (Manual) Cancelled Basophils % (Manual) Cancelled Metamyelocytes % (Man) Cancelled Myelocytes % (Man) Cancelled Promyelocytes % (Man) Cancelled Blast Cells % (Manual) Cancelled Plasma Cell % (Manual) Cancelled Other Cells % Cancelled Nucleated RBC % Cancelled Neutrophils # (Manual) Cancelled Band Neutrophils # Cancelled Total Absolute Neuts Cancelled Lymphocytes # (Manual) Cancelled Prolymphocyte # Cancelled Reactive Lymphs # Cancelled Total Abs Lymphocytes Cancelled Monocytes # (Manual) Cancelled Eosinophils # (Manual) Cancelled Basophils # (Manual) Cancelled Metamyelocytes # (Man) Cancelled Myelocytes # (Manual) Cancelled Promyelocytes # (Man) Cancelled Blast Cells # (Man) Cancelled Plasma Cell # (Manual) Cancelled Other Cells # Cancelled Nucleated RBCs # (Man) Cancelled Hypersegmented Neuts Cancelled Hyposegmented Neuts Cancelled Hypogranular Neuts Cancelled Large Granular Lymphs Cancelled # Lrg Granular Lymphs Cancelled Hairy Cells Cancelled Smudge Cells Cancelled Toxic Granulation Cancelled Toxic Vacuolation Cancelled Dohle Bodies Cancelled [place] Rods Cancelled Platelet Estimate Cancelled Hypogranular Platelets Cancelled Clumped Platelets Cancelled Giant Platelets Cancelled Platelet Satelliting Cancelled RBC Morphology Cancelled Polychromasia Cancelled Hypochromasia Cancelled Poikilocytosis Cancelled Basophilic Stippling Cancelled Anisocytosis Cancelled Microcytosis Cancelled Macrocytosis Cancelled Spherocytes Cancelled Pappenheimer Bodies Cancelled Sickle Cells Cancelled Target Cells Cancelled Tear Drop Cells Cancelled Ovalocytes Cancelled Stomatocytes Cancelled Zhou-Grafton Bodies Cancelled Echinocytes Cancelled Acanthocytes (Spur) Cancelled Rouleaux Cancelled RBC Agglutinates Cancelled Schistocytes Cancelled Sezary Cell Cancelled PT (9.0-12.0) Seconds INR (0.9-1.1) APTT (21.0-31.0) Seconds PTT Ratio POC pH (7.35-7.45) POC pCO2 (35-46) mmHg POC pO2 (80-95) mmHg POC HCO3 (19-24) zackary/L POC Total CO2 (24-31) mmol/L POC Base Excess (-9-1.8) zackary/L POC ABG O2 Sat (90-95) % VBG pH Cancelled VBG pCO2 Cancelled VBG pO2 Cancelled VBG HCO3 Cancelled VBG O2 Saturation Cancelled VBG Base Excess Cancelled Barometric Pressure Cancelled POC Sodium (135-144) mmol/L Sodium 132 L (136-145) mmol/L POC Potassium (3.3-5.0) mmol/L Potassium 4.4 Chloride 101 (98-107) mmol/L Carbon Dioxide 4 L* (21-32) mmol/L Anion Gap 27 H (3-11) BUN 14 (6-23) mg/dl Creatinine 0.98 (0.6-1.4) mg/dl Est Cr Clr Drug Dosing 90.7 ml/min Est GFR ( Amer) 118.6 ml/min Est GFR (Non-Af Amer) 102.3 ml/min BUN/Creatinine Ratio 14.3 (10-20) Glucose 430 H* (70-99(Fasting)) mg/dl POC Glucose (70-99) mg/dl Lactate (0.4-2.0) mmol/L Calcium 7.7 L (8.5-10.1) mg/dl Phosphorus 3.9 (2.5-4.9) mg/dl Magnesium 1.7 (1.7-2.4) mg/dl Total Bilirubin (0.2-1.0) mg/dl AST 8 L ALT (7-52) U/L Alkaline Phosphatase (34-104) U/L Troponin I High Sens (0-20) pg/ml Total Protein (6.0-8.3) gm/dl Albumin (3.4-5.0) gm/dl Globulin (2.5-4.0) gm/dl Albumin/Globulin Ratio (0.9-2) Procalcitonin (0-0.5) ng/ml Urine Color Urine Appearance (Clear) Urine pH (4.5-7.5) Ur Specific Shiro (1.000-1.030) Urine Protein (Negative) Urine Glucose (UA) (Negative) Urine Ketones (Negative) Urine Blood (Negative) Urine Nitrite (Negative) Urine Bilirubin (Negative) Urine Urobilinogen (Negative) Ur Leukocyte Esterase (Negative) Urine WBC (Auto) (0-5) /hpf Urine RBC (Auto) (0-4) /hpf U Hyaline Cast (Auto) (0-5) /lpf U Epithel Cells (Auto) (0-5) /lpf Urine Bacteria (Auto) (Negative) Urine Opiates Screen (Neg) Ur Methadone, Qual (Neg) Urine Barbiturates (Neg) Ur Phencyclidine (PCP) (Neg) U Amphetamin/Meth Scrn (Neg) MDMA (Ecstasy) Screen (Neg) U Benzodiazepines Scrn (Neg) Ur Cocaine Metabolite (Neg) U Marijuana (THC) Screen (Neg) Adenovirus (PCR) (NotDetected) B. pertussis DNA (PCR) (NotDetected) B.parapertussis DNA PCR (NotDetected) C. pneumoniae DNA (PCR) (NotDetected) Coronavirus OC43 (PCR) (NotDetected) Coronavirus HKU1 (PCR) (NotDetected) Coronavirus 229E (PCR) (NotDetected) SARS-CoV-2 (PCR) (NotDetected) Coronavirus NL63 (PCR) (NotDetected) Human Metapneumovir PCR (NotDetected) Influenza Type A (PCR) (NotDetected) Influenza Type B (PCR) (NotDetected) M. pneumoniae (PCR) (NotDetected) Parainfluenza 1 (PCR) (NotDetected) Parainfluenza 2 (PCR) (NotDetected) Parainfluenza 3 (PCR) (NotDetected) Parainfluenza 4 (PCR) (NotDetected) RSV (PCR) (NotDetected) Entero/Rhino (PCR) (NotDetected) 11/13/21 11/13/21 11/13/21 Range/Units 04:11 04:36 Unknown WBC 17.01 H RBC 4.58 L Hgb 15.5 POC Hgb (14.0-18.0) g/dl Hct 46.4 POC Hct (42-52) % MCV 101.3 H MCH 33.8 MCHC 33.4 RDW Std Deviation 50.2 H RDW Coeff of [place] 13.5 Plt Count 281 MPV 10.9 H Immature Gran % (Auto) 0.9 Neut % (Auto) 87.0 Lymph % (Auto) 4.8 [place] % (Auto) 7.0 Eos % (Auto) 0.1 Baso % (Auto) 0.2 Neut # (Auto) 14.79 H Lymph # (Auto) 0.81 L [place] # (Auto) 1.19 H Eos # (Auto) 0.02 Baso # (Auto) 0.04 Immature Gran # (Auto) 0.16 H Absolute Nucleated RBC Nucleated RBC % (auto) Neutrophils % (Manual) Band Neutrophils % Lymphocytes % (Manual) Prolymphocyte % Reactive Lymphs % (Man) Monocytes % (Manual) Eosinophils % (Manual) Basophils % (Manual) Metamyelocytes % (Man) Myelocytes % (Man) Promyelocytes % (Man) Blast Cells % (Manual) Plasma Cell % (Manual) Other Cells % Nucleated RBC % Neutrophils # (Manual) Band Neutrophils # Total Absolute Neuts Lymphocytes # (Manual) Prolymphocyte # Reactive Lymphs # Total Abs Lymphocytes Monocytes # (Manual) Eosinophils # (Manual) Basophils # (Manual) Metamyelocytes # (Man) Myelocytes # (Manual) Promyelocytes # (Man) Blast Cells # (Man) Plasma Cell # (Manual) Other Cells # Nucleated RBCs # (Man) Hypersegmented Neuts Hyposegmented Neuts Hypogranular Neuts Large Granular Lymphs # Lrg Granular Lymphs Hairy Cells Smudge Cells Toxic Granulation Toxic Vacuolation Dohle Bodies Manuelito Rods Platelet Estimate Hypogranular Platelets Clumped Platelets Giant Platelets Platelet Satelliting RBC Morphology Polychromasia Hypochromasia Poikilocytosis Basophilic Stippling Anisocytosis Microcytosis Macrocytosis Spherocytes Pappenheimer Bodies Sickle Cells Target Cells Tear Drop Cells Ovalocytes Stomatocytes Zhou-Grafton Bodies Echinocytes Acanthocytes (Spur) Rouleaux RBC Agglutinates Schistocytes Sezary Cell PT (9.0-12.0) Seconds INR (0.9-1.1) APTT (21.0-31.0) Seconds PTT Ratio POC pH (7.35-7.45) POC pCO2 (35-46) mmHg POC pO2 (80-95) mmHg POC HCO3 (19-24) zackary/L POC Total CO2 (24-31) mmol/L POC Base Excess (-9-1.8) zackary/L POC ABG O2 Sat (90-95) % VBG pH VBG pCO2 VBG pO2 VBG HCO3 VBG O2 Saturation VBG Base Excess Barometric Pressure POC Sodium (135-144) mmol/L Sodium (136-145) mmol/L POC Potassium (3.3-5.0) mmol/L Potassium Chloride (98-107) mmol/L Carbon Dioxide (21-32) mmol/L Anion Gap (3-11) BUN (6-23) mg/dl Creatinine (0.6-1.4) mg/dl Est Cr Clr Drug Dosing ml/min Est GFR ( Amer) ml/min Est GFR (Non-Af Amer) ml/min BUN/Creatinine Ratio (10-20) Glucose (70-99(Fasting)) mg/dl POC Glucose 439 H* (70-99) mg/dl Lactate (0.4-2.0) mmol/L Calcium (8.5-10.1) mg/dl Phosphorus (2.5-4.9) mg/dl Magnesium (1.7-2.4) mg/dl Total Bilirubin (0.2-1.0) mg/dl AST ALT (7-52) U/L Alkaline Phosphatase (34-104) U/L Troponin I High Sens (0-20) pg/ml Total Protein (6.0-8.3) gm/dl Albumin (3.4-5.0) gm/dl Globulin (2.5-4.0) gm/dl Albumin/Globulin Ratio (0.9-2) Procalcitonin (0-0.5) ng/ml Urine Color Urine Appearance (Clear) Urine pH (4.5-7.5) Ur Specific Shiro (1.000-1.030) Urine Protein (Negative) Urine Glucose (UA) (Negative) Urine Ketones (Negative) Urine Blood (Negative) Urine Nitrite (Negative) Urine Bilirubin (Negative) Urine Urobilinogen (Negative) Ur Leukocyte Esterase (Negative) Urine WBC (Auto) (0-5) /hpf Urine RBC (Auto) (0-4) /hpf U Hyaline Cast (Auto) (0-5) /lpf U Epithel Cells (Auto) (0-5) /lpf Urine Bacteria (Auto) (Negative) Urine Opiates Screen (Neg) Ur Methadone, Qual (Neg) Urine Barbiturates (Neg) Ur Phencyclidine (PCP) (Neg) U Amphetamin/Meth Scrn (Neg) MDMA (Ecstasy) Screen (Neg) U Benzodiazepines Scrn (Neg) Ur Cocaine Metabolite (Neg) U Marijuana (THC) Screen (Neg) Adenovirus (PCR) Not Detected (NotDetected) B. pertussis DNA (PCR) Not Detected (NotDetected) B.parapertussis DNA PCR Not Detected (NotDetected) C. pneumoniae DNA (PCR) Not Detected (NotDetected) Coronavirus OC43 (PCR) Not Detected (NotDetected) Coronavirus HKU1 (PCR) Not Detected (NotDetected) Coronavirus 229E (PCR) Not Detected (NotDetected) SARS-CoV-2 (PCR) Not Detected (NotDetected) Coronavirus NL63 (PCR) Not Detected (NotDetected) Human Metapneumovir PCR Not Detected (NotDetected) Influenza Type A (PCR) Not Detected (NotDetected) Influenza Type B (PCR) Not Detected (NotDetected) M. pneumoniae (PCR) Not Detected (NotDetected) Parainfluenza 1 (PCR) Not Detected (NotDetected) Parainfluenza 2 (PCR) Not Detected (NotDetected) Parainfluenza 3 (PCR) Not Detected (NotDetected) Parainfluenza 4 (PCR) Not Detected (NotDetected) RSV (PCR) Not Detected (NotDetected) Entero/Rhino (PCR) Not Detected (NotDetected) Imaging Data Attestation: I personally reviewed and interpreted this imaging study as follows: MDM Narrative Prior records/ancillary studies reviewed and summarized above. Nursing notes reviewed. Additional history obtained from EMS and family. The patient's history was concerning for DKA. Differential diagnosis: Etiologies such as metabolic, infection, hypo/hyperglycemia, electrolyte abnormalities, cardiac sources, intracerebral event, toxicologic, neurologic, as well as others were entertained. Physical examination: As above. ER treatment provided: IV Lock An order was placed for continuous cardiac monitoring. The monitor shows a rate of 60-1 50 with a sinus rhythm. 2 lines were placed, 3 L were given and maintenance fluids were hung Zosyn and Vanco for IV drug use for prophylaxis for possible infection Insulin drip was initiated after patient was fully resuscitated On reassessment the patient felt better. Diagnostics interpretation by me: ECG: Ordered for DKA EKG: Normal sinus, poor baseline, T wave inversions in inferior leads, no QRS widening. Impression sinus tachycardia T wave inversions interpreted by myself I think arrhythmia is unlikely. EKG shows no interval abnormalities such as QT prolongation or WPW. There are no findings to suggest Brugada syndrome. Cardiac monitoring in the emergency department reveals no tachycardic or bradycardic dysrhythmia. Hypertrophic cardiomyopathy was considered but there are no clear historical elements pointing toward this. EKG is not suggestive. The QRS voltage is not extremely large and there are no suggestive Q waves. The labs revealed pH 7. Concerning for DKA. Negative bio fire. Positive marijuana screen Negative urine. Patient's lab testing hemolyzed several times. Repeat VBG was ordered after patient was hydrated. This is pending at the time of the patient being taken up to the unit. Imaging studies: Chest x-ray with no acute consolidation, pneumothorax or free air per my interpretation Consultation: A consultation was placed with the hospitalist and ICU midlevel Jayden . The case was discussed and diagnostics were reviewed. The patient was evaluated in the ER for further treatment. Exam and history seem consistent with DKA with a history of IV drug abuse. 2 lines were initiated. Patient was resuscitated as above. He was on antibiotics for prophylaxis for possible infection. He was reassessed multiple times. He was started on insulin drip. Medicine was consulted. He will be admitted to the unit. Unfortunately the patient's labs hemolyzed multiple times. Blood pressure remained stable. Heart rate did improve. By the evaluation outlined above emergent etiologies such as cardiac sources, intracerebral event, toxologic, neurologic, as well as others were deemed relatively unlikely. The pt informed about the findings as listed above. All questions were answered and pleased with the treatment. The chart was completed utilizing [employer] voice recognition software. Grammatical errors, random word insertions, pronoun errors, and incomplete sentences are an occassional consequence of this system due to software limitations, ambient noise, and hardware issues. Any formal questions or concerns about the content, text, or information contained within the body of this dictation should be directly addressed to the physician medical lab assistant for clarification. Impression & Plan DKA (diabetic ketoacidosis) Discharge Plan Visit Data Chief Complaint: Hyperglycemia ED Provider: Joe James ED Midlevel Provider: Radha Castañeda Discharge Problem: DKA (diabetic ketoacidosis) Patient Disposition: Admitted As Inpatient Condition: Critical Forms Stand Alone Forms: [facility] [employer] Prescriptions Prescriptions: No Action amoxicillin-pot clavulanate 875-125 mg tablet 1 tab PO BID Qty: 30 RF: 1 insulin glargine [Lantus Solostar U-100 Insulin] 100 unit/mL (3 mL) Insulin Pen 18 units SC HS 30 Days Qty: 5.4 RF: 1 insulin aspart U-100 [Novolog Flexpen U-100 Insulin] 100 unit/mL (3 mL) I nsulin Pen 1 units SC UD 30 Days Qty: 15 RF: 1 buprenorphine-naloxone 8-2 mg tablet, sublingual 1 tab SUBLINGUAL BID RF: 0 clonidine HCl 0.2 mg tablet 0.2 mg PO BID PRN (Reason: withdrawl) RF: 0 aspirin 81 mg Tablet,Delayed Release (Dr/Ec) 81 mg PO QAM Qty: 30 RF: 0 potassium chloride 20 mEq tablet extended release 20 meq PO DAILY Qty: 14 RF: 0 Referrals Referrals: Gilbert Suarez MD [Primary Care Provider] - Discharge Problem: DKA (diabetic ketoacidosis) Qualifiers: Diabetes mellitus type: type 1 Diabetes mellitus complication detail: without coma Qualified Code(s): E10.10 - Type 1 diabetes mellitus with ketoacidosis without coma
[2021-11-13 04:59] LABS: BUN Creatinine Ratio 14.3 (10-20); Calcium 7.7 mg/dl (8.5-10.1); Creatinine Clr Calc Pharmacy 90.7 ml/min; Est GFR (African American) 118.6 ml/min; Est GFR (Non-African American) 102.3 ml/min; Phosphorus 3.9 mg/dl (2.5-4.9); Potassium 4.4 mmol/L (3.5-5.1)
[2021-11-13 05:02] LABS: Basophils # (auto) 0.04 K/uL (0-0.2); Basophils % (auto) 0.2 %; Eosinophils # (auto) 0.02 K/uL (0-0.5); Eosinophils % (auto) 0.1 %; Immature Granulocytes # (auto) 0.16 K/uL (0.00-0.02); Immature Granulocytes % (auto) 0.9 %; Lymphocytes # (auto) 0.81 K/uL (1.2-3.4); Lymphocytes % (auto) 4.8 %; Monocytes # (auto) 1.19 K/uL (0.11-0.59); Neutrophils # (auto) 14.79 K/uL (1.4-6.5)
[2021-11-13 05:28] LABS: Magnesium 1.7 mg/dl (1.7-2.4)
[2021-11-13] MEDS ORDERED: DC ALL PREVIOUSLY ORDERED DIABETES MEDS ONE (06:03)
[2021-11-13] MEDS ORDERED: PENDING 1/2NSS+20mEq KCL IVF SCH (06:03)
[2021-11-13] MEDS ORDERED: ICU PROTOCOL FOR HYPERGLYCEMIA PRN (06:03)
[2021-11-13] MEDS ORDERED: PHARMACY GLYCEMIC MGMT CONSULT PRN (06:03)
[2021-11-13 06:18] LABS: Base Excess VBG -23.4 mEq/L; Oxygen Saturation VBG 77.4 %; pH VBG 7.04 (7.36-7.41)
[2021-11-13] MEDS ORDERED: SODIUM CHLOR 0.45% + 20MEQ KCL 20 MEQ/1,000 ML BAG IV SCH (06:45)
--- NOTE | 2021-11-13 06:47 | History and Physical Report ---
DATE OF ADMISSION: 11/13/2021. CHIEF COMPLAINT: DKA. HISTORY OF PRESENT ILLNESS: This is a 30-year-old male with past medical history significant for type 1 diabetes, history of tobacco use disorder, history of heroin abuse, history of DKA, history of dental abscess, currently on Suboxone maintenance therapy, presents with DKA. The patient lives with his mother. His mother is in the room. Mother states the patient is not always compliant with his insulin regimen. For the last 2 days, he was not feeling good, feeling short of breath, nauseous, feeling cold and was brought in here, was tachycardic and was in DKA with point of care pH 7.02, bicarbonate of 3, glucose of 437, lactate of 2.7. He was given 3 liters of fluids in the ER and started on the insulin drip. The patient is getting admitted to ICU. The patient denies any fevers. Denies any headache, denies any neck pain, no back pain, no abdominal pain, no leg pains. Has some shortness of breath. Denies any cough. No runny nose, no sore throat. Normal bowel and bladder movements. The patient says he is not doing drugs anymore currently. As per his mother, last drug use was in April 2021. ALLERGIES: No known drug allergies. PAST MEDICAL HISTORY: As mentioned above. PAST SURGICAL HISTORY: None. MEDICATIONS: The patient is on Suboxone 1 tablet sublingual b.i.d., supposed to be on Lantus 18 units at bedtime and NovoLog sliding scale, aspirin 81 mg p.o. daily. FAMILY HISTORY: Significant for mother has anxiety, maternal grandmother had breast cancer, paternal uncle has colon cancer, maternal grandfather has hypertension. SOCIAL HISTORY: Single, currently smokes one and a half pack a day for 15 years. No alcohol use. Smokes heroin was in ER on April 2021. REVIEW OF SYSTEMS: As per HPI. Rest of review of systems is negative. PHYSICAL EXAMINATION: GENERAL: The patient is thin and frail, not in acute distress, somewhat cold. VITAL SIGNS: Temperature 36.8, pulse 121, respiratory rate 30, blood pressure 123/81, oxygen 98% on room air. HEENT: Pupils equal, round and reactive to light. Oral mucosa dry. NECK: No JVD. No neck masses. CARDIOVASCULAR: S1 and S2 heard. Tachycardia. No murmurs. RESPIRATORY SYSTEM: Normal AP diameter. No accessory muscle use. No wheezing, no crackles. ABDOMEN: Soft. Bowel sounds are present, nontender, no distention. CENTRAL NERVOUS SYSTEM: Somewhat drowsy, answers simple questions, obeys simple commands. No facial droop. Speech is clear. Moves extremities. EXTREMITIES: No edema, no erythema. LABORATORY: WBC 17, hemoglobin 15.5, hematocrit 46.4, platelets 281, point of care pH of 7.02, pCO2 less than 10, pO2 of 115, bicarbonate 3, sodium 132, point of care potassium 4.4, chloride 101, CO2 of 3, anion gap 28, BUN 15, creatinine 1, serum glucose 420. Lactate 2.7, calcium 8.1, total bilirubin 0.5, AST not available, ALT 10, alkaline phosphatase 79. Troponin I high sensitivity 6.7. Procalcitonin less than 0.05. Urinalysis, +2 glucose, +2 protein. Urine drug screen positive for marijuana. BioFire negative. SARS-CoV-2 PCR negative. IMAGING: Chest x-ray, no acute findings. EKG: Sinus tachycardia at a rate of 119, biatrial enlargement, poor quality interpretation, nonspecific ST abnormalities. ASSESSMENT AND PLAN: This is a 30-year-old male who presents with diabetic ketoacidosis. 1. Diabetic ketoacidosis. The patient has history of DKA, noncompliant with his insulin regimen,t has history of type 1 diabetes. Received 3 L of fluid in the ER. Continue with aggressive IV fluids and DKA protocol. Insulin drip as per protocol, labs as per protocol. The patient has anion gap metabolic acidosis, bicarb is only 3. Short of breath is most likely secondary to acidosis. We will admit to ICU. Close monitoring. 2. Leukocytosis. Poor dentition.. History of drug abuse. His last use of drugs seems April 2021. ER has empirically started on vancomycin and Zosyn, which we will continue. Follow the cultures. 4. Chronic pain. Continue Suboxone. 4. Deep venous thrombosis prophylaxis: We place him on Lovenox. DISPOSITION: Closely monitor in the ICU. Level 1 full code. Job ID: [id number] [facility]
[2021-11-13] MEDS ORDERED: INSULIN ASPART PER UNIT SC SCH ×2 (07:30)
--- NOTE | 2021-11-13 07:38 | XRay Report ---
XR chest 1V portable CLINICAL HISTORY: Sepsis. COMPARISON STUDY: Chest radiograph and chest CT June 13, 2021. FINDINGS: Lung volumes are normal. Lungs are clear. There is no pneumothorax or pleural effusion. Car diac size is normal. Mediastinal contours are normal. There is no evidence for pulmonary edema. IMPRESSION: No acute cardiopulmonary findings. ACT 112: Negative or not required by law. Electronically signed by: Josef Ross M.D. 11/13/2021 7:37 AM
[2021-11-13] MEDS: PENDING D5 1/2NS+20mEq KCL IVF SCH ×3 (07:39→08:50)
[2021-11-13] MEDS ORDERED: VANCOMYCIN HCL 1,000 MG in SODIUM CHLORIDE 0.9% 250 ML IV SCH (08:00)
[2021-11-13] MEDS: MAGNESIUM SULFATE / D5W 1 GM/100 ML BAG IV SCH ×2 (08:34→10:29)
[2021-11-13] MEDS: D5W AND 1/2NSS + 20MEQ KCL 20 MEQ/1,000 ML BAG IV SCH ×2 (08:50→15:33)
[2021-11-13] MEDS ORDERED: PIPERACILLIN/TAZOBACTAM 3.375 GM in DEXTROSE 5% 100 ML IV SCH (09:00)
[2021-11-13] MEDS: ENOXAPARIN INJ 40 MG/0.4 ML SYR SQ SCH ×2 (09:26→09:55)
[2021-11-13 09:27] LABS: BUN Creatinine Ratio 15.6 (10-20); Calcium 7.3 mg/dl (8.5-10.1); Creatinine Clr Calc Pharmacy 115.4 ml/min; Est GFR (African American) 140.1 ml/min; Est GFR (Non-African American) 120.9 ml/min; Magnesium 1.5 mg/dl (1.7-2.4); Phosphorus 1.8 mg/dl (2.5-4.9); Potassium 4.8 mmol/L (3.5-5.1)
[2021-11-13] MEDS: BUPRENORPHINE/NALOXONE 8/2 MG TAB SL SCH ×2 (09:32→20:38)
--- NOTE | 2021-11-13 09:47 | Critical Care Consultation ---
Date of Consultation November 13, 2021 Assessment & Plan (1) DKA (diabetic ketoacidosis): Reason Critically Ill: 30-year-old male with type 1 diabetes who has poor compliance with his insulin regimen and who is in diabetic ketoacidosis PLAN: Neuro: History of polysubstance abuse -Currently on Suboxone therapy reports sobriety since April 2021 Resp: Tachypnea -Likely reactionary to DKA Fluids/Renal: Diabetic ketoacidosis -DKA protocol ID: Leukocytosis -No obvious source at this time, discontinuing antibiotics as patient denies prodrome of general illness GI/Nutrition: Patient written for diet as he is not nauseous or vomiting Heme: DVT prophylaxis: Lovenox Endocrine: Type 1 diabetes: Poor compliance Vascular access: Peripheral IVs Code Status: Full code Disposition: ICU Supervising Physician Co-Signing Physician Notes I have personally spent 55 minutes of critical care time in the direct management of this patient. This is a life/limb threatening event. This includes time spent evaluating patient, direct bedside care, chart review, placing orders, interpretation of diagnostic studies, discussion with consultants, patient, and/or family members regarding treatment decisions, as well as other required patient management activities. This time is exclusive of all separately billable procedures, and teaching time and separate from and in addition to any other critical care service time. History of Present Illness Reason for Consultation: DKA Requesting Physician: Niko Leal MD Attending Physician: Niko Leal MD History of Present Illness Patient reports that he has been careless over the last several days with his insulin. He knows he should take more appropriate care of his insulin, he has insulin as well as syringes he is just not been using it of his own volition. He denies fevers chills nausea vomiting which precluded him from taking his insulin. At this time he feels tired and is not vomiting. Allergies Allergy/AdvReac Type Severity Reaction Status Date / Time acesulfame Allergy Unknown RASH,N/V Verified 11/13/21 01:59 Home Medications Medication Instructions Recorded Confirmed Type insulin aspart U-100 100 unit/mL 1 units SC UD 30 Days #15 ml 07/02/19 11/13/21 Rx (3 mL) subcutaneous pen (Novolog Flexpen U-100 Insulin aspart) insulin glargine 100 unit/mL (3 18 units SC HS 30 Days #5.4 ml 07/02/19 11/13/21 Rx mL) subcutaneous pen (Lantus Solostar U-100 Insulin) buprenorphine 8 mg-naloxone 2 mg 1 tab SUBLINGUAL BID 06/13/21 11/13/21 History sublingual tablet clonidine HCl 0.2 mg tablet 0.2 mg PO BID PRN 06/13/21 11/13/21 History aspirin 81 mg tablet,delayed 81 mg PO QAM #30 tab 06/16/21 11/13/21 Rx release potassium chloride 20 mEq 20 meq PO DAILY #14 tab 06/16/21 11/13/21 Rx tablet,extended release amoxicillin 875 mg-potassium 1 tab PO BID #30 tab 10/29/21 11/13/21 Rx clavulanate 125 mg tablet Patient History Medical History Bleeding hemorrhoid DKA (diabetic ketoacidoses) Finger contusion R hand, pointer finger. History of narcotic addiction Mild concussion Pneumonia Surgical History No significant past surgical history Family History Other Diabetes Social History Smoking Status: Current every day smoker Cigarettes Per Day: 2 ppd; Second Hand Exposure: Yes; Hx Alcohol Use: No Hx Substance Use: Yes Last Used Substance: Days (ago) Last Used Substance Other:: last use in April 2021 Preferred Language: [place]ian Communication Ability: Effective Customer Solutions Supervisor Required: No Beliefs That Will Affect Care: None marital status: Single Current Living Situation: Parent Current Living Situation Comment: Lives with mother current occupational status: unemployed 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 nontoxic. Skin: Warm, dry, Head: Atraumatic Ears, nose, mouth and throat: airway patent Cardiovascular: Normal peripheral perfusion Respiratory: no respiratory distress Gastrointestinal: Non distended Musculoskeletal: No deformity Results & Data Results & Data ([facility]) Vital Signs (Past 12 Hours) Vital Signs Temp Pulse Pulse Resp BP BP Pulse Ox 11/13/21 06:49 36.7 C 103 H 19 99/56 L 100 11/13/21 04:00 37.1 C 123/81 97 11/13/21 02:03 121 H 30 H 123/81 98 11/13/21 02:00 36.8 C 113 H 113 H 18 123/81 97 Critical Care Results & Data Vital Signs (Past 12 Hours) Vital Signs Temp Pulse Resp BP Pulse Ox 11/13/21 06:49 36.7 C 103 H 19 99/56 L 100 11/13/21 04:00 37.1 C 123/81 97 Lab & Micro Results (Past 24 Hours) RBC 4.58 M/uL (4.7-6.1) L 11/13/21 WBC 17.01 K/uL (4.8-10.8) H 11/13/21 Hgb 15.5 g/dL (14.0-18.0) 11/13/21 Hct 46.4 % (42-52) 11/13/21 MCV 101.3 fL (80-100) H 11/13/21 MCH 33.8 pg (25-34) 11/13/21 MCHC 33.4 g/dL (32-36) 11/13/21 RDW Standard Deviation 50.2 fL (36.4-46.3) H 11/13/21 RDW Coefficient of Variation 13.5 % (11.5-14.5) 11/13/21 Plt Count 281 K/uL (130-400) 11/13/21 MPV 10.9 fL (7.4-10.4) H 11/13/21 Neutrophils (%) (Auto) 87.0 % 11/13/21 Lymphocytes (%) (Auto) 4.8 % 11/13/21 Monocytes # (Auto) 1.19 K/uL (0.11-0.59) H 11/13/21 Eosinophils # (Auto) 0.02 K/uL (0-0.5) 11/13/21 Immature Granulocyte % (Auto) 0.9 % 11/13/21 Neutrophils # (Auto) 14.79 K/uL (1.4-6.5) H 11/13/21 Lymphocytes # (Auto) 0.81 K/uL (1.2-3.4) L 11/13/21 Monocytes # (Auto) 1.19 K/uL (0.11-0.59) H 11/13/21 Eosinophils # (Auto) 0.02 K/uL (0-0.5) 11/13/21 Basophils # (Auto) 0.04 K/uL (0-0.2) 11/13/21 Immature Granulocyte # (Auto) 0.16 K/uL (0.00-0.02) H 11/13/21 Na 132 mmol/L (136-145) L 11/13/21 K 4.1 mmol/L (3.5-5.1) 11/13/21 Cl 110 mmol/L (98-107) H 11/13/21 CO2 12 mmol/L (21-32) L 11/13/21 Anion Gap 10 (3-11) 11/13/21 BUN 10 mg/dl (6-23) 11/13/21 Creatinine 0.77 mg/dl (0.6-1.4) 11/13/21 Estimated GFR ( Amer) 140.1 ml/min 11/13/21 Estimated GFR (Non-Af Amer) 120.9 ml/min 11/13/21 BUN/Creatinine Ratio 13.0 (10-20) 11/13/21 Glu 295 mg/dl (70-99(Fasting)) H 11/13/21 Ca 7.5 mg/dl (8.5-10.1) L 11/13/21 Phosphorus Level 1.1 mg/dl (2.5-4.9) L* 11/13/21 Total Bilirubin 0.5 mg/dl (0.2-1.0) 11/13/21 AST 8 U/L (13-39) L 11/13/21 ALT 10 U/L (7-52) 11/13/21 Alkaline Phosphatase 79 U/L (34-104) 11/13/21 TP 6.8 gm/dl (6.0-8.3) 11/13/21 Albumin 4.3 gm/dl (3.4-5.0) 11/13/21 Globulin 2.5 gm/dl (2.5-4.0) 11/13/21 Albumin/Globulin Ratio 1.7 (0.9-2) 11/13/21 Mg 2.0 mg/dl (1.7-2.4) 11/13/21 12:14 11/13/21 Calcium Level 7.5 mg/dl (8.5-10.1) L 11/13/21 12:14 11/13/21 Prothromb Time International Ratio 1.1 (0.9-1.1) 11/13/21 02:45 11/13/21 Venous Blood pH 7.27 (7.36-7.41) L 11/13/21 12:14 11/13/21 Venous Blood Partial Pressure CO2 22 mmHg (38-50) L 11/13/21 05:30 11/13/21 Venous Blood Partial Pressure O2 45 mmHg 11/13/21 05:30 11/13/21 Venous Blood HCO3 6 mmol/L 11/13/21 05:30 11/13/21 Venous Blood Base Excess -23.4 mEq/L 11/13/21 05:30 11/13/21 Venous Blood Oxygen Saturation 77.4 % 11/13/21 05:30 11/13/21 Blood Gas Barometric Pressure 727.5 mm/Hg 11/13/21 05:30 11/13/21 Blood Gas Barometric Pressure 727.5 mm/Hg 11/13/21 05:30 11/13/21 Diagnostic Findings (Past 24 Hours) Chest X-Ray 11/13/21 01:58 XR chest 1V portable CLINICAL HISTORY: Sepsis. COMPARISON STUDY: Chest radiograph and chest CT June 13, 2021. FINDINGS: Lung volumes are normal. Lungs are clear. There is no pneumothorax or pleural effusion. Cardiac size is normal. Mediastinal contours are normal. There is no evidence for pulmonary edema. IMPRESSION: No acute cardiopulmonary findings. ACT 112: Negative or not required by law. Electronically signed by: Josef Ross M.D. 11/13/2021 7:37 AM I & O Totals 24 Hours 11/12/21 11/13/21 11/14/21 06:59 06:59 06:59 Intake Total 8.555 / 8.555 2769.055 / 2769.055 Balance 2127.555 / 2127.555 2769.055 / 2769.055 Cumulative 11/13/21 01:47 thru 11/13/21 14:58 Intake Total 4897.610 Balance 4897.610 RT Ventilator Mngmt (Last Documented) Ventilator Ordered Settings Respiratory Rate 19 11/13/21 06:49 Ventilator - PT Measurements Respiratory Rate 19 Coding Level of Care Code Critical Care 1st 30-74 mins Diagnoses DKA (diabetic ketoacidosis) E10.10 Diabetes mellitus complication detail: without coma Diabetes mellitus type: type 1 (1) DKA (diabetic ketoacidosis) Diabetes mellitus complication detail: without coma Diabetes mellitus type: type 1 Qualified Code(s): E10.10 - Type 1 diabetes mellitus with ketoacidosis without coma
[2021-11-13] MEDS ORDERED: INSULIN GLARGINE SOLOSTAR 100 UNITS/ML 3 ML PEN SC ONE (10:00)
[2021-11-13] MEDS ORDERED: POTASSIUM PHOS 3 MMOL/1 ML INFUSION IV STA (10:48)
[2021-11-13] MEDS ORDERED: POTASSIUM PHOSPHATE 24 MMOL in SODIUM CHLORIDE 0.9% 500 ML IV STA (10:54)
--- NOTE | 2021-11-13 11:31 | Pharmacy Report ---
Pharmacy Glycemic Short Note 2 - Date of Service November 13, 2021 - Glycemic Short BSG Results (Last 24 hours): 11/13/21 11/13/21 11/13/21 02:10 02:45 04:11 Glucose 420 H* 430 H* POC Glucose 403 H* 11/13/21 11/13/21 11/13/21 04:36 05:46 07:10 Glucose POC Glucose 439 H* 384 H* 266 H 11/13/21 11/13/21 11/13/21 08:17 08:19 09:15 Glucose 196 H POC Glucose 183 H 191 H 11/13/21 10:32 Glucose POC Glucose 208 H OUTPATIENT ANTIDIABETIC REGIMEN: * Lantus 18-20 units SQ daily * Novolog CF-30 mg/dL/unit, CR-10 gm/unit HbA1C: ASSESSMENT: * Patient is a 30 YO non-compliant type 1 diabetic who presented in DKA. Initial labs: pH-7.02, bicarb-3, AG-28. Insulin infusion initiated ~0500 this AM per DKA protocol with goal BSG range 150-250mg/dL. Insulin drip currently running at 3.4 unit/hr. Dextrose containing IVF initiated as BSG within goal range. * Patient discussed during rounds - will be ordered a diet (dextrose containing IVF to d/c once taking PO). Most recent labs: bicarb-7, AG-16, pH-7.16. Plan to follow-up labs and transition to SQ once bicarb >15, AG <12, and pH >7.3 & patient tolerating diet. PLAN FOR INPATIENT GLYCEMIC CONTROL: * Hold outpatient oral diabetes medications * Basal insulin * Insulin infusion per DKA protocol (overlap at least 2h with Lantus) * Lantus 20 units SQ X 1 * Bolus insulin * NovoLog per scale ACHS or Q6hrs while NPO * Goal Range: Low 110 mg/dL - High 140 mg/dL * Correction Factor: 30 mg/dL/unit * Nutritional / Prandial insulin per carb ratio of 1 unit per 10 grams CHO consumed
--- NOTE | 2021-11-13 11:35 | Electrocardiogram Report ---
Test Reason : Blood Pressure : / mmHG Vent. Rate : 119 BPM Atrial Rate : 119 BPM P-R Int : 138 ms QRS Dur : 092 ms QT Int : 346 ms P-R-T Axes : 075 087 -33 degrees QTc Int : 486 ms Poor data quality, interpretation may be adversely affected Sinus tachycardia Biatrial enlargement T wave abnormality, consider inferior ischemia Abnormal ECG When compared with ECG of 14-JUN-2021 05:25, Non-specific change in ST segment in Inferior leads ST now depressed in Anterolateral leads T wave inversion now evident in Inferior leads Nonspecific T wave abnormality now evident in Lateral leads Confirmed by Bret Avila ([id number]) on 11/13/2021 11:35:14 AM Referred By: REFERRED SELF Confirmed By:Fareed Avila
[2021-11-13] MEDS: INSULIN ASPART PER UNIT SC SCH ×3 (12:38→20:38)
[2021-11-13 12:54] LABS: Calcium 7.5 mg/dl (8.5-10.1); Creatinine Clr Calc Pharmacy 115.4 ml/min; Est GFR (African American) 140.1 ml/min; Est GFR (Non-African American) 120.9 ml/min; Potassium 4.1 mmol/L (3.5-5.1)
[2021-11-13 13:00] LABS: Phosphorus 1.1 mg/dl (2.5-4.9)
[2021-11-13 13:14] LABS: Estimated Average Glucose 324 mg/dl; Hemoglobin A1C 12.9 % (4.5-5.6)
--- NOTE | 2021-11-13 17:22 | Hospitalist Progress Note ---
Date of Service November 13, 2021 Assessment & Plan (1) DKA (diabetic ketoacidosis): Plan: Patient is a 30 yr male who presents with diabetic ketoacidosis. DKA H/O DKA, noncompliant with his insulin regimen H/O Type I DM Continue IV fluids, insulin Monitor BMP closely Transition to SQ insulin as able Empirically on IV antibiotics Appreciate library cataloging technician help Replace electrolytes as needed Advance diet as tolerated Blood Cx pending Leukocytosis Poor dentition No obvious source of infection Leukocytosis likely secondary to DKA H/O Drug abuse Reported last use of drugs seems Apr 2021 Tox screen positive for marijuana On Suboxone for chronic pain DVT Px: Lovenox SQ Code Status Full code. Admission and Anticipated Discharge Date Admission Date: November 13, 2021 Subjective Patient is seen and examined at bedside Poor historian Very poor appetite Denies any chest pain, dyspnea, dizziness, abdominal pain Review of Systems Review of Systems: All systems reviewed & are unremarkable except as noted in Subjective Physical Exam Physical Exam: Physical Exam: Vitals signs as noted above General Appearance:Thin, Frail, ill appearing, no apparent distress Head: normocephalic, Atraumatic Eyes: normal inspection, EOMI Neck: supple, Trachea midline Respiratory/Chest: Normal breath sounds, CTA, No accessory muscle use Cardiovascular: S1, S2, No murmur Abdomen/GI:Soft, Non tender, Bowel sounds present Extremities/Musculoskeletal:normal inspection, no edema Neurologic/Psych:AAOX3, grossly no focal neurological deficits Skin: normal color, warm Results & Data Results & Data ([facility]) Vital Signs (Past 12 Hours) Vital Signs Temp Pulse Pulse Resp BP BP Pulse Ox 11/13/21 16:00 95 H 12 83/49 L 98 11/13/21 15:00 90 12 92/55 L 98 11/13/21 14:00 89 14 96/58 L 97 11/13/21 13:00 87 14 97/61 L 97 11/13/21 12:00 93 H 19 94/61 L 97 11/13/21 11:00 93 H 15 98 11/13/21 10:00 92 H 16 93/62 L 99 11/13/21 09:00 104 H 18 97/59 L 100 11/13/21 08:00 103 H 18 99 11/13/21 07:00 88 19 100 11/13/21 06:49 36.7 C 103 H 19 99/56 L 100 Laboratory Results Short CBC 11/13/21 11/13/21 11/13/21 Range/Units 02:45 03:33 04:11 WBC Cancelled Cancelled 17.01 H Hgb Cancelled Cancelled 15.5 Hct Cancelled Cancelled 46.4 Plt Count Cancelled Cancelled 281 BMP 11/13/21 11/13/21 11/13/21 02:45 04:11 08:19 Sodium 132 L 132 L 131 L Potassium TNP 4.4 4.8 Chloride 101 101 108 H Carbon Dioxide 3 L* 4 L* 7 L* BUN 15 14 12 Creatinine 1.00 0.98 0.77 Glucose 420 H* 430 H* 196 H Calcium 8.1 L 7.7 L 7.3 L 11/13/21 12:14 Sodium 132 L Potassium 4.1 Chloride 110 H Carbon Dioxide 12 L BUN 10 Creatinine 0.77 Glucose 295 H Calcium 7.5 L Liver Function 11/13/21 11/13/21 Range/Units 02:45 04:11 Total Bilirubin 0.5 (0.2-1.0) mg/dl AST TNP 8 L ALT 10 (7-52) U/L Alkaline Phosphatase 79 (34-104) U/L Albumin 4.3 (3.4-5.0) gm/dl Urine 11/13/21 Range/Units 02:55 Urine Color Yellow Urine Appearance Clear (Clear) Urine pH 5.0 (4.5-7.5) Ur Specific [place] 1.025 (1.000-1.030) Urine Protein 2+ H (Negative) Urine Glucose (UA) 3+ H (Negative) (1) DKA (diabetic ketoacidosis) Diabetes mellitus complication detail: without coma Diabetes mellitus type: type 1 Qualified Code(s): E10.10 - Type 1 diabetes mellitus with ketoacidosis without coma
[2021-11-13 17:34] LABS: BUN Creatinine Ratio 11.6 (10-20); Calcium 7.9 mg/dl (8.5-10.1); Creatinine Clr Calc Pharmacy 128.8 ml/min; Est GFR (African American) 146.6 ml/min; Est GFR (Non-African American) 126.5 ml/min; Phosphorus 1.9 mg/dl (2.5-4.9); Potassium 3.7 mmol/L (3.5-5.1)
[2021-11-13 19:20] LABS: Efaecalis Not Reported Not Detected (NotDetected); Efaecium Not Reported Not Detected (NotDetected); Lmonocyt Not Reported Not Detected (NotDetected); Staph lugdunensis Not Reported Not Detected (NotDetected); Staph spp. Not Reported DETECTED (NotDetected); Staphaureus Not Reported Not Detected (NotDetected); Staphepi Not Reported DETECTED (NotDetected); Staphylococcus spp. DETECTED (NotDetected); Strep agal(GrpB) Not Reported Not Detected (NotDetected); Strep spp Not Reported Not Detected (NotDetected); mecAC Resistant Gene DETECTED (NotDetected)
[2021-11-13 19:21] LABS: A calco-baum cmplx NotReported Not Detected (NotDetected); Bact fragilis Not Reported Not Detected (NotDetected); C auris Not Reported Not Detected (NotDetected); Calbicans Not Reported Not Detected (NotDetected); Candida glabrata Not Reported Not Detected (NotDetected); Candida krusei Not Reported Not Detected (NotDetected); Cneoformans/gatti Not Reported Not Detected (NotDetected); Cparapsilosis Not Reported Not Detected (NotDetected); Ctropicalis Not Reported Not Detected (NotDetected); E cloacae compx Not Reported Not Detected (NotDetected); Enterobacterales Not Reported Not Detected (NotDetected); Escherichia coli Not Reported Not Detected (NotDetected); H influenzae Not Reported Not Detected (NotDetected); K aerogenes Not Reported Not Detected (NotDetected); Koxytoca Not Reported Not Detected (NotDetected); Kpneumoniae grp Not Reported Not Detected (NotDetected); N meningitidis Not Reported Not Detected (NotDetected); P aeruginosa Not Reported Not Detected (NotDetected); Proteus spp Not Reported Not Detected (NotDetected); Salmonella spp Not Reported Not Detected (NotDetected); Smarcescens Not Reported Not Detected (NotDetected); Stenmaltophilia Not Reported Not Detected (NotDetected); Strep pneum Not Reported Not Detected (NotDetected); Strep pyog (GrpA) Not Reported Not Detected (NotDetected)
[2021-11-13 19:49] LABS: Staphylococcus epidermidis DETECTED (NotDetected)
[2021-11-14] MEDS: INSULIN ASPART PER UNIT SC SCH ×4 (00:27→13:11)
[2021-11-14 01:27] LABS: Anion Gap 9 (3-11); BUN Creatinine Ratio 12.5 (10-20); Blood Urea Nitrogen 7 mg/dl (6-23); Carbon Dioxide 17 mmol/L (21-32); Chloride 109 mmol/L (98-107); Creatinine Clr Calc Pharmacy 158.7 ml/min; Est GFR (African American) > 150.0 ml/min; Est GFR (Non-African American) 137.8 ml/min; Glucose 229 mg/dl (70-99(Fasting)); Phosphorus 4.5 mg/dl (2.5-4.9); Potassium 3.2 mmol/L (3.5-5.1); Sodium 135 mmol/L (136-145)
[2021-11-14] MEDS ORDERED: POTASSIUM CHLORIDE CRTAB 20 MEQ TABCR PO STA (03:34)
[2021-11-14] MEDS: POTASSIUM CHLORIDE / WTR 10 MEQ/100 ML PLCT IV SCH ×2 (03:53→05:09)
[2021-11-14 04:30] LABS: Basophils # (auto) 0.01 K/uL (0-0.2); Basophils % (auto) 0.1 %; Eosinophils # (auto) 0.12 K/uL (0-0.5); Eosinophils % (auto) 1.5 %; Hematocrit (blood only) 37.4 % (42-52); Hemoglobin 13.3 g/dL (14.0-18.0); Immature Granulocytes # (auto) 0.01 K/uL (0.00-0.02); Immature Granulocytes % (auto) 0.1 %; Lymphocytes # (auto) 1.53 K/uL (1.2-3.4); Lymphocytes % (auto) 19.4 %; Mean Corpuscular Hemoglobin 33.4 pg (25-34); Mean Corpuscular Hgb Conc 35.6 g/dL (32-36); Mean Platelet Volume 10.2 fL (7.4-10.4); Monocytes # (auto) 0.64 K/uL (0.11-0.59); Monocytes % (auto) 8.1 %; Neutrophils # (auto) 5.59 K/uL (1.4-6.5); Neutrophils % (auto) 70.8 %; Platelet Count 203 K/uL (130-400); RDW Coefficient of Variation 13.2 % (11.5-14.5); RDW Standard Deviation 45.7 fL (36.4-46.3); Red Blood Count 3.98 M/uL (4.7-6.1)
[2021-11-14 04:34] LABS: Creatinine Clr Calc Pharmacy 145.7 ml/min; Est GFR (African American) > 150.0 ml/min; Est GFR (Non-African American) 133.1 ml/min
[2021-11-14 04:38] LABS: Anion Gap 6 (3-11); BUN Creatinine Ratio 11.7 (10-20); Blood Urea Nitrogen 7 mg/dl (6-23); Calcium 8.1 mg/dl (8.5-10.1); Carbon Dioxide 21 mmol/L (21-32); Chloride 110 mmol/L (98-107); Creatinine Clr Calc Pharmacy 148.1 ml/min; Est GFR (African American) > 150.0 ml/min; Glucose 167 mg/dl (70-99(Fasting)); Magnesium 2.1 mg/dl (1.7-2.4); Phosphorus 1.7 mg/dl (2.5-4.9); Potassium 3.1 mmol/L (3.5-5.1); Sodium 137 mmol/L (136-145)
[2021-11-14] MEDS ORDERED: NICOTINE 21 MG/24 HR TDSY TD SCH (06:00)
[2021-11-14] MEDS ORDERED: POTASSIUM PHOS 3 MMOL/1 ML INFUSION IV STA (06:39)
[2021-11-14] MEDS ORDERED: POTASSIUM PHOSPHATE 30 MMOL in SODIUM CHLORIDE 0.9% 500 ML IV ONE (07:00)
--- NOTE | 2021-11-14 07:27 | Critical Care Progress Note ---
Date of Service November 14, 2021 Assessment & Plan (1) DKA (diabetic ketoacidosis): Plan: Reason Critically Ill: 30-year-old male with type 1 diabetes who has poor compliance with his insulin regimen and who is in diabetic ketoacidosis PLAN: Neuro: History of polysubstance abuse -Currently on Suboxone therapy reports sobriety since April 2021 Resp: Tachypnea: Resolved Fluids/Renal: Diabetic ketoacidosis: Resolved ID: Leukocytosis: Resolved 1 of 2 blood cultures positive for gram-positive cocci -PCR profile positive for MRSA as well as staph epidermidis -Given lack of clinical findings I believe these to be contaminant, will repeat however not adding additional antibiotics Heme: DVT prophylaxis: Lovenox Endocrine: Type 1 diabetes: Poor compliance Vascular access: Peripheral IVs Code Status: Full code Disposition: Stable for downgrade out of ICU Admission and Anticipated Discharge Date Admission Date: November 13, 2021 Subjective No complaints, desires to go home eating breakfast this morning Physical Exam Physical Exam: General: Alert. nontoxic. Skin: Warm, dry, Head: Atraumatic Ears, nose, mouth and throat: airway patent Cardiovascular: Normal peripheral perfusion Respiratory: no respiratory distress Gastrointestinal: Non distended Musculoskeletal: No deformity Results & Data Results & Data ([facility]) Vital Signs (Past 12 Hours) Vital Signs Temp Pulse Resp BP Pulse Ox 11/14/21 06:00 77 14 108/70 99 11/14/21 05:00 80 14 86/51 L 96 11/14/21 04:00 74 18 103/73 99 11/14/21 03:00 81 25 H 99/69 L 96 11/14/21 02:00 69 12 92/65 L 97 11/14/21 01:00 84 14 92/61 L 96 11/14/21 00:00 37.2 C 87 12 98/61 L 96 11/13/21 23:59 82 11/13/21 23:00 83 15 93/57 L 96 11/13/21 22:00 79 16 106/68 96 11/13/21 21:00 77 14 97/65 L 98 11/13/21 20:00 37.3 C 83 11 L 98/64 L 96 Critical Care Results & Data Vital Signs (Past 12 Hours) Vital Signs Temp Pulse Resp BP Pulse Ox 11/14/21 06:00 77 14 108/70 99 11/14/21 05:00 80 14 86/51 L 96 11/14/21 04:00 74 18 103/73 99 11/14/21 03:00 81 25 H 99/69 L 96 11/14/21 02:00 69 12 92/65 L 97 11/14/21 01:00 84 14 92/61 L 96 11/14/21 00:00 37.2 C 87 12 98/61 L 96 11/13/21 23:59 82 11/13/21 23:00 83 15 93/57 L 96 11/13/21 22:00 79 16 106/68 96 11/13/21 21:00 77 14 97/65 L 98 11/13/21 20:00 37.3 C 83 11 L 98/64 L 96 Lab & Micro Results (Past 24 Hours) RBC 3.98 M/uL (4.7-6.1) L 11/14/21 WBC 7.90 K/uL (4.8-10.8) 11/14/21 Hgb 13.3 g/dL (14.0-18.0) L 11/14/21 Hct 37.4 % (42-52) L 11/14/21 MCV 94.0 fL (80-100) 11/14/21 MCH 33.4 pg (25-34) 11/14/21 MCHC 35.6 g/dL (32-36) 11/14/21 RDW Standard Deviation 45.7 fL (36.4-46.3) 11/14/21 RDW Coefficient of Variation 13.2 % (11.5-14.5) 11/14/21 Plt Count 203 K/uL (130-400) 11/14/21 MPV 10.2 fL (7.4-10.4) 11/14/21 Neutrophils (%) (Auto) 70.8 % 11/14/21 Lymphocytes (%) (Auto) 19.4 % 11/14/21 Monocytes # (Auto) 0.64 K/uL (0.11-0.59) H 11/14/21 Eosinophils # (Auto) 0.12 K/uL (0-0.5) 11/14/21 Immature Granulocyte % (Auto) 0.1 % 11/14/21 Neutrophils # (Auto) 5.59 K/uL (1.4-6.5) 11/14/21 Lymphocytes # (Auto) 1.53 K/uL (1.2-3.4) 11/14/21 Monocytes # (Auto) 0.64 K/uL (0.11-0.59) H 11/14/21 Eosinophils # (Auto) 0.12 K/uL (0-0.5) 11/14/21 Basophils # (Auto) 0.01 K/uL (0-0.2) 11/14/21 Immature Granulocyte # (Auto) 0.01 K/uL (0.00-0.02) 11/14/21 Na 137 mmol/L (136-145) 11/14/21 K 3.1 mmol/L (3.5-5.1) L 11/14/21 Cl 110 mmol/L (98-107) H 11/14/21 CO2 21 mmol/L (21-32) 11/14/21 Anion Gap 6 (3-11) 11/14/21 BUN 7 mg/dl (6-23) 11/14/21 Creatinine 0.60 mg/dl (0.6-1.4) 11/14/21 Estimated GFR ( Amer) > 150.0 ml/min 11/14/21 Estimated GFR (Non-Af Amer) 134.0 ml/min 11/14/21 BUN/Creatinine Ratio 11.7 (10-20) 11/14/21 Glu 167 mg/dl (70-99(Fasting)) H 11/14/21 Ca 8.1 mg/dl (8.5-10.1) L 11/14/21 Phosphorus Level 1.7 mg/dl (2.5-4.9) L 11/14/21 Mg 2.1 mg/dl (1.7-2.4) 11/14/21 04:05 11/14/21 Calcium Level 8.1 mg/dl (8.5-10.1) L 11/14/21 04:05 11/14/21 Venous Blood pH 7.39 (7.36-7.41) 11/14/21 00:33 11/14/21 Microbiology 11/13/21 02:50 Aerobic Blood Culture - Preliminary Blood No growth in Aerobic bottle after 24 hours. Anaerobic Blood Culture - Preliminary No growth in Anaerobic bottle after 24 hours. 11/13/21 02:50 Aerobic Blood Culture - Preliminary Blood Gram positive cocci Anaerobic Blood Culture - Preliminary Gram positive cocci Diagnostic Findings (Past 24 Hours) Chest X-Ray 11/13/21 01:58 XR chest 1V portable CLINICAL HISTORY: Sepsis. COMPARISON STUDY: Chest radiograph and chest CT June 13, 2021. FINDINGS: Lung volumes are normal. Lungs are clear. There is no pneumothorax or pleural effusion. Cardiac size is normal. Mediastinal contours are normal. There is no evidence for pulmonary edema. IMPRESSION: No acute cardiopulmonary findings. ACT 112: Negative or not required by law. Electronically signed by: Josef Ross M.D. 11/13/2021 7:37 AM I & O Totals 24 Hours 11/13/21 11/14/21 11/15/21 06:59 06:59 06:59 Intake Total 2128.555 / 2128.555 4488.278 / 4488.278 Output Total 4425 / 4425 Balance 2128.555 / 2128.555 63.278 / 63.278 Cumulative 11/13/21 01:47 thru 11/14/21 06:25 Intake Total 6616.833 Output Total 4425 Balance 2191.833 RT Ventilator Mngmt (Last Documented) Ventilator Ordered Settings Respiratory Rate 14 11/14/21 06:00 Ventilator - PT Measurements Respiratory Rate 14 Coding Level of Care Code 81087 Subseq Obs Care Lvl 2 Diagnoses DKA (diabetic ketoacidosis) E10.10 Diabetes mellitus complication detail: without coma Diabetes mellitus type: type 1 (1) DKA (diabetic ketoacidosis) Diabetes mellitus complication detail: without coma Diabetes mellitus type: type 1 Qualified Code(s): E10.10 - Type 1 diabetes mellitus with ketoacidosis without coma
[2021-11-14] MEDS: ENOXAPARIN INJ 40 MG/0.4 ML SYR SQ SCH (07:54)
[2021-11-14] MEDS: BUPRENORPHINE/NALOXONE 8/2 MG TAB SL SCH (07:56)
[2021-11-14] MEDS ORDERED: cefTRIAXone SODIUM 2,000 MG in DEXTROSE 5% 50 ML IV SCH (09:00)
[2021-11-14] MEDS ORDERED: INSULIN GLARGINE SOLOSTAR 100 UNITS/ML 3 ML PEN SC SCH ×2 (09:00)
[2021-11-14] MEDS ORDERED: ASPIRIN 81 MG ECTAB PO SCH (09:00)
--- NOTE | 2021-11-14 12:41 | Hospitalist Progress Note ---
Date of Service November 14, 2021 Assessment & Plan (1) DKA (diabetic ketoacidosis): Plan: Patient is a 30 yr male who presents with diabetic ketoacidosis. DKA Medication Non Compliance H/O DKA, noncompliant with his insulin regimen H/O Type I DM Continue IV fluids, insulin IV Insulin transitioned to SQ Moderating diet Appreciate staff command and control officer help Replace electrolytes as needed Anion gap closed Counseled on Medication compliance Patient Left AMA despite emplaning the risks and consequences Suspected Bacteremia ? Contamination H/O Drug abuse, Poor dentition 1/2 Blood Cx growing gram-positive cocci Repeat blood cultures pending MRSA Screen Negative IV Vanco, Zosyn >>>Transitioned to Ceftriaxone Explained the risks and benefits of being untreated to the patient. Despite explaining the risks involved, patient prefers to be discharged AGAINST MEDICAL ADVICE Advised the patient to follow-up with PCP for further instructions. Hypokalemia Hypophosphatemia Replace electrolytes as needed H/O Drug abuse Reported last use of drugs seems Apr 2021 Tox screen positive for marijuana On Suboxone for chronic pain DVT Px: Lovenox SQ Code Status Full code. Disposition AMA Admission and Anticipated Discharge Date Admission Date: November 13, 2021 Subjective Patient is seen and examined at bedside Tolerating diet very well today Offers no complaints Denies any chest pain, shortness of breath, dizziness, abdominal pain, nausea Blood cultures growing gram-positive cocci Review of Systems Review of Systems: All systems reviewed & are unremarkable except as noted in Subjective Physical Exam Physical Exam: Physical Exam: Vitals signs as noted above General Appearance:Thin, Frail, ill appearing, no apparent distress Head: normocephalic, Atraumatic Eyes: normal inspection, EOMI Neck: supple, Trachea midline Respiratory/Chest: Normal breath sounds, CTA, No accessory muscle use Cardiovascular: S1, S2, No murmur Abdomen/GI:Soft, Non tender, Bowel sounds present Extremities/Musculoskeletal:normal inspection, no edema Neurologic/Psych:AAOX3, grossly no focal neurological deficits Skin: normal color, warm Results & Data Results & Data ([facility]) Vital Signs (Past 12 Hours) Vital Signs Temp Pulse Resp BP Pulse Ox 11/14/21 12:00 64 18 108/85 99 11/14/21 11:00 68 18 105/80 100 11/14/21 10:00 70 12 106/72 98 11/14/21 09:00 79 18 109/80 98 11/14/21 08:00 37.3 C 72 20 106/81 99 11/14/21 07:00 82 96/67 L 98 11/14/21 06:00 77 14 108/70 99 11/14/21 05:00 80 14 86/51 L 96 11/14/21 04:00 74 18 103/73 99 11/14/21 03:00 81 25 H 99/69 L 96 11/14/21 02:00 69 12 92/65 L 97 11/14/21 01:00 84 14 92/61 L 96 Laboratory Results Short CBC 11/14/21 Range/Units 04:05 WBC 7.90 (4.8-10.8) K/uL Hgb 13.3 L (14.0-18.0) g/dL Hct 37.4 L (42-52) % Plt Count 203 (130-400) K/uL BMP 11/13/21 11/14/21 11/14/21 15:58 00:33 04:05 Sodium 135 L 135 L 137 Potassium 3.7 3.2 L 3.1 L Chloride 112 H 109 H 110 H Carbon Dioxide 16 L 17 L 21 BUN 8 7 7 Creatinine 0.69 0.56 L 0.60 Glucose 195 H 229 H 167 H Calcium 7.9 L 8.0 L 8.1 L 11/14/21 04:05 Sodium Potassium Chloride Carbon Dioxide BUN Creatinine 0.61 Glucose Calcium (1) DKA (diabetic ketoacidosis) Diabetes mellitus complication detail: without coma Diabetes mellitus type: type 1 Qualified Code(s): E10.10 - Type 1 diabetes mellitus with ketoacidosis without coma
[2021-11-14] MEDS ORDERED: NORMOSOL-R 500 ML IV ONE (12:55)
--- NOTE | 2021-11-14 13:49 | Pharmacy Report ---
Pharmacy Glycemic Short Note 2 - Date of Service November 14, 2021 - Glycemic Short BSG Results (Last 24 hours): 11/13/21 11/13/21 11/13/21 13:54 14:40 15:58 Glucose 195 H POC Glucose 220 H 199 H 11/13/21 11/13/21 11/14/21 17:23 20:08 00:22 Glucose POC Glucose 191 H 158 H 203 H 11/14/21 11/14/21 11/14/21 00:33 03:52 04:05 Glucose 229 H 167 H POC Glucose 155 H 11/14/21 11/14/21 07:52 10:58 Glucose POC Glucose 162 H 149 H OUTPATIENT ANTIDIABETIC REGIMEN: * Lantus 18-20 units SQ daily * Novolog CF-30 mg/dL/unit, CR-10 gm/unit HbA1C: 12.9% (11/13/21) ASSESSMENT: 11/14/21 * DKA resolved * Insulin gtt transitioned to SC insulin last evening following 20 units of Lantus * BSGs significantly improved from time of presentation, will give slightly reduced basal dose today and continue with current Novolog parameters 11/13/21 * Patient is a 30 YO non-compliant type 1 diabetic who presented in DKA. Initial labs: pH-7.02, bicarb-3, AG-28. Insulin infusion initiated ~0500 this AM per DKA protocol with goal BSG range 150-250mg/dL. Insulin drip currently running at 3.4 unit/hr. Dextrose containing IVF initiated as BSG within goal range. * Patient discussed during rounds - will be ordered a diet (dextrose containing IVF to d/c once taking PO). Most recent labs: bicarb-7, AG-16, pH-7.16. Plan to follow-up labs and transition to SQ once bicarb >15, AG <12, and pH >7.3 & patient tolerating diet. PLAN FOR INPATIENT GLYCEMIC CONTROL: * Basal insulin * Lantus 18 units SC daily * Reassess in AM * Bolus insulin * NovoLog per scale ACHS or Q6hrs while NPO * Goal Range: Low 110 mg/dL - High 140 mg/dL * Correction Factor: 30 mg/dL/unit * Nutritional / Prandial insulin per carb ratio of 1 unit per 10 grams CHO c onsumed
--- NOTE | 2021-11-14 13:53 | Discharge Summary ---
Date of Service November 14, 2021 Admission HPI Per Admitting Provider CHIEF COMPLAINT: DKA. HISTORY OF PRESENT ILLNESS: This is a 30-year-old male with past medical history significant for type 1 diabetes, history of tobacco use disorder, history of heroin abuse, history of DKA, history of dental abscess, currently on Suboxone maintenance therapy, presents with DKA. The patient lives with his mother. His mother is in the room. Mother states the patient is not always compliant with his insulin regimen. For the last 2 days, he was not feeling good, feeling short of breath, nauseous, feeling cold and was brought in here, was tachycardic and was in DKA with point of care pH 7.02, bicarbonate of 3, glucose of 437, lactate of 2.7. He was given 3 liters of fluids in the ER and started on the insulin drip. The patient is getting admitted to ICU. The patient denies any fevers. Denies any headache, denies any neck pain, no back pain, no abdominal pain, no leg pains. Has some shortness of breath. Denies any cough. No runny nose, no sore throat. Normal bowel and bladder movements. The patient says he is not doing drugs anymore currently. As per his mother, last drug use was in April 2021. Admission Exam Per Admitting Provider PHYSICAL EXAMINATION: GENERAL: The patient is thin and frail, not in acute distress, somewhat cold. VITAL SIGNS: Temperature 36.8, pulse 121, respiratory rate 30, blood pressure 123/81, oxygen 98% on room air. HEENT: Pupils equal, round and reactive to light. Oral mucosa dry. NECK: No JVD. No neck masses. CARDIOVASCULAR: S1 and S2 heard. Tachycardia. No murmurs. RESPIRATORY SYSTEM: Normal AP diameter. No accessory muscle use. No wheezing, no crackles. ABDOMEN: Soft. Bowel sounds are present, nontender, no distention. CENTRAL NERVOUS SYSTEM: Somewhat drowsy, answers simple questions, obeys simple commands. No facial droop. Speech is clear. Moves extremities. EXTREMITIES: No edema, no erythema. Principal Diagnosis Diabetic ketoacidosis Suspected bacteremia Drug abuse Hypokalemia Hypophosphatemia Discharge Data Allergies Allergy/AdvReac Type Severity Reaction Status Date / Time acesulfame Allergy Unknown RASH,N/V Verified 11/13/21 01:59 Consultations 11/13/21 03:47 ED Decision to Admit Stat 11/13/21 06:03 Consult Pulp Mill Supervisor Routine Diabetes Follow up Diabetes Follow-up Needed for HgbA1c >9% Hospital Course (1) DKA (diabetic ketoacidosis): Patient is a 30 yr male who presents with diabetic ketoacidosis. DKA Medication Non Compliance H/O DKA, noncompliant with his insulin regimen H/O Type I DM Continue IV fluids, insulin IV Insulin transitioned to SQ Moderating diet Appreciate technical support technician help Replace electrolytes as needed Anion gap closed Counseled on Medication compliance Patient Left AMA despite emplaning the risks and consequences Suspected Bacteremia ? Contamination H/O Drug abuse, Poor dentition 1/2 Blood Cx growing gram-positive cocci Repeat blood cultures pending MRSA Screen Negative IV Vanco, Zosyn >>>Transitioned to Ceftriaxone Explained the risks and benefits of being untreated to the patient. Despite explaining the risks involved, patient prefers to be discharged AGAINST MEDICAL ADVICE Advised the patient to follow-up with PCP for further instructions. Hypokalemia Hypophosphatemia Replace electrolytes as needed H/O Drug abuse Reported last use of drugs seems Apr 2021 Tox screen positive for marijuana On Suboxone for chronic pain DVT Px: Lovenox SQ Code Status Full code. Disposition AMA Total Time Total Time Spent Total Time Spent (In Minutes): 48 minutes Discharge Plan Discharge Items Patient Disposition: Against Medical Advice Reason For Visit: DKA Condition on Discharge: Critical Activity: Per Instructions section Exercise/Sports: Wait until after follow-up appointment Non-emergency contact: Primary Care Provider Follow-up/Referrals: Gilbert Suarez MD [Primary Care Provider] - Diet Comment: DM diet Addtl [employer] Bi Administrator Provider Instructions: Follow-up with your primary care physician in 1 week. Please call for appointment --Take insulin regularly as advised. -- Your blood cultures are pending at the time of discharge. Follow-up with your physician for results. You might need to be treated for bacteremia if cultures suggest infection as advised. Follow-up with your physician for further instructions. Seek immediate medical attention if your symptoms reoccur or worsen Please take all medications as instructed on discharge list below. Please call if you have any questions or problems. You can reach a [facility] hospitalist on duty at [facility] 24 hours a day by calling [phone] Pending Studies at Discharge: Yes Stand-Alone Forms: My [facility], Smoking Cessation Skilled Items Patient informed of condition?: Yes DNR: No Discharge Level of Care: Other Communicable Disease: No Discharge Prognosis: Other Medications and DC Order Prescriptions: New Phospha 250 Neutral 250 mg Tablet 1 tab PO QID Qty: 12 RF: 0 Continued amoxicillin-pot clavulanate 875-125 mg tablet 1 tab PO BID Qty: 30 RF: 1 insulin glargine [Lantus Solostar U-100 Insulin] 100 unit/mL (3 mL) Insulin Pen 18 units SC HS 30 Days Qty: 5.4 RF: 1 insulin aspart U-100 [Novolog Flexpen U-100 Insulin] 100 unit/mL (3 mL) Insulin Pen 1 units SC UD 30 Days Qty: 15 RF: 1 buprenorphine-naloxone 8-2 mg tablet, sublingual 1 tab SUBLINGUAL BID RF: 0 clonidine HCl 0.2 mg tablet 0.2 mg PO BID PRN (Reason: withdrawl) RF: 0 aspirin 81 mg Tablet,Delayed Release (Dr/Ec) 81 mg PO QAM Qty: 30 RF: 0 potassium chloride 20 mEq tablet extended release 20 meq PO DAILY Qty: 3 RF: 0 Discharge Orders: Left Against Medical Advice (Routine); Ordered 11/14/21 Ordered By: Niko Leal Admission Data Admit Date/Time: 11/13/21 04:52 Attending Provider: Niko Leal Admit Provider: Thompson Willis Primary Care Provider: Gilbert Suarez Other Providers: Thompson Willis ; Vazquez Wang
[2021-11-14] MEDS ORDERED: POT PHOSPHATE MONOBASIC W/ SOD TAB PO SCH (17:00)
[2021-11-15 10:56] LABS: Marijuana Quant, GCMS Urine 27 ng/mL (<5)
== END 2021-11-14 13:58 | disposition left against medical advice (07) | DRG 638 ==
LOC: ED 01:53 → 1E 04:52

== ENCOUNTER 2023-11-23 12:05 | Inpatient (IN) ==
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
--- NOTE | 2023-11-23 13:57 | XRay Report ---
XR foot RT min 3V routine CLINICAL HISTORY: pain swelling base 2nd toe into foot COMPARISON: None FINDINGS: No acute fractures within the right foot are identified. No definite bony erosions are jose ntified. However, there is relative lucency of the distal tuft of the distal phalanx of the right sec ond toe. The right second metatarsal is slightly short. This is congenital. IMPRESSION: 1. No acute fractures within the right foot. 2. No definite bony erosions. However, relative lucency of the distal tuft of the distal phalanx of t he right second toe. This may be technical however osteomyelitis would be difficult to exclude. MRI c ould be obtained for further evaluation. ACT 112: Negative or not required by law. Electronically signed by: Josef Ross M.D. 11/23/2023 1:56 PM
[2023-11-23 16:17] LABS: Basophils # (auto) 0.08 K/uL (0.00-0.20); Basophils % (auto) 0.9 %; Eosinophils # (auto) 0.38 K/uL (0.00-0.50); Eosinophils % (auto) 4.4 %; Hematocrit (blood only) 42.2 % (42.0-52.0); Hemoglobin 14.1 g/dl (14.0-18.0); Immature Granulocytes # (auto) 0.03 K/uL (0.01-0.20); Immature Granulocytes % (auto) 0.3 %; Lymphocytes # (auto) 2.89 K/uL (1.20-3.40); Lymphocytes % (auto) 33.5 %; Mean Corpuscular Hemoglobin 30.4 pg (25.0-34.0); Mean Corpuscular Hgb Conc 33.4 g/dL (32.0-36.0); Mean Corpuscular Volume 90.9 fL (80.0-100.0); Mean Platelet Volume 10.4 fL (9.4-12.4); Monocytes # (auto) 0.63 K/uL (0.11-0.59); Monocytes % (auto) 7.3 %; Neutrophils # (auto) 4.61 K/uL (1.40-6.50); Neutrophils % (auto) 53.6 %; Platelet Count 271 K/uL (130-400); RDW Coefficient of Variation 13.4 % (11.5-14.5); RDW Standard Deviation 45.1 fL (36.4-46.3); Red Blood Count 4.64 M/uL (4.70-6.10); White Blood Count 8.62 K/ul (4.8-10.8)
[2023-11-23 16:33] LABS: Alanine Aminotransferase 17 U/L (7-52); Albumin Globulin Ratio 1.7 (0.9-2); Albumin Level 4.7 gm/dl (3.4-5.0); Alkaline Phosphatase 83 U/L (34-104); Anion Gap 5 (3-11); Aspartate Aminotransferase 18 U/L (13-39); BUN Creatinine Ratio 26.7 (10-20); Bilirubin,Total 0.5 mg/dl (0.2-1.0); Blood Urea Nitrogen 20 mg/dl (6-23); Calcium 9.8 mg/dl (8.6-10.3); Carbon Dioxide 31 mmol/L (21-32); Chloride 104 mmol/L (98-107); Creatinine Clr Calc Pharmacy 153.8 ml/min; Est GFR (African American) 139.7 ml/min; Est GFR (Non-African American) 120.5 ml/min; Globulin 2.8 gm/dl (2.5-4.0); Glucose 96 mg/dl (70-99(Fasting)); Potassium 4.8 mmol/L (3.5-5.1); Sodium 140 mmol/L (136-145); Total Protein 7.5 gm/dl (6.0-8.3)
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
[2023-11-23 17:29] LABS: C Reactive Protein < 0.50 mg/dl (0-0.5)
[2023-11-23] MEDS: PIPERACILLIN/TAZOBACTAM 4.5 GM/100 ML BAG IV ONE (18:36)
--- NOTE | 2023-11-23 19:28 | XRay Report ---
BONY ORBITS 4 VIEWS CLINICAL HISTORY: MRI clearance. FINDINGS: 4 views of the bony orbits are obtained. No prior studies are available for comparison at t he time of dictation. There is no radiodense/metallic foreign body seen in the region of the bony orb its. The bony orbits are intact as imaged. The visualized paranasal sinuses and the mastoid air cells appear clear. The imaged calvarium appears intact. IMPRESSION: There is no radiodense/metallic foreign body seen in the region of the bony orbits. ACT 112: Negative or not required by law. Electronically signed by: Amor Robles M.D. 11/23/2023 7:27 PM
[2023-11-23] MEDS: GADOXETATE DISODIUM IV ONE (21:45)
[2023-11-23] MEDS ORDERED: VANCOMYCIN CONSULT ACTIVE PRN (22:54)
--- NOTE | 2023-11-23 22:54 | Magnetic Resonance Report ---
Exam(s): MRI RIGHT FOOT W/WO Contrast IV Amt: 8.5mL Gadavist given IV EXAM: MR Right Lower Extremity Without and With Intravenous Contrast, Foot CLINICAL HISTORY: Reason for exam: infection. TECHNIQUE: Multiplanar magnetic resonance images of the right foot without and with intravenous contrast. CONTRAST: Patient received 8.5mL Gadavist given IV of IV contrast COMPARISON: No relevant prior studies available. FINDINGS: LIGAMENTS: Medial collateral: Unremarkable. Lateral collateral: Unremarkable. Lisfranc: Unremarkable. TENDONS: Flexor: Unremarkable. Extensor: Unremarkable. Peroneal: Unremarkable. Tibialis anterior: Unremarkable. Tibialis posterior: Unremarkable. Muscles: Unremarkable. Fluid: Unremarkable. No joint effusion. Sinus tarsi: Unremarkable as visualized. Tarsal tunnel: Unremarkable. Plantar fascia: Unremarkable. Cartilage: Unremarkable. Bones/joints: Signal abnormality and enhancement involving the second proximal phalanx this corresponds to the area concertedly deferred by the patient. Cystic inflammatory changes are also noted within the adjacent soft tissues. No acute fracture. IMPRESSION: Second toe osteomyelitis Electronically signed by: Tanner Boateng MD 11/23/23 22:53 PM
--- OUTSIDE RECORDS SUMMARY | 2023-11-23 23:09 | External Medical Summary | Summary of Care ---
Author Name Unknown Organization [facility] Address [address] [place] [address] Phone [phone] Care Team Providers Care Appliance Line Assembler Name Role Phone Gilbert Suarez MD Primary Care Provider + Reason for Visit * Reason Comments Dosage Adjustment In Person (Anticoag Cl inic) Diabetes Follow-Up Encounter Details Date Type Department Care Team (Late st Contact Info) Description 10/04/2023 9:00 AM EDT Office Visit Pharmacy, [facility] [address] [place] [address] [facility] [address] [place] [address] DM type 1 nursing care encounter (HCC)* Allergies No known active allergiesdocumented as of this encounter (statuses as of 10/04/2023) Medications Medication Sig Dispensed Refills Start Date End Date Status BD Pen Needle Micro U/F 32G X 6 MM (NOVOFINE 32G PEN NEEDLE)Indications:T ype 1 diabetes mellitus with hemoglobin A1c goal of less than 7.0% ([facility]) For use with pens tests at least 4 times a day E10.9 300 Each 5 03/13/2021 Active OneTouch Delica Lancets 33G Use before meals and at bed. 4 times daily. E10.9 300 Each 1 03/13/2021 Active Buprenorphine HCl-Naloxone HCl 8-2 MG Sublingual Tablet Sublingual (Suboxone)Indication s:History of narcotic addiction (HCC) Place 1 Tablet under the tongue in the morning and 1 Tablet before bedtime. 1 Tablet 0 07/02/2021 Active OneTouch Verio In Vitro Strip (Glucose Blood)Indications:Ty pe 1 diabetes mellitus with hemoglobin A1c goal of less than 7.0% (HCC) Use before meals and bed 4 times a day E10.9 200 Strip 11 02/10/2023 Active ALPRAZolam 1 MG Oral Tablet (xaNAX) 1 tab 1 hour before blood draw. Repeat if needed. 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 Prior micheal Hernandez documented as of this encounter (statuses as of 10/04/2023) Resolved Problems Problem Noted Date Diagnosed Date Resolved Date Food insecurity 03/07/2023 05/12/2023 Overview: Per [facility] Protocol Unspecified severe protein-c alorie malnutrition 12/30/2021 07/02/2022 Hypokalemia 12/30/2021 07/02/2022 BMI less than 19,adult 11/19/202103/04 Drug abuse 11/19/2021 03/04/2023 Dental abscess 07/02/2021 11/19/2021 History of diabetic ketoacidosis 06/15/2021 11/19/2021 Heroin abuse 05/27/2021 11/19/2021 Food insecurity 01/05/2021 05/14/2021 Overview: Per [facility] Protocol History of narcotic addiction 05/04/2018 11/19/2021 Recent unexplained weight loss 05/04/2018 07/03/2019 Overview: Historical Malaise and fatigue 05/04/2018 07/03/19 Overview: Historical documented as of this encounter (statuses as of 10/04/2023) Immunizations Name Administration Dates Next Due TDAP (age 10 and older)(Boostrix) 10/28/2013 documented as of this encounter Social History Tobacco Use Types Packs/Day Years Used Date Smoking Tobacco: Every Day Cigarettes 1.5 15 Smokeless Tobacco: Never Alcohol Use Standard Drinks/Week Comments No 0 (1 standard drink = 0.6 oz pur e alcohol) AUDIT-C Answer Date Recorded Frequency of Alcohol Consumption Never 03/13/2021 Average Number of Drinks Not on file 021 Frequency of Binge Drinking Not on file 02/27 PHQ-2 Answer Date Recorded PHQ Adult Total Score 0 09/29/2023 Hunger Vital Sign Answer Date Recorded Within the past 12 months, y ou worried that your food would run out before you got the money to buy more. Never true 05/03/20 Within the past 12 months, t he food you bought just didn't last and you didn't have money to get more. Never true 05/03/2023 Sex and Gender Information Value Date Recorded Sex Assigned at Male 03/04/2023 9:56 AM EDT Gender Identity Male 03/04/2023 9:56 AM EDT Sexual Orientation Straight 03/04/2023 9: 56 AM EDT Job Start Date Occupation Industry Not on file Not on file Not on file documented as of this encounter Patient Instructions * Patient Instructions* Estefany Powers, [facility] - 10/04/2023 9:15 AM EDT Images from the original note were not included. Diabetic Retinopathy: Evaluating Your Eyes Diabetic retinopathy is a condition that happens when diabetes damages blood vessels in the rear ofthe eye. It can lead to vision loss. To help catch it early, have a complete dilated eye exam at least once a year. During the exam, the eye healthcare provider will review your medical history, examine your eyes, and check your vision. Women who are and have pre-existing type 1 or type 2 diabetes have an increased risk of retinopathy. Women with diabetes should have an eye exam before or in the first trimester. They should continue to be monitored every trimester and for 1 year after delivery, depending on the severity of the retinopathy. The retina is the light-sensitive part of the eye that allows you to see. High blood sugar can damage blood vessels of the retina and cause them to leak or bleed. This damage can lead to abnormal blood vessel growth. This condition is called diabetic retinopathy. You may not have symptoms early in the disease. Later, there may be floaters, blurred vision, or poor night vision. There may also be partial or complete vision loss. Early cases of diabetic retinopathy can be treated by carefully controlling blood sugar, blood pressure, and cholesterol. Surgery or laser treatments may help restore lost vision. Laser surgery can shrink abnormal blood vessels or close ones that are leaking. Medicines injected in the eye can help decrease swelling of the retina. Home care Take all medicines, including insulin or oral diabetic medicine, exactly as prescribed. Follow the diet advised by your healthcare provider. If you have high cholesterol, follow a low-fat, low-cholesterol diet. Monitor blood sugars as advised. Try to achieve your ideal weight. If you smoke, quit smoking. Tobacco use worsens the effect of diabetes on your blood vessels. If you have high blood pressure, consider buying an automatic blood pressure machine. These are available at most pharmacies. Use this to monitor your blood pressure. Report your blood pressure readings to your healthcare provider. Exercise regularly. Follow-up care Follow up with your healthcare provider, or as advised. You must have a complete eye exam at least once a year, more often if needed. Untreated diabetic retinopathy can lead to complete loss of vision. Occupational therapists can help you adapt to any vision loss you have, including learning techniques to safely administer insulin. When to seek medical advice Call your healthcare provider right away if any of these occur. Increasing blurriness or any sudden changes in your vision Sudden flashes of light inside your eye New floaters (small dots or strings that seem to be moving across your field of vision) Eye pain, redness, or discharge from your eyelid New dark spots appearing in your field of vision Halos around lights Dimness of vision Partial or complete loss of vision Women with diabetes should have a complete eye exam before becoming , or as soon as possible when they find out they are . Retinopathy sometimes worsens during . Your eye exam Your eye healthcare provider uses an eye chart and other tools to check your vision. Then he or sheexamines your eyes for signs of disease. You are given eye drops to widen (dilate) your pupils. Youmay have one or more of the following tests: Tonometry to measure fluid pressure inside the eye. Slit lamp exam to allow the healthcare provider to view the structures of your eye. Ultrasound to create an image of the eye using sound waves. Ultrasound may be used if blood is found in the clear gel that fills the eye (vitreous). Ocular coherence tomography (OCT) to create an image of the retina using light waves. This shows ifthere is fluid leaking into certain parts of the eye. It can also measure the thickness of the retina. Fluorescein angiography This test may be done to check the health of the inside lining of the eye (retina). It also checks the tiny blood vessels (capillaries) that carry blood to the retina. During the test: Photographs are taken of the retina. A dye is then injected into the bloodstream through the arm or hand. The dye travels to the capillaries in the eye. More photographs are taken of the retina. The dye causes the capillaries to stand out on the photographs. You may feel brief nausea during the procedure. For a few hours after the test, your skin, eyes, and urine may appear yellow. Talk with your healthcare provider for more information about this test. Date Last Reviewed: 10/29/201519991477-7229 [employer]. [address] [place] [address], [place] [address]. All rights reserved. This information is not intended as a substitute for professional medical care. Always follow your healthcare professional's instructions. documented in this encounter Progress Notes * Estefany Powers RPh - 10/04/2023 8:59 AM EDT Images from the original note were not included. Medication Therapy Disease Management - CSII Follow-up Interval History: Hernesto Thomas is an 32 year old year old male returning to the [facility] for a diabetes insulin pump follow-up visit. Blood glucose control since last visit: improved Medication intolerance: no Medication compliance: yes Hospitalization or ED Utilization since last visit: no Hypoglycemia requiring assistance since last visit: no Current Diabetes Medications: Omnipod Dash Insulin: Novolog INCREASE: Basal Rate: 0.70units/hour Bolus wizard: on and using ICR: 1:15 INCREASE: ISF: 1:45 Blood Glucose Goals: 70-140 Active Insulin Time: 4 hours [place] Blood Glucose Review: s (mg/dL) Hypoglycemia Assessment: 1. Do you know what the symptoms of hypoglycemia are? Yes 2. How often can you tell by your symptoms if your blood sugar is low? Always 3. In a typical week, how many times will your blood sugar go below 70 mg/dL? sometimes Patient Active Problem List Diagnosis Code Well adult exam Z00.00 Tobacco use disorder F17.200 Type 1 diabetes mellitus with hemoglobin A1c goal of less than 7.0% ([facility]) E10.9 Encounter for monitoring Suboxone maintenance therapy Z51.81, Z79.899 Non compliance with medical treatment Z91.199 Opioid dependence, uncomplicated ([facility]) F11.20 Review of patient's allergies indicates: No Known Allergies Current Outpatient Medications Medication Sig Dispense Refill BD Pen Needle Micro U/F 32G X 6 MM (NOVOFINE 32G PEN NEEDLE) For use with pens tests at least 4 times a day E10.9 300 Each 5 OneTouch Delica Lancets 33G Use before meals and at bed. 4 times daily. E10.9 300 Each 1 Buprenorphine HCl-Naloxone HCl 8-2 MG Sublingual Tablet Sublingual (Suboxone) Place 1 Tablet under the tongue in the morning and 1 Tablet before bedtime. 1 Tablet 0 OneTouch Verio In Vitro Strip (Glucose Blood) Use before meals and bed 4 times a day E10.9 200 Strip 11 ALPRAZolam 1 MG Oral Tablet (xaNAX) 1 tab 1 hour before blood draw. Repeat if needed. 2 Tablet 0 Omnipod DASH Pods (Gen 4) USE 1 POD EVERY 3 DAYS FOR INSULIN DELIVERY 10 Each 2 Insulin Aspart 100 UNIT/ML Injection Solution (NovoLOG) Use up to 75 units daily in insulin pump 60mL 0 Gabapentin 300 MG Oral Capsule (Neurontin) TAKE 1 CAPSULE BY MOUTH THREE TIMES DAILY 90 Capsule 2 No current facility-administered medications for this visit. Objective: The ASCVD Risk score (Xiomara MARIANO, et al., 2019) failed to calculate for the following reasons: The 2019 ASCVD risk score is only valid for ages 40 to 79 Estimated body mass index is 20.4 kg/m as calculated from the following: Height as of 03/04/23: 1.829 m (6'). Weight as of 03/04/23: 68.2 kg (150 lb 7 oz). BP Readings from Last 3 Encounters: 03/04/23 106/62 07/02/22 100/56 12/30/21 101/62 No components found for: "[id number]" No results found for: "MICROALBUMIN" No results found for: "LDL" Lab Results Component Value Date/Time ALT - [facility] 20 05/03/2023 11:09 AM ALT - [facility] 86 (H) 05/05/2018 02:03 PM Assessment & Plan: Glycemic control is stable but not at goal Patient agreeable to adjust medications as noted below. Basal settings increased as glucose is stable overnight and between meals. ICR/fixed dose continued as glucose is stable postprandially. ISF strengthened as glucose is not correcting to goal range. Patient to SMBG at least 4 times daily, before each meal and at bedtime. Patient aware to contact clinic if any hypoglycemia before next visit. Reviewed rule of 15s. Reviewed appropriate management of hyperglycemia as noted in pump start documentation. Diabetes Medications: Omnipod Dash Insulin: Novolog INCREASE: Basal Rate: 12 am to 12 pm: 0.8 units/hour 12 pm to 5:30 pm: 0.6 units/hour 5:30 to 12 am: 0.8 units/hour Bolus wizard: on and using ICR: 1:15 INCREASE: ISF: 12 am to 12 pm: 1:40 12 pm to 5:30 pm: 1:48 5:30 pm to 12 AM: 1:40 Blood Glucose Goals: 70-140 Active Insulin Time: 4 hours Diabetes Health Maintenance: due for eye exam, will be done today, labs patient given reminder Return to Clinic: 8 week(s) 12/06/2023 Estefany Powers [facility] Clinical Pharmacist Medication Therapy Disease Management 10/04/2023, 9:00 AM The importance of having a yearly diabetic eye exam has been discussed with patient. Order and/or Referral placed along with patient instructions. Provider made aware. Estefany Powers [facility] The importance of having a yearly diabetic eye exam has been discussed with patient. Order and/or Referral placed along with patient instructions. Provider made aware. Estefany Powers [facility] Diabetic Retinopathy: Evaluating Your Eyes Diabetic retinopathy is a condition that happens when diabetes damages blood vessels in the rear ofthe eye. It can lead to vision loss. To help catch it early, have a complete dilated eye exam at least once a year. During the exam, the eye healthcare provider will review your medical history, examine your eyes, and check your vision. Women who are and have pre-existing type 1 or type 2 diabetes have an increased risk of retinopathy. Women with diabetes should have an eye exam before or in the first trimester. They should continue to be monitored every trimester and for 1 year after delivery, depending on the severity of the retinopathy. The retina is the light-sensitive part of the eye that allows you to see. High blood sugar can damage blood vessels of the retina and cause them to leak or bleed. This damage can lead to abnormal blood vessel growth. This condition is called diabetic retinopathy. You may not have symptoms early in the disease. Later, there may be floaters, blurred vision, or poor night vision. There may also be partial or complete vision loss. Early cases of diabetic retinopathy can be treated by carefully controlling blood sugar, blood pressure, and cholesterol. Surgery or laser treatments may help restore lost vision. Laser surgery can shrink abnormal blood vessels or close ones that are leaking. Medicines injected in the eye can help decrease swelling of the retina. Home care Take all medicines, including insulin or oral diabetic medicine, exactly as prescribed. Follow the diet advised by your healthcare provider. If you have high cholesterol, follow a low-fat, low-cholesterol diet. Monitor blood sugars as advised. Try to achieve your ideal weight. If you smoke, quit smoking. Tobacco use worsens the effect of diabetes on your blood vessels. If you have high blood pressure, consider buying an automatic blood pressure machine. These are available at most pharmacies. Use this to monitor your blood pressure. Report your blood pressure readings to your healthcare provider. Exercise regularly. Follow-up care Follow up with your healthcare provider, or as advised. You must have a complete eye exam at least once a year, more often if needed. Untreated diabetic retinopathy can lead to complete loss of vision. Occupational therapists can help you adapt to any vision loss you have, including learning techniques to safely administer insulin. When to seek medical advice Call your healthcare provider right away if any of these occur. Increasing blurriness or any sudden changes in your vision Sudden flashes of light inside your eye New floaters (small dots or strings that seem to be moving across your field of vision) Eye pain, redness, or discharge from your eyelid New dark spots appearing in your field of vision Halos around lights Dimness of vision Partial or complete loss of vision Women with diabetes should have a complete eye exam before becoming , or as soon as possible when they find out they are . Retinopathy sometimes worsens during . Your eye exam Your eye healthcare provider uses an eye chart and other tools to check your vision. Then he or sheexamines your eyes for signs of disease. You are given eye drops to widen (dilate) your pupils. Youmay have one or more of the following tests: Tonometry to measure fluid pressure inside the eye. Slit lamp exam to allow the healthcare provider to view the structures of your eye. Ultrasound to create an image of the eye using sound waves. Ultrasound may be used if blood is found in the clear gel that fills the eye (vitreous). Ocular coherence tomography (OCT) to create an image of the retina using light waves. This shows ifthere is fluid leaking into certain parts of the eye. It can also measure the thickness of the retina. Fluorescein angiography This test may be done to check the health of the inside lining of the eye (retina). It also checks the tiny blood vessels (capillaries) that carry blood to the retina. During the test: Photographs are taken of the retina. A dye is then injected into the bloodstream through the arm or hand. The dye travels to the capillaries in the eye. More photographs are taken of the retina. The dye causes the capillaries to stand out on the photographs. You may feel brief nausea during the procedure. For a few hours after the test, your skin, eyes, and urine may appear yellow. Talk with your healthcare provider for more information about this test. Date Last Reviewed: 10/29/201519993035-7925 [employer]. [address] [place] [address], [place] [address]. All rights reserved. This information is not intended as a substitute for professional medical care. Always follow your healthcare professional's instructions. documented in this encounter Plan of Treatment Upcoming Encounters Date Type Department Care Team (Late st Contact Info) Description 12/06/2023 9:00 AM EDT [facility], [facility] [address] [facility] [place] [address] [facility] [address] [facility] [place] [id number] 03/07/2024 10:20 AM EDT Office Visit Family Practice [facility] [address] [place] [address] Gilbert Suarez MD [address] [place] [address] Health Maintenance Due Date Last Done Comments DISCUSS TOBACCO CESSATION (REFER TO SMARTSET #[id number]) 1989 Pneumococcal Vaccine: Pediatrics (0 to 5 Years) and At-Risk Patients (6 to 64 Years) (1 of 2 - PCV) 11/24/1995 Albumin/Creatinine Ratio 11/24/2007 HbA1c 07/02/2022 12/30/2021, 06/27/2019 GFR 12/30/2022 12/30/2021, 10/28, 11/13/2021, Additional history exists COVID-19 Vaccine ( season) 2023 Diabetic Eye Exam 07/02/2023 07/02/2022 Diabetic Foot Exam 07/02/2023 07/02/2022 DTaP,Tdap,and Td Vaccines (6 - Td or Tdap) 10/29/2023 10/28/2013, 01/26/2002, 02/14/1995, Additional history exists Influenza Vaccine (FLU shot) (Season Ended) 2024 Depression Screening 09/28/2024 09/29/2023 Hepatitis B Completed 09/22/1993, 10/28, 09/09/1992 GARDASIL-HPV IMMUNIZATION SERIES Aged Out No longer eligible based on patient's age to complete this topic MENINGOCOCCAL (MENACTRA/MENVEO) Aged Out No longer eligible based on patient's age to complete this topic documented as of this encounter Medical Devices Not on filedocumented as of this encounter Visit Diagnoses Diagnosis DM type 1 nursing care encounter (HCC)- Primary Type I (juvenile type) diabetes mellitus without mention of complication, not stated as uncontrolled documented in this encounter Advance Directives Healthcare Agents on File Name Relationship Healthcare Agent Relationshi p Communication [facility] Repr esentative (appointed verbally by patient or by statute hierarchy) Care Teams Appliance Line Assembler Relationship Specialty Start Date End Date Gilbert Suarez MD [address] [place] [id number] PCP - General Family Medicine 07/02/19 documented as of this encounter
--- OUTSIDE RECORDS SUMMARY | 2023-11-23 23:09 | External Medical Summary | Summary of Care ---
Author Name Unknown Organization [facility] Address [address] [place] [address] Phone [phone] Care Team Providers Care Ornamental Iron Erector Name Role Phone Gilbert Suarez MD Primary Care Provider + Reason for Visit * Reason Comments Dosage Adjustment In Person (Anticoag Cl inic) Diabetes Follow-Up Encounter Details Date Type Department Care Team (Late st Contact Info) Description 08/02/2023 9:00 AM EST Office Visit Pharmacy, [facility] [address] [facility] [place] [address] [facility] [address] [place] [address] Type 1 diabetes mellitus with hemoglobin A1c goal of less than 7.0% ([facility])* Allergies No known active allergiesdocumented as of this encounter (statuses as of 08/02/2023) Medications Medication Sig Dispensed Refills Start Date End Date Status BD Pen Needle Micro U/F 32G X 6 MM (NOVOFINE 32G PEN NEEDLE)Indications:T ype 1 diabetes mellitus with hemoglobin A1c goal of less than 7.0% ([facility]) For use with pens tests at least [...] if needed. 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 90 Capsule 5 03/29/2023 Active Omnipod DASH Pods (Gen 4) USE 1 POD EVERY 3 DAYS FOR INSULIN DELIVERY 10 Each 2 07/14/2023 Active Insulin Aspart 100 UNIT/ML Injection Solution (NovoLOG)Indications :Type 1 diabetes mellitus with hemoglobin A1c goal of less than 7.0% (HCC) Use up to 75 units daily in insulin pump 60 mL 0 07/28/2023 Active documented as of this encounter (statuses as of 08/02/2023) Active Problems Problem Noted Date Diagnosed Date Opioid dependence, uncomplicated 07/02/2022 Non compliance with medical treatment 11/19/2021 Encounter for monitoring Suboxone maintenance th erapy 07/02/2021 Type 1 diabetes mellitus wit h hemoglobin A1c goal of less than 7.0% 07/05/2019 Tobacco use disorder 05/04/2018 Well adult exam 01/14/2003 Overview: Mom-Tatyana Gardiner, sister Ekaterina. Prior micheal Hernandez documented as of this encounter (statuses as of 08/02/2023) Resolved Problems Problem Noted Date Diagnosed Date [...] as of this encounter (statuses as of 08/02/2023) Immunizations Name Administration Dates Next Due TDAP [...] Date Recorded PHQ Adult Total Score 0 07/12/2023 Hunger Vital Sign Answer Date Recorded Within [...] on file documented as of this encounter Progress Notes * Estefany Powers, [facility] - 08/02/2023 9:10 AM EST Medication Therapy Disease Management [facility] - Diabetes Management Progress Note Hernesto Thomas, identified by name and date of , is a 32 year old male being seen for diabetes management/education. Patient presents for return diabetic visit. DIABETES: Current diabetic medications: Omnipod Dash Insulin: Novolog Basal Rate: 0.65units/hour Bolus wizard: on and using ICR: 1:14 ISF: 1:50 Blood Glucose Goals: 70-140 Active Insulin Time: 4 hours Medication Injection Site: Abdomen Lifestyle: Diet: unchanged Glucose Review/SMBG: Readings obtained from patient device Hypoglycemia: Does your blood sugar go below 70 mg/dL? Yes, notes some lower BG values after eating Hyperglycemia symptoms present: none Recent Labs Units 12/30/21 1141 HEMOGLOBIN A1C - [facility] % 12.0* Recent Labs Units 12/30/21 1141 11/14/21 0000 11/13/21 0000 ESTIMATED GLOMERULAR FILTRATION RATE - [facility] mL/min >90 -- -- EGFR-OUTSIDE LAB ML/MIN -- 134 99.8 CREATININE - [facility] mg/dL 0.6 -- -- CREATININE-OUTSIDE LAB MG/DL -- 0.61 1.00 HYPERTENSION: Patient on ACEi/ARB: no, not indicated BP Readings from Last 3 Encounters: 03/04/23 106/62 07/02/22 100/56 12/30/21 101/62 Blood pressure at goal: yes HYPERLIPIDEMIA: Patient is taking moderate or high intensity statin: No Current regimen: None Goal statin intensity: none The ASCVD Risk score (Xiomara DK, et al., 2019) failed to calculate for the following reasons: The 2019 ASCVD risk score is only valid for ages 40 to 79 No results for input(s): "LDLDIRECT", "LDLCALC", "LDLCHOL" in the last 81568 hours. HEALTH MAINTENANCE REVIEW: Health Maintenance Due Topic Date Due DISCUSS TOBACCO CESSATION (REFER TO SMARTSET #2596) Never done Pneumococcal Vaccine: Pediatrics (0 to 5 Years) and At-Risk Patients (6 to 64 Years) (1 of 2 - PCV)Never done Albumin/Creatinine Ratio Never done HbA1c 07/02/2022 GFR 12/30/2022 Influenza Vaccine (FLU shot) (1) Never done COVID-19 Vaccine ( - 2022- season) Never done Diabetic Eye Exam 07/02/2023 Diabetic Foot Exam 07/02/2023 ASSESSMENT & PLAN: ICD-10-CM 1. Type 1 diabetes mellitus with hemoglobin A1c goal of less than 7.0% ([facility]) E10.9 BG Readings - Blood sugars uncontrolled. Average BG values for last 30 days was 305. Medications - Reviewed current regimen, patient is adherent to regimen. Will increase basal insulinand insulin correction factor. Diet, Exercise, Lifestyle - No significant lifestyle changes since last visit. Discussed with patient . Patient is agreeable to SMBG 1-3 time(s) daily. Patient aware to contact clinic if any hypoglycemia before next visit. MEDICATION CHANGES: yes, see below; preferred pharmacy[facility] Medications: Omnipod Dash Insulin: Novolog INCREASE: Basal Rate: 0.70units/hour Bolus wizard: on and using ICR: 1:15 INCREASE: ISF: 1:45 Blood Glucose Goals: 70-140 Active Insulin Time: 4 hours HEALTH MAINTENANCE INTERVENTIONS: Labs: Ordered & Scheduled: HgA1c, BMP/CMP, and Urine Microalbumin Immunizations: Up to Date Foot Exam: discuss with pcp Eye Exam: discuss with pcp Annual Wellness Visit: N/A FOLLOW UP: Return to clinic in 8 weeks 10/04/2023 Estefany Powers [facility] Clinical Pharmacist - [employer] Organ[employer] Medication Therapy Management Clinic 08/02/2023, 9:10 AM documented in this encounter Plan of Treatment Upcoming Encounters Date Type Department Care Team (Late st Contact Info) Description 10/04/2023 9:00 AM EDT Office Visit Pharmacy, [facility] [address] [place] [address] [facility] [address] [place] [address] 03/07/2024 10:20 AM EDT Office Visit Family Practice [facility] [address] [place] [address] Gilbert Suarez MD [address] [place] [address] Scheduled Orders Name Type Priority Associated Diagnoses Orde r Schedule ALBUMIN / CREATININE RATIO, URINE Lab Routine Type 1 diabetes mellitus with hemoglobin A1c goal of less than 7.0% (HCC) Expected: 08/02/2023 (Approximate), Expires: 08/01/2024 HEMOGLOBIN A1C Lab Routine Type 1 diabetes mellitus with hemoglobin A1c goal of less than 7.0% (HCC) Expected: 08/02/2023, Expires: 08/01/2024 BASIC METABOLIC PANEL Lab Routine Type 1 diabetes mellitus with hemoglobin A1c goal of less than 7.0% (HCC) Expected: 08/02/2023, Expires: 08/01/2024 Health Maintenance Due Date Last Done Comments DISCUSS TOBACCO CESSATION (REFER TO SMARTSET #[id number]) 1989 Pneumococcal Vaccine: Pediatrics (0 to 5 Years) and At-Risk Patients (6 to 64 Years) (1 of 2 - PCV) 11/24/1995 Albumin/Creatinine Ratio 11/24/2007 HbA1c 07/02/2022 12/30/2021, 06/27/2019 GFR 12/30/2022 12/30/2021, 10/28, 11/13/2021, Additional history exists COVID-19 Vaccine ( - season) 2023 Influenza Vaccine (FLU shot) (#1) 2023 Diabetic Eye Exam 07/02/2023 07/02/2022 Diabetic Foot Exam 07/02/2023 07/02/2022 DTaP,Tdap,and Td Vaccines (6 - Td or Tdap) 10/29/2023 10/28/2013, 01/26/2002, 02/14/1995, Additional history exists Depression Screening 07/12/2024 07/12/2023 Hepatitis B Completed 09/22/1993, 10/28, 09/09/1992 GARDASIL-HPV IMMUNIZATION SERIES Aged Out No longer eligible based on patient's age to complete this topic MENINGOCOCCAL (MENACTRA/MENVEO) Aged Out No longer eligible based on patient's age to complete this topic documented as of this encounter Medical Devices Not on filedocumented as of this encounter Visit Diagnoses Diagnosis Type 1 diabetes mellitus with hemoglobin A1c goal of less than 7.0% (HCC)- Primary documented in this encounter Advance Directives Healthcare Agents on File Name Relationship Healthcare Agent Relationshi p Communication [facility] Care Repr esentative (appointed verbally by patient or by statute hierarchy) Care Teams Ornamental Iron Erector Relationship Specialty Start Date End Date Gilbert Suarez MD [address] [place] [address] PCP - General Family Medicine 07/02/19 documented as of this encounter
--- OUTSIDE RECORDS SUMMARY | 2023-11-23 23:09 | External Medical Summary | Summary of Care ---
Author Name Unknown Organization [facility] Address [address] [place] [address] Phone [phone] Care Team Providers Care Ceramic Coater Machine Name Role Phone Gilbert Suarez MD Primary Care Provider + Reason for Visit * Reason Onset Date Comments Information 11/11/2023 DM eye Encounter Details Date Type Department Care Team (Late st Contact Info) Description 11/11/2023 Telephone Family Practice [facility] [address] [facility] [address] Gilbert Suarez MD [address] [facility] [place] [address] Information (DM eye) Allergies No known active allergiesdocumented as of this encounter (statuses as of 11/11/2023) Medications Medication Sig Dispensed Refills Start Date End Date Status BD Pen Needle Micro U/F 32G X 6 MM (NOVOFINE 32G PEN NEEDLE)Indications:T ype 1 diabetes mellitus with hemoglobin A1c goal of less than 7.0% ([facility]) For use with pens tests at least 4 times a day E10.9 300 Each 5 03/13/2021 Active OneTouch Delica Lancets 33G Use before meals and at bed. 4 times daily. E10.9 300 Each 1 03/13/2021 Active Buprenorphine HCl-Naloxone HCl 8-2 MG Sublingual Tablet Sublingual (Suboxone)Indication s:History of narcotic addiction ([facility]) Place 1 Tablet under the tongue in the morning and 1 Tablet before bedtime. 1 Tablet 07/02/2021 Active OneTouch Verio In Vitro Strip (Glucose Blood)Indications:Ty pe 1 diabetes mellitus with hemoglobin A1c goal of less than 7.0% (HCC) Use before meals and bed 4 times a day E10.9 200 Strip 11 02/10/2023 Active ALPRAZolam 1 MG Oral Tablet (xaNAX) 1 tab 1 hour before blood draw. Repeat if needed. 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 (HCC) TAKE 1 CAPSULE BY MOUTH THREE TIMES DAILY 90 Capsule 2 09/06/2023 Active Omnipod DASH Pods (Gen 4) USE 1 POD EVERY 3 DAYS FOR INSULIN DELIVERY 10 Each 1 10/04/2023 Active Insulin Aspart 100 UNIT/ML Injection Solution (NovoLOG)Indications :Type 1 diabetes mellitus with hemoglobin A1c goal of less than 7.0% (HCC) USE UP TO 75 UNITS DAILY VIA PUMP 60 mL 5 10/27/2023 Active documented as of this encounter (statuses as of 11/11/2023) Active Problems Problem Noted Date Diagnosed Date Opioid dependence, uncomplicated 07/02/2022 Non compliance with medical treatment 11/19/2021 Encounter for monitoring Suboxone maintenance th erapy 07/02/2021 Type 1 diabetes mellitus wit h hemoglobin A1c goal of less than 7.0% 07/05/2019 Tobacco use disorder 05/04/2018 Well adult exam 01/14/2003 Overview: Mom-Tatyana Gardiner, sister Ekaterina. Prior micheal Hernandez documented as of this encounter (statuses as of 11/11/2023) Resolved Problems Problem Noted Date Diagnosed Date [...] as of this encounter (statuses as of 11/11/2023) Immunizations Name Administration Dates Next Due TDAP [...] Answer Date Recorded PHQ Adult Total Score 2 11/02/2023 Hunger Vital Sign Answer Date Recorded Within [...] on file documented as of this encounter Miscellaneous Notes * Telephone Encounter - Mary Araujo LPN - 11/11/2023 3:21 PM EDT Patient with a positive Diabetic Retinopathy scan. The images are not able to be interpreted Outreach action taken: Left Message and MyChart message sent Mary Araujo LPN documented in this encounter Plan of Treatment Upcoming Encounters Date Type Department Care Team (Late st Contact Info) Description 12/06/2023 9:00 AM EDT Office Visit Pharmacy, [facility] [address] [place] [address] [facility] [address] [place] [address] 03/07/2024 10:20 AM EDT Office Visit Family Practice [facility] [address] [place] [address] Gilbert Suarez MD [address] [place] [address] Health Maintenance Due Date Last Done Comments DISCUSS TOBACCO CESSATION (REFER TO SMARTSET #[id number]) 1989 Pneumococcal Vaccine: Pediatrics (0 to 5 Years) and At-Risk Patients (6 to 64 Years) (1 of 2 - PCV) 11/24/1995 Albumin/Creatinine Ratio 11/24/2007 HbA1c 07/02/2022 12/30/2021, 06/27/2019 GFR 12/30/2022 12/30/2021, 10/28, 11/13/2021, Additional history exists COVID-19 Vaccine ( season) 2023 Diabetic Foot Exam 07/02/2023 07/02/2022 DTaP,Tdap,and Td Vaccines (6 - Td or Tdap) 10/29/2023 10/28/2013, 01/26/2002, 02/14/1995, Additional history exists Influenza Vaccine (FLU shot) (Season Ended) 2024 Diabetic Eye Exam 10/03/2024 10/04/2023, 07/02/2022 Depression Screening 11/01/2024 11/02/2023 Hepatitis B Completed 09/22/1993, 10/28, 09/09/1992 GARDASIL-HPV IMMUNIZATION SERIES Aged Out No longer eligible based on patient's age to complete this topic MENINGOCOCCAL (MENACTRA/MENVEO) Aged Out No longer eligible based on patient's age to complete this topic documented as of this encounter Medical Devices Not on filedocumented as of this encounter Advance Directives Healthcare Agents on File Name Relationship Healthcare Agent Relationshi p Communication [facility] Health Care Repr esentative (appointed verbally by patient or by statute hierarchy) Care Teams Ceramic Coater Machine Relationship Specialty Start Date End Date Gilbert Suarez MD [address] [place] [address] PCP - General Family Medicine 07/02/19 documented as of this encounter
--- OUTSIDE RECORDS SUMMARY | 2023-11-23 23:09 | External Medical Summary | Summary of Care ---
Author Name Unknown Organization [facility] Address [address] [place] [address] Phone [phone] Care Team Providers Care Linux Administrator Name Role Phone Gilbert Suarez MD Primary Care Provider + Reason for Visit * Reason Onset Date Comments Scan To Read 10/04/2023 Diabetic eye 10/03 Encounter Details Date Type Department Care Team (Late st Contact Info) Description 10/04/2023 Telephone Family Practice [facility] [address] [facility] [place] [address] Gilbert Suarez MD [address] [place] [address] Scan To Read (Diabetic eye 10/04/23) Allergies No known active allergiesdocumented as of this encounter (statuses as of 10/04/2023) Medications Medication Sig Dispensed Refills Start Date End Date Status BD Pen Needle Micro U/F 32G X 6 MM (NOVOFINE 32G PEN NEEDLE)Indications:T ype 1 diabetes mellitus with hemoglobin A1c goal of less than 7.0% ([facility]) For use with pens tests at least [...] if needed. 2 Tablet 0 03/04/2023 Active Insulin Aspart 100 UNIT/ML Injection Solution (NovoLOG)Indications :Type 1 diabetes mellitus with hemoglobin A1c goal of less than 7.0% ([facility]) Use up to 75 units daily in insulin pump 60 mL 0 07/28/2023 Active Gabapentin 300 MG Oral Capsule (Neurontin)Indicatio ns:DM type 1 with diabetic peripheral neuropathy ([facility]) TAKE 1 CAPSULE BY MOUTH THREE TIMES DAILY 90 Capsule 2 09/06/2023 Active Omnipod DASH Pods (Gen 4) USE 1 POD EVERY 3 DAYS FOR INSULIN DELIVERY 10 Each 1 10/04/2023 Active documented as of this encounter (statuses [...] encounter Miscellaneous Notes * Telephone Encounter - Gilbert Moore MD - 10/04/2023 1:14 PM EDT Retinal Scan Imaging Hernesto Thomas [id number] Retinal Scan Interpretation: The images are not able to be interpreted. Diabetes Retinal Imaging Care Plan: The retinal scan results are uninterpretable - I will forward this encounter to the Ophthalmology DM Letter Pool [[id number]], they will send an unreadable retinal scan letter to the patient. I will forward this encounter to the ordering provider. Patient prefers to be seen at [facility] for follow-up evaluation. This encounter will be sent to Ophthalmology scheduling services, please schedule the patient within 3 months. Gilbert Moore MD 10/04/2023 1:14 PM * Telephone Encounter - Keren Sandoval LPN - 10/04/2023 9:44 AM EDT A Diabetic Telemed Eye image was taken and requires your interpretation for Dr Suarez. Please check your inbasket for image. Patient prefers to be seen at [facility] if a follow-up appointment is needed. documented in this encounter Plan of Treatment Upcoming Encounters Date Type Department Care Team (Late st Contact Info) Description 12/06/2023 9:00 AM EDT Office Visit Pharmacy, [facility] [address] [address] [facility] [address] [place] [address] 03/07/2024 10:20 AM EDT Office Visit Family Practice [facility] [address] [place] [address] Gilbert Suarez MD [address] [place] [address] Health Maintenance Due Date Last Done Comments DISCUSS TOBACCO CESSATION (REFER TO SMARTSET #3042) 1989 Pneumococcal Vaccine: Pediatrics (0 to 5 Years) and At-Risk Patients (6 to 64 Years) (1 of 2 - PCV) 11/24/1995 Albumin/Creatinine Ratio 11/24/2007 HbA1c 07/02/2022 12/30/2021, 06/27/2019 GFR 12/30/2022 12/30/2021, 10/28, 11/13/2021, Additional history exists COVID-19 Vaccine ( - season) 2023 Diabetic Foot Exam 07/02/2023 07/02/2022 DTaP,Tdap,and Td Vaccines (6 - Td or Tdap) 10/29/2023 10/28/2013, 01/26/2002, 02/14/1995, Additional history exists Influenza Vaccine (FLU shot) (Season Ended) 2024 Depression Screening 09/28/2024 09/29/2023 Diabetic Eye Exam 10/03/2024 10/04/2023, 07/02/2022 Hepatitis B Completed 09/22/1993, 10/28, 09/09/1992 GARDASIL-HPV [...] Relationship Healthcare Agent Relationshi p Communication [facility] Care Repr esentative (appointed verbally by patient or by statute hierarchy) Care Teams Linux Administrator Relationship Specialty Start Date End Date Gilbert Suarez MD [address] [place] [address] PCP - General Family Medicine 07/02/19 documented as of this encounter
--- OUTSIDE RECORDS SUMMARY | 2023-11-23 23:09 | External Medical Summary | Summary of Care ---
Author Name Unknown Organization [facility] Address [address] [place] [address] Phone [phone] Care Team Providers Care Director Of Database Marketing Name Role Phone Gilbert Crystal MD Primary Care Provider + Reason for Visit * Reason Comments eRx-Medication Refill Encounter Details Date Type Department Care Team (Late st Contact Info) Description 10/03/2023 Refill Family Practice [facility] [address] [place] [address] Gilbert Crystal MD [address] [place] [address] Allergies No known active allergiesdocumented as of this encounter (statuses as of 10/04/2023) Medications Medication Sig Dispensed Refills Start Date End Date Status BD Pen Needle Micro U/F 32G X 6 MM (NOVOFINE 32G PEN NEEDLE)Indicatio ns:Type 1 diabetes mellitus with hemoglobin A1c goal of less than 7.0% ([facility]) For use with pens tests at least 4 times a day E10.9 300 Each 5 03/13/2021 Active OneTouch Delica Lancets 33G Use before meals and at bed. 4 times daily. E10.9 300 Each 1 03/13/2021 Active Buprenorphine HCl-Naloxone HCl 8-2 MG Sublingual Tablet Sublingual (Suboxone)Indica tions:History of narcotic addiction (HCC) Place 1 Tablet under the tongue in the morning and 1 Tablet before bedtime. 1 Tablet 0 07/02/2021 Active OneTouch Verio In Vitro Strip (Glucose Blood)Indication s:Type 1 diabetes mellitus with hemoglobin A1c goal of less than 7.0% (HCC) Use before meals and bed 4 times a day E10.9 200 Strip 11 02/10/2023 Active ALPRAZolam 1 MG Oral Tablet (xaNAX) 1 tab 1 hour before blood draw. Repeat if needed. 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 (HCC) TAKE 1 CAPSULE BY MOUTH THREE TIMES DAILY 90 Capsule 2 09/06/2023 Active Omnipod DASH Pods (Gen 4) USE 1 POD EVERY 3 DAYS FOR INSULIN DELIVERY 10 Each 1 10/04/2023 Active Omnipod DASH Pods (Gen 4) USE 1 POD EVERY 3 DAYS FOR INSULIN DELIVERY 10 Each 2 07/14/2023 10/04/2023 Discontinued documented as of this encounter (statuses as [...] encounter Miscellaneous Notes * Telephone Encounter - Nessa Delatorre, [facility] - 10/04/2023 9:56 AM EDT Signed Prescriptions: Disp Refills Omnipod DASH Pods (Gen 4) 10 Each1 Sig: USE 1 POD EVERY 3 DAYS FOR INSULIN DELIVERYAuthorizing Provider: GILBERT CRYSTAL User: NESSA DELATORRE documented in this encounter Plan of Treatment Upcoming Encounters Date Type Department Care Team (Late st Contact Info) Description 12/06/2023 9:00 AM EDT Office Visit Pharmacy, [facility] [address] [address] [facility] [address] [address] 03/07/2024 10:20 AM EDT Office Visit Family Practice [facility] [address] [address] Gilbert Crystal MD [address] [place] [address] Health Maintenance Due Date Last Done Comments DISCUSS TOBACCO CESSATION (REFER TO SMARTSET #8020) 1989 Pneumococcal Vaccine: Pediatrics (0 to 5 Years) and At-Risk Patients (6 to 64 Years) (1 of 2 - PCV) 11/24/1995 Albumin/Creatinine Ratio 11/24/2007 HbA1c 07/02/2022 12/30/2021, 06/27/2019 GFR 12/30/2022 12/30/2021, 10/28, 11/13/2021, Additional history exists COVID-19 Vaccine ( - 2022-24 season) 2023 Diabetic Foot Exam 07/02/2023 07/02/2022 [...] Relationship Healthcare Agent Relationshi p Communication [facility] Care Repr esentative (appointed verbally by patient or by statute hierarchy) Care Teams Director Of Database Marketing Relationship Specialty Start Date End Date Gilbert Crystal MD [address] [place] [address] PCP - General Family Medicine 07/02/19 documented as of this encounter
--- OUTSIDE RECORDS SUMMARY | 2023-11-23 23:09 | External Medical Summary | Summary of Care ---
Author Name Unknown Organization [facility] Address [address] [place] [address] Phone [phone] Care Team Providers Care Buttermilk Drier Operator Name Role Phone Gilbert Crystal MD Primary Care Provider + Reason for Visit * Reason Comments eRx-Medication Refill Encounter Details Date Type Department Care Team (Late st Contact Info) Description 10/25/2023 Refill Family Practice [facility] [address] [place] [address] Gilbert Crystal MD [address] [place] [address] Type 1 diabetes mellitus with hemoglobin A1c goal of less than 7.0% (HCC) Allergies No known active allergiesdocumented as of this encounter (statuses as of 10/27/2023) Medications Medication Sig Dispensed Refills Start Date End Date Status BD Pen Needle Micro U/F 32G X 6 MM (NOVOFINE 32G PEN NEEDLE)Indicatio ns:Type 1 diabetes mellitus with hemoglobin A1c goal of less than 7.0% (HCC) For use with pens tests at least [...] 03/04/2023 Active Gabapentin 300 MG Oral Capsule (Neurontin)Indic [...] VIA PUMP 60 mL 5 10/27/2023 Active Insulin Aspart 100 UNIT/ML Injection Solution (NovoLOG)Indicat ions:Type 1 diabetes mellitus with hemoglobin A1c goal of less than 7.0% (HCC) Use up to 75 units daily in insulin pump 60 mL 07/28/2023 10/27/2023 Discontinued documented as of this encounter (statuses as of 10/27/2023) Active Problems Problem Noted Date Diagnosed Date Opioid dependence, uncomplicated 07/02/2022 Non compliance with medical treatment 11/19/2021 Encounter for monitoring Suboxone maintenance th erapy 07/02/2021 Type 1 diabetes mellitus wit h hemoglobin A1c goal of less than 7.0% 07/05/2019 Tobacco use disorder 05/04/2018 Well adult exam 01/14/2003 Overview: Mom-Tatyana Gardiner, sister Ekaterina. Prior micheal Hernandez documented as of this encounter (statuses as of 10/27/2023) Resolved Problems Problem Noted Date Diagnosed Date [...] as of this encounter (statuses as of 10/27/2023) Immunizations Name Administration Dates Next Due TDAP [...] encounter Miscellaneous Notes * Telephone Encounter - Estefany Powers [facility] - 10/27/2023 11:21 AM EDT Signed Prescriptions: Disp Refills Insulin Aspart 100 UNIT/ML Injection Solut*60 mL 5 Sig: USE UP TO 75 UNITS DAILY VIA PUMP Authorizing Provider: GILBERT CRYSTAL User: ESTEFANY POWERS * Telephone Encounter - Nia Flynn [facility] - 10/27/2023 11:11 AM EDTPending Prescriptions: Disp Refills Insulin Aspart 100 UNIT/ML Injection Solut*60 mL 0 Sig: USE UP TO 75 UNITS DAILY VIA PUMP * Telephone Encounter - Nia Flynn [facility] - 10/27/2023 11:10 AM EDT Pt followed by [facility] Forwarding for approval, pt does not have updated A1c on file. Thanks, Nia Flynn, PharmD Clinical Pharmacist [facility] ([facility] (formerly Telepharmacy) [phone] 10/27/2023 11:10 AM documented in this encounter Plan of Treatment Upcoming Encounters Date Type Department Care Team (Late st Contact Info) Description 12/06/2023 9:00 AM EDT Office Visit Pharmacy, [facility] [address] [place] [address] [facility] [address] [place] [address] 03/07/2024 10:20 AM EDT Office Visit Family Practice [facility] [address] [place] [address] Gilbert Crystal MD [address] [place] [address] Health Maintenance Due Date Last Done Comments DISCUSS TOBACCO CESSATION (REFER TO SMARTSET #[id number]) 1989 Pneumococcal Vaccine: Pediatrics (0 to 5 [...] A1c goal of less than 7.0% (HCC) documented in this encounter Advance Directives Healthcare Agents on File Name Relationship Healthcare Agent Relationshi p Communication Taylor Gardiner Mother Health Care Repr esentative (appointed verbally by patient or by statute hierarchy) Care Teams Buttermilk Drier Operator Relationship Specialty Start Date End Date Gilbert Crystal MD [address] [place] [address] PCP - General Family Medicine 07/02/19 documented as of this encounter
--- OUTSIDE RECORDS SUMMARY | 2023-11-23 23:09 | External Medical Summary | Summary of Care ---
Author Name Unknown Organization [facility] Address [address] [place] [address] Phone [phone] Care Team Providers Care Molecular Biology Scientist Name Role Phone Gilbert Suarez MD Primary Care Provider + Encounter Details Date Type Department Care Team (Late st Contact Info) Description 05/04/2023 Telephone Family Practice [facility] [address] [address] Gilbert Suarez MD [address] [facility] [place] [address] Allergies No known active allergiesdocumented as of this encounter (statuses as of 08/03/2023) Medications Medication Sig Dispensed Refills Start Date End Date Status BD Pen Needle Micro U/F 32G X 6 MM (NOVOFINE 32G PEN NEEDLE)Indications:T ype 1 diabetes mellitus with hemoglobin A1c goal of less than 7.0% ([facility]) For use with pens tests at least 4 times a day E10.9 300 Each 5 03/13/2021 Active OneTouch Delica Lancets 33G Use before meals and at bed. 4 times daily. E10.9 300 Each 1 03/13/2021 Active Buprenorphine HCl-Naloxone HCl 8-2 MG Sublingual Tablet Sublingual (Suboxone)Indication s:History of narcotic addiction ([facility]) Place 1 Tablet under the tongue in [...] before bedtime. 90 Capsule 5 03/29/2023 Active documented as of this encounter (statuses as of 08/03/2023) Active Problems Problem Noted Date Diagnosed Date Opioid dependence, uncomplicated 07/02/2022 Non compliance with medical treatment 11/19/2021 Encounter for monitoring Suboxone maintenance th erapy 07/02/2021 Type 1 diabetes mellitus wit h hemoglobin A1c goal of less than 7.0% 07/05/2019 Tobacco use disorder 05/04/2018 Well adult exam 01/14/2003 Overview: Mom-Tatyana Gardiner, sister Ekaterina. Prior micheal Hernandez documented as of this encounter (statuses as of 08/03/2023) Resolved Problems Problem Noted Date Diagnosed Date [...] as of this encounter (statuses as of 08/03/2023) Immunizations Name Administration Dates Next Due TDAP [...] money to buy more. Never true 05/03/20 23 Within the past 12 months, t he [...] encounter Miscellaneous Notes * Telephone Encounter - Keren Sandoval LPN - 05/04/2023 12:11 PM EST Called lab. The animal care technician states patient was "unsure" if everything needed to be done so patient said "just to the labs ordered most recently". I asked if a A1C could be run and the lab states they did not take a lavender vial so patient will need another lab draw.. I asked that they notate patient has severe needle phobia so he takes medication prior to lab draw so if this were to happen again, please call down to confirm with PCP/nurse which labs are most important. * Telephone Encounter - Gilbert Suarez MD - 05/04/2023 9:49 AM EST Nursing-please call our lab. He had a couple labs run yesterday, but not most of the labs that were future ordered. I'm not surewhy. Can they add on the other labs to his current blood? (Most important is to get an A1c) If not, please let pt know needs new lab draw. documented in this encounter Plan of Treatment Upcoming Encounters Date Type Department Care Team (Late st Contact Info) Description 10/04/2023 9:00 AM EDT Office Visit Pharmacy, [facility] [address] [place] [address] [facility] [address] [place] [address] 03/07/2024 10:20 AM EDT Office Visit Family Practice [facility] [address] [address] Gilbert Suarez MD [address] [place] [address] Health Maintenance Due Date Last Done Comments DISCUSS TOBACCO CESSATION (REFER TO SMARTSET #[id number]) 1989 Pneumococcal Vaccine: Pediatrics (0 to 5 Years) and At-Risk Patients (6 to 64 Years) (1 of 2 - PCV) 11/24/1995 Albumin/Creatinine Ratio 11/24/2007 HbA1c 07/02/2022 12/30/2021, 06/27/2019 GFR 12/30/2022 12/30/2021, 10/28, 11/13/2021, Additional history exists COVID-19 Vaccine ( season) 2023 Influenza Vaccine (FLU shot) (#1) [...] Name Relationship Healthcare Agent Relationshi p Communication [facility] esent[facility] (appointed verbally by patient or by statute hierarchy) Care Teams Molecular Biology Scientist Relationship Specialty Start Date End Date Gilbert Suarez MD [address] [place] [address] PCP - General Family Medicine 07/02/19 documented as of this encounter
--- OUTSIDE RECORDS SUMMARY | 2023-11-23 23:09 | External Medical Summary | Summary of Care ---
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) Allergies No known active allergiesdocumented as of this encounter (statuses as of 09/06/2023) Medications Medication Sig Dispensed Refills Start Date End Date Status BD Pen Needle Micro U/F 32G X 6 MM (NOVOFINE 32G PEN NEEDLE)Indicatio ns:Type 1 diabetes mellitus with hemoglobin A1c goal of less than 7.0% ([facility]) For use with pens tests [...] TIMES DAILY 90 Capsule 2 09/06/2023 Active Gabapentin 300 MG Oral Capsule (Neurontin)Indic ations: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 90 Capsule 5 03/29/2023 09/06/2023 Discontinued documented as of this encounter (statuses as of 09/06/2023) Active Problems Problem Noted Date Diagnosed Date Opioid dependence, uncomplicated 07/02/2022 Non compliance with medical treatment 11/19/2021 Encounter for monitoring Suboxone maintenance th erapy 07/02/2021 Type 1 diabetes mellitus wit h hemoglobin A1c goal of less than 7.0% 07/05/2019 Tobacco use disorder 05/04/2018 Well adult exam 01/14/2003 Overview: Mom-Tatyana Gardiner, sister Ekaterina. Prior micheal Hernandez documented as of this encounter (statuses as of 09/06/2023) Resolved Problems Problem Noted Date Diagnosed Date [...] as of this encounter (statuses as of 09/06/2023) Immunizations Name Administration Dates Next Due TDAP [...] Miscellaneous Notes * Telephone Encounter - Gilbert Crystal MD - 09/06/2023 9:59 PM EDTSigned Prescriptions: Disp Refills Gabapentin 300 MG Oral Capsule (Neurontin) 90 Cap*2 Sig: TAKE 1 CAPSULE BY MOUTH THREE TIMES DAILY Authorizing Provider: GILBERT CRYSTAL * Telephone Encounter - Brianna Justice LPN - 09/06/2023 7:44 AM EDTPending Prescriptions: Disp Refills Gabapentin 300 MG Oral Capsule 90 Cap*0 Sig: TAKE 1 CAPSULE BY MOUTH THREE TIMES DAILY * Telephone Encounter - Brianna Justice LPN - 09/06/2023 7:43 AM EDT Did you pend patient's preferred pharmacy and medication before forwarding?yes Pharmacy: [facility] [address] [place] [address] [place] [address] Pending Prescriptions: Disp Refills Gabapentin 300 MG Oral Capsule (Neurontin*90 Cap*0 Sig: TAKE 1 CAPSULE BY MOUTH THREE TIMES DAILY Last Visit: 03/04/2023 (in office), Visit date not found (telemedicine) Next Visit: 03/07/2024 If no future appointments scheduled, and last appointment is greater than a year ago, please schedule patient for a follow-up appointment Last date the medication was ordered: 03/29/2023 Is this request for a controlled substance?No Urine Drug Screen:No results found for this or any previous visit. Patient Phone Numbers Labs: Lab Results Component Value Date/Time CREAT 0.6 12/30/2021 11:41 AM CREAT 0.61 11/14/2021 12:00 AM CREAT 0.8 05/05/2018 02:03 PM POTASSIUM 4.6 12/30/2021 11:41 AM POTASSIUM 3.1 (A) 11/14/2021 12:00 AM POTASSIUM 6.9 (HH) 05/05/2018 02:03 PM TSH 0.52 05/05/2018 02:03 PM ALT 20 05/03/2023 11:09 AM ALT 86 (H) 05/05/2018 02:03 PM HGBA1C 12.0 (H) 12/30/2021 11:41 AM HGBA1C 14.0 (A) 06/27/2019 12:00 AM * Telephone Encounter - Roxy Montano - 09/06/2023 7:24 AM EDTPending Prescriptions: Disp Refills Gabapentin 300 MG Oral Capsule 90 Cap*0 Sig: TAKE 1 CAPSULE BY MOUTH THREE TIMES DAILY documented in this encounter Plan of Treatment Upcoming Encounters Date Type Department Care Team (Late st Contact Info) Description 10/04/2023 9:00 AM EDT Office Visit Pharmacy, [facility] [address] [place] [address] [facility] [address] [place] [address] 03/07/2024 10:20 AM EDT Office Visit Family Practice [facility] [address] [place] [address] Gilbert Crystal MD [address] [place] [address] Health Maintenance Due Date Last Done Comments DISCUSS TOBACCO CESSATION (REFER TO SMARTSET #[id number]) 1989 Pneumococcal Vaccine: Pediatrics (0 to 5 [...] (FLU shot) (Season Ended) 2024 Depression Screening 07/12/2024 07/12/2023 Hepatitis B Completed 09/22/1993, 10/28, 09/09/1992 GARDASIL-HPV IMMUNIZATION SERIES Aged Out No longer eligible based on patient's age to complete this topic MENINGOCOCCAL (MENACTRA/MENVEO) Aged Out No longer eligible based on patient's age to complete this topic documented as of this encounter Medical Devices Not on filedocumented as of this encounter Visit Diagnoses Diagnosis 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
--- OUTSIDE RECORDS SUMMARY | 2023-11-23 23:09 | External Medical Summary | Summary of Care ---
Author Name Unknown Organization [facility] Address [address] [place] [address] Phone [phone] Care Team Providers Care Admin Secretary Name Role Phone Gilbert Suarez MD Primary Care Provider + Reason for Visit * Reason Onset Date Comments Scan To Read 10/04/2023 Diabetic eye 10/03 Encounter Details Date Type Department Care Team (Late st Contact Info) Description 10/04/2023 Telephone Family Practice [facility] [address] [facility] [place] [address] Gilbert Suarez MD [address] [place] [address] Scan To Read (Diabetic eye 10/04/23) Allergies No known active allergiesdocumented as of this encounter (statuses as of 11/07/2023) Medications Medication Sig Dispensed Refills Start Date End Date Status BD Pen Needle Micro U/F 32G X 6 MM (NOVOFINE 32G PEN NEEDLE)Indicatio ns:Type 1 diabetes mellitus with hemoglobin A1c goal of less than 7.0% ([facility]) For use with pens tests [...] as of this encounter (statuses as of 11/07/2023) Active Problems Problem Noted Date Diagnosed Date Opioid dependence, uncomplicated 07/02/2022 Non compliance with medical treatment 11/19/2021 Encounter for monitoring Suboxone maintenance th erapy 07/02/2021 Type 1 diabetes mellitus wit h hemoglobin A1c goal of less than 7.0% 07/05/2019 Tobacco use disorder 05/04/2018 Well adult exam 01/14/2003 Overview: Mom-Tatyana Gardiner, sister Ekaterina. Prior micheal Hernandez documented as of this encounter (statuses as of 11/07/2023) Resolved Problems Problem Noted Date Diagnosed Date [...] as of this encounter (statuses as of 11/07/2023) Immunizations Name Administration Dates Next Due DTP Vaccine 06/12/1991, 1,01/26/1991,1990 DTaP Dipth/Tet/Acell Pertussis (Infanrix), Peds 02/14/1995 Haemophilius B (HIB), unspecified 02/27/1991, Hepatitis B Vaccine 09/22/1993,11/07/1992,1992 MMR - Measles/Mumps/Rubella Vaccine 04/09/1996,1 OPV - Polio Virus Vaccine (Oral) 992,02/27/1991,12/22/1990,1989 TB Brandi Test 02/17/1999, 6,02/14/1995,1992,12/22/1990 TD - Tetanus/Diptheria (ADULT) 01/26/2002 TDAP (age 10 and older)(Boostrix) 10/28/2013 documented [...] encounter Miscellaneous Notes * Telephone Encounter - Stella Kuhn OSA - 11/07/2023 11:55 AM EDT LMOM FOR PT TO SCHEDULE A DM EYE APPT * Telephone Encounter - Gilbert Moore MD - 10/04/2023 1:14 PM EDT Retinal Scan Imaging [facility] [id number] Retinal Scan Interpretation: The images are not able to be interpreted. Diabetes Retinal Imaging Care Plan: The retinal scan results are uninterpretable - I will forward this encounter to the Ophthalmology DM Letter Pool [[id number]], they will send an unreadable retinal scan letter to the patient. I will forward this encounter to the ordering provider. Patient prefers to be seen at [facility] for follow-up evaluation. This encounter will [...] image. Patient prefers to be seen at [facility] if a follow-up appointment is needed. documented in this encounter Plan of Treatment Upcoming Encounters Date Type Department Care Team (Late st Contact Info) Description 12/06/2023 9:00 AM EDT Office Visit Pharmacy, [facility] [address] [place] [address] [facility] [address] [place] [address] 03/07/2024 10:20 AM EDT Office Visit Family Practice [facility] [address] [address] Gilbert Suarez MD [address] [place] [address] Health Maintenance Due Date Last Done Comments DISCUSS TOBACCO CESSATION (REFER TO SMARTSET #[id number]) 1989 Pneumococcal Vaccine: Pediatrics (0 to 5 [...] Relationship Healthcare Agent Relationshi p Communication Taylor [facility] Care Repr esentative (appointed verbally by patient or by statute hierarchy) Care Teams Admin Secretary Relationship Specialty Start Date End Date Gilbert Suarez MD [address] [place] [address] PCP - General Family Medicine 07/02/19 documented as of this encounter
--- OUTSIDE RECORDS SUMMARY | 2023-11-23 23:10 | External Medical Summary | Summary of Care ---
Author Name Unknown Organization [facility] Address [address] [place] [address] Phone [phone] Care Team Providers Care Corner Cutter Name Role Phone Gilbert Crystal MD Primary Care Provider + Reason for Visit * Reason Onset Date Comments Medication Refill 07/27/2023 Encounter Details Date Type Department Care Team (Late st Contact Info) Description 07/27/[address] [facility] [address] [facility] [facility] [address] Gilbert Crystal MD [address] [place] [place] [address] Type 1 diabetes mellitus with hemoglobin A1c goal of less than 7.0% ([facility]) Allergies No known active allergiesdocumented as of this encounter (statuses as of 07/28/2023) Medications Medication Sig Dispensed Refills Start Date End Date Status BD Pen Needle Micro U/F 32G X 6 MM (NOVOFINE 32G PEN NEEDLE)Indication s:Type 1 diabetes mellitus with hemoglobin A1c goal of less than 7.0% (HCC) For use with pens tests at least 4 times a day E10.9 300 Each 5 03/13/2021 Active OneTouch Delica Lancets 33G Use before meals and at bed. 4 times daily. E10.9 300 Each 1 03/13/2021 Active Buprenorphine HCl-Naloxone HCl 8-2 MG Sublingual Tablet Sublingual (Suboxone)Indicat ions:History of narcotic addiction (HCC) Place 1 Tablet under the tongue in the morning and 1 Tablet before bedtime. 1 Tablet 0 07/02/2021 Active OneTouch Verio In Vitro Strip (Glucose Blood)Indications :Type 1 diabetes mellitus with hemoglobin A1c goal of less than 7.0% (HCC) Use before meals and bed 4 times a day E10.9 200 Strip 11 02/10/2023 Active ALPRAZolam 1 MG Oral Tablet (xaNAX) 1 tab 1 hour before blood draw. Repeat if needed. 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 90 Capsule 5 03/29/2023 Active Omnipod DASH Pods (Gen 4) USE 1 POD EVERY 3 DAYS FOR INSULIN DELIVERY 10 Each 2 07/14/2023 Active Insulin Aspart 100 UNIT/ML Injection Solution (NovoLOG)Indicati ons:Type 1 diabetes mellitus with hemoglobin A1c goal of less than 7.0% (HCC) Use up to 75 units daily in insulin pump 60 mL 0 07/28/2023 Active Insulin Aspart 100 UNIT/ML Injection Solution (NovoLOG)Indicati ons:Type 1 diabetes mellitus with hemoglobin A1c goal of less than 7.0% (HCC) Use up to 75 units daily in insulin pump 60 mL 3 11/19/2022 07/27/2023 Discontinued (Refill) documented as of this encounter (statuses as of 07/28/2023) Active Problems Problem Noted Date Diagnosed Date Opioid dependence, uncomplicated 07/02/2022 Non compliance with medical treatment 11/19/2021 Encounter for monitoring Suboxone maintenance th erapy 07/02/2021 Type 1 diabetes mellitus wit h hemoglobin A1c goal of less than 7.0% 07/05/2019 Tobacco use disorder 05/04/2018 Well adult exam 01/14/2003 Overview: Mom-Tatyana Gardiner, sister Ekaterina. Prior micheal Hernandez documented as of this encounter (statuses as of 07/28/2023) Resolved Problems Problem Noted Date Diagnosed Date [...] as of this encounter (statuses as of 07/28/2023) Immunizations Name Administration Dates Next Due TDAP [...] encounter Miscellaneous Notes * Telephone Encounter - Lourdes Ho OSA - 07/28/2023 9:18 AM EST Appts scheduled with pt * Telephone Encounter - Gilbert Crystal MD - 07/28/2023 9:11 AM ESTSigned Prescriptions: Disp Refills Insulin Aspart 100 UNIT/ML Injection Solut*60 mL 0 Sig: Use up to 75 units daily in insulin pump Authorizing Provider: GILBERT CRYSTAL * Telephone Encounter - Gilbert Crystal MD - 07/28/2023 9:10 AM EST Schedule f/u with me for the fall & [place] * Telephone Encounter - Lourdes Lundy [facility] - 07/28/2023 8:08 AM ESTPending Prescriptions: Disp Refills Insulin Aspart 100 UNIT/ML Injection Solut*60 mL 0 Sig: Use up to 75 units daily in insulin pump Electronically signed by Lourdes Lundy [facility] at 07/28/2023 8:08 AM EST * Telephone Encounter - Lourdes Lundy [facility] - 07/28/2023 8:07 AM EST Unable to authorize medication refills for pended medication(s) at this time. Part of the protocol criteria used for refill authorization was not satisfied. Patient needs routine labs on file within past year. Pt recently notified of due labs. Please approve if appropriate. Thank you, Lourdes Lundy, Mukul Clinical Pharmacist [facility] ([facility] ([facility] [phone] 07/28/2023, 8:07 AM Pending Prescriptions: Disp Refills Insulin Aspart 100 UNIT/ML Injection Solu*60 mL 0 Sig: Use up to 75 units daily in insulin pump Last Visit: 03/04/2023 (in office), Visit date not found (telemedicine) Next Visit: Visit date not found If no future appointments scheduled, and last appointment is greater than a year ago, please schedule patient for a follow-up appointment Last date the medication was ordered: 11/19 Pharmacy: [facility] [id number] [facility] Is this request for a controlled substance? No Urine Drug Screen:No results found for this [...] AM HGBA1C 14.0 (A) 06/27/2019 12:00 AM Electronically signed by Lourdes Lundy [facility] at 07/28/2023 8:08 AM EST * Telephone Encounter - Alden Martínez, restrike hammer operator - 07/27/2023 12:19 PM EST Did you pend patient's preferred pharmacy and medication before forwarding?yes Pharmacy: [facility] [id number] Pending Prescriptions: Disp Refills Insulin Aspart 100 UNIT/ML Injection Solu*60 mL 3 Sig: Use up to 75 units daily in insulin pump Last Visit: 03/04/2023 (in office), Visit date not found (telemedicine) Next Visit: Visit date not found If no future appointments scheduled, and last appointment is greater than a year ago, please schedule patient for a follow-up appointment Last date the medication was ordered: 11/19/2022 Is this request for a controlled substance?No [...] AM HGBA1C 14.0 (A) 06/27/2019 12:00 AM documented in this encounter Plan of Treatment Upcoming Encounters Date Type Department Care Team (Late st Contact Info) Description 08/02/2023 9:00 AM EST [facility] [address] [address] [address] [facility] [place] [address] 03/07/2024 10:20 AM EDT [facility] [address] [place] [address] Gilbert Crystal MD [address] [place] [address] Health Maintenance Due Date Last Done Comments DISCUSS TOBACCO CESSATION (REFER TO SMARTSET #[id number]) 1989 Pneumococcal Vaccine: Pediatrics (0 to 5 [...] patient or by statute hierarchy) Care Teams Corner Cutter Relationship Specialty Start Date End Date Gilbert Crystal MD [address] [place] [id number] PCP - General Family Medicine 07/02/19 documented as of this encounter
--- OUTSIDE RECORDS SUMMARY | 2023-11-23 23:10 | External Medical Summary | Summary of Care ---
Author Name Unknown Organization [facility] Address [address] [place] [address] Phone [phone] Care Team Providers Care Occupational Therapist Assistant Name Role Phone Gilbert Suarez MD Primary Care Provider + Encounter Details Date Type Department Care Team (Late st Contact Info) Description 07/18/2023 Orders Only PATIENT PORTAL DO NOT DELETE THIS DEPT USED BY [place] YUN [id number] Allergies No known active allergiesdocumented as of this encounter (statuses as of 07/18/2023) Medications Medication Sig Dispensed Refills Start Date End Date Status BD Pen Needle Micro U/F 32G X 6 MM (NOVOFINE 32G PEN NEEDLE)Indications :Type 1 diabetes mellitus with hemoglobin A1c goal of less than 7.0% (HCC) For use with pens tests at least 4 times a day E10.9 300 Each 5 03/13/2021 Active OneTouch Delica Lancets 33G Use before meals and at bed. 4 times daily. E10.9 300 Each 1 03/13/2021 Active Buprenorphine HCl-Naloxone HCl 8-2 MG Sublingual Tablet Sublingual (Suboxone)Indicati ons:History of narcotic addiction (HCC) Place 1 Tablet under the tongue in the morning and 1 Tablet before bedtime. 1 Tablet 0 07/02/2021 Active Insulin Aspart 100 UNIT/ML Injection Solution (NovoLOG)Indicatio ns:Type 1 diabetes mellitus with hemoglobin A1c goal of less than 7.0% (HCC) Use up to 75 units daily in insulin pump 60 mL 3 11/19/2022 Active Additional Information Patient taking differently: 150 Units, Takes 150u Q3 days, Reported on 03/04/2023 OneTouch Verio In Vitro Strip (Glucose Blood)Indications: Type 1 diabetes mellitus with hemoglobin A1c goal of less than 7.0% (HCC) Use before meals and bed 4 times a day E10.9 200 Strip 11 02/10/2023 Active ALPRAZolam 1 MG Oral Tablet (xaNAX) 1 tab 1 hour before blood draw. Repeat if needed. 2 Tablet 0 03/04/2023 Active Gabapentin 300 MG Oral Capsule (Neurontin)Indicat ions: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 90 Capsule 5 03/29/2023 Active Omnipod DASH Pods (Gen 4) USE 1 POD EVERY 3 DAYS FOR INSULIN DELIVERY 10 Each 2 07/14/2023 Active documented as of this encounter (statuses as of 07/18/2023) Active Problems Problem Noted Date Diagnosed Date Opioid dependence, uncomplicated 07/02/2022 Non compliance with medical treatment 11/19/2021 Encounter for monitoring Suboxone maintenance th erapy 07/02/2021 Type 1 diabetes mellitus wit h hemoglobin A1c goal of less than 7.0% 07/05/2019 Tobacco use disorder 05/04/2018 Well adult exam 01/14/2003 Overview: Mom-Tatyana Gardiner, sister Ekaterina. Prior micheal Hernandez documented as of this encounter (statuses as of 07/18/2023) Resolved Problems Problem Noted Date Diagnosed Date [...] as of this encounter (statuses as of 07/18/2023) Immunizations Name Administration Dates Next Due TDAP [...] on file documented as of this encounter Plan of Treatment Health Maintenance Due Date Last Done Comments DISCUSS TOBACCO CESSATION (REFER TO SMARTSET #5742) 1990 COVID-19 Vaccine (#1) 05/25/1990 Pneumococcal Vaccine: Pediatrics (0 to 5 Years) and At-Risk Patients (6 to 64 Years) (1 - PCV) 11/24/1995 Albumin/Creatinine Ratio 11/24/2007 HbA1c 07/02/2022 12/30/2021, 06/27/2019 GFR 12/30/2022 12/30/2021, 10/28, 11/13/2021, Additional history exists Influenza Vaccine (FLU shot) (#1) 2023 Diabetic [...] Name Relationship Healthcare Agent Relationshi p Communication [facility] Repr esentative (appointed verbally by patient or by statute hierarchy) Care Teams Occupational Therapist Assistant Relationship Specialty Start Date End Date Gilbert Suarez MD [address] [place] [address] PCP - General Family Medicine 07/02/19 documented as of this encounter
--- OUTSIDE RECORDS SUMMARY | 2023-11-23 23:10 | External Medical Summary | Summary of Care ---
Author Name Unknown Organization [facility] Address [address] [place] [address] Phone [phone] Care Team Providers Care Continuous Improvement Lead Name Role Phone Gilbert Crystal MD Primary Care Provider + Reason for Visit * Reason Comments eRx-Medication Refill Encounter Details Date Type Department Care Team (Late st Contact Info) Description 07/14/2023 Refill Family Practice [facility] [address] [place] [address] Gilbert Crystal MD [address] [place] [address] Encounter for long-term (current) use of medications* Allergies No known active allergiesdocumented as of this encounter (statuses as of 07/27/2023) Medications Medication Sig Dispensed Refills Start Date End Date Status BD Pen Needle Micro U/F 32G X 6 MM (NOVOFINE 32G PEN NEEDLE)Indicatio ns:Type 1 diabetes mellitus with hemoglobin A1c goal of less than 7.0% ([facility]) For use with pens tests at [...] 03/04/2023 OneTouch Verio In Vitro Strip (Glucose Blood)Indication [...] INSULIN DELIVERY 10 Each 2 07/14/2023 Active Omnipod DASH Pods (Gen 4) USE 1 POD EVERY 3 DAYS FOR INSULIN DELIVERY 10 Each 5 01/03/2023 4 Discontinued documented as of this encounter (statuses as of 07/27/2023) Active Problems Problem Noted Date Diagnosed Date Opioid dependence, uncomplicated 07/02/2022 Non compliance with medical treatment 11/19/2021 Encounter for monitoring Suboxone maintenance th erapy 07/02/2021 Type 1 diabetes mellitus wit h hemoglobin A1c goal of less than 7.0% 07/05/2019 Tobacco use disorder 05/04/2018 Well adult exam 01/14/2003 Overview: Mom-Tatyana Gardiner, sister Ekaterina. Prior micheal Hernandez documented as of this encounter (statuses as of 07/27/2023) Resolved Problems Problem Noted Date Diagnosed Date [...] as of this encounter (statuses as of 07/27/2023) Immunizations Name Administration Dates Next Due TDAP [...] encounter Miscellaneous Notes * Telephone Encounter - Anastasia Montano - 07/27/2023 1:40 AM EST Received message from [facility] regarding patient needing labs. Patient was notified. Successfully contacted patient and provided [facility] message. * Telephone Encounter - Girish Carreon [facility] - 07/14/2023 3:29 PM ESTSigned Prescriptions: Disp Refills Omnipod DASH Pods (Gen 4) 10 Each2 Sig: USE 1 POD EVERY 3 DAYS FOR INSULIN DELIVERY Authorizing Provider: GILBERT CRYSTAL Ordering User: GIRISH CARREON * Telephone Encounter - Girish Carreon [facility] - 07/14/2023 3:25 PM EST Provided 30 days supply with 2 refill(s). Per refill protocol patient should have routine labs on file within past year. Reviewed AMP report, Care Gaps/Health Maintenance, medications list, and for any routine labs typically ordered for this patient. Lab orders placed. Please contact patient to advise of labs ordered for blood draw AND URINE specimen (patient will have to be able to void to provide sample). Recommend patient to fast if able for labs. Patient may still have water and regular medications. Advise to obtain labs before requesting the next refill. Thank You Girish Carreon, PhillipD Clinical Pharmacist [facility] ([facility]) (formerly [facility]) [phone] / [phone] 07/14/2023, 3:28 PM documented in this encounter Plan of Treatment Scheduled Orders Name Type Priority Associated Diagnoses Orde r Schedule BASIC METABOLIC PANEL Lab Routine Encounter for long-term (current) use of medications Expected: 07/21/2023 (Approximate), Expires: 07/14/2024 HEMOGLOBIN A1C Lab Routine Encounter for long-term (current) use of medications Expected: 07/21/2023 (Approximate), Expires: 07/14/2024 VITAMIN B12 Lab Routine Encounter for long-term (current) use of medications Expected: 07/21/2023 (Approximate), Expires: 07/14/2024 LIPID PANEL WITH DIRECT LDL IF TG IS HIGH Lab Routine Encounter for long-term (current) use of medications Expected: 07/21/2023 (Approximate), Expires: 07/14/2024 ALBUMIN / CREATININE RATIO, URINE Lab Routine Encounter for long-term (current) use of medications Expected: 07/28/2023, Expires: 07/14/2024 Health Maintenance Due Date Last Done Comments DISCUSS TOBACCO CESSATION (REFER TO SMARTSET #[id number]) 1989 Pneumococcal Vaccine: Pediatrics (0 to 5 [...] as of this encounter Visit Diagnoses Diagnosis Encounter for long-term (current) use of medications- Primary Encounter for long-term (current) use of other medications documented in this encounter Advance Directives Healthcare Agents on File Name Relationship Healthcare Agent Relationshi p Communication [facility] Repr esentative (appointed verbally by patient or by statute hierarchy) Care Teams Continuous Improvement Lead Relationship Specialty Start Date End Date Gilbert Crystal MD [address] [place] [address] PCP - General Family Medicine 07/02/19 documented as of this encounter
[2023-11-23] MEDS: VANCOMYCIN HCL 1,750 MG in SODIUM CHLORIDE 0.9% 500 ML IV ONE (23:36)
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
[2023-11-24] MEDS ORDERED: GLUCAGON FOR INJ 1 MG VIAL SQ PRN ×3 (01:30→01:46)
[2023-11-24] MEDS ORDERED: CARBOHYDRATES FOR HYPOGLYCEMIA PO PRN ×3 (01:30→01:46)
[2023-11-24] MEDS ORDERED: GLUCOSE 10 TAB/TUBE PO PRN ×3 (01:30→01:46)
[2023-11-24] MEDS ORDERED: GLUCOSE 40% GEL 15 GM TUBE PO PRN ×3 (01:30→01:46)
[2023-11-24] MEDS ORDERED: DEXTROSE 50% 50 ML SYRINGE IV PRN ×3 (01:30→01:46)
[2023-11-24] MEDS ORDERED: POLYETHYLENE (MIRALAX) 17 GM PACK PO PRN (01:30)
[2023-11-24] MEDS ORDERED: INSULIN ASPART PER UNIT CHARGE SC SCH (01:30)
[2023-11-24] MEDS ORDERED: INSULIN ASPART 100 UNITS/ML VIAL SC PRN (01:37)
[2023-11-24] MEDS ORDERED: INSULIN, Rapid-Acting PUMP SC SCH (01:45)
[2023-11-24] MEDS: ACETAMINOPHEN 325 MG TAB PO PRN (01:56)
[2023-11-24] MEDS: PIPERACILLIN/TAZOBACTAM 4.5 GM in DEXTROSE 5% MINI-B 100 ML IV SCH (02:57)
[2023-11-24] MEDS: VANCOMYCIN HCL 1,250 MG in SODIUM CHLORIDE 0.9% 250 ML IV SCH (06:36)
[2023-11-24] MEDS ORDERED: Continuous Glucose Monitor SCH (07:30)
[2023-11-24] MEDS ORDERED: PHARMACY GLYCEMIC MGMT CONSULT PRN (07:37)
[2023-11-24 08:08] LABS: Basophils # (auto) 0.05 K/uL (0.00-0.20); Basophils % (auto) 0.9 %; Eosinophils # (auto) 0.37 K/uL (0.00-0.50); Eosinophils % (auto) 6.3 %; Hematocrit (blood only) 38.9 % (42.0-52.0); Hemoglobin 13.1 g/dl (14.0-18.0); Immature Granulocytes # (auto) 0.01 K/uL (0.01-0.20); Immature Granulocytes % (auto) 0.2 %; Lymphocytes # (auto) 1.99 K/uL (1.20-3.40); Mean Corpuscular Hemoglobin 30.8 pg (25.0-34.0); Mean Corpuscular Hgb Conc 33.7 g/dL (32.0-36.0); Mean Corpuscular Volume 91.3 fL (80.0-100.0); Monocytes # (auto) 0.61 K/uL (0.11-0.59); Monocytes % (auto) 10.4 %; Neutrophils # (auto) 2.83 K/uL (1.40-6.50); Neutrophils % (auto) 48.2 %; Platelet Count 223 K/uL (130-400); RDW Coefficient of Variation 13.3 % (11.5-14.5); RDW Standard Deviation 45.3 fL (36.4-46.3); Red Blood Count 4.26 M/uL (4.70-6.10); White Blood Count 5.86 K/ul (4.8-10.8)
[2023-11-24] MEDS: ENOXAPARIN INJ 40 MG/0.4 ML SYR SQ SCH (08:09)
[2023-11-24] MEDS: BUPRENORPHINE/NALOXONE 8/2 MG TAB SL SCH (08:11)
[2023-11-24] MEDS: GABAPENTIN 300 MG CAP PO SCH (08:11)
[2023-11-24 08:20] LABS: BUN Creatinine Ratio 25.8 (10-20); Calcium 8.9 mg/dl (8.6-10.3); Creatinine Clr Calc Pharmacy 173.1 ml/min; Est GFR (African American) 146.2 ml/min; Est GFR (Non-African American) 126.1 ml/min; Potassium 4.3 mmol/L (3.5-5.1)
--- NOTE | 2023-11-24 09:03 | Pharmacy Report ---
Pharmacy PK ABX Note - Date of Service November 24, 2023 - Assessment and Plan Assessment 33 year old M receiving VANCOMCYIN/ZOSYN for treatment of R 2nd toe osteomyelitis. Pertinent microbiologic data includes: Blood cultures pending. Podiatry consult pending. Afebrile/normal WBC. If plan for OR could consider holding antibiotics to assist with culture growth if patient stable. Plan Vancomycin * Loading dose: 1750 mg IV x 1 * Maintenance dose: 1250 mg IV every 8 hours * Regimen is predicted to achieve target AUC/AJITH of 400-600 mg/L.hr * Random level with AM labs 11/24 Pharmacy will continue to follow and will adjust dose/frequency as necessary. Thank you. Pharmacy has transitioned to AUC monitoring for vancomycin. AUC/AJITH is the preferred PK/PD target and is associated with decreased risk of nephrotoxicity compared to traditional trough targets.
[2023-11-24 09:05] LABS: Estimated Average Glucose 235 mg/dl; Hemoglobin A1C 9.8 % (4.5-5.6)
[2023-11-24] MEDS: ADVANCED PROBIOTIC 625 MG CAPSULE PO SCH (09:12)
[2023-11-24] MEDS ORDERED: Nursing to Pharmacy Communication SCH (10:30)
[2023-11-24] MEDS: INSULIN, Rapid-Acting PUMP SC SCH (12:25)
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
[2023-11-24] MEDS: NICOTINE 21 MG/24 HR TDSY TD SCH (15:50)
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
[2023-11-25] MEDS: VANCOMYCIN LEVEL ONE (04:57)
[2023-11-25 05:22] LABS: Calcium 9.3 mg/dl (8.6-10.3); Creatinine Clr Calc Pharmacy 144.6 ml/min; Est GFR (African American) 135.8 ml/min; Est GFR (Non-African American) 117.2 ml/min; Potassium 4.2 mmol/L (3.5-5.1)
[2023-11-25 05:42] LABS: Basophils # (auto) 0.05 K/uL (0.00-0.20); Basophils % (auto) 0.8 %; Eosinophils # (auto) 0.46 K/uL (0.00-0.50); Eosinophils % (auto) 6.9 %; Hematocrit (blood only) 40.2 % (42.0-52.0); Hemoglobin 13.5 g/dl (14.0-18.0); Immature Granulocytes # (auto) 0.01 K/uL (0.01-0.20); Immature Granulocytes % (auto) 0.2 %; Lymphocytes # (auto) 2.65 K/uL (1.20-3.40); Lymphocytes % (auto) 39.9 %; Mean Corpuscular Hemoglobin 30.9 pg (25.0-34.0); Mean Corpuscular Hgb Conc 33.6 g/dL (32.0-36.0); Mean Platelet Volume 10.5 fL (9.4-12.4); Monocytes # (auto) 0.53 K/uL (0.11-0.59); Neutrophils # (auto) 2.94 K/uL (1.40-6.50); Neutrophils % (auto) 44.2 %; Platelet Count 237 K/uL (130-400); RDW Coefficient of Variation 13.2 % (11.5-14.5); RDW Standard Deviation 45.1 fL (36.4-46.3); Red Blood Count 4.37 M/uL (4.70-6.10); White Blood Count 6.64 K/ul (4.8-10.8)
--- NOTE | 2023-11-25 14:50 | Pharmacy Report ---
Pharmacy PK ABX Note - Date of Service November 25, 2023 - Assessment and Plan Assessment 11/24: Blood cultures negative at 24 hours. No plans for surgical intervention at this time. ID has been consulted. Continues on vanc/zosyn for now. Random level this morning 12.8 mcg/ml correlates with achievement of target AUC/AJITH which is predicting 576 mg/L.hr at steady state. Will continue with current dosing. 11/23 33 year old M receiving VANCOMCYIN/ZOSYN for treatment of R 2nd toe oste omyelitis. Pertinent microbiologic data includes: Blood cultures pending. Podiatry consult pending. Afebrile/normal WBC. If plan for OR could consider holding antibiotics to assist with culture growth if patient stable. Plan Vancomycin * Loading dose: 1750 mg IV x 1 * Maintenance dose: 1250 mg IV every 8 hours * Regimen is predicted to achieve target AUC/AJITH of 400-600 mg/L.hr- continue * Random level with AM labs 11/27 or sooner with renal function changes Pharmacy will continue to follow and will adjust dose/frequency as necessary. Thank you. Pharmacy has transitioned to AUC monitoring for vancomycin. AUC/AJITH is the preferred PK/PD target and is associated with decreased risk of nephrotoxicity compared to traditional trough targets.
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
[2023-11-25] MEDS: SULFAMETHOXAZOLE/TRIMETHOPRIM DS 800/160MG TAB PO SCH (20:51)
[2023-11-26 07:25] LABS: Basophils # (auto) 0.04 K/uL (0.00-0.20); Basophils % (auto) 0.7 %; Eosinophils # (auto) 0.42 K/uL (0.00-0.50); Eosinophils % (auto) 6.9 %; Hematocrit (blood only) 38.3 % (42.0-52.0); Immature Granulocytes # (auto) 0.01 K/uL (0.01-0.20); Immature Granulocytes % (auto) 0.2 %; Lymphocytes # (auto) 2.33 K/uL (1.20-3.40); Lymphocytes % (auto) 38.5 %; Mean Corpuscular Hemoglobin 30.8 pg (25.0-34.0); Mean Corpuscular Hgb Conc 33.9 g/dL (32.0-36.0); Mean Corpuscular Volume 90.8 fL (80.0-100.0); Mean Platelet Volume 10.9 fL (9.4-12.4); Monocytes # (auto) 0.67 K/uL (0.11-0.59); Monocytes % (auto) 11.1 %; Neutrophils # (auto) 2.58 K/uL (1.40-6.50); Neutrophils % (auto) 42.6 %; Platelet Count 225 K/uL (130-400); RDW Coefficient of Variation 13.2 % (11.5-14.5); RDW Standard Deviation 43.8 fL (36.4-46.3); Red Blood Count 4.22 M/uL (4.70-6.10); White Blood Count 6.05 K/ul (4.8-10.8)
[2023-11-26 07:30] LABS: BUN Creatinine Ratio 19.1 (10-20); Calcium 8.8 mg/dl (8.6-10.3); Creatinine Clr Calc Pharmacy 128.4 ml/min; Est GFR (African American) 129.3 ml/min; Est GFR (Non-African American) 111.6 ml/min
[2023-11-26] MEDS ORDERED: AMOXICILLIN/CLAVULANATE 875 MG TAB PO SCH (17:00)
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
== END 2023-11-26 14:14 | disposition home or self-care (01) | DRG 638 ==
LOC: ED 12:05 → 3N 11-24 00:21

== ENCOUNTER 2025-04-11 09:32 | Inpatient (IN) ==
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
[2025-04-11] MEDS: OPTIRAY 320 100ml IV ONE (10:26)
[2025-04-11 10:29] LABS: Hematocrit (blood only) 36.9 % (42.0-52.0); Hemoglobin 12.5 g/dL (14.0-18.0); Immature Granulocytes # (auto) 0.06 K/uL (0.01-0.20); Immature Granulocytes % (auto) 0.4 %; Mean Corpuscular Hemoglobin 31.6 pg (25.0-34.0); Mean Corpuscular Volume 93.4 fL (80.0-100.0); Platelet Count 266 K/uL (130-400); RDW Standard Deviation 45.9 fL (36.4-46.3); Red Blood Count 3.95 M/uL (4.70-6.10); White Blood Count 16.11 K/ul (4.8-10.8)
[2025-04-11] MEDS: ONDANSETRON INJ 2 MG/ML 2 ML VIAL IV STA (10:42)
[2025-04-11] MEDS: SODIUM CHLORIDE 0.9% 1,000 ML IV ONE (10:42)
[2025-04-11 10:48] LABS: Anion Gap 4 (3-11); Blood Urea Nitrogen 20 mg/dl (6-23); Calcium 9.1 mg/dl (8.6-10.3); Carbon Dioxide 30 mmol/L (21-32); Chloride 104 mmol/L (98-107); Creatinine Clr Calc Pharmacy 125.7 ml/min; Glucose 260 mg/dl (70-99(Fasting)); Potassium 4.5 mmol/L (3.5-5.1); Sodium 138 mmol/L (136-145)
[2025-04-11 10:49] LABS: Alanine Aminotransferase 15 U/L (7-52); Albumin Globulin Ratio 1.6 (0.9-2); Albumin Level 4.2 gm/dl (3.4-5.0); Alkaline Phosphatase 68 U/L (34-104); Bilirubin,Total 0.5 mg/dl (0.2-1.0); Globulin 2.7 gm/dl (2.5-4.0); Lipase < 3 U/L (11-82); Total Protein 6.9 gm/dl (6.0-8.3)
[2025-04-11] MEDS: PIPERACILLIN/TAZOBACTAM 4.5 GM/100 ML BAG IV ONE (10:49)
--- NOTE | 2025-04-11 10:51 | CT Scan Report ---
ABDOMEN AND PELVIS CT WITH IV CONTRAST CT DOSE: 679.09 mGy.cm HISTORY: Acute right lower quadrant abdominal pain RLQ abd pain TECHNIQUE: Multiaxial CT images of the abdomen and pelvis were performed following the IV administrat ion of 94 cc of Optiray, A dose lowering technique was utilized adhering to the principles of ALARA. COMPARISON STUDY: CTA chest 06/13/2021 FINDINGS: The lung bases are clear. The liver, spleen, gallbladder, and adrenal glands are within nor mal limits. The pancreas is atrophic. There are 2 ill-defined subcentimeter hypodensities of the kidn eys which are too small to characterize. There are a few punctate nonobstructing calculi noted within left kidney. Urinary bladder wall thickening with partial distention. Is wall thickening of the distal esophagus. There is moderate to extensive colonic fecal retention di ffusely throughout the large bowel. There is masslike prominence with irregular edematous wall thicke colleen involving the cecum measuring up to approximately 7 cm, for example image 260 series 3. The visu alized appendix is fluid filled however does not appear to be inflamed. Evaluation of the bowel is li mited without enteric contrast. Wall thickening with partial distention involves the sigmoid colon. T here are several stool filled loops of small bowel within the lower abdomen and pelvis. Unremarkable soft tissues and osseous structures. IMPRESSION: 1. There is prominent mass like irregular wall thickening involving the cecum measuring up to approxi mately 7 cm. Differential considerations would include a mucosal malignancy versus focal colitis. Fol low-up with GI and colonoscopy recommended. 2. No definite CT evidence of acute appendicitis, however evaluation is limited without enteric contr ast. 3. Constipation. 4. Possible distal esophagitis. 5. Nonobstructing left nephrolithiasis. ACT 112: Positive. There are findings on this exam that require communication between the performing entity and the patient following Patient Test Result Information Act [place] Act 112) guidelines. The above report was generated using voice recognition software. It may contain grammatical, syntax o r spelling errors. Electronically signed by: Jake Alvarez M.D. 04/11/2025 10:49 AM
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
[2025-04-11] MEDS ORDERED: INSULIN ASPART 100 UNITS/ML VIAL SC PRN (15:58)
[2025-04-11] MEDS ORDERED: DEXTROSE 50% 50 ML SYRINGE IV PRN (15:58)
[2025-04-11] MEDS ORDERED: GLUCAGON FOR INJ 1 MG VIAL SQ PRN (15:58)
[2025-04-11] MEDS ORDERED: GLUCOSE 40% GEL 15 GM TUBE PO PRN (15:58)
[2025-04-11] MEDS ORDERED: GLUCOSE 10 TAB/TUBE PO PRN (15:58)
[2025-04-11] MEDS ORDERED: ACETAMINOPHEN 325 MG TAB PO PRN (15:58)
[2025-04-11] MEDS: SODIUM CHLORIDE 0.9% 1,000 ML IV SCH (17:13)
[2025-04-11] MEDS: GABAPENTIN 300 MG CAP PO SCH (17:13)
[2025-04-11] MEDS: PIPERACILLIN/TAZOBACTAM 4.5 GM/100 ML BAG IV SCH (17:15)
[2025-04-11] MEDS: CARBOHYDRATES FOR HYPOGLYCEMIA PO PRN (17:16)
[2025-04-11] MEDS: INSULIN, Rapid-Acting PUMP SC SCH (18:20)
[2025-04-11] MEDS: BUPRENORPHINE/NALOXONE 8/2 MG TAB SL SCH (20:52)
[2025-04-11] MEDS: NICOTINE 14 MG/24 HR PATCH TD SCH (21:51)
[2025-04-11] MEDS: KETOROLAC TROMETHAMINE 15 MG/ML VIAL IV ONE (21:51)
[2025-04-12 05:04] LABS: Appearance Urine Clear (Clear); Glucose Urine UA Negative (Negative)
[2025-04-12 07:27] LABS: Hematocrit (blood only) 30.7 % (42.0-52.0); Hemoglobin 10.7 g/dL (14.0-18.0); Mean Corpuscular Hemoglobin 32.0 pg (25.0-34.0); Mean Corpuscular Volume 91.9 fL (80.0-100.0); Platelet Count 217 K/uL (130-400); RDW Standard Deviation 45.5 fL (36.4-46.3); Red Blood Count 3.34 M/uL (4.70-6.10); White Blood Count 14.51 K/ul (4.8-10.8)
[2025-04-12 07:53] LABS: Anion Gap 5.0 (3-11); Blood Urea Nitrogen 12.0 mg/dl (6-23); Calcium 8.4 mg/dl (8.6-10.3); Carbon Dioxide 29.0 mmol/L (21-32); Chloride 106.0 mmol/L (98-107); Creatinine Clr Calc Pharmacy 143.2 ml/min; Glucose 75.0 mg/dl (70-99(Fasting)); Potassium 3.5 mmol/L (3.5-5.1); Sodium 140.0 mmol/L (136-145)
--- NOTE | 2025-04-12 09:53 | Surgery Progress Note ---
Date of Service April 12, 2025 Assessment & Plan (1) Colitis: (2) Sepsis: (3) RLQ abdominal pain: Plan: 34 yo male with one day history of RLQ abdominal pain, chills, fever in setting of long standing diarrhea for 6-[address] scan of abdomen and pelvis with IV contrast showing mass like wall thickening of the cecum measuring 7 cm with differentials being malignancy vs colitis. Acute appendicitis unlikely. Would recommend conservative measures IV antibiotics, IV fluids, pain management as needed, stool studies. Discussed with patient that surgery in this instance with his ct scan findings would be extensive with ex lap and hemicolectomy. no acute surgical intervention recommended, agree with GI work-up, will need close outpatient GI follow up and likely colonoscopy more urgently than July as already scheduled. Continue medical management 04/12/2025 avss leukocytosis improved RLQ pain improving abdomen soft, tenderness in RLQ Plan: No surgical issues Diet and further management by medicine/GI service surgery signing off, call with questions/concerns Admission and Anticipated Discharge Date Admission Date: April 11, 2025 Subjective feeling better no fevers or chills pain in right lower abdomen better, not worse no bowel movement or gas tolerating clears no n,v Physical Exam Constitutional: WD/WN, vitals as above cooperative and comfortable; no acute distress, not ill appearing and not in distress Respiratory: normal respiratory effort; no respiratory distress Gastrointestinal (Abdomen): Inspection/Auscultation: abdomen normal to inspection; abdomen not distended Percussion/Palpation: + abdomen tender (RLQ, improved) and abdomen soft; no guarding, abdomen not rigid and abdomen not firm Skin: no rashes, warm and dry Psychiatric: Orientation: alert and oriented x 3 Results & Data Vital Signs (Past 12 Hours) Vital Signs Temp Pulse Pulse Resp BP BP Pulse Ox 04/12/25 08:22 36.9 C 85 17 111/69 94 04/12/25 03:35 37.5 C 84 18 116/70 97 04/11/25 23:22 94 H 18 105/66 94 04/11/25 23:11 37.4 C 04/11/25 21:55 95 H O2 Del Method 04/12/25 08:22 Room Air 04/12/25 03:35 Room Air 04/11/25 23:22 Room Air 04/11/25 23:11 04/11/25 21:55 Laboratory Results 04/12/25 04/12/25 04/12/25 Range/Units 08:02 06:41 04:08 WBC 14.51 H (4.8-10.8) K/ul RBC 3.34 L (4.70-6.10) M/uL Hgb 10.7 L (14.0-18.0) g/dL Hct 30.7 L (42.0-52.0) % MCV 91.9 (80.0-100.0) fL MCH 32.0 (25.0-34.0) pg MCHC 34.9 (32.0-36.0) g/dL RDW Std Deviation 45.5 (36.4-46.3) fL RDW Coeff of [place] 13.5 (11.5-14.5) % Plt Count 217 (130-400) K/uL MPV 10.3 (9.4-12.4) fL Sodium 140 (136-145) mmol/L Potassium 3.5 D (3.5-5.1) mmol/L Chloride 106 (98-107) mmol/L Carbon Dioxide 29 (21-32) mmol/L Anion Gap 5 (3-11) BUN 12 (6-23) mg/dl Creatinine 0.79 (0.6-1.4) mg/dl Est Cr Clr Drug Dosing 143.2 ml/min eGFR 118.81 BUN/Creatinine Ratio 15.2 (10-20) Glucose 75 (70-99(Fasting)) mg/dl POC Glucose 99 72 (70-99) mg/dl Lactate (0.4-2.0) mmol/L Calcium 8.4 L (8.6-10.3) mg/dl Urine Color Urine Appearance (Clear) Urine pH (4.5-7.5) Ur Specific [place] (1.000-1.030) Urine Protein (Negative) Urine Glucose (UA) (Negative) Urine Ketones (Negative) Urine Blood (Negative) Urine Nitrite (Negative) Urine Bilirubin (Negative) Urine Urobilinogen (Negative) Ur Leukocyte Esterase (Negative) Urine Comment 04/12/25 04/11/25 04/11/25 Range/Units 04:00 20:13 18:18 WBC (4.8-10.8) K/ul RBC (4.70-6.10) M/uL Hgb (14.0-18.0) g/dL Hct (42.0-52.0) % MCV (80.0-100.0) fL MCH (25.0-34.0) pg MCHC (32.0-36.0) g/dL RDW Std Deviation (36.4-46.3) fL RDW Coeff of [place] (11.5-14.5) % Plt Count (130-400) K/uL MPV (9.4-12.4) fL Sodium (136-145) mmol/L Potassium (3.5-5.1) mmol/L Chloride (98-107) mmol/L Carbon Dioxide (21-32) mmol/L Anion Gap (3-11) BUN (6-23) mg/dl Creatinine (0.6-1.4) mg/dl Est Cr Clr Drug Dosing ml/min eGFR BUN/Creatinine Ratio (10-20) Glucose (70-99(Fasting)) mg/dl POC Glucose 85 102 H (70-99) mg/dl Lactate (0.4-2.0) mmol/L Calcium (8.6-10.3) mg/dl Urine Color Yellow Urine Appearance Clear (Clear) Urine pH 6.0 (4.5-7.5) Ur Specific [place] 1.014 (1.000-1.030) Urine Protein Negative (Negative) Urine Glucose (UA) Negative (Negative) Urine Ketones Negative (Negative) Urine Blood Negative (Negative) Urine Nitrite Negative (Negative) Urine Bilirubin Negative (Negative) Urine Urobilinogen Negative (Negative) Ur Leukocyte Esterase Negative (Negative) Urine Comment 04/11/25 04/11/25 04/11/25 Range/Units 16:49 16:46 13:45 WBC (4.8-10.8) K/ul RBC (4.70-6.10) M/uL Hgb (14.0-18.0) g/dL Hct (42.0-52.0) % MCV (80.0-100.0) fL MCH (25.0-34.0) pg MCHC (32.0-36.0) g/dL RDW Std Deviation (36.4-46.3) fL RDW Coeff of [place] (11.5-14.5) % Plt Count (130-400) K/uL MPV (9.4-12.4) fL Sodium (136-145) mmol/L Potassium (3.5-5.1) mmol/L Chloride (98-107) mmol/L Carbon Dioxide (21-32) mmol/L Anion Gap (3-11) BUN (6-23) mg/dl Creatinine (0.6-1.4) mg/dl Est Cr Clr Drug Dosing ml/min eGFR BUN/Creatinine Ratio (10-20) Glucose (70-99(Fasting)) mg/dl POC Glucose 44 L* 48 L* 124 H (70-99) mg/dl Lactate (0.4-2.0) mmol/L Calcium (8.6-10.3) mg/dl Urine Color Urine Appearance (Clear) Urine pH (4.5-7.5) Ur Specific [place] (1.000-1.030) Urine Protein (Negative) Urine Glucose (UA) (Negative) Urine Ketones (Negative) Urine Blood (Negative) Urine Nitrite (Negative) Urine Bilirubin (Negative) Urine Urobilinogen (Negative) Ur Leukocyte Esterase (Negative) Urine Comment 04/11/25 Range/Units 11:45 WBC (4.8-10.8) K/ul RBC (4.70-6.10) M/uL Hgb (14.0-18.0) g/dL Hct (42.0-52.0) % MCV (80.0-100.0) fL MCH (25.0-34.0) pg MCHC (32.0-36.0) g/dL RDW Std Deviation (36.4-46.3) fL RDW Coeff of [place] (11.5-14.5) % Plt Count (130-400) K/uL MPV (9.4-12.4) fL Sodium (136-145) mmol/L Potassium (3.5-5.1) mmol/L Chloride (98-107) mmol/L Carbon Dioxide (21-32) mmol/L Anion Gap (3-11) BUN (6-23) mg/dl Creatinine (0.6-1.4) mg/dl Est Cr Clr Drug Dosing ml/min eGFR BUN/Creatinine Ratio (10-20) Glucose (70-99(Fasting)) mg/dl POC Glucose (70-99) mg/dl Lactate 0.7 (0.4-2.0) mmol/L Calcium (8.6-10.3) mg/dl Urine Color Urine Appearance (Clear) Urine pH (4.5-7.5) Ur Specific [place] (1.000-1.030) Urine Protein (Negative) Urine Glucose (UA) (Negative) Urine Ketones (Negative) Urine Blood (Negative) Urine Nitrite (Negative) Urine Bilirubin (Negative) Urine Urobilinogen (Negative) Ur Leukocyte Esterase (Negative) Urine Comment
--- NOTE | 2025-04-12 12:40 | Gastroenterology Progress Note ---
Date of Service April 12, 2025 Assessment & Plan (1) RLQ abdominal pain: Plan: Improving. OK to advance to low residue diet as tolerated. Follow-up with [facility] FLOR[facility] for colonoscopy as planned. Admission and Anticipated Discharge Date Admission Date: April 11, 2025 Supervising Physician Co-Signing Physician Notes I personally saw and examined the patient. I have reviewed the chart and agree with the documentation provided by the MANAGER SHIPPING including discussion about the assessment, treatment and plan. Briefly, right colon and inflamed cecum. Improving slowly no BM yet. We can advance his diet and continue outpatient antibiotics for 7 days. He can follow-up with GI to see if he has any symptoms and consider outpatient colonoscopy. GI has no further recommendations we will sign off please call us back with any questions Subjective Patient is a 34 yo male with RLQ pain, diarrhea/colitis on CT scan. He notes resolution of diarrhea. He has not moved his bowels since admission and has not been able to provide stool cultures. He notes improvement of his RLQ pain. 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 He is hungry and requesting more food. Review of Systems Gastrointestinal: + abdominal pain Physical Exam Constitutional: well developed Respiratory: normal respiratory effort Gastrointestinal (Abdomen): Inspection/Auscultation: abdomen normal to inspection Percussion/Palpation: + abdomen tender Psychiatric: Orientation: alert and oriented x 3 Results & Data Results & Data Vital Signs (Past 12 Hours) Vital Signs Temp Pulse Pulse Resp BP BP Pulse Ox 04/12/25 12:09 37.1 C 67 18 118/72 95 04/12/25 08:22 36.9 C 85 17 111/69 94 04/12/25 07:00 91 H 04/12/25 03:35 37.5 C 84 18 116/70 97 O2 Del Method 04/12/25 12:09 Room Air 04/12/25 08:22 Room Air 04/12/25 07:00 04/12/25 03:35 Room Air PG Care Time/CCT Total # of Minutes Spent Total Time Spent with Patient: Total time spent is greater than 50% in coordination of care (as documented) at patient's floor/unit and/or counseling patient: Coding Level of Care Code 71051 SUB INP/OBS CARE 2/35MIN Diagnoses RLQ abdominal pain R10.31
--- NOTE | 2025-04-12 14:23 | Hospitalist Progress Note ---
Date of Service April 12, 2025 Assessment & Plan (1) Sepsis: (2) Colitis: Plan: (1) Sepsis: (2) Colitis: (3) RLQ abdominal pain: Plan: 34-year-old male with PMH DM type I on insulin pump, diabetic gastroparesis, history of opioid abuse on chronic Suboxone, and other problems listed below who presents to the ED for evaluation of right lower quadrant abdominal pain. In the ED, patient has low-grade fever 37.8, tachycardic. Labs show WBC 16K, lactate 0.7, procalcitonin 0.11. CT ABD/pelvis shows prominent mass like irregular wall thickening involving the cecum measuring up to approximately 7 cm. Differential considerations would include a mucosal malignancy versus focal colitis. Follow-up with GI and colonoscopy recommended. Patient was given IVF, IV Zofran, IV Zosyn. Patient met sepsis criteria with leukocytosis, tachycardia. Low-grade fever with borderline hypotension. Lactate 0.7. Continue IV Zosyn Stool culture, C. difficile, calprotectin, pancreatic elastase Blood cultures GI consult Has been having diarrhea for the past several months. Patient follows with [facility] and is scheduled for EGD and colonoscopy on 08/16/2025 Given exam findings concerning for acute appendicitis, will also have general surgery evaluate. 04/12 Clinically improving Afebrile, leukocytosis improving Blood cultures: Pending Stool culture: Pending collection Continue IV Zosyn GI service consulted Will need colonoscopy to evaluate for possible cecal mass (4) Diabetes mellitus type 1: Plan: No signs of DKA Patient to continue own insulin pump Reports that he does not check his blood sugars. election assistant consult placed. 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 DVT PROPHYLAXIS SCDs, ambulate Disposition Admitted to [facility] at home Admission and Anticipated Discharge Date Admission Date: April 11, 2025 Subjective seen resting in bed, comfortable states he feels somewhat better today Abdominal pain still present but is better than yesterday No nausea vomiting, fevers or chills No diarrhea No other symptoms Review of Systems Review of Systems: all noted and negative except for above Physical Exam Physical Exam: General- oriented x 3, not in distress, speaks in sentences with no effort or accessory muscle use Eyes- anicteric Neck- no JVD Lungs- clear breath sounds bilaterally, no rales/wheezes Heart- normal rate, regular rhythm; no murmurs Abdomen- normal bowel sounds, nondistended, soft, (+) mild-moderate tenderness right lower quadrant Extremities- no pretibial edema, no calf tenderness Neuro- alert, oriented x 3; no gross focal neurologic deficits Skin- warm & dry Results & Data Results & Data Vital Signs (Past 12 Hours) Vital Signs Temp Pulse Pulse Resp BP BP Pulse Ox 04/12/25 12:09 37.1 C 67 18 118/72 95 04/12/25 08:22 36.9 C 85 17 111/69 94 04/12/25 07:00 91 H 04/12/25 03:35 37.5 C 84 18 116/70 97 O2 Del Method 04/12/25 12:09 Room Air 04/12/25 08:22 Room Air 04/12/25 07:00 04/12/25 03:35 Room Air all noted and reviewed including below
[2025-04-12 20:35] LABS: Adenovirus F 40/41 PCR Not Detected (NotDetected); Campylobacter PCR Not Detected (NotDetected); Enteroaggregative E.coli(EAEC) Not Detected (NotDetected); Shiga-like Toxin E.coli (STEC) Not Detected (NotDetected); Vibrio species PCR Not Detected (NotDetected)
[2025-04-12] MEDS: REMOVE NICODERM PATCH SCH (20:50)
[2025-04-13 08:09] LABS: Hematocrit (blood only) 34.6 % (42.0-52.0); Hemoglobin 12.0 g/dL (14.0-18.0); Immature Granulocytes # (auto) 0.03 K/uL (0.01-0.20); Immature Granulocytes % (auto) 0.3 %; Mean Corpuscular Hemoglobin 31.8 pg (25.0-34.0); Mean Corpuscular Volume 91.8 fL (80.0-100.0); Platelet Count 246 K/uL (130-400); RDW Standard Deviation 44.0 fL (36.4-46.3); Red Blood Count 3.77 M/uL (4.70-6.10); White Blood Count 11.15 K/ul (4.8-10.8)
[2025-04-13 08:28] VITALS: RESP 16
[2025-04-13 08:29] LABS: Alanine Aminotransferase 11.0 U/L (7-52); Albumin Globulin Ratio 1.5 (0.9-2); Albumin Level 4.0 gm/dl (3.4-5.0); Alkaline Phosphatase 54.0 U/L (34-104); Anion Gap 6.0 (3-11); Bilirubin,Total 0.5 mg/dl (0.2-1.0); Blood Urea Nitrogen 9.0 mg/dl (6-23); Calcium 9.5 mg/dl (8.6-10.3); Carbon Dioxide 31.0 mmol/L (21-32); Chloride 106.0 mmol/L (98-107); Creatinine Clr Calc Pharmacy 130.1 ml/min; Globulin 2.7 gm/dl (2.5-4.0); Glucose 135.0 mg/dl (70-99(Fasting)); Potassium 4.3 mmol/L (3.5-5.1); Sodium 143.0 mmol/L (136-145); Total Protein 6.7 gm/dl (6.0-8.3)
[2025-04-13] MEDS: ADVANCED PROBIOTIC 625 MG CAPSULE PO SCH (10:03)
--- NOTE | 2025-04-13 11:39 | Hospitalist Progress Note ---
Date of Service April 13, 2025 Assessment & Plan (1) Sepsis: (2) Colitis: Plan: (1) Sepsis: (2) Colitis: (3) RLQ abdominal pain: Plan: 34-year-old male with PMH DM type I on insulin pump, diabetic gastroparesis, history of opioid abuse on chronic Suboxone, and other problems listed below who presents to the ED for evaluation of right lower quadrant abdominal pain. In the ED, patient has low-grade fever 37.8, tachycardic. Labs show WBC 16K, lactate 0.7, procalcitonin 0.11. CT ABD/pelvis shows prominent mass like irregular wall thickening involving the cecum measuring up to approximately 7 cm. Differential considerations would include a mucosal malignancy versus focal colitis. Follow-up with GI and colonoscopy recommended. Patient was given IVF, IV Zofran, IV Zosyn. Patient met sepsis criteria with leukocytosis, tachycardia. Low-grade fever with borderline hypotension. Lactate 0.7. Continue IV Zosyn Stool culture, C. difficile, calprotectin, pancreatic elastase Blood cultures GI consult Has been having diarrhea for the past several months. Patient follows with [facility] and is scheduled for EGD and colonoscopy on 08/16/2025 Given exam findings concerning for acute appendicitis, will also have general surgery evaluate. 04/12 Clinically improving Afebrile, leukocytosis improving Blood cultures: Pending Stool culture: Pending collection Continue IV Zosyn GI service consulted Will need colonoscopy to evaluate for possible cecal mass (4) Diabetes mellitus type 1: Plan: No signs of DKA Patient to continue own insulin pump Reports that he does not check his blood sugars. convenience recycle center tech consult placed. 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
[2025-04-13 12:00] VITALS: BP 107/67; TEMP 98.6; O2SAT 94
[2025-04-13 15:09] VITALS: PULSE 85
--- NOTE | 2025-04-13 16:54 | Discharge Summary ---
Discharge Summary Date of Service April 13, 2025 Principal Dx & Hospital Course #1 = Principal Diagnosis (1) Sepsis: (2) Colitis: (1) Sepsis: (2) Colitis: (3) RLQ abdominal pain: Plan: 34-year-old male with PMH DM type I on insulin pump, diabetic gastroparesis, history of opioid abuse on chronic Suboxone, and other problems listed below who presents to the ED for evaluation of right lower quadrant abdominal pain. In the ED, patient has low-grade fever 37.8, tachycardic. Labs show WBC 16K, lactate 0.7, procalcitonin 0.11. CT ABD/pelvis shows prominent mass like irregular wall thickening involving the cecum measuring up to approximately 7 cm. Differential considerations would include a mucosal malignancy versus focal colitis. Follow-up with GI and colonoscopy recommended. Patient was given IVF, IV Zofran, IV Zosyn. Patient met sepsis criteria with leukocytosis, tachycardia. Low-grade fever with borderline hypotension. Lactate 0.7. Continue IV Zosyn Stool culture, C. difficile, calprotectin, pancreatic elastase Blood cultures GI consult Has been having diarrhea for the past several months. Patient follows with [facility] and is scheduled for EGD and colonoscopy on 08/16/2025 Given exam findings concerning for acute appendicitis, will also have general surgery evaluate. 04/12 Clinically improving Afebrile, leukocytosis improving Blood cultures: Pending Stool culture: Pending collection Continue IV Zosyn GI service consulted Will need colonoscopy to evaluate for possible cecal mass (4) Diabetes mellitus type 1: Plan: No signs of DKA Patient to continue own insulin pump Reports that he does not check his blood sugars. community nutrition educator consult placed. 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 Patient reports he developed right lower quadrant abdominal pain last evening. Reports pain has been persistent. States he has had associated nausea however no vomiting. Has been having diarrhea for the past several months. Denies bright red bleeding per rectum or dark tarry stools. No fevers or chills. Denies chest pain shortness of breath. No lightheadedness or dizziness. Denies urinary symptoms. Patient is on an insulin pump however reports he does not monitor his blood sugars. In the ED, patient has low-grade fever 37.8, tachycardic. Labs show WBC 16K, lactate 0.7, procalcitonin 0.11. CT ABD/pelvis shows prominent mass like irregular wall thickening involving the cecum measuring up to approximately 7 cm. Differential considerations would include a mucosal malignancy versus focal colitis. Follow-up with GI and colonoscopy recommended. Patient was given IVF, IV Zofran, IV Zosyn. Updated Medication List Medication Instructions Recorded Confirmed Type buprenorphine 8 mg-naloxone 2 mg 1 tab sublingual BID 06/13/21 04/11/25 History sublingual tablet gabapentin 300 mg capsule 300 mg PO TID 11/23/23 04/11/25 History insulin aspart U-100 100 unit/mL See Rx Instructions .Route .COMPLEX 11/23/23 04/11/25 History subcutaneous solution pantoprazole 40 mg tablet,delayed 40 mg PO DAILY 04/11/25 04/11/25 History release amoxicillin 875 mg-potassium 1 tab PO Q12H 8 days #16 tabs 04/13/25 Rx clavulanate 125 mg tablet Hospital Stay Data Consultations 04/11/25 14:24 Consult General Surgery Routine 04/11/25 15:58 Consult Gastroenterology Routine Diagnostic Imagining Performed 04/11/25 10:03 CT abd pelvis IV con only Stat Pending Results Patient Have Any Pending Studies at Discharge: Yes Discharge Instructions Given to Patient (Per Discharging Provider) PLEASE REFER TO YOUR NEW MEDICATION LIST AND FOLLOW INSTRUCTIONS CAREFULLY. YOUR NEW MEDICATIONS INCLUDE: Augmentin-antibiotic for intestinal infection Drink plenty of water. You will need to have a colonoscopy in 4 to 6 weeks. It is very important to have this procedure performed to rule out other causes of your condition including underlying cancer. Please discuss with your primary care physician regarding scheduling of colonoscopy. PLEASE CALL YOUR PRIMARY CARE PHYSICIAN OR RETURN TO THE ER IF WITH WORSENING OF SYMPTOMS, INCLUDING Abdominal pain, nausea or vomiting, fevers or chills counts blood in the stools, etc. FOLLOW UP WITH PRIMARY CARE PHYSICIAN in 1 week. [facility] will be calling you on Tuesday for the appointment scheduled.
== END 2025-04-13 16:17 | disposition home or self-care (01) | DRG 872 ==
LOC: ED 09:32 → 2N 12:03 → SUATTDRO 12:03 → 2N 15:34